=== PATIENT | female | born 1965 | race Caucasian/White ===

== ENCOUNTER → 2017-10-20 | Outpatient (CLI) | payer OTHER ==
[~2017-10-20] MED LIST: ABAT250V; ACID REDUCER20 MG PO; AIMOVIG AU70 MG/1 ML SC; ALMOTRIPTAN M12.5 MG PO; AMIT25 PO; ATOR20 PO; AXERT PO; BENTYL20 MG PO; BOTOX COSMETIC100 U; BUPR100; BUPR75 PO; Butalbital-Caf1 EACH PO; CHLORHEXIDINE FL1 ML MC; CLON.5; CODBUTACEC; CODBUTACEC PO; CYCL0.05OP; CYCL10 PO; CYMBALTA; DESO.05TL; DIAZ10 PO; DIAZ5 PO; DICY20 PO; DOCU100 PO; DOXY100 PO; DULO30; DULO60; EFFER K PO; ERGO50000; FLUO10 PO; FLUO20; FLUT44OIA; FROV2.5; Fludrocortison0.1 MG; Fludrocortison0.1 MG PO; HYDACE10B PO; HYDACE5 PO; HYDACE7.5; HYDHCL25 PO; HYDR1TAB94 PO; KETO10 PO; LIDOCAINE-PRILOCAINE; LORA.5; LORA.5 PO; LORA1 PO; MAGN84 PO; METO100ER; METO50ER; MINOCYCLINE; MIRALAX17 GM PO; MONT10T PO; MONT4 PO; MORP15ER; MORP30; MUPIROCIN1 GM TP; NAPR500; NORT10 PO; NUCENTA PO; NUVIGIL200 MG PO; Norflex100 MG PO; OLOP.1OPSO BOTHEYES; OMEP20ER PO; ONDA4ODT MM; ONDA8 PO; OXYACE5T; OXYACE5T PO; Omeprazole20 M1; PANT20 PO; PANT40 PO; POTCHL20ER PO; PRED20 PO; PROC10; PROM25 PO; PROM25S PR; Percocet 10-321 EACH PO; Percocet 5-3251 EACH PO; Promethegan12.5 MG; Pyridium100 MG; RANI150 PO; RXPROM25 PO; Sodium Chlorid250 M1 IV; Sudogest30 MG PO; TOPI100; TRAM50 PO; VANCO 1 GR1 GM/250 M IV; VENL25; VERA120ERB; VITAMIN D; Verotin-Gr Cap1 EACH; Verotin-Gr Cap1 EACH PO; XARELTO15 MG PO; XARELTO20 MG PO; ZOLP10 PO; Zantac150 MG PO; [UNRECOGNIZED DRUG - OTHER]; [UNRECOGNIZED DRUG - REMARK]
== END | disposition home or self-care (01) ==
LOC: LAB EV 18:19
DX: K94.23 Gastrostomy malfunction (principal)
CPT/HCPCS: 87070; 87075; 87076; 87106; 87185; 87205

== ENCOUNTER 2017-11-28 14:39 | Emergency (ER) | payer OTHER ==
[~2017-11-28] VITALS: Ht 157.5 cm; Wt 47.6 kg
[~2017-11-28 14:39] MED LIST changes: -ABAT250V; -ACID REDUCER20 MG PO; -AIMOVIG AU70 MG/1 ML SC; -ALMOTRIPTAN M12.5 MG PO; -Butalbital-Caf1 EACH PO; -CHLORHEXIDINE FL1 ML MC; -DESO.05TL; -DIAZ10 PO; -DOXY100 PO; -HYDR1TAB94 PO; -KETO10 PO; -LIDOCAINE-PRILOCAINE; -MAGN84 PO; -MIRALAX17 GM PO; -MONT4 PO; -MUPIROCIN1 GM TP; -OLOP.1OPSO BOTHEYES; -ONDA4ODT MM; -Omeprazole20 M1; -PANT20 PO; -POTCHL20ER PO; -Percocet 10-321 EACH PO; -Percocet 5-3251 EACH PO; -Promethegan12.5 MG; -Pyridium100 MG; -RANI150 PO; -Sodium Chlorid250 M1 IV; -Verotin-Gr Cap1 EACH; -Zantac150 MG PO
[2017-11-28] MEDS ORDERED: MIRALAX17 GM PO (15:25)
[2017-11-28] MEDS ORDERED: ACID REDUCER20 MG PO (15:26)
[2017-11-28] MEDS ORDERED: POTCHL20ER PO (15:27)
[2017-11-28] MEDS ORDERED: CYCL0.05OP (15:27)
[2017-11-28] MEDS ORDERED: Promethegan12.5 MG (15:27)
[2017-11-28] MEDS ORDERED: Verotin-Gr Cap1 EACH (15:27)
[2017-11-28] MEDS ORDERED: ABAT250V (15:28)
[2017-11-28] MEDS ORDERED: RANI150 PO (15:28)
[2017-11-28] MEDS ORDERED: Percocet 10-321 EACH PO (16:12)
[2018-02-14] MEDS ORDERED: NUVIGIL200 MG PO (21:19)
[2018-02-14] MEDS ORDERED: ALMOTRIPTAN M12.5 MG PO (21:19)
[2018-02-14] MEDS ORDERED: Butalbital-Caf1 EACH PO (21:20)
[2018-02-14] MEDS ORDERED: HYDR1TAB94 PO (21:20)
[2018-02-14] MEDS ORDERED: CHLORHEXIDINE FL1 ML MC (21:20)
[2018-02-14] MEDS ORDERED: DESO.05TL (21:20)
[2018-02-14] MEDS ORDERED: MIRALAX17 GM PO (21:21)
[2018-02-14] MEDS ORDERED: MONT4 PO (21:21)
[2018-02-14] MEDS ORDERED: LIDOCAINE-PRILOCAINE (21:21)
[2018-02-14] MEDS ORDERED: LORA1 PO (21:21)
[2018-02-14] MEDS ORDERED: KETO10 PO (21:21)
[2018-02-14] MEDS ORDERED: MUPIROCIN1 GM TP (21:22)
[2018-02-14] MEDS ORDERED: OLOP.1OPSO BOTHEYES (21:22)
[2018-02-14] MEDS ORDERED: Pyridium100 MG (21:22)
[2018-02-14] MEDS ORDERED: Omeprazole20 M1 (21:22)
[2018-02-14] MEDS ORDERED: ONDA4ODT MM (21:22)
[2018-04-09] MEDS ORDERED: DIAZ10 PO (10:36)
[2018-04-09] MEDS ORDERED: Percocet 5-3251 EACH PO (15:44)
[2018-04-16] MEDS ORDERED: PANT20 PO (09:59)
[2018-04-16] MEDS ORDERED: Fludrocortison0.1 MG PO (10:00)
[2018-07-10] MEDS ORDERED: Zantac150 MG PO (09:17)
[2018-08-03] MEDS ORDERED: DOXY100 PO (09:36)
== END 2017-11-28 16:25 | disposition home or self-care (01) ==
LOC: ER 14:39
DX: G89.18 Other acute postprocedural pain (principal); R10.9 Unspecified abdominal pain; Z98.84 Bariatric surgery status; Z88.5 Allergy status to narcotic agent; Z88.2 Allergy status to sulfonamides; Z88.1 Allergy status to other antibiotic agents; Z88.8 Allergy status to other drugs, medicaments and biological substances; Z79.899 Other long term (current) drug therapy; Z86.14 Personal history of Methicillin resistant Staphylococcus aureus infection
CPT/HCPCS: 74018; 99283; Q9963

== ENCOUNTER 2017-12-18 11:36 | Emergency (ER) | payer OTHER ==
[~2017-12-18] VITALS: Ht 157.5 cm; Wt 48.1 kg
[~2017-12-18 11:36] MED LIST changes: +ABAT250V; +ACID REDUCER20 MG PO; +MIRALAX17 GM PO; +POTCHL20ER PO; +Percocet 10-321 EACH PO; +Promethegan12.5 MG; +RANI150 PO; +Verotin-Gr Cap1 EACH
== END 2017-12-18 16:27 | disposition home or self-care (01) ==
LOC: ER 11:36
DX: T85.848A Pain due to other internal prosthetic devices, implants and grafts, initial encounter (principal); G43.909 Migraine, unspecified, not intractable, without status migrainosus; M79.7 Fibromyalgia; Z88.2 Allergy status to sulfonamides; Z88.1 Allergy status to other antibiotic agents; Z88.8 Allergy status to other drugs, medicaments and biological substances; Z88.6 Allergy status to analgesic agent; Z79.2 Long term (current) use of antibiotics; Z79.899 Other long term (current) drug therapy; Z90.710 Acquired absence of both cervix and uterus; Z98.890 Other specified postprocedural states
CPT/HCPCS: 74018; 99283; Q9963

== ENCOUNTER → 2018-02-25 | Outpatient (CLI) | payer OTHER ==
[~2018-02-25] MED LIST changes: +ALMOTRIPTAN M12.5 MG PO; +Butalbital-Caf1 EACH PO; +CHLORHEXIDINE FL1 ML MC; +DESO.05TL; +HYDR1TAB94 PO; +KETO10 PO; +LIDOCAINE-PRILOCAINE; +MONT4 PO; +MUPIROCIN1 GM TP; +OLOP.1OPSO BOTHEYES; +ONDA4ODT MM; +Omeprazole20 M1; +Pyridium100 MG
[2018-02-25 18:52] LABS: Appearance, Urine Clear (Clear); Blood, Urine 1+ (Neg); Color, Urine Yellow (P-Yellow); Glucose Qualitative, Urine Neg (Neg); Ketones, Urine 1+ (Neg); Leukocyte Esterase, Urine 2+ (Neg); Nitrite, Urine Neg (Neg); Protein, Urine 2+ (Neg); Urobilinogen, Urine NORM (Normal)
[2018-02-25 19:05] LABS: Bilirubin, Urine 1+ (Neg)
[2018-02-25 19:06] LABS: Calcium Oxalate Crystals Few /hpf
[2018-02-25 19:07] LABS: Bacteria Few /hpf; Squamous Epithelial Cells Few /hpf (Few)
== END ==
LOC: LAB SHORT 16:11 → LAB 16:11 → LAB EV 16:11
PROVIDERS: Physician Assistant
DX: R30.0 Dysuria (principal)
CPT/HCPCS: 81001; 87086

== ENCOUNTER → 2018-03-14 | Outpatient (CLI) | payer OTHER ==
[2018-03-14 11:02] LABS: BASOPHILS ABSOLUTE AUTO 0.02 K/mm3 (0.00-0.23); BASOPHILS PERCENT AUTO 1 % (0-2); EOSINOPHILS ABSOLUTE AUTO 0.28 K/mm3 (0.00-0.68); EOSINOPHILS PERCENT AUTO 7 % (0-6); Hematocrit 33.6 % (33.0-51.0); Hemoglobin 11.2 g/dL (11.5-16.0); IMMATURE GRAN PERCENT AUTO 0 % (0-1); LYMPHOCYTES ABSOLUTE AUTO 1.53 K/mm3 (0.84-5.20); LYMPHOCYTES PERCENT AUTO 38 % (21-46); MONOCYTES ABSOLUTE AUTO 0.31 K/mm3 (0.16-1.47); MONOCYTES PERCENT AUTO 8 % (4-13); Mean Corpuscular HGB 28.6 pg (26.0-34.0); Mean Corpuscular HGB Conc 33.3 g/dL (31.5-36.5); Mean Corpuscular Volume 86 fL (80-100); Mean Platelet Volume 11.6 fL (9.1-12.4); NEUTROPHILS ABSOLUTE AUTO 1.89 K/mm3 (1.96-9.15); NEUTROPHILS PERCENT AUTO 47 % (41-73); Platelet Count 167 K/mm3 (150-400); RDW Coefficient Variation 13.5 % (11.7-14.2); RDW Standard Deviation 42.4 fL (35.1-46.3); Red Blood Cell Count 3.92 M/mm3 (3.80-5.20); White Blood Cell Count 4.03 K/mm3 (4.00-11.30)
[2018-03-14 11:14] LABS: Albumin, Blood 4.1 g/dL (3.4-5.0); Albumin/Globulin Ratio 1.4 (0.8-1.8); Bilirubin, Total 0.4 mg/dL (0.1-1.0); Bun/Creatinine Ratio 11.9 (12.0-20.0); Calcium, Blood 8.7 mg/dL (8.5-10.1); Creatinine, Blood 1.01 mg/dL (0.40-1.00); Potassium, Blood 3.4 mmol/L (3.5-5.5); Total Protein, Blood 7.1 g/dL (6.4-8.2)
== END | disposition home or self-care (01) ==
LOC: LAB EV 10:59 → LAB SHORT 10:59
PROVIDERS: General Practice
DX: E86.0 Dehydration (principal)
CPT/HCPCS: 80053; 83690; 85025

== ENCOUNTER 2018-04-06 00:31 | Day surgery (SDC) | payer OTHER | END 2018-04-06 10:09 | disposition home or self-care (01) | LOC: ATC 00:31 | DX: E86.0 Dehydration (principal); R11.2 Nausea with vomiting, unspecified; Z98.84 Bariatric surgery status; K21.9 Gastro-esophageal reflux disease without esophagitis; M79.7 Fibromyalgia | CPT/HCPCS: 96360; J7030 ==

== ENCOUNTER 2018-04-14 00:39 | Day surgery (SDC) | payer OTHER ==
[~2018-04-14 00:39] MED LIST changes: +DIAZ10 PO; +Percocet 5-3251 EACH PO
[2018-04-16] MEDS ORDERED: PANT20 PO (09:59)
[2018-04-16] MEDS ORDERED: Fludrocortison0.1 MG PO (10:00)
== END 2018-04-14 11:30 | disposition home or self-care (01) ==
LOC: ATC 00:39
DX: E86.0 Dehydration (principal); Z98.84 Bariatric surgery status; R11.2 Nausea with vomiting, unspecified
CPT/HCPCS: 96361; 96374; C9113; J7030

== ENCOUNTER 2018-04-30 00:12 | Day surgery (SDC) | payer OTHER ==
[~2018-04-30 00:12] MED LIST changes: +PANT20 PO
== END 2018-04-30 11:39 | disposition home or self-care (01) ==
LOC: ATC 00:12
DX: E86.0 Dehydration (principal); Z98.84 Bariatric surgery status; R11.2 Nausea with vomiting, unspecified
CPT/HCPCS: 96360; J7030

== ENCOUNTER 2018-05-07 00:19 | Day surgery (SDC) | payer OTHER | END 2018-05-07 12:15 | disposition home or self-care (01) | LOC: ATC 00:19 | DX: E86.0 Dehydration (principal); Z98.84 Bariatric surgery status; R11.2 Nausea with vomiting, unspecified; R62.7 Adult failure to thrive | CPT/HCPCS: 96360; 96361; J7030 ==

== ENCOUNTER 2018-05-14 00:27 | Day surgery (SDC) | payer OTHER | END 2018-05-14 11:11 | disposition home or self-care (01) | LOC: ATC 00:27 | DX: E86.0 Dehydration (principal); Z98.84 Bariatric surgery status; R11.2 Nausea with vomiting, unspecified | CPT/HCPCS: 96360; J7030 ==

== ENCOUNTER 2018-05-19 07:20 | Day surgery (SDC) | payer OTHER | END 2018-05-19 11:05 | disposition home or self-care (01) | LOC: ATC 07:20 | DX: E86.0 Dehydration (principal); R11.2 Nausea with vomiting, unspecified; Z98.84 Bariatric surgery status | CPT/HCPCS: 96360; 96361; J7030 ==

== ENCOUNTER 2018-05-21 00:03 | Day surgery (SDC) | payer OTHER | END 2018-05-21 11:35 | disposition home or self-care (01) | LOC: ATC 00:03 | DX: E86.0 Dehydration (principal); K91.0 Vomiting following gastrointestinal surgery; Z98.84 Bariatric surgery status | CPT/HCPCS: 96360; 96361; J7030 ==

== ENCOUNTER 2018-06-02 00:03 | Day surgery (SDC) | payer OTHER | END 2018-06-02 11:15 | disposition home or self-care (01) | LOC: ATC 00:03 | DX: E86.0 Dehydration (principal); Z98.84 Bariatric surgery status; R11.2 Nausea with vomiting, unspecified | CPT/HCPCS: 96360; J7030 ==

== ENCOUNTER 2018-06-05 00:13 | Day surgery (SDC) | payer OTHER | END 2018-06-05 17:53 | disposition home or self-care (01) | LOC: ATC 00:13 | DX: E86.0 Dehydration (principal); Z98.84 Bariatric surgery status; R11.2 Nausea with vomiting, unspecified | CPT/HCPCS: 36569; 96360; 96361; C1751; J7030 ==

== ENCOUNTER 2018-06-08 00:13 | Day surgery (SDC) | payer OTHER | END 2018-06-08 11:45 | disposition home or self-care (01) | LOC: ATC 00:13 | DX: E86.0 Dehydration (principal); K91.0 Vomiting following gastrointestinal surgery; Z98.84 Bariatric surgery status | CPT/HCPCS: 96360; 96361; J7030 ==

== ENCOUNTER 2018-06-11 00:31 | Day surgery (SDC) | payer OTHER ==
[2018-06-11] MEDS ORDERED: Sodium Chlorid250 M1 IV (09:47)
== END 2018-06-11 11:55 | disposition home or self-care (01) ==
LOC: ATC 00:31
DX: E86.0 Dehydration (principal); K91.0 Vomiting following gastrointestinal surgery; Z98.84 Bariatric surgery status
CPT/HCPCS: 96360; 96361; J7030

== ENCOUNTER 2018-06-16 00:14 | Day surgery (SDC) | payer OTHER ==
[~2018-06-16 00:14] MED LIST changes: +Sodium Chlorid250 M1 IV
== END 2018-06-16 09:59 | disposition home or self-care (01) ==
LOC: ATC 00:14
DX: E86.0 Dehydration (principal); K91.0 Vomiting following gastrointestinal surgery; Z98.84 Bariatric surgery status
CPT/HCPCS: 96360; 96361; J7030

== ENCOUNTER 2018-06-18 00:16 | Day surgery (SDC) | payer OTHER | END 2018-06-18 12:12 | disposition home or self-care (01) | LOC: ATC 00:16 | DX: E86.0 Dehydration (principal); K91.0 Vomiting following gastrointestinal surgery; Z98.84 Bariatric surgery status | CPT/HCPCS: 96360; 96361; J7030 ==

== ENCOUNTER 2018-06-22 00:33 | Day surgery (SDC) | payer OTHER | END 2018-06-22 12:50 | disposition home or self-care (01) | LOC: ATC 00:33 | DX: E86.0 Dehydration (principal); R11.2 Nausea with vomiting, unspecified; Z98.84 Bariatric surgery status | CPT/HCPCS: 96360; 96361; J7030 ==

== ENCOUNTER 2018-06-26 00:22 | Day surgery (SDC) | payer OTHER ==
[2018-06-26] MEDS ORDERED: DOXY100 PO (10:48)
== END 2018-06-26 12:17 | disposition home or self-care (01) ==
LOC: ATC 00:22
DX: E86.0 Dehydration (principal); K91.0 Vomiting following gastrointestinal surgery; Z98.84 Bariatric surgery status
CPT/HCPCS: 96360; 96361; J7030

== ENCOUNTER 2018-07-20 08:03 | Day surgery (SDC) | payer OTHER ==
[~2018-07-20 08:03] MED LIST changes: +DOXY100 PO; +Zantac150 MG PO
== END 2018-07-20 12:03 | disposition home or self-care (01) ==
LOC: ATC 08:03
DX: D50.8 Other iron deficiency anemias (principal); E87.6 Hypokalemia
CPT/HCPCS: 96360; 96361; J7030

== ENCOUNTER 2018-07-24 01:13 | Day surgery (SDC) | payer OTHER ==
[2018-07-24] MEDS ORDERED: MAGN84 PO (09:52)
[2018-07-24] MEDS ORDERED: AIMOVIG AU70 MG/1 ML SC (09:52)
[2018-08-03] MEDS ORDERED: DOXY100 PO (09:36)
== END 2018-07-24 11:53 | disposition home or self-care (01) ==
LOC: ATC 01:13
DX: D50.8 Other iron deficiency anemias (principal); Z90.3 Acquired absence of stomach [part of]; E46 Unspecified protein-calorie malnutrition; E87.6 Hypokalemia
CPT/HCPCS: 96360; 96361; J7030

== ENCOUNTER 2018-07-26 12:20 | Emergency (ER) | payer OTHER ==
[~2018-07-26] VITALS: Ht 167.6 cm; Wt 59.0 kg
[~2018-07-26 12:20] MED LIST changes: +AIMOVIG AU70 MG/1 ML SC; +MAGN84 PO
[2018-07-26 13:07] LABS: Anion Gap 9 mmol/L (6-16); Blood Urea Nitrogen 10 mg/dL (8-24); Bun/Creatinine Ratio 11.8 (12.0-20.0); CO2, Blood 27 mmol/L (21-32); Calcium, Blood 8.1 mg/dL (8.5-10.1); Chloride, Blood 104 mmol/L (98-108); Creatinine, Blood 0.85 mg/dL (0.40-1.00); Glomerular Filtration Rate >60 (60-); Glucose, Blood 86 mg/dL (70-99); Magnesium, Blood 1.8 mg/dL (1.6-2.4); Potassium, Blood 3.5 mmol/L (3.5-5.5); Sodium, Blood 140 mmol/L (136-145)
== END 2018-07-26 15:00 | disposition home or self-care (01) ==
LOC: ER 12:20
PROVIDERS: Emergency Medicine
DX: R51 Headache (principal); Z88.5 Allergy status to narcotic agent; Z88.2 Allergy status to sulfonamides; Z91.048 Other nonmedicinal substance allergy status; Z88.1 Allergy status to other antibiotic agents; Z88.8 Allergy status to other drugs, medicaments and biological substances; Z79.899 Other long term (current) drug therapy
CPT/HCPCS: 80048; 83735; 96361; 96374; 96375; 99283-25; J0780; J1200; J1885; J7120

== ENCOUNTER 2018-09-06 10:43 | Day surgery (SDC) | payer OTHER | END 2018-09-06 22:44 | disposition home or self-care (01) | LOC: ATC 10:43 | DX: E86.0 Dehydration (principal); Z98.84 Bariatric surgery status; R11.2 Nausea with vomiting, unspecified | CPT/HCPCS: 96360; J7030 ==

== ENCOUNTER 2018-09-07 00:44 | Day surgery (SDC) | payer OTHER | END 2018-09-07 11:25 | disposition home or self-care (01) | LOC: ATC 00:44 | DX: E86.0 Dehydration (principal); Z98.84 Bariatric surgery status; R11.2 Nausea with vomiting, unspecified | CPT/HCPCS: 96360; 96361; J7030 ==

== ENCOUNTER 2018-09-11 00:05 | Day surgery (SDC) | payer OTHER | END 2018-09-11 22:50 | disposition home or self-care (01) | LOC: ATC 00:05 | DX: E86.0 Dehydration (principal); Z98.84 Bariatric surgery status; R11.2 Nausea with vomiting, unspecified | CPT/HCPCS: 96360; 96361; J7030 ==

== ENCOUNTER 2018-09-14 00:03 | Day surgery (SDC) | payer OTHER ==
[2018-09-14] MEDS ORDERED: DOXY100 PO ×2 (09:41→09:42)
== END 2018-09-14 11:45 | disposition home or self-care (01) ==
LOC: ATC 00:03
DX: E86.0 Dehydration (principal); R11.2 Nausea with vomiting, unspecified; Z98.84 Bariatric surgery status
CPT/HCPCS: 96360; 96361; J7030

== ENCOUNTER 2018-09-18 02:26 | Day surgery (SDC) | payer OTHER | END 2018-09-18 12:01 | disposition home or self-care (01) | LOC: ATC 02:26 | DX: E86.0 Dehydration (principal); Z98.84 Bariatric surgery status; R11.2 Nausea with vomiting, unspecified | CPT/HCPCS: 96360; 96361; J7030 ==

== ENCOUNTER 2018-09-21 00:08 | Day surgery (SDC) | payer OTHER | END 2018-09-21 11:48 | disposition home or self-care (01) | LOC: ATC 00:08 | DX: E86.0 Dehydration (principal); Z98.84 Bariatric surgery status; R11.2 Nausea with vomiting, unspecified | CPT/HCPCS: 96360; 96361; J7030 ==

== ENCOUNTER 2018-09-25 01:26 | Day surgery (SDC) | payer OTHER | END 2018-09-25 12:03 | disposition home or self-care (01) | LOC: ATC 01:26 | DX: E86.0 Dehydration (principal); Z98.84 Bariatric surgery status; R11.2 Nausea with vomiting, unspecified | CPT/HCPCS: 96360; 96361; J7030 ==

== ENCOUNTER 2018-09-27 10:00 | Day surgery (SDC) | payer OTHER | END 2018-09-27 16:44 | disposition home or self-care (01) | LOC: ATC 10:00 | DX: E86.0 Dehydration (principal); Z98.84 Bariatric surgery status; R11.2 Nausea with vomiting, unspecified | CPT/HCPCS: 96360; 96361; J7030 ==

== ENCOUNTER 2018-09-28 00:09 | Day surgery (SDC) | payer OTHER ==
--- NOTE | 2018-09-28 10:27 | NUR ---
PT DECLINED SECOND LITER OF IVF TODAY.
== END 2018-09-28 10:18 | disposition home or self-care (01) ==
LOC: ATC 00:09
DX: E86.0 Dehydration (principal); Z98.84 Bariatric surgery status; R11.2 Nausea with vomiting, unspecified
CPT/HCPCS: 96360; J7030

== ENCOUNTER 2018-10-02 00:18 | Day surgery (SDC) | payer OTHER ==
[2018-10-02] MEDS ORDERED: CLIN300 PO (09:29)
== END 2018-10-02 11:35 | disposition home or self-care (01) ==
LOC: ATC 00:18
DX: E86.0 Dehydration (principal); Z98.84 Bariatric surgery status; R11.2 Nausea with vomiting, unspecified
CPT/HCPCS: 96360; 96361; J7030

== ENCOUNTER 2018-10-05 00:07 | Day surgery (SDC) | payer OTHER ==
[~2018-10-05 00:07] MED LIST changes: +CLIN300 PO
== END 2018-10-05 23:23 | disposition home or self-care (01) ==
LOC: ATC 00:07
DX: E86.0 Dehydration (principal); Z98.84 Bariatric surgery status; R11.2 Nausea with vomiting, unspecified
CPT/HCPCS: 96360; 96361; J7030

== ENCOUNTER 2018-10-08 00:14 | Day surgery (SDC) | payer OTHER | END 2018-10-08 11:45 | disposition home or self-care (01) | LOC: ATC 00:14 | DX: E86.0 Dehydration (principal); Z98.84 Bariatric surgery status; R11.2 Nausea with vomiting, unspecified; R11.0 Nausea; E46 Unspecified protein-calorie malnutrition | CPT/HCPCS: 96360; 96361; J1642; J7030 ==

== ENCOUNTER 2018-10-12 00:09 | Day surgery (SDC) | payer OTHER ==
--- NOTE | 2018-10-12 09:47 | NUR ---
PT C/O RIGHT ELBOW DISCOMFORT THAT SHE NOTICED WHEN SHE WOKE UP THIS MORNING. NO REDNESS, HEAT OR SWELLING NOTED AT THE ELBOW. PT INSTRUCTED TO APPLY HEAT AND ELEVATED HER ARM. SHE REPORTS A HISTORY OF A BLOOD CLOT IN THE PAST. PT STATES SHE WILL CONTACT MD IF SHE STARTS TO HAVE REDNESS, SWELLING, CMS CHANGES TO HER RIGHT HAND.
== END 2018-10-12 11:44 | disposition home or self-care (01) ==
LOC: ATC 00:09
DX: E86.0 Dehydration (principal); Z98.84 Bariatric surgery status; R11.2 Nausea with vomiting, unspecified
CPT/HCPCS: 96360; 96361; J1642; J7030

== ENCOUNTER 2018-10-16 00:51 | Day surgery (SDC) | payer OTHER | END 2018-10-16 12:01 | disposition home or self-care (01) | LOC: ATC 00:51 | DX: E86.0 Dehydration (principal); Z98.84 Bariatric surgery status; R11.2 Nausea with vomiting, unspecified | CPT/HCPCS: 96360; 96361; J1642; J7030 ==

== ENCOUNTER 2018-10-19 07:38 | Day surgery (SDC) | payer OTHER | END 2018-10-19 11:40 | disposition home or self-care (01) | LOC: ATC 07:38 | DX: E86.0 Dehydration (principal); Z98.84 Bariatric surgery status; R11.0 Nausea; E46 Unspecified protein-calorie malnutrition; Z98.890 Other specified postprocedural states; Z87.19 Personal history of other diseases of the digestive system; Z90.3 Acquired absence of stomach [part of] | CPT/HCPCS: 96360; 96361; J1642; J7030 ==

== ENCOUNTER 2018-10-23 07:42 | Day surgery (SDC) | payer OTHER | END 2018-10-23 11:48 | disposition home or self-care (01) | LOC: ATC 07:42 | DX: E86.0 Dehydration (principal); Z98.84 Bariatric surgery status; R11.2 Nausea with vomiting, unspecified | CPT/HCPCS: 96360; 96361; J1642; J7030 ==

== ENCOUNTER 2018-10-26 08:19 | Day surgery (SDC) | payer OTHER | END 2018-10-26 13:00 | disposition home or self-care (01) | LOC: ATC 08:19 | DX: K90.9 Intestinal malabsorption, unspecified (principal); K21.9 Gastro-esophageal reflux disease without esophagitis; Z98.890 Other specified postprocedural states; Z45.2 Encounter for adjustment and management of vascular access device; Z87.19 Personal history of other diseases of the digestive system | CPT/HCPCS: 96360; 96361; J1642; J7030 ==

== ENCOUNTER 2018-10-30 00:19 | Day surgery (SDC) | payer OTHER | END 2018-10-30 11:36 | disposition home or self-care (01) | LOC: ATC 00:19 | DX: Z98.84 Bariatric surgery status (principal); K90.9 Intestinal malabsorption, unspecified; K21.9 Gastro-esophageal reflux disease without esophagitis; Z98.890 Other specified postprocedural states; Z87.19 Personal history of other diseases of the digestive system; Z90.3 Acquired absence of stomach [part of]; R11.0 Nausea | CPT/HCPCS: 96360; 96361; J1642; J7030 ==

== ENCOUNTER 2018-11-02 00:09 | Day surgery (SDC) | payer OTHER | END 2018-11-02 22:44 | disposition home or self-care (01) | LOC: ATC 00:09 | DX: Z98.84 Bariatric surgery status (principal); E46 Unspecified protein-calorie malnutrition; K90.9 Intestinal malabsorption, unspecified; K21.9 Gastro-esophageal reflux disease without esophagitis | CPT/HCPCS: 96360; 96361; J1642; J7030 ==

== ENCOUNTER 2018-11-03 12:27 | Day surgery (SDC) | payer OTHER ==
[~2018-11-03] VITALS: Ht 157.5 cm; Wt 44.2 kg
== END 2018-11-03 15:07 | disposition home or self-care (01) ==
LOC: ORSCSDS 12:27
DX: K21.9 Gastro-esophageal reflux disease without esophagitis (principal); R11.2 Nausea with vomiting, unspecified; Z98.84 Bariatric surgery status; F41.0 Panic disorder [episodic paroxysmal anxiety]; G47.33 Obstructive sleep apnea (adult) (pediatric); G25.81 Restless legs syndrome; M79.7 Fibromyalgia; Z79.899 Other long term (current) drug therapy
CPT/HCPCS: 88305; 88342; J0690; J2250; J7120

== ENCOUNTER 2018-11-06 00:24 | Day surgery (SDC) | payer OTHER ==
[2018-11-06] MEDS ORDERED: HEP LOCK F IV (10:28)
== END 2018-11-06 12:22 | disposition home or self-care (01) ==
LOC: ATC 00:24
DX: K90.9 Intestinal malabsorption, unspecified (principal); Z98.84 Bariatric surgery status; Z90.3 Acquired absence of stomach [part of]; K21.9 Gastro-esophageal reflux disease without esophagitis; Z98.890 Other specified postprocedural states; Z87.19 Personal history of other diseases of the digestive system; R11.0 Nausea
CPT/HCPCS: 96360; 96361; J1642; J7030

== ENCOUNTER 2018-11-09 00:24 | Day surgery (SDC) | payer OTHER ==
[~2018-11-09 00:24] MED LIST changes: +HEP LOCK F IV
== END 2018-11-09 12:10 | disposition home or self-care (01) ==
LOC: ATC 00:24
DX: K90.9 Intestinal malabsorption, unspecified (principal); K21.9 Gastro-esophageal reflux disease without esophagitis; Z98.84 Bariatric surgery status; Z98.890 Other specified postprocedural states
CPT/HCPCS: 96360; 96361; J1642; J7030

== ENCOUNTER 2018-11-13 00:47 | Day surgery (SDC) | payer OTHER ==
[2018-11-13] MEDS ORDERED: OCTREOTIDE SC (11:02)
== END 2018-11-13 12:03 | disposition home or self-care (01) ==
LOC: ATC 00:47
DX: K90.9 Intestinal malabsorption, unspecified (principal); E46 Unspecified protein-calorie malnutrition; K21.9 Gastro-esophageal reflux disease without esophagitis; Z98.84 Bariatric surgery status; Z98.890 Other specified postprocedural states; Z87.19 Personal history of other diseases of the digestive system; Z95.828 Presence of other vascular implants and grafts
CPT/HCPCS: J1642; J7030

== ENCOUNTER 2018-11-18 00:07 | Day surgery (SDC) | payer OTHER ==
[~2018-11-18 00:07] MED LIST changes: +OCTREOTIDE SC
--- NOTE | 2018-11-18 16:11 | NUR ---
PT RECEIVED 2 L NS. TOLERATED WELL
== END 2018-11-18 16:09 | disposition home or self-care (01) ==
LOC: ATC 00:07
DX: Z98.84 Bariatric surgery status (principal); K90.9 Intestinal malabsorption, unspecified; E86.0 Dehydration; D21.9 Benign neoplasm of connective and other soft tissue, unspecified; K21.9 Gastro-esophageal reflux disease without esophagitis; Z98.890 Other specified postprocedural states; Z87.19 Personal history of other diseases of the digestive system
CPT/HCPCS: 96360; J1642; J7030

== ENCOUNTER 2018-11-20 00:10 | Day surgery (SDC) | payer OTHER ==
[2018-11-20] MEDS ORDERED: Normal Saline Fl2 ML IV (10:20)
== END 2018-11-20 12:22 | disposition home or self-care (01) ==
LOC: ATC 00:10
DX: E86.0 Dehydration (principal); Z98.84 Bariatric surgery status; K90.9 Intestinal malabsorption, unspecified; K21.9 Gastro-esophageal reflux disease without esophagitis; Z98.890 Other specified postprocedural states; Z87.19 Personal history of other diseases of the digestive system
CPT/HCPCS: 96360; 96361; J1642; J7030

== ENCOUNTER 2018-11-23 00:35 | Day surgery (SDC) | payer OTHER ==
[~2018-11-23 00:35] MED LIST changes: +Normal Saline Fl2 ML IV
== END 2018-11-23 12:24 | disposition home or self-care (01) ==
LOC: ATC 00:35
DX: Z98.84 Bariatric surgery status (principal); E46 Unspecified protein-calorie malnutrition; R11.0 Nausea; K21.9 Gastro-esophageal reflux disease without esophagitis; Z98.890 Other specified postprocedural states; Z87.19 Personal history of other diseases of the digestive system; M79.7 Fibromyalgia
CPT/HCPCS: J1642; J7030

== ENCOUNTER 2018-11-27 00:46 | Day surgery (SDC) | payer OTHER | END 2018-11-27 11:15 | disposition home or self-care (01) | LOC: ATC 00:46 | DX: E86.0 Dehydration (principal); R11.2 Nausea with vomiting, unspecified; Z98.84 Bariatric surgery status; K90.9 Intestinal malabsorption, unspecified; K21.9 Gastro-esophageal reflux disease without esophagitis; Z98.890 Other specified postprocedural states; Z87.19 Personal history of other diseases of the digestive system | CPT/HCPCS: 96360; 96361; J1642; J7030 ==

== ENCOUNTER 2018-11-30 00:07 | Day surgery (SDC) | payer OTHER | END 2018-11-30 11:08 | disposition home or self-care (01) | LOC: ATC 00:07 | DX: E86.0 Dehydration (principal); R11.2 Nausea with vomiting, unspecified; Z98.84 Bariatric surgery status; K90.9 Intestinal malabsorption, unspecified; K21.9 Gastro-esophageal reflux disease without esophagitis; Z98.890 Other specified postprocedural states; Z87.19 Personal history of other diseases of the digestive system | CPT/HCPCS: 96360; 96361; J1642; J7030 ==

== ENCOUNTER 2018-12-04 00:26 | Day surgery (SDC) | payer OTHER | END 2018-12-04 12:00 | disposition home or self-care (01) | LOC: ATC 00:26 | DX: R11.0 Nausea (principal); K90.9 Intestinal malabsorption, unspecified; K21.0 Gastro-esophageal reflux disease with esophagitis; F32.9 Major depressive disorder, single episode, unspecified; G43.909 Migraine, unspecified, not intractable, without status migrainosus; F41.0 Panic disorder [episodic paroxysmal anxiety]; Z79.899 Other long term (current) drug therapy; Z98.84 Bariatric surgery status; Z98.890 Other specified postprocedural states | CPT/HCPCS: 96360; 96361; J1642; J7030 ==

== ENCOUNTER 2018-12-11 00:20 | Day surgery (SDC) | payer OTHER | END 2018-12-11 11:15 | disposition home or self-care (01) | LOC: ATC 00:20 | DX: K90.9 Intestinal malabsorption, unspecified (principal); K21.9 Gastro-esophageal reflux disease without esophagitis; Z98.84 Bariatric surgery status; Z87.19 Personal history of other diseases of the digestive system; Z98.890 Other specified postprocedural states | CPT/HCPCS: 96360; 96361; J1642; J7030 ==

== ENCOUNTER 2018-12-14 00:31 | Day surgery (SDC) | payer OTHER | END 2018-12-14 12:16 | disposition home or self-care (01) | LOC: ATC 00:31 | DX: R11.0 Nausea (principal); E46 Unspecified protein-calorie malnutrition; F32.9 Major depressive disorder, single episode, unspecified; K21.9 Gastro-esophageal reflux disease without esophagitis; F41.0 Panic disorder [episodic paroxysmal anxiety]; Z87.19 Personal history of other diseases of the digestive system; Z98.890 Other specified postprocedural states; Z90.3 Acquired absence of stomach [part of] | CPT/HCPCS: 96360; 96361; J1642; J7030 ==

== ENCOUNTER 2018-12-17 09:44 | Day surgery (SDC) | payer OTHER | END 2018-12-17 12:13 | disposition home or self-care (01) | LOC: ATC 09:44 | DX: R11.0 Nausea (principal); K90.9 Intestinal malabsorption, unspecified; K21.9 Gastro-esophageal reflux disease without esophagitis; F32.9 Major depressive disorder, single episode, unspecified; Z98.84 Bariatric surgery status; Z98.890 Other specified postprocedural states; Z87.19 Personal history of other diseases of the digestive system | CPT/HCPCS: 96360; 96361; J1642; J7030 ==

== ENCOUNTER 2018-12-20 09:49 | Day surgery (SDC) | payer OTHER | END 2018-12-20 12:19 | disposition home or self-care (01) | LOC: ATC 09:49 | DX: Z45.2 Encounter for adjustment and management of vascular access device (principal); E46 Unspecified protein-calorie malnutrition; K90.9 Intestinal malabsorption, unspecified; K21.9 Gastro-esophageal reflux disease without esophagitis; Z98.84 Bariatric surgery status | CPT/HCPCS: 96360; 96361; J1642; J7030 ==

== ENCOUNTER 2018-12-21 08:57 | Day surgery (SDC) | payer OTHER | END 2018-12-21 12:14 | disposition home or self-care (01) | LOC: ATC 08:57 | DX: R11.0 Nausea (principal); K90.9 Intestinal malabsorption, unspecified; F32.9 Major depressive disorder, single episode, unspecified; K21.9 Gastro-esophageal reflux disease without esophagitis; F41.0 Panic disorder [episodic paroxysmal anxiety]; Z98.84 Bariatric surgery status; Z87.19 Personal history of other diseases of the digestive system; Z98.890 Other specified postprocedural states; Z90.3 Acquired absence of stomach [part of] | CPT/HCPCS: J1642; J7030 ==

== ENCOUNTER 2018-12-25 00:39 | Day surgery (SDC) | payer OTHER | END 2018-12-25 12:19 | disposition home or self-care (01) | LOC: ATC 00:39 | DX: R11.0 Nausea (principal); K90.9 Intestinal malabsorption, unspecified; K21.9 Gastro-esophageal reflux disease without esophagitis; Z98.84 Bariatric surgery status; Z87.19 Personal history of other diseases of the digestive system; Z98.890 Other specified postprocedural states | CPT/HCPCS: 96360; 96361; J1642; J7030 ==

== ENCOUNTER 2018-12-28 00:11 | Day surgery (SDC) | payer OTHER | END 2018-12-28 12:03 | disposition home or self-care (01) | LOC: ATC 00:11 | DX: R11.0 Nausea (principal); E46 Unspecified protein-calorie malnutrition; Z90.3 Acquired absence of stomach [part of]; Z98.890 Other specified postprocedural states; Z87.19 Personal history of other diseases of the digestive system; Z79.899 Other long term (current) drug therapy | CPT/HCPCS: J1642; J7030 ==

== ENCOUNTER 2019-01-04 00:25 | Day surgery (SDC) | payer OTHER ==
[~2019-01-04 00:25] MED LIST changes: +IBUP400 PO
[2019-01-04 12:35] LABS: BASOPHILS ABSOLUTE AUTO 0.03 K/mm3 (0.00-0.23); BASOPHILS PERCENT AUTO 1 % (0-2); EOSINOPHILS ABSOLUTE AUTO 0.22 K/mm3 (0.00-0.68); EOSINOPHILS PERCENT AUTO 4 % (0-6); Hematocrit 38.2 % (33.0-51.0); Hemoglobin 11.3 g/dL (11.5-16.0); IMMATURE GRAN ABSOLUTE AUTO 0.01 K/mm3 (0.00-0.10); IMMATURE GRAN PERCENT AUTO 0 % (0-1); LYMPHOCYTES ABSOLUTE AUTO 2.24 K/mm3 (0.84-5.20); LYMPHOCYTES PERCENT AUTO 42 % (21-46); MONOCYTES ABSOLUTE AUTO 0.45 K/mm3 (0.16-1.47); MONOCYTES PERCENT AUTO 9 % (4-13); Mean Corpuscular HGB 29.6 pg (26.0-34.0); Mean Corpuscular HGB Conc 29.6 g/dL (31.5-36.5); Mean Corpuscular Volume 100 fL (80-100); NEUTROPHILS ABSOLUTE AUTO 2.35 K/mm3 (1.96-9.15); NEUTROPHILS PERCENT AUTO 44 % (41-73); Platelet Count 172 K/mm3 (150-400); RDW Coefficient Variation 13.9 % (11.7-14.2); RDW Standard Deviation 51.2 fL (35.1-46.3); Red Blood Cell Count 3.82 M/mm3 (3.80-5.20)
[2019-01-04 13:13] LABS: Alanine Aminotransfer (ALT/SGP 19 U/L (12-78); Albumin, Blood 3.5 g/dL (3.4-5.0); Albumin/Globulin Ratio 1.2 (0.8-1.8); Alk Phos 73 U/L (50-136); Anion Gap 6 mmol/L (6-16); Aspartate Aminotrans (AST/SGOT 15 U/L (12-37); Bilirubin, Total 0.3 mg/dL (0.1-1.0); Blood Urea Nitrogen 20 mg/dL (8-24); Bun/Creatinine Ratio 20.9 (12.0-20.0); CHOL/HDL RATIO 3.1; CO2, Blood 29 mmol/L (21-32); Calcium, Blood 8.5 mg/dL (8.5-10.1); Chloride, Blood 105 mmol/L (98-108); Cholesterol 278 mg/dL (50-200); Creatinine, Blood 0.96 mg/dL (0.40-1.00); Glomerular Filtration Rate >60 (60-); Glucose, Blood 92 mg/dL (70-99); HDL Cholesterol 89 mg/dL (>39); LDL/HDL RATIO 1.9; Low Density Lipoprotein Chol 168 mg/dL (0-110); Percent Saturation 24.8 % (15.0-50.0); Potassium, Blood 4.1 mmol/L (3.5-5.5); Sodium, Blood 140 mmol/L (136-145); Total Protein, Blood 6.5 g/dL (6.4-8.2); Triglycerides 106 mg/dL (30-160); Very Low Density Lipoprot Chol 21 mg/dL (6-32)
== END 2019-01-04 12:24 | disposition home or self-care (01) ==
LOC: ATC 00:25
PROVIDERS: Internal Medicine
DX: K91.2 Postsurgical malabsorption, not elsewhere classified (principal); K21.9 Gastro-esophageal reflux disease without esophagitis; E61.1 Iron deficiency; E53.8 Deficiency of other specified B group vitamins; E55.9 Vitamin D deficiency, unspecified; Z98.84 Bariatric surgery status; Z87.19 Personal history of other diseases of the digestive system; Z98.890 Other specified postprocedural states
CPT/HCPCS: 80053; 80061; 82306; 82607; 82728; 82746; 83540; 83550; 83970; 85025; J1642; J7030

== ENCOUNTER 2019-01-08 07:14 | Day surgery (SDC) | payer OTHER | END 2019-01-08 23:31 | disposition home or self-care (01) | LOC: ATC 07:14 | DX: K91.2 Postsurgical malabsorption, not elsewhere classified (principal); R11.0 Nausea; E55.9 Vitamin D deficiency, unspecified; E53.8 Deficiency of other specified B group vitamins; E61.1 Iron deficiency; F32.9 Major depressive disorder, single episode, unspecified; K21.9 Gastro-esophageal reflux disease without esophagitis; G43.909 Migraine, unspecified, not intractable, without status migrainosus; F41.0 Panic disorder [episodic paroxysmal anxiety]; Z98.84 Bariatric surgery status; Z98.890 Other specified postprocedural states; Z87.19 Personal history of other diseases of the digestive system; Z79.899 Other long term (current) drug therapy | CPT/HCPCS: 96360; 96361; J1642; J7030 ==

== ENCOUNTER 2019-01-15 00:08 | Day surgery (SDC) | payer OTHER | END 2019-01-15 11:00 | disposition home or self-care (01) | LOC: ATC 00:08 | DX: K91.2 Postsurgical malabsorption, not elsewhere classified (principal); E55.9 Vitamin D deficiency, unspecified; E53.8 Deficiency of other specified B group vitamins; E61.1 Iron deficiency; F32.9 Major depressive disorder, single episode, unspecified; K21.9 Gastro-esophageal reflux disease without esophagitis; G43.909 Migraine, unspecified, not intractable, without status migrainosus; F41.0 Panic disorder [episodic paroxysmal anxiety]; Z98.84 Bariatric surgery status | CPT/HCPCS: 96360; 96361; J1642; J7030 ==

== ENCOUNTER 2019-01-18 00:03 | Day surgery (SDC) | payer OTHER ==
[2019-01-18] MEDS ORDERED: DOXY100 PO (09:37)
== END 2019-01-18 11:41 | disposition home or self-care (01) ==
LOC: ATC 00:03
DX: K91.2 Postsurgical malabsorption, not elsewhere classified (principal); E55.9 Vitamin D deficiency, unspecified; E53.8 Deficiency of other specified B group vitamins; F32.9 Major depressive disorder, single episode, unspecified; E61.1 Iron deficiency; K21.9 Gastro-esophageal reflux disease without esophagitis; G43.909 Migraine, unspecified, not intractable, without status migrainosus; F41.0 Panic disorder [episodic paroxysmal anxiety]; Z79.899 Other long term (current) drug therapy; Z98.84 Bariatric surgery status; Z98.890 Other specified postprocedural states; Z87.19 Personal history of other diseases of the digestive system
CPT/HCPCS: 96360; 96361; J1642; J7030

== ENCOUNTER 2019-01-29 11:16 | Emergency (ER) | payer OTHER ==
[~2019-01-29] VITALS: Ht 160 cm; Wt 49.9 kg
[2019-01-29] MEDS ORDERED: BOTOX200 UNIT IJ (11:57)
[2019-01-29] MEDS ORDERED: MONT10T (11:57)
== END 2019-01-29 12:53 | disposition home or self-care (01) ==
LOC: ER 11:16
DX: R51 Headache (principal); I95.9 Hypotension, unspecified; M79.7 Fibromyalgia; Z88.1 Allergy status to other antibiotic agents; Z88.2 Allergy status to sulfonamides; Z88.8 Allergy status to other drugs, medicaments and biological substances; Z79.899 Other long term (current) drug therapy
CPT/HCPCS: 96372; 99283-25; J1642; J1885

== ENCOUNTER 2019-02-01 00:01 | Day surgery (SDC) | payer OTHER ==
[~2019-02-01 00:01] MED LIST changes: +BOTOX200 UNIT IJ; +MONT10T
== END 2019-02-01 23:02 | disposition home or self-care (01) ==
LOC: ATC 00:01
DX: K91.2 Postsurgical malabsorption, not elsewhere classified (principal); E55.9 Vitamin D deficiency, unspecified; E53.8 Deficiency of other specified B group vitamins; E61.1 Iron deficiency; K21.9 Gastro-esophageal reflux disease without esophagitis; Z98.84 Bariatric surgery status; Z98.890 Other specified postprocedural states; Z87.19 Personal history of other diseases of the digestive system; Z90.3 Acquired absence of stomach [part of]; Z79.899 Other long term (current) drug therapy
CPT/HCPCS: 96360; 96361; J1642; J7030

== ENCOUNTER 2019-02-12 00:16 | Day surgery (SDC) | payer OTHER | END 2019-02-12 10:59 | disposition home or self-care (01) | LOC: ATC 00:16 | DX: K91.2 Postsurgical malabsorption, not elsewhere classified (principal); E55.9 Vitamin D deficiency, unspecified; E53.8 Deficiency of other specified B group vitamins; E61.1 Iron deficiency; F32.9 Major depressive disorder, single episode, unspecified; K21.9 Gastro-esophageal reflux disease without esophagitis; G43.909 Migraine, unspecified, not intractable, without status migrainosus; F41.0 Panic disorder [episodic paroxysmal anxiety]; Z98.84 Bariatric surgery status; Z98.890 Other specified postprocedural states; Z87.19 Personal history of other diseases of the digestive system | CPT/HCPCS: 96360; 96361; J1642; J7030 ==

== ENCOUNTER 2019-02-19 00:05 | Day surgery (SDC) | payer OTHER | END 2019-02-19 10:43 | disposition home or self-care (01) | LOC: ATC 00:05 | DX: K91.2 Postsurgical malabsorption, not elsewhere classified (principal); E55.9 Vitamin D deficiency, unspecified; E53.8 Deficiency of other specified B group vitamins; E61.1 Iron deficiency; K21.9 Gastro-esophageal reflux disease without esophagitis; G43.909 Migraine, unspecified, not intractable, without status migrainosus; F32.9 Major depressive disorder, single episode, unspecified; F41.0 Panic disorder [episodic paroxysmal anxiety]; E46 Unspecified protein-calorie malnutrition; Z68.42 Body mass index [BMI] 45.0-49.9, adult; Z98.890 Other specified postprocedural states; Z87.19 Personal history of other diseases of the digestive system; Z90.3 Acquired absence of stomach [part of]; Z79.899 Other long term (current) drug therapy; Z98.84 Bariatric surgery status | CPT/HCPCS: 96360; 96361; J1642; J7030 ==

== ENCOUNTER 2019-02-28 11:20 | Emergency (ER) | payer OTHER ==
[~2019-02-28] VITALS: Ht 157.5 cm; Wt 52.2 kg
[2019-02-28 12:21] LABS: BASOPHILS ABSOLUTE AUTO 0.03 K/mm3 (0.00-0.23); BASOPHILS PERCENT AUTO 1 % (0-2); EOSINOPHILS ABSOLUTE AUTO 0.23 K/mm3 (0.00-0.68); EOSINOPHILS PERCENT AUTO 4 % (0-6); Hematocrit 32.5 % (33.0-51.0); Hemoglobin 10.3 g/dL (11.5-16.0); IMMATURE GRAN ABSOLUTE AUTO 0.02 K/mm3 (0.00-0.10); IMMATURE GRAN PERCENT AUTO 0 % (0-1); LYMPHOCYTES ABSOLUTE AUTO 1.16 K/mm3 (0.84-5.20); LYMPHOCYTES PERCENT AUTO 20 % (21-46); MONOCYTES ABSOLUTE AUTO 0.56 K/mm3 (0.16-1.47); MONOCYTES PERCENT AUTO 10 % (4-13); Mean Corpuscular HGB 28.5 pg (26.0-34.0); Mean Corpuscular HGB Conc 31.7 g/dL (31.5-36.5); Mean Corpuscular Volume 90 fL (80-100); Mean Platelet Volume 11.3 fL (9.1-12.4); NEUTROPHILS ABSOLUTE AUTO 3.77 K/mm3 (1.96-9.15); NEUTROPHILS PERCENT AUTO 65 % (41-73); Platelet Count 238 K/mm3 (150-400); RDW Coefficient Variation 13.5 % (11.7-14.2); RDW Standard Deviation 44.7 fL (35.1-46.3); Red Blood Cell Count 3.62 M/mm3 (3.80-5.20); White Blood Cell Count 5.77 K/mm3 (4.00-11.30)
[2019-02-28 12:44] LABS: Alanine Aminotransfer (ALT/SGP 22 U/L (12-78); Alk Phos 75 U/L (50-136); Anion Gap 5 mmol/L (6-16); Aspartate Aminotrans (AST/SGOT 18 U/L (12-37); Bilirubin, Total 0.2 mg/dL (0.1-1.0); Blood Urea Nitrogen 14 mg/dL (8-24); Bun/Creatinine Ratio 16.9 (12.0-20.0); CO2, Blood 26 mmol/L (21-32); Calcium, Blood 7.8 mg/dL (8.5-10.1); Chloride, Blood 111 mmol/L (98-108); Creatinine, Blood 0.83 mg/dL (0.40-1.00); Globulin, Blood 2.9 g/dL (2.2-4.0); Glomerular Filtration Rate >60 (60-); Glucose, Blood 93 mg/dL (70-99); Potassium, Blood 3.8 mmol/L (3.5-5.5); Sodium, Blood 142 mmol/L (136-145); Total Protein, Blood 5.9 g/dL (6.4-8.2)
== END 2019-02-28 15:09 | disposition home or self-care (01) ==
LOC: ER 11:20
PROVIDERS: Emergency Medicine
DX: E86.0 Dehydration (principal); Z88.5 Allergy status to narcotic agent; Z88.2 Allergy status to sulfonamides; Z91.048 Other nonmedicinal substance allergy status; Z88.1 Allergy status to other antibiotic agents; Z88.8 Allergy status to other drugs, medicaments and biological substances; Z79.899 Other long term (current) drug therapy; G43.909 Migraine, unspecified, not intractable, without status migrainosus
CPT/HCPCS: 80053; 83690; 85025; 96361; 96374; 99284-25; J1642; J1885; J7030

== ENCOUNTER 2019-03-01 00:11 | Day surgery (SDC) | payer OTHER | END 2019-03-01 10:53 | disposition home or self-care (01) | LOC: ATC 00:11 | DX: K91.2 Postsurgical malabsorption, not elsewhere classified (principal); E46 Unspecified protein-calorie malnutrition; E55.9 Vitamin D deficiency, unspecified; E53.8 Deficiency of other specified B group vitamins; E61.1 Iron deficiency; F32.9 Major depressive disorder, single episode, unspecified; K21.9 Gastro-esophageal reflux disease without esophagitis; Z98.84 Bariatric surgery status; Z79.899 Other long term (current) drug therapy; Z98.890 Other specified postprocedural states; Z87.19 Personal history of other diseases of the digestive system; Z90.3 Acquired absence of stomach [part of]; Z68.41 Body mass index [BMI] 40.0-44.9, adult | CPT/HCPCS: 96360; 96361; J1642; J7030 ==

== ENCOUNTER 2019-03-04 08:31 | Day surgery (SDC) | payer OTHER | END 2019-03-04 17:07 | disposition home or self-care (01) | LOC: ATC 08:31 | DX: K90.9 Intestinal malabsorption, unspecified (principal); Z98.890 Other specified postprocedural states; Z87.19 Personal history of other diseases of the digestive system; Z98.84 Bariatric surgery status | CPT/HCPCS: 96360; 96361; J1642; J7030 ==

== ENCOUNTER 2019-03-06 08:40 | Day surgery (SDC) | payer OTHER | END 2019-03-06 11:10 | disposition home or self-care (01) | LOC: ATC 08:40 | DX: K91.2 Postsurgical malabsorption, not elsewhere classified (principal); E46 Unspecified protein-calorie malnutrition; E55.9 Vitamin D deficiency, unspecified; E53.8 Deficiency of other specified B group vitamins; E61.1 Iron deficiency; F32.9 Major depressive disorder, single episode, unspecified; K21.9 Gastro-esophageal reflux disease without esophagitis; G43.909 Migraine, unspecified, not intractable, without status migrainosus; F41.0 Panic disorder [episodic paroxysmal anxiety]; Z98.890 Other specified postprocedural states; Z87.19 Personal history of other diseases of the digestive system; Z90.3 Acquired absence of stomach [part of]; Z79.899 Other long term (current) drug therapy; Z98.84 Bariatric surgery status | CPT/HCPCS: 96360; 96361; J1642; J7030 ==

== ENCOUNTER 2019-03-08 00:14 | Day surgery (SDC) | payer OTHER | END 2019-03-08 11:12 | disposition home or self-care (01) | LOC: ATC 00:14 | DX: K90.9 Intestinal malabsorption, unspecified (principal); Z98.84 Bariatric surgery status; Z98.890 Other specified postprocedural states; Z87.19 Personal history of other diseases of the digestive system | CPT/HCPCS: 96360; 96361; J1642; J7030 ==

== ENCOUNTER 2019-03-12 00:15 | Day surgery (SDC) | payer OTHER | END 2019-03-12 10:51 | disposition home or self-care (01) | LOC: ATC 00:15 | DX: Z48.815 Encounter for surgical aftercare following surgery on the digestive system (principal); E46 Unspecified protein-calorie malnutrition; F32.9 Major depressive disorder, single episode, unspecified; M79.7 Fibromyalgia; K21.9 Gastro-esophageal reflux disease without esophagitis; G43.909 Migraine, unspecified, not intractable, without status migrainosus; F41.0 Panic disorder [episodic paroxysmal anxiety]; K58.9 Irritable bowel syndrome, unspecified; Z98.890 Other specified postprocedural states; Z87.19 Personal history of other diseases of the digestive system; Z90.3 Acquired absence of stomach [part of]; Z79.899 Other long term (current) drug therapy; Z68.1 Body mass index [BMI] 19.9 or less, adult | CPT/HCPCS: 96360; 96361; J1642; J7030 ==

== ENCOUNTER 2019-03-15 00:05 | Day surgery (SDC) | payer OTHER | END 2019-03-15 11:00 | disposition home or self-care (01) | LOC: ATC 00:05 | DX: Z48.815 Encounter for surgical aftercare following surgery on the digestive system (principal); E46 Unspecified protein-calorie malnutrition; F32.9 Major depressive disorder, single episode, unspecified; K21.9 Gastro-esophageal reflux disease without esophagitis; F41.0 Panic disorder [episodic paroxysmal anxiety]; Z98.890 Other specified postprocedural states; Z87.19 Personal history of other diseases of the digestive system; Z90.3 Acquired absence of stomach [part of] | CPT/HCPCS: 96360; 96361; J1642; J7030 ==

== ENCOUNTER 2019-03-19 00:13 | Day surgery (SDC) | payer OTHER | END 2019-03-19 10:53 | disposition home or self-care (01) | LOC: ATC 00:13 | DX: K90.9 Intestinal malabsorption, unspecified (principal); Z98.84 Bariatric surgery status; Z98.890 Other specified postprocedural states; Z87.19 Personal history of other diseases of the digestive system | CPT/HCPCS: 96360; 96361; J1642; J7030 ==

== ENCOUNTER 2019-03-21 13:18 | Day surgery (SDC) | payer OTHER | END 2019-03-21 15:39 | disposition home or self-care (01) | LOC: ATC 13:18 | DX: K90.9 Intestinal malabsorption, unspecified (principal); F32.9 Major depressive disorder, single episode, unspecified; F41.0 Panic disorder [episodic paroxysmal anxiety]; K21.9 Gastro-esophageal reflux disease without esophagitis; G43.909 Migraine, unspecified, not intractable, without status migrainosus; Z98.890 Other specified postprocedural states; Z87.19 Personal history of other diseases of the digestive system; Z98.84 Bariatric surgery status | CPT/HCPCS: 96360; 96361; J1642; J7030 ==

== ENCOUNTER 2019-03-23 00:11 | Day surgery (SDC) | payer OTHER | END 2019-03-23 10:45 | disposition home or self-care (01) | LOC: ATC 00:11 | DX: K90.9 Intestinal malabsorption, unspecified (principal); F32.9 Major depressive disorder, single episode, unspecified; F41.0 Panic disorder [episodic paroxysmal anxiety]; K21.9 Gastro-esophageal reflux disease without esophagitis; G43.909 Migraine, unspecified, not intractable, without status migrainosus; M10.9 Gout, unspecified; Z98.890 Other specified postprocedural states; Z87.19 Personal history of other diseases of the digestive system; Z90.3 Acquired absence of stomach [part of]; Z98.84 Bariatric surgery status | CPT/HCPCS: 96360; 96361; J1642; J7030 ==

== ENCOUNTER 2019-03-27 08:37 | Day surgery (SDC) | payer OTHER | END 2019-03-27 11:32 | disposition home or self-care (01) | LOC: ATC 08:37 | DX: Z48.815 Encounter for surgical aftercare following surgery on the digestive system (principal); K90.9 Intestinal malabsorption, unspecified; F32.9 Major depressive disorder, single episode, unspecified; K21.9 Gastro-esophageal reflux disease without esophagitis; G43.909 Migraine, unspecified, not intractable, without status migrainosus; F41.0 Panic disorder [episodic paroxysmal anxiety]; Z98.890 Other specified postprocedural states; Z87.19 Personal history of other diseases of the digestive system; Z90.3 Acquired absence of stomach [part of] | CPT/HCPCS: 96360; 96361; J1642; J7030 ==

== ENCOUNTER 2019-03-30 00:25 | Day surgery (SDC) | payer OTHER | END 2019-03-30 16:00 | disposition home or self-care (01) | LOC: ATC 00:25 | DX: Z48.815 Encounter for surgical aftercare following surgery on the digestive system (principal); E46 Unspecified protein-calorie malnutrition; R11.0 Nausea; K21.9 Gastro-esophageal reflux disease without esophagitis; G43.909 Migraine, unspecified, not intractable, without status migrainosus; F41.0 Panic disorder [episodic paroxysmal anxiety]; F32.9 Major depressive disorder, single episode, unspecified; Z98.890 Other specified postprocedural states; Z87.19 Personal history of other diseases of the digestive system; Z90.3 Acquired absence of stomach [part of]; Z79.899 Other long term (current) drug therapy | CPT/HCPCS: 96360; 96361; J1642; J7030 ==

== ENCOUNTER 2019-04-02 00:47 | Day surgery (SDC) | payer OTHER ==
[2019-04-02] MEDS ORDERED: Esgic Tablet1 EACH PO (08:32)
== END 2019-04-02 10:38 | disposition home or self-care (01) ==
LOC: ATC 00:47
DX: E46 Unspecified protein-calorie malnutrition (principal); K90.9 Intestinal malabsorption, unspecified; R62.7 Adult failure to thrive; Z68.1 Body mass index [BMI] 19.9 or less, adult; M79.7 Fibromyalgia; K21.9 Gastro-esophageal reflux disease without esophagitis; K58.9 Irritable bowel syndrome, unspecified; F41.0 Panic disorder [episodic paroxysmal anxiety]; Z98.84 Bariatric surgery status; Z90.3 Acquired absence of stomach [part of]; Z87.19 Personal history of other diseases of the digestive system; Z79.899 Other long term (current) drug therapy; Z98.890 Other specified postprocedural states; Z88.2 Allergy status to sulfonamides; Z88.1 Allergy status to other antibiotic agents; Z88.5 Allergy status to narcotic agent; Z88.8 Allergy status to other drugs, medicaments and biological substances; Z91.048 Other nonmedicinal substance allergy status
CPT/HCPCS: 96360; 96361; J1642; J7030

== ENCOUNTER 2019-04-03 19:30 | Emergency (ER) | payer OTHER ==
[~2019-04-03] VITALS: Ht 157.5 cm; Wt 51.3 kg
[~2019-04-03 19:30] MED LIST changes: +Esgic Tablet1 EACH PO
[2019-04-03 20:39] LABS: BASOPHILS ABSOLUTE AUTO 0.04 K/mm3 (0.00-0.23); BASOPHILS PERCENT AUTO 1 % (0-2); EOSINOPHILS ABSOLUTE AUTO 0.41 K/mm3 (0.00-0.68); EOSINOPHILS PERCENT AUTO 5 % (0-6); Hematocrit 37.2 % (33.0-51.0); Hemoglobin 11.6 g/dL (11.5-16.0); IMMATURE GRAN ABSOLUTE AUTO 0.03 K/mm3 (0.00-0.10); IMMATURE GRAN PERCENT AUTO 0 % (0-1); LYMPHOCYTES ABSOLUTE AUTO 1.65 K/mm3 (0.84-5.20); LYMPHOCYTES PERCENT AUTO 21 % (21-46); MONOCYTES ABSOLUTE AUTO 0.55 K/mm3 (0.16-1.47); MONOCYTES PERCENT AUTO 7 % (4-13); Mean Corpuscular HGB 28.7 pg (26.0-34.0); Mean Corpuscular HGB Conc 31.2 g/dL (31.5-36.5); Mean Corpuscular Volume 92 fL (80-100); Mean Platelet Volume 11.2 fL (9.1-12.4); NEUTROPHILS ABSOLUTE AUTO 5.25 K/mm3 (1.96-9.15); NEUTROPHILS PERCENT AUTO 66 % (41-73); Platelet Count 261 K/mm3 (150-400); RDW Coefficient Variation 13.6 % (11.7-14.2); RDW Standard Deviation 46.7 fL (35.1-46.3); Red Blood Cell Count 4.04 M/mm3 (3.80-5.20); White Blood Cell Count 7.93 K/mm3 (4.00-11.30)
[2019-04-03 21:01] LABS: Alanine Aminotransfer (ALT/SGP 17 U/L (12-78); Albumin, Blood 3.8 g/dL (3.4-5.0); Albumin/Globulin Ratio 1.2 (0.8-1.8); Alk Phos 81 U/L (50-136); Anion Gap 5 mmol/L (6-16); Aspartate Aminotrans (AST/SGOT 17 U/L (12-37); Bilirubin, Total 0.1 mg/dL (0.1-1.0); Blood Urea Nitrogen 14 mg/dL (8-24); Bun/Creatinine Ratio 13.7 (12.0-20.0); CO2, Blood 29 mmol/L (21-32); Calcium, Blood 8.3 mg/dL (8.5-10.1); Chloride, Blood 109 mmol/L (98-108); Creatinine, Blood 1.02 mg/dL (0.40-1.00); Globulin, Blood 3.3 g/dL (2.2-4.0); Glomerular Filtration Rate 60 (60-); Glucose, Blood 81 mg/dL (70-99); Potassium, Blood 3.7 mmol/L (3.5-5.5); Sodium, Blood 143 mmol/L (136-145); Total Protein, Blood 7.1 g/dL (6.4-8.2); Troponin I <0.015 ng/mL (0.000-0.040)
[2019-04-03 22:55] LABS: Source, Urine Clean Catch
[2019-04-03 23:01] LABS: Bilirubin, Urine Neg (Neg); Blood, Urine 2+ (Neg); Glucose Qualitative, Urine Neg (Neg); Ketones, Urine 2+ (Neg); Leukocyte Esterase, Urine 3+ (Neg); Nitrite, Urine Neg (Neg); Protein, Urine 1+ (Neg); Urobilinogen, Urine 1+ (Normal)
[2019-04-03 23:08] LABS: Appearance, Urine Clear (Clear); Color, Urine Yellow (P-Yellow); Red Blood Cells, Urine 0-2 /hpf (0-2)
[2019-04-03 23:09] LABS: Bacteria Many /hpf; Mucus Light (0-Heavy); Squamous Epithelial Cells Few /hpf (Few)
== END 2019-04-03 23:42 | disposition home or self-care (01) ==
LOC: ER 19:30
PROVIDERS: Physician Assistant
DX: R10.9 Unspecified abdominal pain (principal); I95.9 Hypotension, unspecified; G43.909 Migraine, unspecified, not intractable, without status migrainosus; Z88.2 Allergy status to sulfonamides; Z88.1 Allergy status to other antibiotic agents; Z88.8 Allergy status to other drugs, medicaments and biological substances; Z91.048 Other nonmedicinal substance allergy status; Z79.899 Other long term (current) drug therapy
CPT/HCPCS: 36415; 80053; 81001; 83690; 84484; 85025; 87086; 93005; 93010; 99284-25

== ENCOUNTER 2019-04-05 00:38 | Day surgery (SDC) | payer OTHER | END 2019-04-05 11:02 | disposition home or self-care (01) | LOC: ATC 00:38 | DX: E46 Unspecified protein-calorie malnutrition (principal); K90.9 Intestinal malabsorption, unspecified; Z98.890 Other specified postprocedural states; Z87.19 Personal history of other diseases of the digestive system; Z98.84 Bariatric surgery status | CPT/HCPCS: 96360; 96361; J1642; J7030 ==

== ENCOUNTER 2019-04-09 00:53 | Day surgery (SDC) | payer OTHER | END 2019-04-09 23:49 | disposition home or self-care (01) | LOC: ATC 00:53 | DX: K90.9 Intestinal malabsorption, unspecified (principal); E46 Unspecified protein-calorie malnutrition; Z98.890 Other specified postprocedural states; Z87.19 Personal history of other diseases of the digestive system; Z98.84 Bariatric surgery status; Z88.2 Allergy status to sulfonamides; Z88.8 Allergy status to other drugs, medicaments and biological substances; Z88.1 Allergy status to other antibiotic agents; Z88.5 Allergy status to narcotic agent | CPT/HCPCS: 96360; 96361; J1642; J7030 ==

== ENCOUNTER 2019-04-12 00:09 | Day surgery (SDC) | payer OTHER | END 2019-04-12 11:15 | disposition home or self-care (01) | LOC: ATC 00:09 | DX: E46 Unspecified protein-calorie malnutrition (principal); K90.9 Intestinal malabsorption, unspecified; R55 Syncope and collapse; K58.9 Irritable bowel syndrome, unspecified; M79.7 Fibromyalgia; R62.7 Adult failure to thrive; K21.9 Gastro-esophageal reflux disease without esophagitis; F41.0 Panic disorder [episodic paroxysmal anxiety]; Z98.890 Other specified postprocedural states; Z87.19 Personal history of other diseases of the digestive system; Z98.84 Bariatric surgery status | CPT/HCPCS: 96360; 96361; J1642; J1885; J7030 ==

== ENCOUNTER 2019-04-16 02:23 | Day surgery (SDC) | payer OTHER | END 2019-04-16 10:50 | disposition home or self-care (01) | LOC: ATC 02:23 | DX: Z48.815 Encounter for surgical aftercare following surgery on the digestive system (principal); E46 Unspecified protein-calorie malnutrition; F32.9 Major depressive disorder, single episode, unspecified; K21.9 Gastro-esophageal reflux disease without esophagitis; F41.0 Panic disorder [episodic paroxysmal anxiety]; G43.909 Migraine, unspecified, not intractable, without status migrainosus; Z98.84 Bariatric surgery status; Z90.3 Acquired absence of stomach [part of]; Z98.890 Other specified postprocedural states; Z87.19 Personal history of other diseases of the digestive system; Z79.899 Other long term (current) drug therapy | CPT/HCPCS: 96360; 96361; J1642; J7030 ==

== ENCOUNTER 2019-04-19 00:02 | Day surgery (SDC) | payer OTHER | END 2019-04-19 10:50 | disposition home or self-care (01) | LOC: ATC 00:02 | DX: K90.9 Intestinal malabsorption, unspecified (principal); E46 Unspecified protein-calorie malnutrition; Z98.84 Bariatric surgery status; Z98.890 Other specified postprocedural states; Z87.19 Personal history of other diseases of the digestive system; Z79.899 Other long term (current) drug therapy | CPT/HCPCS: 96360; 96361; J1642; J7030 ==

== ENCOUNTER 2019-04-23 02:08 | Day surgery (SDC) | payer OTHER ==
[2019-04-23] MEDS ORDERED: ESOM20 PO (08:40)
== END 2019-04-23 11:02 | disposition home or self-care (01) ==
LOC: ATC 02:08
DX: R11.0 Nausea (principal); K31.9 Disease of stomach and duodenum, unspecified; K90.9 Intestinal malabsorption, unspecified; K21.9 Gastro-esophageal reflux disease without esophagitis; F32.9 Major depressive disorder, single episode, unspecified; F41.0 Panic disorder [episodic paroxysmal anxiety]; Z98.84 Bariatric surgery status; Z98.890 Other specified postprocedural states; Z87.19 Personal history of other diseases of the digestive system
CPT/HCPCS: 96360; 96361; J1642; J7030

== ENCOUNTER 2019-04-26 00:05 | Day surgery (SDC) | payer OTHER ==
[~2019-04-26 00:05] MED LIST changes: +ESOM20 PO
[2019-04-26] MEDS ORDERED: METPRE4DP PO (08:36)
== END 2019-04-26 10:36 | disposition home or self-care (01) ==
LOC: ATC 00:05
DX: Z48.815 Encounter for surgical aftercare following surgery on the digestive system (principal); F32.9 Major depressive disorder, single episode, unspecified; M79.7 Fibromyalgia; K21.9 Gastro-esophageal reflux disease without esophagitis; K58.9 Irritable bowel syndrome, unspecified; G43.909 Migraine, unspecified, not intractable, without status migrainosus; F41.0 Panic disorder [episodic paroxysmal anxiety]; E46 Unspecified protein-calorie malnutrition; R11.0 Nausea; R55 Syncope and collapse; Z87.19 Personal history of other diseases of the digestive system; Z98.890 Other specified postprocedural states; Z79.899 Other long term (current) drug therapy; Z68.1 Body mass index [BMI] 19.9 or less, adult
CPT/HCPCS: 96361; 96366; J1642; J7030

== ENCOUNTER 2019-04-30 00:20 | Day surgery (SDC) | payer OTHER ==
[~2019-04-30 00:20] MED LIST changes: +METPRE4DP PO
== END 2019-04-30 11:06 | disposition home or self-care (01) ==
LOC: ATC 00:20
DX: R11.0 Nausea (principal); K90.9 Intestinal malabsorption, unspecified; K31.9 Disease of stomach and duodenum, unspecified; Z98.84 Bariatric surgery status; Z98.890 Other specified postprocedural states; Z87.19 Personal history of other diseases of the digestive system; Z90.3 Acquired absence of stomach [part of]
CPT/HCPCS: 96360; 96361; J1642; J7030

== ENCOUNTER 2019-05-03 00:05 | Day surgery (SDC) | payer OTHER | END 2019-05-03 10:46 | disposition home or self-care (01) | LOC: ATC 00:05 | DX: R11.0 Nausea (principal); Z98.84 Bariatric surgery status; Z98.890 Other specified postprocedural states; Z87.19 Personal history of other diseases of the digestive system | CPT/HCPCS: 96360; 96361; J1642; J7030 ==

== ENCOUNTER 2019-05-07 08:35 | Day surgery (SDC) | payer OTHER | END 2019-05-07 11:05 | disposition home or self-care (01) | LOC: ATC 08:35 | DX: R11.0 Nausea (principal); K90.9 Intestinal malabsorption, unspecified; K31.9 Disease of stomach and duodenum, unspecified; F32.9 Major depressive disorder, single episode, unspecified; K21.9 Gastro-esophageal reflux disease without esophagitis; F41.0 Panic disorder [episodic paroxysmal anxiety]; Z98.890 Other specified postprocedural states; Z87.19 Personal history of other diseases of the digestive system; Z98.84 Bariatric surgery status; Z79.899 Other long term (current) drug therapy | CPT/HCPCS: 96360; J1642; J7030 ==

== ENCOUNTER 2019-05-10 00:08 | Day surgery (SDC) | payer OTHER | END 2019-05-10 10:33 | disposition home or self-care (01) | LOC: ATC 00:08 | DX: R11.0 Nausea (principal); K90.9 Intestinal malabsorption, unspecified; F32.9 Major depressive disorder, single episode, unspecified; K21.9 Gastro-esophageal reflux disease without esophagitis; F41.0 Panic disorder [episodic paroxysmal anxiety]; Z98.890 Other specified postprocedural states; Z87.19 Personal history of other diseases of the digestive system; Z90.3 Acquired absence of stomach [part of]; Z98.84 Bariatric surgery status | CPT/HCPCS: 96360; 96361; J1642; J7030 ==

== ENCOUNTER 2019-05-14 01:53 | Day surgery (SDC) | payer OTHER | END 2019-05-14 10:59 | disposition home or self-care (01) | LOC: ATC 01:53 | DX: R11.0 Nausea (principal); K90.9 Intestinal malabsorption, unspecified; Z87.19 Personal history of other diseases of the digestive system; Z98.84 Bariatric surgery status; Z98.890 Other specified postprocedural states | CPT/HCPCS: 96360; 96361; J1642; J7030 ==

== ENCOUNTER 2019-05-17 00:19 | Day surgery (SDC) | payer OTHER | END 2019-05-17 11:00 | disposition home or self-care (01) | LOC: ATC 00:19 | DX: R11.0 Nausea (principal); K90.9 Intestinal malabsorption, unspecified; Z98.84 Bariatric surgery status; Z98.890 Other specified postprocedural states; Z87.19 Personal history of other diseases of the digestive system | CPT/HCPCS: 96360; 96361; J1642; J7030 ==

== ENCOUNTER 2019-05-21 00:28 | Day surgery (SDC) | payer OTHER | END 2019-05-21 11:13 | disposition home or self-care (01) | LOC: ATC 00:28 | DX: R11.0 Nausea (principal); K90.9 Intestinal malabsorption, unspecified; K21.9 Gastro-esophageal reflux disease without esophagitis; F32.9 Major depressive disorder, single episode, unspecified; Z98.890 Other specified postprocedural states; Z87.19 Personal history of other diseases of the digestive system; Z98.84 Bariatric surgery status | CPT/HCPCS: 96360; 96361; J1642; J7030 ==

== ENCOUNTER 2019-05-24 17:14 | Emergency (ER) | payer OTHER ==
[~2019-05-24] VITALS: Ht 157.5 cm; Wt 52.2 kg
[2019-05-24 17:40] LABS: Calcium, Ionized (POC) 1.08 mmol/L (1.10-1.46); Chloride (POC) 105 mmol/L (98-108); Creatinine (POC) 0.9 mg/dL (0.6-1.0); Glucose (ISTAT POC) 72 mg/dL (70-99); Hemoglobin (POC) 11.9 g/dL (12.0-16.0); Potassium (POC) 3.6 mmol/L (3.5-5.5); Sodium (POC) 140 mmol/L (135-148); Total CO2 (POC) 26 mmol/L (21-32)
== END 2019-05-24 19:54 | disposition home or self-care (01) ==
LOC: ER 17:14
PROVIDERS: Emergency Medicine
DX: E86.0 Dehydration (principal); Z79.899 Other long term (current) drug therapy; Z88.5 Allergy status to narcotic agent; Z88.2 Allergy status to sulfonamides; Z91.048 Other nonmedicinal substance allergy status; Z88.1 Allergy status to other antibiotic agents; Z88.8 Allergy status to other drugs, medicaments and biological substances
CPT/HCPCS: 36415; 80047; 85014; 96361; 96374; 96375; 99284-25; J1885; J2405; J7030

== ENCOUNTER 2019-05-26 00:14 | Day surgery (SDC) | payer OTHER | END 2019-05-26 11:04 | disposition home or self-care (01) | LOC: ATC 00:14 | DX: R11.0 Nausea (principal); K90.9 Intestinal malabsorption, unspecified; Z98.84 Bariatric surgery status; Z98.890 Other specified postprocedural states; Z87.19 Personal history of other diseases of the digestive system | CPT/HCPCS: 96360; 96361; J1642; J7030 ==

== ENCOUNTER 2019-05-28 02:14 | Day surgery (SDC) | payer OTHER | END 2019-05-28 10:45 | disposition home or self-care (01) | LOC: ATC 02:14 | DX: R11.0 Nausea (principal); K90.9 Intestinal malabsorption, unspecified; F32.9 Major depressive disorder, single episode, unspecified; K21.9 Gastro-esophageal reflux disease without esophagitis; Z98.890 Other specified postprocedural states; Z87.19 Personal history of other diseases of the digestive system; Z98.84 Bariatric surgery status | CPT/HCPCS: 96360; 96361; J1642; J1885; J7030 ==

== ENCOUNTER 2019-05-31 00:10 | Day surgery (SDC) | payer OTHER | END 2019-05-31 10:30 | disposition home or self-care (01) | LOC: ATC 00:10 | DX: R11.0 Nausea (principal); K90.9 Intestinal malabsorption, unspecified; Z87.19 Personal history of other diseases of the digestive system; Z98.890 Other specified postprocedural states; Z98.84 Bariatric surgery status | CPT/HCPCS: 96360; 96361; J1642; J7030 ==

== ENCOUNTER 2019-06-04 00:42 | Day surgery (SDC) | payer OTHER | END 2019-06-04 10:38 | disposition home or self-care (01) | LOC: ATC 00:42 | DX: R11.0 Nausea (principal); K90.9 Intestinal malabsorption, unspecified; Z98.84 Bariatric surgery status; Z98.890 Other specified postprocedural states; Z87.19 Personal history of other diseases of the digestive system; Z88.0 Allergy status to penicillin; Z88.5 Allergy status to narcotic agent; Z88.8 Allergy status to other drugs, medicaments and biological substances | CPT/HCPCS: 96360; 96361; J1642; J7030 ==

== ENCOUNTER 2019-06-07 00:04 | Day surgery (SDC) | payer OTHER | END 2019-06-07 11:21 | disposition home or self-care (01) | LOC: ATC 00:04 | DX: R11.0 Nausea (principal); K90.9 Intestinal malabsorption, unspecified; K21.9 Gastro-esophageal reflux disease without esophagitis; F32.9 Major depressive disorder, single episode, unspecified; Z48.89 Encounter for other specified surgical aftercare; Z98.890 Other specified postprocedural states; Z87.19 Personal history of other diseases of the digestive system; Z90.3 Acquired absence of stomach [part of]; Z79.899 Other long term (current) drug therapy; Z88.1 Allergy status to other antibiotic agents; Z88.2 Allergy status to sulfonamides; Z88.8 Allergy status to other drugs, medicaments and biological substances | CPT/HCPCS: 96360; 96361; J1642; J1885; J7030 ==

== ENCOUNTER 2019-06-11 00:23 | Day surgery (SDC) | payer OTHER | END 2019-06-11 11:02 | disposition home or self-care (01) | LOC: ATC 00:23 | DX: R11.0 Nausea (principal); K90.9 Intestinal malabsorption, unspecified; Z98.84 Bariatric surgery status; Z98.890 Other specified postprocedural states; Z87.19 Personal history of other diseases of the digestive system; Z90.3 Acquired absence of stomach [part of] | CPT/HCPCS: 96360; 96361; J1642; J1885; J7030 ==

== ENCOUNTER 2019-06-13 14:33 | Day surgery (SDC) | payer OTHER | END 2019-06-13 16:53 | disposition home or self-care (01) | LOC: ATC 14:33 | DX: R11.2 Nausea with vomiting, unspecified (principal); R63.4 Abnormal weight loss; K90.9 Intestinal malabsorption, unspecified; F32.9 Major depressive disorder, single episode, unspecified; E78.2 Mixed hyperlipidemia; E21.5 Disorder of parathyroid gland, unspecified; K21.9 Gastro-esophageal reflux disease without esophagitis; G47.33 Obstructive sleep apnea (adult) (pediatric); Z99.89 Dependence on other enabling machines and devices; Z98.890 Other specified postprocedural states; Z88.0 Allergy status to penicillin; Z91.048 Other nonmedicinal substance allergy status; Z88.8 Allergy status to other drugs, medicaments and biological substances; Z88.2 Allergy status to sulfonamides; Z79.899 Other long term (current) drug therapy; Z79.82 Long term (current) use of aspirin; Z79.4 Long term (current) use of insulin; Z98.84 Bariatric surgery status; Z87.19 Personal history of other diseases of the digestive system | CPT/HCPCS: 96360; 96361; J1642; J7030 ==

== ENCOUNTER 2019-06-14 00:10 | Day surgery (SDC) | payer OTHER | END 2019-06-14 10:46 | disposition home or self-care (01) | LOC: ATC 00:10 | DX: R11.2 Nausea with vomiting, unspecified (principal); R63.4 Abnormal weight loss; K90.9 Intestinal malabsorption, unspecified; E21.5 Disorder of parathyroid gland, unspecified; F32.9 Major depressive disorder, single episode, unspecified; K21.9 Gastro-esophageal reflux disease without esophagitis; E78.2 Mixed hyperlipidemia; G47.33 Obstructive sleep apnea (adult) (pediatric); Z79.899 Other long term (current) drug therapy; Z98.890 Other specified postprocedural states; Z99.89 Dependence on other enabling machines and devices; Z88.0 Allergy status to penicillin; Z91.048 Other nonmedicinal substance allergy status; Z88.2 Allergy status to sulfonamides; Z88.8 Allergy status to other drugs, medicaments and biological substances; Z79.82 Long term (current) use of aspirin; Z79.4 Long term (current) use of insulin; Z98.84 Bariatric surgery status; Z87.19 Personal history of other diseases of the digestive system | CPT/HCPCS: 96360; 96361; J1642; J7030 ==

== ENCOUNTER 2019-06-18 01:06 | Day surgery (SDC) | payer OTHER | END 2019-06-18 11:15 | disposition home or self-care (01) | LOC: ATC 01:06 | DX: R11.2 Nausea with vomiting, unspecified (principal); R63.4 Abnormal weight loss; K90.9 Intestinal malabsorption, unspecified; E11.9 Type 2 diabetes mellitus without complications; K31.9 Disease of stomach and duodenum, unspecified; F32.9 Major depressive disorder, single episode, unspecified; Z98.84 Bariatric surgery status; Z98.890 Other specified postprocedural states; Z87.19 Personal history of other diseases of the digestive system | CPT/HCPCS: 96360; 96361; J1642; J7030 ==

== ENCOUNTER 2019-06-21 00:11 | Day surgery (SDC) | payer OTHER | END 2019-06-21 11:01 | disposition home or self-care (01) | LOC: ATC 00:11 | DX: R11.2 Nausea with vomiting, unspecified (principal); R63.4 Abnormal weight loss; K90.9 Intestinal malabsorption, unspecified; E11.9 Type 2 diabetes mellitus without complications; F32.9 Major depressive disorder, single episode, unspecified; Z98.84 Bariatric surgery status; Z98.890 Other specified postprocedural states; Z87.19 Personal history of other diseases of the digestive system | CPT/HCPCS: 96360; 96361; J1642; J7030 ==

== ENCOUNTER 2019-06-25 00:09 | Day surgery (SDC) | payer OTHER | END 2019-06-25 10:33 | disposition home or self-care (01) | LOC: ATC 00:09 | DX: R11.2 Nausea with vomiting, unspecified (principal); R63.4 Abnormal weight loss; K90.9 Intestinal malabsorption, unspecified; K58.9 Irritable bowel syndrome, unspecified; E21.5 Disorder of parathyroid gland, unspecified; K21.9 Gastro-esophageal reflux disease without esophagitis; G43.909 Migraine, unspecified, not intractable, without status migrainosus; F41.9 Anxiety disorder, unspecified; F32.9 Major depressive disorder, single episode, unspecified; E78.2 Mixed hyperlipidemia; G47.33 Obstructive sleep apnea (adult) (pediatric); Z99.89 Dependence on other enabling machines and devices; Z68.1 Body mass index [BMI] 19.9 or less, adult; Z91.048 Other nonmedicinal substance allergy status; Z88.0 Allergy status to penicillin; Z88.1 Allergy status to other antibiotic agents; Z88.8 Allergy status to other drugs, medicaments and biological substances; Z88.2 Allergy status to sulfonamides; Z79.899 Other long term (current) drug therapy; Z98.890 Other specified postprocedural states; Z87.19 Personal history of other diseases of the digestive system; Z98.84 Bariatric surgery status | CPT/HCPCS: 96360; 96361; J1642; J7030 ==

== ENCOUNTER 2019-06-28 00:41 | Day surgery (SDC) | payer OTHER | END 2019-06-28 10:44 | disposition home or self-care (01) | LOC: ATC 00:41 | DX: R11.2 Nausea with vomiting, unspecified (principal); K90.9 Intestinal malabsorption, unspecified; Z98.84 Bariatric surgery status; Z98.890 Other specified postprocedural states; Z87.19 Personal history of other diseases of the digestive system | CPT/HCPCS: 96360; 96361; 96372; J1642; J1885; J7030 ==

== ENCOUNTER 2019-07-02 00:28 | Day surgery (SDC) | payer OTHER ==
[2019-07-02] MEDS ORDERED: Sodium Chlorid250 M1 IV (09:10)
== END 2019-07-02 10:55 | disposition home or self-care (01) ==
LOC: ATC 00:28
DX: R11.2 Nausea with vomiting, unspecified (principal); K90.9 Intestinal malabsorption, unspecified; Z87.19 Personal history of other diseases of the digestive system; Z98.84 Bariatric surgery status; Z98.890 Other specified postprocedural states
CPT/HCPCS: 96360; 96361; J1642; J7030

== ENCOUNTER 2019-07-05 00:06 | Day surgery (SDC) | payer OTHER | END 2019-07-05 10:45 | disposition home or self-care (01) | LOC: ATC 00:06 | DX: R11.2 Nausea with vomiting, unspecified (principal); R10.84 Generalized abdominal pain; K21.9 Gastro-esophageal reflux disease without esophagitis; R63.4 Abnormal weight loss; F41.0 Panic disorder [episodic paroxysmal anxiety]; K90.9 Intestinal malabsorption, unspecified; Z98.84 Bariatric surgery status; Z68.21 Body mass index [BMI] 21.0-21.9, adult; Z98.890 Other specified postprocedural states; Z87.19 Personal history of other diseases of the digestive system; Z79.899 Other long term (current) drug therapy; Z88.0 Allergy status to penicillin; Z88.2 Allergy status to sulfonamides; Z88.8 Allergy status to other drugs, medicaments and biological substances; Z88.1 Allergy status to other antibiotic agents | CPT/HCPCS: 96360; 96361; J1642; J7030 ==

== ENCOUNTER 2019-07-09 01:07 | Day surgery (SDC) | payer OTHER | END 2019-07-09 10:39 | disposition home or self-care (01) | LOC: ATC 01:07 | DX: R11.2 Nausea with vomiting, unspecified (principal); E78.2 Mixed hyperlipidemia; G47.33 Obstructive sleep apnea (adult) (pediatric); K21.9 Gastro-esophageal reflux disease without esophagitis; E78.00 Pure hypercholesterolemia, unspecified; F32.9 Major depressive disorder, single episode, unspecified; K90.9 Intestinal malabsorption, unspecified; Z98.890 Other specified postprocedural states; Z87.19 Personal history of other diseases of the digestive system; Z99.89 Dependence on other enabling machines and devices; Z88.0 Allergy status to penicillin; Z88.2 Allergy status to sulfonamides; Z88.1 Allergy status to other antibiotic agents; Z88.8 Allergy status to other drugs, medicaments and biological substances; Z91.040 Latex allergy status; Z79.899 Other long term (current) drug therapy; Z88.5 Allergy status to narcotic agent | CPT/HCPCS: 96360; 96361; 96372; J1642; J1885; J7030 ==

== ENCOUNTER 2019-07-16 00:31 | Day surgery (SDC) | payer OTHER | END 2019-07-16 10:43 | disposition home or self-care (01) | LOC: ATC 00:31 | DX: R11.2 Nausea with vomiting, unspecified (principal); K90.9 Intestinal malabsorption, unspecified; Z98.84 Bariatric surgery status; Z98.890 Other specified postprocedural states; Z87.19 Personal history of other diseases of the digestive system; Z88.2 Allergy status to sulfonamides; Z88.0 Allergy status to penicillin; Z88.1 Allergy status to other antibiotic agents; Z88.8 Allergy status to other drugs, medicaments and biological substances | CPT/HCPCS: 96360; 96361; J1642; J7030 ==

== ENCOUNTER 2019-07-19 00:11 | Day surgery (SDC) | payer OTHER | END 2019-07-19 11:10 | disposition home or self-care (01) | LOC: ATC 00:11 | DX: R11.2 Nausea with vomiting, unspecified (principal); K90.9 Intestinal malabsorption, unspecified; K21.9 Gastro-esophageal reflux disease without esophagitis; M79.7 Fibromyalgia; G47.30 Sleep apnea, unspecified; Z79.899 Other long term (current) drug therapy; Z88.0 Allergy status to penicillin; Z88.2 Allergy status to sulfonamides; Z88.8 Allergy status to other drugs, medicaments and biological substances; Z88.1 Allergy status to other antibiotic agents; Z98.890 Other specified postprocedural states; Z87.19 Personal history of other diseases of the digestive system; Z98.84 Bariatric surgery status | CPT/HCPCS: 96360; 96361; J1642; J7030 ==

== ENCOUNTER 2019-07-23 00:19 | Day surgery (SDC) | payer OTHER ==
[2019-07-23] MEDS ORDERED: KETO60I IM (09:04)
--- NOTE | 2019-07-23 11:22 | NUR ---
TORADOL INJECTION GIVEN TO R HIP.
== END 2019-07-23 11:05 | disposition home or self-care (01) ==
LOC: ATC 00:19
DX: Z45.2 Encounter for adjustment and management of vascular access device (principal); K90.9 Intestinal malabsorption, unspecified; K21.9 Gastro-esophageal reflux disease without esophagitis; Z87.19 Personal history of other diseases of the digestive system; F41.0 Panic disorder [episodic paroxysmal anxiety]; Z88.0 Allergy status to penicillin; Z98.890 Other specified postprocedural states; Z98.84 Bariatric surgery status; Z79.899 Other long term (current) drug therapy; Z88.2 Allergy status to sulfonamides; Z88.1 Allergy status to other antibiotic agents; Z88.8 Allergy status to other drugs, medicaments and biological substances
CPT/HCPCS: J1642; J1885; J7030

== ENCOUNTER 2019-07-26 00:01 | Day surgery (SDC) | payer OTHER ==
[~2019-07-26 00:01] MED LIST changes: +KETO60I IM
== END 2019-07-26 11:06 | disposition home or self-care (01) ==
LOC: ATC 00:01
DX: K90.9 Intestinal malabsorption, unspecified (principal); K21.9 Gastro-esophageal reflux disease without esophagitis; G47.30 Sleep apnea, unspecified; G43.909 Migraine, unspecified, not intractable, without status migrainosus; G25.81 Restless legs syndrome; M79.7 Fibromyalgia; F41.0 Panic disorder [episodic paroxysmal anxiety]; Z79.899 Other long term (current) drug therapy; Z88.2 Allergy status to sulfonamides; Z88.1 Allergy status to other antibiotic agents; Z88.5 Allergy status to narcotic agent; Z88.8 Allergy status to other drugs, medicaments and biological substances; Z91.048 Other nonmedicinal substance allergy status; Z98.84 Bariatric surgery status
CPT/HCPCS: J1642; J7030

== ENCOUNTER 2019-07-30 00:57 | Day surgery (SDC) | payer OTHER | END 2019-07-30 11:10 | disposition home or self-care (01) | LOC: ATC 00:57 | DX: E86.0 Dehydration (principal); K22.4 Dyskinesia of esophagus; K21.9 Gastro-esophageal reflux disease without esophagitis; K58.9 Irritable bowel syndrome, unspecified; G47.30 Sleep apnea, unspecified; G25.81 Restless legs syndrome; M79.7 Fibromyalgia; G43.909 Migraine, unspecified, not intractable, without status migrainosus; F41.0 Panic disorder [episodic paroxysmal anxiety]; E46 Unspecified protein-calorie malnutrition; Z68.21 Body mass index [BMI] 21.0-21.9, adult; Z88.2 Allergy status to sulfonamides; Z88.1 Allergy status to other antibiotic agents; Z88.8 Allergy status to other drugs, medicaments and biological substances; Z98.84 Bariatric surgery status; Z79.899 Other long term (current) drug therapy; Z88.5 Allergy status to narcotic agent; Z91.048 Other nonmedicinal substance allergy status | CPT/HCPCS: 96360; 96361; J1642; J7030 ==

== ENCOUNTER 2019-08-02 00:03 | Day surgery (SDC) | payer OTHER | END 2019-08-02 10:49 | disposition home or self-care (01) | LOC: ATC 00:03 | DX: E86.0 Dehydration (principal); K22.4 Dyskinesia of esophagus; K21.9 Gastro-esophageal reflux disease without esophagitis; K58.9 Irritable bowel syndrome, unspecified; G47.30 Sleep apnea, unspecified; G43.909 Migraine, unspecified, not intractable, without status migrainosus; G25.81 Restless legs syndrome; F41.0 Panic disorder [episodic paroxysmal anxiety]; E46 Unspecified protein-calorie malnutrition; Z68.21 Body mass index [BMI] 21.0-21.9, adult; Z98.84 Bariatric surgery status; Z79.899 Other long term (current) drug therapy; Z88.2 Allergy status to sulfonamides; Z88.1 Allergy status to other antibiotic agents; Z88.8 Allergy status to other drugs, medicaments and biological substances; Z91.048 Other nonmedicinal substance allergy status; Z88.5 Allergy status to narcotic agent | CPT/HCPCS: 96360; 96361; J1642; J7030 ==

== ENCOUNTER 2019-08-06 00:31 | Day surgery (SDC) | payer OTHER | END 2019-08-06 11:26 | disposition home or self-care (01) | LOC: ATC 00:31 | DX: E86.0 Dehydration (principal); K90.9 Intestinal malabsorption, unspecified; K21.9 Gastro-esophageal reflux disease without esophagitis; R11.0 Nausea; R63.4 Abnormal weight loss; R63.8 Other symptoms and signs concerning food and fluid intake; Z98.84 Bariatric surgery status; E78.00 Pure hypercholesterolemia, unspecified; E78.2 Mixed hyperlipidemia; Z88.0 Allergy status to penicillin; Z88.1 Allergy status to other antibiotic agents; Z88.2 Allergy status to sulfonamides; Z88.8 Allergy status to other drugs, medicaments and biological substances | CPT/HCPCS: 96360; 96361; J1642; J7030 ==

== ENCOUNTER 2019-08-09 00:03 | Day surgery (SDC) | payer OTHER | END 2019-08-09 10:49 | disposition home or self-care (01) | LOC: ATC 00:03 | DX: E86.0 Dehydration (principal); K58.9 Irritable bowel syndrome, unspecified; K21.9 Gastro-esophageal reflux disease without esophagitis; G47.30 Sleep apnea, unspecified; G25.81 Restless legs syndrome; M79.7 Fibromyalgia; G89.4 Chronic pain syndrome; F41.0 Panic disorder [episodic paroxysmal anxiety]; F32.9 Major depressive disorder, single episode, unspecified; G47.00 Insomnia, unspecified; G43.109 Migraine with aura, not intractable, without status migrainosus; E46 Unspecified protein-calorie malnutrition; Z68.1 Body mass index [BMI] 19.9 or less, adult; Z79.899 Other long term (current) drug therapy; Z90.49 Acquired absence of other specified parts of digestive tract; Z88.1 Allergy status to other antibiotic agents; Z88.2 Allergy status to sulfonamides; Z88.5 Allergy status to narcotic agent; Z88.8 Allergy status to other drugs, medicaments and biological substances; Z91.048 Other nonmedicinal substance allergy status; Z79.82 Long term (current) use of aspirin; Z98.84 Bariatric surgery status | CPT/HCPCS: 96360; 96361; J1642; J7030 ==

== ENCOUNTER 2019-08-13 00:22 | Day surgery (SDC) | payer OTHER | END 2019-08-13 11:30 | disposition home or self-care (01) | LOC: ATC 00:22 | DX: E86.0 Dehydration (principal); K21.9 Gastro-esophageal reflux disease without esophagitis; G25.81 Restless legs syndrome; G89.4 Chronic pain syndrome; F41.0 Panic disorder [episodic paroxysmal anxiety]; G47.00 Insomnia, unspecified; G43.109 Migraine with aura, not intractable, without status migrainosus; M79.7 Fibromyalgia; F32.9 Major depressive disorder, single episode, unspecified; G47.30 Sleep apnea, unspecified; E46 Unspecified protein-calorie malnutrition; Z68.1 Body mass index [BMI] 19.9 or less, adult; Z88.1 Allergy status to other antibiotic agents; Z88.2 Allergy status to sulfonamides; Z88.8 Allergy status to other drugs, medicaments and biological substances; Z88.5 Allergy status to narcotic agent; Z91.048 Other nonmedicinal substance allergy status; Z79.899 Other long term (current) drug therapy; Z98.84 Bariatric surgery status | CPT/HCPCS: 96360; 96361; 96372; J1642; J1885; J7030 ==

== ENCOUNTER 2019-08-16 00:26 | Day surgery (SDC) | payer OTHER | END 2019-08-16 10:41 | disposition home or self-care (01) | LOC: ATC 00:26 | DX: E86.0 Dehydration (principal); F41.0 Panic disorder [episodic paroxysmal anxiety]; R10.84 Generalized abdominal pain; K21.9 Gastro-esophageal reflux disease without esophagitis; K90.9 Intestinal malabsorption, unspecified; Z98.84 Bariatric surgery status | CPT/HCPCS: 96360; 96361; J1642; J7030 ==

== ENCOUNTER 2019-08-23 07:04 | Day surgery (SDC) | payer OTHER | END 2019-08-23 10:45 | disposition home or self-care (01) | LOC: ATC 07:04 | DX: E86.0 Dehydration (principal); L58.9 Radiodermatitis, unspecified; K21.9 Gastro-esophageal reflux disease without esophagitis; D64.9 Anemia, unspecified; F41.0 Panic disorder [episodic paroxysmal anxiety]; F32.9 Major depressive disorder, single episode, unspecified; G25.81 Restless legs syndrome; G47.00 Insomnia, unspecified; R63.4 Abnormal weight loss; G89.4 Chronic pain syndrome; E46 Unspecified protein-calorie malnutrition; Z68.1 Body mass index [BMI] 19.9 or less, adult; Z79.82 Long term (current) use of aspirin; Z79.51 Long term (current) use of inhaled steroids; Z79.899 Other long term (current) drug therapy; Z88.1 Allergy status to other antibiotic agents; Z88.2 Allergy status to sulfonamides; Z88.5 Allergy status to narcotic agent; Z88.8 Allergy status to other drugs, medicaments and biological substances; Z98.84 Bariatric surgery status | CPT/HCPCS: 96360; 96361; J1642; J7030 ==

== ENCOUNTER 2019-08-27 01:19 | Day surgery (SDC) | payer OTHER | END 2019-08-27 10:50 | disposition home or self-care (01) | LOC: ATC 01:19 | DX: E86.0 Dehydration (principal); K21.9 Gastro-esophageal reflux disease without esophagitis; G25.81 Restless legs syndrome; D64.9 Anemia, unspecified; F41.0 Panic disorder [episodic paroxysmal anxiety]; F32.9 Major depressive disorder, single episode, unspecified; G47.00 Insomnia, unspecified; G43.109 Migraine with aura, not intractable, without status migrainosus; E46 Unspecified protein-calorie malnutrition; Z68.1 Body mass index [BMI] 19.9 or less, adult; Z79.51 Long term (current) use of inhaled steroids; Z79.899 Other long term (current) drug therapy; Z88.1 Allergy status to other antibiotic agents; Z88.2 Allergy status to sulfonamides; Z88.5 Allergy status to narcotic agent; Z88.8 Allergy status to other drugs, medicaments and biological substances; Z98.84 Bariatric surgery status | CPT/HCPCS: 96360; 96361; J1642; J1885; J7030 ==

== ENCOUNTER 2019-08-30 07:07 | Day surgery (SDC) | payer OTHER | END 2019-08-30 10:36 | disposition home or self-care (01) | LOC: ATC 07:07 | DX: E86.0 Dehydration (principal); K21.9 Gastro-esophageal reflux disease without esophagitis; K90.9 Intestinal malabsorption, unspecified; R11.0 Nausea; R63.4 Abnormal weight loss; Z98.84 Bariatric surgery status; Z79.899 Other long term (current) drug therapy; Z88.0 Allergy status to penicillin; Z88.2 Allergy status to sulfonamides; Z88.5 Allergy status to narcotic agent; Z88.8 Allergy status to other drugs, medicaments and biological substances; Z88.1 Allergy status to other antibiotic agents | CPT/HCPCS: 96360; 96361; J1642; J7030 ==

== ENCOUNTER 2019-09-03 00:29 | Day surgery (SDC) | payer OTHER ==
--- NOTE | 2019-09-03 10:50 | NUR ---
THIS RN SCANNED HEPARIN AND HOOKED SYRINGE TO END CAP. PT SAID "OUCH" AND NOTED HORVATH NEEDLE WAS DANGLING FROM DRESSING. UPON FURTHER NOTE, PT REPORTS R CUP OF HER BRA WET. PT HAD 2 LITERS OF NS, AND HAS BEEN UP AND DOWN TO BATHROOM. SHE REPORTS "MAYBE IT CAME OUT THE LAST TIME I GOT UP". PT REACCESSED TO FLUSH PORT WITH HEPARIN. SEE RECORD.
== END 2019-09-03 10:44 | disposition home or self-care (01) ==
LOC: ATC 00:29
DX: E86.0 Dehydration (principal); K21.9 Gastro-esophageal reflux disease without esophagitis; K58.9 Irritable bowel syndrome, unspecified; D64.9 Anemia, unspecified; F41.0 Panic disorder [episodic paroxysmal anxiety]; F32.9 Major depressive disorder, single episode, unspecified; G62.9 Polyneuropathy, unspecified; G25.81 Restless legs syndrome; G47.00 Insomnia, unspecified; G43.109 Migraine with aura, not intractable, without status migrainosus; M79.7 Fibromyalgia; G89.4 Chronic pain syndrome; R63.4 Abnormal weight loss; E46 Unspecified protein-calorie malnutrition; Z68.1 Body mass index [BMI] 19.9 or less, adult; Z79.82 Long term (current) use of aspirin; Z79.899 Other long term (current) drug therapy; Z88.1 Allergy status to other antibiotic agents; Z88.2 Allergy status to sulfonamides; Z88.5 Allergy status to narcotic agent; Z88.8 Allergy status to other drugs, medicaments and biological substances; Z91.048 Other nonmedicinal substance allergy status; Z98.84 Bariatric surgery status
CPT/HCPCS: 96360; 96361; 96372; J1642; J1885; J7030

== ENCOUNTER 2019-09-06 00:20 | Day surgery (SDC) | payer OTHER ==
--- NOTE | 2019-09-06 10:13 | NUR ---
PT C/O SLIGHT PAIN UNDER MEDIPORT. LOOKED AT SKIN AND SKIN WAS PINK AND DRY WITH NO SWELLING. ENCOURAGED PT TO TELL RN IF PAIN GETS WORSE.
== END 2019-09-06 11:11 | disposition home or self-care (01) ==
LOC: ATC 00:20
DX: E86.0 Dehydration (principal); K21.9 Gastro-esophageal reflux disease without esophagitis; K58.9 Irritable bowel syndrome, unspecified; D64.9 Anemia, unspecified; F41.0 Panic disorder [episodic paroxysmal anxiety]; F32.9 Major depressive disorder, single episode, unspecified; G25.81 Restless legs syndrome; G89.4 Chronic pain syndrome; G43.109 Migraine with aura, not intractable, without status migrainosus; L30.9 Dermatitis, unspecified; M79.7 Fibromyalgia; G47.30 Sleep apnea, unspecified; E46 Unspecified protein-calorie malnutrition; Z68.1 Body mass index [BMI] 19.9 or less, adult; Z79.82 Long term (current) use of aspirin; Z79.899 Other long term (current) drug therapy; Z98.84 Bariatric surgery status; Z88.1 Allergy status to other antibiotic agents; Z88.2 Allergy status to sulfonamides; Z88.5 Allergy status to narcotic agent; Z88.8 Allergy status to other drugs, medicaments and biological substances; Z91.040 Latex allergy status
CPT/HCPCS: 96360; 96361; J1642; J7030

== ENCOUNTER 2019-09-09 00:13 | Day surgery (SDC) | payer OTHER | END 2019-09-09 11:18 | disposition home or self-care (01) | LOC: ATC 00:13 | DX: E86.0 Dehydration (principal); K21.9 Gastro-esophageal reflux disease without esophagitis; K58.9 Irritable bowel syndrome, unspecified; G25.81 Restless legs syndrome; F41.0 Panic disorder [episodic paroxysmal anxiety]; F32.9 Major depressive disorder, single episode, unspecified; D64.9 Anemia, unspecified; G47.00 Insomnia, unspecified; G43.909 Migraine, unspecified, not intractable, without status migrainosus; G47.30 Sleep apnea, unspecified; G89.4 Chronic pain syndrome; E46 Unspecified protein-calorie malnutrition; Z68.1 Body mass index [BMI] 19.9 or less, adult; Z98.84 Bariatric surgery status; Z79.899 Other long term (current) drug therapy; Z79.82 Long term (current) use of aspirin; Z88.1 Allergy status to other antibiotic agents; Z88.2 Allergy status to sulfonamides; Z88.5 Allergy status to narcotic agent; Z88.8 Allergy status to other drugs, medicaments and biological substances; Z91.048 Other nonmedicinal substance allergy status | CPT/HCPCS: 96360; 96361; J1642; J1885; J7030 ==

== ENCOUNTER 2019-09-13 00:05 | Day surgery (SDC) | payer OTHER | END 2019-09-13 11:03 | disposition home or self-care (01) | LOC: ATC 00:05 | DX: E86.0 Dehydration (principal); K21.9 Gastro-esophageal reflux disease without esophagitis; K58.9 Irritable bowel syndrome, unspecified; G25.81 Restless legs syndrome; F32.9 Major depressive disorder, single episode, unspecified; D64.9 Anemia, unspecified; G47.00 Insomnia, unspecified; G89.4 Chronic pain syndrome; G47.30 Sleep apnea, unspecified; G43.109 Migraine with aura, not intractable, without status migrainosus; E46 Unspecified protein-calorie malnutrition; Z68.1 Body mass index [BMI] 19.9 or less, adult; Z79.82 Long term (current) use of aspirin; Z79.899 Other long term (current) drug therapy; Z98.84 Bariatric surgery status; Z88.2 Allergy status to sulfonamides; Z88.1 Allergy status to other antibiotic agents; Z88.8 Allergy status to other drugs, medicaments and biological substances; Z91.048 Other nonmedicinal substance allergy status | CPT/HCPCS: 96360; 96361; J1642; J7030 ==

== ENCOUNTER → 2019-09-14 | Outpatient (CLI) | payer OTHER ==
[~2019-09-14] MED LIST changes: +ERGO50000 PO; +NORT25 PO
[2019-09-14 15:22] LABS: Bilirubin, Urine Neg (Neg); Blood, Urine 3+ (Neg); Glucose Qualitative, Urine Neg (Neg); Ketones, Urine Neg (Neg); Leukocyte Esterase, Urine Neg (Neg); Nitrite, Urine Neg (Neg); Protein, Urine Neg (Neg); Urobilinogen, Urine NORM (Normal)
[2019-09-14 15:31] LABS: Appearance, Urine Clear (Clear); Color, Urine Yellow (P-Yellow)
[2019-09-14 15:34] LABS: Bacteria Rare /hpf; Red Blood Cells, Urine 0-2 /hpf (0-2); Squamous Epithelial Cells Rare /hpf (Few); White Blood Cells, Urine 0-2 /hpf (0-5)
== END | disposition home or self-care (01) ==
LOC: OLS 11:22 → LAB SHORT 11:22
PROVIDERS: Internal Medicine
DX: R31.9 Hematuria, unspecified (principal)
CPT/HCPCS: 81001

== ENCOUNTER 2019-09-17 02:12 | Day surgery (SDC) | payer OTHER ==
[~2019-09-17 02:12] MED LIST changes: -ERGO50000 PO; -NORT25 PO
== END 2019-09-17 11:06 | disposition home or self-care (01) ==
LOC: ATC 02:12
DX: E86.0 Dehydration (principal); K21.9 Gastro-esophageal reflux disease without esophagitis; K58.9 Irritable bowel syndrome, unspecified; G25.81 Restless legs syndrome; F41.0 Panic disorder [episodic paroxysmal anxiety]; F32.9 Major depressive disorder, single episode, unspecified; D64.9 Anemia, unspecified; G43.109 Migraine with aura, not intractable, without status migrainosus; G89.4 Chronic pain syndrome; G47.30 Sleep apnea, unspecified; E46 Unspecified protein-calorie malnutrition; Z68.1 Body mass index [BMI] 19.9 or less, adult; Z98.84 Bariatric surgery status; Z90.710 Acquired absence of both cervix and uterus; Z79.1 Long term (current) use of non-steroidal anti-inflammatories (NSAID); Z79.82 Long term (current) use of aspirin; Z79.899 Other long term (current) drug therapy; Z88.1 Allergy status to other antibiotic agents; Z88.2 Allergy status to sulfonamides; Z88.8 Allergy status to other drugs, medicaments and biological substances; Z91.048 Other nonmedicinal substance allergy status
CPT/HCPCS: 96360; 96361; J1642; J7030

== ENCOUNTER 2019-09-20 00:03 | Day surgery (SDC) | payer OTHER | END 2019-09-20 10:45 | disposition home or self-care (01) | LOC: ATC 00:03 | DX: E86.0 Dehydration (principal); K21.9 Gastro-esophageal reflux disease without esophagitis; K58.9 Irritable bowel syndrome, unspecified; G25.81 Restless legs syndrome; F41.0 Panic disorder [episodic paroxysmal anxiety]; G62.9 Polyneuropathy, unspecified; F32.9 Major depressive disorder, single episode, unspecified; D64.9 Anemia, unspecified; M79.7 Fibromyalgia; G47.00 Insomnia, unspecified; G89.4 Chronic pain syndrome; E46 Unspecified protein-calorie malnutrition; Z68.1 Body mass index [BMI] 19.9 or less, adult; Z79.899 Other long term (current) drug therapy; Z98.84 Bariatric surgery status; Z79.82 Long term (current) use of aspirin; Z88.1 Allergy status to other antibiotic agents; Z88.5 Allergy status to narcotic agent; Z88.2 Allergy status to sulfonamides; Z88.8 Allergy status to other drugs, medicaments and biological substances; Z91.048 Other nonmedicinal substance allergy status | CPT/HCPCS: 96360; 96361; 96372; J1642; J1885; J7030 ==

== ENCOUNTER 2019-09-24 00:42 | Day surgery (SDC) | payer OTHER | END 2019-09-24 10:51 | disposition home or self-care (01) | LOC: ATC 00:42 | DX: E86.0 Dehydration (principal); E46 Unspecified protein-calorie malnutrition; K21.9 Gastro-esophageal reflux disease without esophagitis; K58.9 Irritable bowel syndrome, unspecified; F41.0 Panic disorder [episodic paroxysmal anxiety]; F32.9 Major depressive disorder, single episode, unspecified; G25.81 Restless legs syndrome; G47.00 Insomnia, unspecified; G89.4 Chronic pain syndrome; G43.109 Migraine with aura, not intractable, without status migrainosus; M79.7 Fibromyalgia; Z68.1 Body mass index [BMI] 19.9 or less, adult; G47.30 Sleep apnea, unspecified; Z88.1 Allergy status to other antibiotic agents; Z88.2 Allergy status to sulfonamides; Z88.5 Allergy status to narcotic agent; Z88.8 Allergy status to other drugs, medicaments and biological substances; Z91.048 Other nonmedicinal substance allergy status; Z98.84 Bariatric surgery status; Z79.82 Long term (current) use of aspirin; Z79.899 Other long term (current) drug therapy | CPT/HCPCS: 96360; 96361; J1642; J1885; J7030 ==

== ENCOUNTER 2019-09-27 00:05 | Day surgery (SDC) | payer OTHER ==
[2019-09-27] MEDS ORDERED: ERGO50000 PO (08:31)
== END 2019-09-27 10:34 | disposition home or self-care (01) ==
LOC: ATC 00:05
DX: E86.0 Dehydration (principal); K21.9 Gastro-esophageal reflux disease without esophagitis; D64.9 Anemia, unspecified; K58.9 Irritable bowel syndrome, unspecified; F41.0 Panic disorder [episodic paroxysmal anxiety]; G62.9 Polyneuropathy, unspecified; F32.9 Major depressive disorder, single episode, unspecified; G25.81 Restless legs syndrome; G47.00 Insomnia, unspecified; G43.109 Migraine with aura, not intractable, without status migrainosus; G89.4 Chronic pain syndrome; M79.7 Fibromyalgia; G47.30 Sleep apnea, unspecified; E46 Unspecified protein-calorie malnutrition; Z68.1 Body mass index [BMI] 19.9 or less, adult; Z98.84 Bariatric surgery status; Z79.82 Long term (current) use of aspirin; Z79.899 Other long term (current) drug therapy; Z88.1 Allergy status to other antibiotic agents; Z88.2 Allergy status to sulfonamides; Z88.5 Allergy status to narcotic agent; Z88.8 Allergy status to other drugs, medicaments and biological substances; Z91.048 Other nonmedicinal substance allergy status
CPT/HCPCS: 96360; 96361; J1642; J7030

== ENCOUNTER 2019-09-30 00:28 | Day surgery (SDC) | payer OTHER ==
[~2019-09-30 00:28] MED LIST changes: +ERGO50000 PO
[2019-09-30] MEDS ORDERED: NORT25 PO (09:06)
== END 2019-09-30 23:16 | disposition home or self-care (01) ==
LOC: ATC 00:28
DX: E46 Unspecified protein-calorie malnutrition (principal); E86.0 Dehydration; K58.9 Irritable bowel syndrome, unspecified; D64.9 Anemia, unspecified; F41.0 Panic disorder [episodic paroxysmal anxiety]; G62.9 Polyneuropathy, unspecified; G25.81 Restless legs syndrome; K21.9 Gastro-esophageal reflux disease without esophagitis; G47.00 Insomnia, unspecified; G47.30 Sleep apnea, unspecified; G43.109 Migraine with aura, not intractable, without status migrainosus; G89.4 Chronic pain syndrome; Z68.1 Body mass index [BMI] 19.9 or less, adult; Z79.82 Long term (current) use of aspirin; Z79.899 Other long term (current) drug therapy; Z88.1 Allergy status to other antibiotic agents; Z88.2 Allergy status to sulfonamides; Z88.5 Allergy status to narcotic agent; Z88.8 Allergy status to other drugs, medicaments and biological substances; Z91.048 Other nonmedicinal substance allergy status; Z98.84 Bariatric surgery status
CPT/HCPCS: 96360; 96361; J1642; J7030

== ENCOUNTER 2019-10-04 00:08 | Day surgery (SDC) | payer OTHER ==
[~2019-10-04 00:08] MED LIST changes: +NORT25 PO
== END 2019-10-04 10:53 | disposition home or self-care (01) ==
LOC: ATC 00:08
DX: E46 Unspecified protein-calorie malnutrition (principal); E86.0 Dehydration; K21.9 Gastro-esophageal reflux disease without esophagitis; K58.9 Irritable bowel syndrome, unspecified; D64.9 Anemia, unspecified; F41.0 Panic disorder [episodic paroxysmal anxiety]; G62.9 Polyneuropathy, unspecified; F32.9 Major depressive disorder, single episode, unspecified; G25.81 Restless legs syndrome; G47.00 Insomnia, unspecified; G43.109 Migraine with aura, not intractable, without status migrainosus; G89.4 Chronic pain syndrome; M79.7 Fibromyalgia; G47.30 Sleep apnea, unspecified; Z68.1 Body mass index [BMI] 19.9 or less, adult; Z98.84 Bariatric surgery status; Z79.82 Long term (current) use of aspirin; Z79.899 Other long term (current) drug therapy; Z88.1 Allergy status to other antibiotic agents; Z88.2 Allergy status to sulfonamides; Z88.5 Allergy status to narcotic agent; Z88.8 Allergy status to other drugs, medicaments and biological substances; Z91.048 Other nonmedicinal substance allergy status
CPT/HCPCS: 96360; 96361; J1642; J7030

== ENCOUNTER 2019-10-08 01:58 | Day surgery (SDC) | payer OTHER ==
--- NOTE | 2019-10-08 13:27 | NUR ---
AT END OF 2ND LITER OF NS, PT C/O FEELING SHAKY. SHAKINESS STARTED AT AT 1045 PER PT AND SHE HAD A CARLITO SUN AT 1055 AND APPLESAUCE AT 1100. SHE MENTIONED NOT FEELING WELL AND SHAKY TO THIS CONSTRUCTION STONEMASON AT 1107. VS @ 1107 = BP 168/93, HR 84. APPLE JUICE GIVEN. 1115: PT REPORTS FEELING A LITTLE BETTER. BP 152/91, HR 80. PT AMB TO BR, STEADY GAIT. RESTED IN ROOM WITHOUT COMPLAINT UNTIL 1150. SHE STATED SHE WAS FEELING BETTER AT THAT TIME. 1150 VS = BP 153/83, HR 84. MEDIPORT FLUSHED AND DEACCESSED. PT INSTRUCTED TO GO TO ER IF SHE CONTINUES TO FEEL ILL. PT ENCOURAGED TO EAT SOME PROTEIN. CHEESE AND CRACKERS GIVEN.
== END 2019-10-08 11:51 | disposition home or self-care (01) ==
LOC: ATC 01:58
DX: E86.0 Dehydration (principal); K58.9 Irritable bowel syndrome, unspecified; E46 Unspecified protein-calorie malnutrition; K21.9 Gastro-esophageal reflux disease without esophagitis; F41.0 Panic disorder [episodic paroxysmal anxiety]; G56.20 Lesion of ulnar nerve, unspecified upper limb; G25.81 Restless legs syndrome; F32.9 Major depressive disorder, single episode, unspecified; G47.00 Insomnia, unspecified; G43.109 Migraine with aura, not intractable, without status migrainosus; G89.4 Chronic pain syndrome; M79.7 Fibromyalgia; E04.2 Nontoxic multinodular goiter; G47.30 Sleep apnea, unspecified; Z68.1 Body mass index [BMI] 19.9 or less, adult; Z79.82 Long term (current) use of aspirin; Z79.899 Other long term (current) drug therapy; Z88.1 Allergy status to other antibiotic agents; Z88.2 Allergy status to sulfonamides; Z88.5 Allergy status to narcotic agent; Z88.8 Allergy status to other drugs, medicaments and biological substances; Z98.84 Bariatric surgery status; Z91.048 Other nonmedicinal substance allergy status
CPT/HCPCS: 96360; 96361; J1642; J7030

== ENCOUNTER 2019-10-11 00:08 | Day surgery (SDC) | payer OTHER | END 2019-10-11 10:39 | disposition home or self-care (01) | LOC: ATC 00:08 | DX: E86.0 Dehydration (principal); K58.9 Irritable bowel syndrome, unspecified; E46 Unspecified protein-calorie malnutrition; K21.9 Gastro-esophageal reflux disease without esophagitis; F41.0 Panic disorder [episodic paroxysmal anxiety]; G56.20 Lesion of ulnar nerve, unspecified upper limb; D64.9 Anemia, unspecified; G25.81 Restless legs syndrome; G47.00 Insomnia, unspecified; G89.4 Chronic pain syndrome; G43.109 Migraine with aura, not intractable, without status migrainosus; Z68.1 Body mass index [BMI] 19.9 or less, adult; Z79.52 Long term (current) use of systemic steroids; Z79.899 Other long term (current) drug therapy; Z88.1 Allergy status to other antibiotic agents; Z88.2 Allergy status to sulfonamides; Z88.5 Allergy status to narcotic agent; Z88.8 Allergy status to other drugs, medicaments and biological substances; Z98.84 Bariatric surgery status; Z91.048 Other nonmedicinal substance allergy status | CPT/HCPCS: 96360; 96361; J1642; J7030 ==

== ENCOUNTER 2019-10-12 15:51 | Emergency (ER) | payer OTHER ==
[~2019-10-12] VITALS: Ht 157.5 cm; Wt 49.0 kg
== END 2019-10-12 20:40 | disposition home or self-care (01) ==
LOC: ER 15:51
DX: E86.0 Dehydration (principal); R51 Headache; M79.7 Fibromyalgia; K21.9 Gastro-esophageal reflux disease without esophagitis; D64.9 Anemia, unspecified; G47.30 Sleep apnea, unspecified; Z88.2 Allergy status to sulfonamides; Z88.1 Allergy status to other antibiotic agents; Z88.8 Allergy status to other drugs, medicaments and biological substances
CPT/HCPCS: 96361; 96374; 96375; 99283-25; J1885; J2405; J7030

== ENCOUNTER 2019-10-17 09:29 | Emergency (ER) | payer OTHER ==
[~2019-10-17] VITALS: Ht 157.5 cm; Wt 48.5 kg
== END 2019-10-17 12:25 | disposition home or self-care (01) ==
LOC: ER 09:29
DX: E86.0 Dehydration (principal); Z88.5 Allergy status to narcotic agent; Z88.2 Allergy status to sulfonamides; Z91.048 Other nonmedicinal substance allergy status; Z88.0 Allergy status to penicillin; Z88.8 Allergy status to other drugs, medicaments and biological substances; Z79.899 Other long term (current) drug therapy
CPT/HCPCS: 36415; 96361; 96374; 96375; 99284-25; J1885; J2405; J7030; J7120

== ENCOUNTER 2019-10-18 00:05 | Day surgery (SDC) | payer OTHER ==
--- NOTE | 2019-10-18 09:27 | NUR ---
PT GAVE CONSENT TO PATIENT CARE AND CHART ACCESS.
== END 2019-10-18 10:23 | disposition home or self-care (01) ==
LOC: ATC 00:05
DX: E86.0 Dehydration (principal); K90.9 Intestinal malabsorption, unspecified; K21.9 Gastro-esophageal reflux disease without esophagitis; Z98.84 Bariatric surgery status; Z79.899 Other long term (current) drug therapy; Z79.82 Long term (current) use of aspirin; Z88.0 Allergy status to penicillin; Z88.8 Allergy status to other drugs, medicaments and biological substances; Z88.5 Allergy status to narcotic agent; Z88.1 Allergy status to other antibiotic agents; Z88.2 Allergy status to sulfonamides
CPT/HCPCS: 96360; 96361; J1642; J7030

== ENCOUNTER 2019-10-22 00:39 | Day surgery (SDC) | payer OTHER | END 2019-10-22 10:44 | disposition home or self-care (01) | LOC: ATC 00:39 | DX: E86.0 Dehydration (principal); K90.9 Intestinal malabsorption, unspecified; K21.9 Gastro-esophageal reflux disease without esophagitis; F32.9 Major depressive disorder, single episode, unspecified; Z98.84 Bariatric surgery status; Z79.899 Other long term (current) drug therapy | CPT/HCPCS: 96360; 96361; J1642; J7030 ==

== ENCOUNTER 2019-10-29 02:13 | Day surgery (SDC) | payer OTHER | END 2019-10-29 11:26 | disposition home or self-care (01) | LOC: ATC 02:13 | DX: E86.0 Dehydration (principal); E46 Unspecified protein-calorie malnutrition; K21.9 Gastro-esophageal reflux disease without esophagitis; G89.4 Chronic pain syndrome; Z98.84 Bariatric surgery status; Z79.899 Other long term (current) drug therapy; Z88.0 Allergy status to penicillin; Z88.5 Allergy status to narcotic agent; Z88.2 Allergy status to sulfonamides; Z88.1 Allergy status to other antibiotic agents; Z88.8 Allergy status to other drugs, medicaments and biological substances | CPT/HCPCS: 80400; 82533; J0834; J1642; J7030 ==

== ENCOUNTER 2019-11-05 02:01 | Day surgery (SDC) | payer OTHER | END 2019-11-05 10:57 | disposition home or self-care (01) | LOC: ATC 02:01 | DX: E27.40 Unspecified adrenocortical insufficiency (principal); K21.9 Gastro-esophageal reflux disease without esophagitis; Z88.0 Allergy status to penicillin; Z88.5 Allergy status to narcotic agent; Z88.2 Allergy status to sulfonamides; Z88.1 Allergy status to other antibiotic agents; Z88.8 Allergy status to other drugs, medicaments and biological substances; Z79.899 Other long term (current) drug therapy | CPT/HCPCS: 96360; 96361; J1642; J7030 ==

== ENCOUNTER 2019-11-08 00:03 | Day surgery (SDC) | payer OTHER | END 2019-11-08 10:47 | disposition home or self-care (01) | LOC: ATC 00:03 | DX: E27.40 Unspecified adrenocortical insufficiency (principal); Z88.0 Allergy status to penicillin; Z88.5 Allergy status to narcotic agent; Z88.2 Allergy status to sulfonamides; Z88.1 Allergy status to other antibiotic agents; Z88.8 Allergy status to other drugs, medicaments and biological substances | CPT/HCPCS: 96360; 96361; J1642; J7030 ==

== ENCOUNTER 2019-11-12 00:21 | Day surgery (SDC) | payer OTHER | END 2019-11-12 11:03 | disposition home or self-care (01) | LOC: ATC 00:21 | DX: E27.40 Unspecified adrenocortical insufficiency (principal); K21.9 Gastro-esophageal reflux disease without esophagitis; Z79.899 Other long term (current) drug therapy; Z88.0 Allergy status to penicillin; Z88.5 Allergy status to narcotic agent; Z88.2 Allergy status to sulfonamides; Z88.8 Allergy status to other drugs, medicaments and biological substances; Z88.1 Allergy status to other antibiotic agents | CPT/HCPCS: J1642; J1885; J7030 ==

== ENCOUNTER 2019-11-15 00:17 | Day surgery (SDC) | payer OTHER | END 2019-11-15 10:37 | disposition home or self-care (01) | LOC: ATC 00:17 | DX: E27.40 Unspecified adrenocortical insufficiency (principal); K21.9 Gastro-esophageal reflux disease without esophagitis; G47.30 Sleep apnea, unspecified; G43.909 Migraine, unspecified, not intractable, without status migrainosus; Z88.0 Allergy status to penicillin; Z88.2 Allergy status to sulfonamides; Z88.5 Allergy status to narcotic agent; Z88.3 Allergy status to other anti-infective agents; Z88.8 Allergy status to other drugs, medicaments and biological substances; Z79.899 Other long term (current) drug therapy | CPT/HCPCS: 96360; 96361; J1642; J7030 ==

== ENCOUNTER 2019-11-17 11:42 | Day surgery (SDC) | payer OTHER | END 2019-11-17 16:25 | disposition home or self-care (01) | LOC: ATC 11:42 | DX: E27.40 Unspecified adrenocortical insufficiency (principal); K31.9 Disease of stomach and duodenum, unspecified; K90.9 Intestinal malabsorption, unspecified; K21.9 Gastro-esophageal reflux disease without esophagitis; Z98.84 Bariatric surgery status | CPT/HCPCS: 96360; 96361; J1642; J7030 ==

== ENCOUNTER 2019-11-19 01:01 | Day surgery (SDC) | payer OTHER | END 2019-11-19 10:55 | disposition home or self-care (01) | LOC: ATC 01:01 | DX: E27.40 Unspecified adrenocortical insufficiency (principal); K21.9 Gastro-esophageal reflux disease without esophagitis; K90.9 Intestinal malabsorption, unspecified; Z98.84 Bariatric surgery status | CPT/HCPCS: 96360; 96361; J1642; J1885; J7030 ==

== ENCOUNTER 2019-11-22 00:13 | Day surgery (SDC) | payer OTHER | END 2019-11-22 10:27 | disposition home or self-care (01) | LOC: ATC 00:13 | DX: E27.40 Unspecified adrenocortical insufficiency (principal); K21.9 Gastro-esophageal reflux disease without esophagitis; K90.9 Intestinal malabsorption, unspecified; E86.0 Dehydration; Z98.84 Bariatric surgery status; Z79.899 Other long term (current) drug therapy | CPT/HCPCS: J1642; J1885; J7030 ==

== ENCOUNTER 2019-11-26 01:21 | Day surgery (SDC) | payer OTHER | END 2019-11-26 10:44 | disposition home or self-care (01) | LOC: ATC 01:21 | DX: K31.9 Disease of stomach and duodenum, unspecified (principal); E27.40 Unspecified adrenocortical insufficiency; K21.9 Gastro-esophageal reflux disease without esophagitis; K90.9 Intestinal malabsorption, unspecified; Z98.84 Bariatric surgery status; E86.0 Dehydration | CPT/HCPCS: 96360; 96361; J1642; J7030 ==

== ENCOUNTER 2019-11-29 00:03 | Day surgery (SDC) | payer OTHER | END 2019-11-29 11:19 | disposition home or self-care (01) | LOC: ATC 00:03 | DX: K31.9 Disease of stomach and duodenum, unspecified (principal); E27.40 Unspecified adrenocortical insufficiency; K90.9 Intestinal malabsorption, unspecified; K21.9 Gastro-esophageal reflux disease without esophagitis; E86.0 Dehydration; F32.9 Major depressive disorder, single episode, unspecified; Z79.899 Other long term (current) drug therapy; Z98.84 Bariatric surgery status | CPT/HCPCS: J1642; J7030 ==

== ENCOUNTER 2019-12-03 02:37 | Day surgery (SDC) | payer OTHER | END 2019-12-03 10:56 | disposition home or self-care (01) | LOC: ATC 02:37 | DX: E86.0 Dehydration (principal); E27.40 Unspecified adrenocortical insufficiency; K31.9 Disease of stomach and duodenum, unspecified; K90.9 Intestinal malabsorption, unspecified; K21.9 Gastro-esophageal reflux disease without esophagitis; Z98.84 Bariatric surgery status; Z88.1 Allergy status to other antibiotic agents; Z88.2 Allergy status to sulfonamides; Z88.8 Allergy status to other drugs, medicaments and biological substances | CPT/HCPCS: 96360; 96361; J1642; J7030 ==

== ENCOUNTER 2019-12-10 00:35 | Day surgery (SDC) | payer OTHER ==
[2019-12-10 11:48] LABS: C-REACTIVE PROTEIN, EXT RANGE <0.290 mg/dL (0.000-0.300)
[2019-12-10 11:58] LABS: Thyroid Stimulating Hormone 0.408 uIU/mL (0.360-4.800)
[2019-12-11 06:08] LABS: COMPLEMENT C3, SERUM 87 mg/dL (82-167); COMPLEMENT C4, SERUM 20 mg/dL (14-44)
[2019-12-11 20:08] LABS: ANTI-DSDNA ANTIBODIES <1 IU/mL (0-9); RNP ANTIBODIES <0.2 AI (0.0-0.9); SJOGREN'S ANTI-SS-A <0.2 AI (0.0-0.9); SJOGREN'S ANTI-SS-B <0.2 AI (0.0-0.9); SMITH ANTIBODIES <0.2 AI (0.0-0.9)
== END 2019-12-10 11:20 | disposition home or self-care (01) ==
LOC: ATC 00:35
PROVIDERS: Internal Medicine
DX: E86.0 Dehydration (principal); R11.0 Nausea; K21.9 Gastro-esophageal reflux disease without esophagitis; K31.9 Disease of stomach and duodenum, unspecified; K90.9 Intestinal malabsorption, unspecified; R63.4 Abnormal weight loss; R63.8 Other symptoms and signs concerning food and fluid intake; E27.40 Unspecified adrenocortical insufficiency; M25.60 Stiffness of unspecified joint, not elsewhere classified; R53.82 Chronic fatigue, unspecified; G43.909 Migraine, unspecified, not intractable, without status migrainosus; G89.4 Chronic pain syndrome; Z98.84 Bariatric surgery status
CPT/HCPCS: 84443; 85651; 86140; 86160; 86225; 86235; 86430; 96360; 96361; J1642; J7030

== ENCOUNTER 2019-12-20 00:30 | Day surgery (SDC) | payer OTHER | END 2019-12-20 10:48 | disposition home or self-care (01) | LOC: ATC 00:30 | DX: M25.60 Stiffness of unspecified joint, not elsewhere classified (principal); K21.9 Gastro-esophageal reflux disease without esophagitis; Z88.0 Allergy status to penicillin; Z88.5 Allergy status to narcotic agent; Z88.1 Allergy status to other antibiotic agents; Z88.2 Allergy status to sulfonamides; Z79.899 Other long term (current) drug therapy | CPT/HCPCS: J1642; J7030 ==

== ENCOUNTER 2019-12-24 01:19 | Day surgery (SDC) | payer OTHER | END 2019-12-24 10:47 | disposition home or self-care (01) | LOC: ATC 01:19 | DX: K31.9 Disease of stomach and duodenum, unspecified (principal); M25.60 Stiffness of unspecified joint, not elsewhere classified; K90.9 Intestinal malabsorption, unspecified; K21.9 Gastro-esophageal reflux disease without esophagitis; Z88.0 Allergy status to penicillin; Z98.84 Bariatric surgery status; Z88.2 Allergy status to sulfonamides; Z88.1 Allergy status to other antibiotic agents; Z88.5 Allergy status to narcotic agent; Z88.8 Allergy status to other drugs, medicaments and biological substances; Z79.899 Other long term (current) drug therapy | CPT/HCPCS: 96360; 96361; 96372; J1642; J1885; J7030 ==

== ENCOUNTER 2019-12-27 00:03 | Day surgery (SDC) | payer OTHER | END 2019-12-27 11:05 | disposition home or self-care (01) | LOC: ATC 00:03 | DX: M25.60 Stiffness of unspecified joint, not elsewhere classified (principal); Z88.2 Allergy status to sulfonamides; Z88.5 Allergy status to narcotic agent; Z88.1 Allergy status to other antibiotic agents; Z88.0 Allergy status to penicillin; Z88.8 Allergy status to other drugs, medicaments and biological substances | CPT/HCPCS: J1642; J7030 ==

== ENCOUNTER 2019-12-31 00:01 | Day surgery (SDC) | payer OTHER | END 2019-12-31 10:47 | disposition home or self-care (01) | LOC: ATC 00:01 | DX: E86.0 Dehydration (principal); K90.9 Intestinal malabsorption, unspecified; E46 Unspecified protein-calorie malnutrition; K21.9 Gastro-esophageal reflux disease without esophagitis; Z79.52 Long term (current) use of systemic steroids; Z79.899 Other long term (current) drug therapy; Z98.84 Bariatric surgery status | CPT/HCPCS: 96360; 96361; J1642; J7030 ==

== ENCOUNTER 2020-01-03 01:11 | Day surgery (SDC) | payer OTHER | END 2020-01-03 10:46 | disposition home or self-care (01) | LOC: ATC 01:11 | DX: K31.9 Disease of stomach and duodenum, unspecified (principal); M25.60 Stiffness of unspecified joint, not elsewhere classified; K90.9 Intestinal malabsorption, unspecified; K21.9 Gastro-esophageal reflux disease without esophagitis; Z98.84 Bariatric surgery status; E86.0 Dehydration; Z88.0 Allergy status to penicillin; Z88.1 Allergy status to other antibiotic agents; Z88.2 Allergy status to sulfonamides; Z88.8 Allergy status to other drugs, medicaments and biological substances | CPT/HCPCS: J1642; J7030 ==

== ENCOUNTER 2020-01-10 00:02 | Day surgery (SDC) | payer OTHER | END 2020-01-10 10:45 | disposition home or self-care (01) | LOC: ATC 00:02 | DX: K31.9 Disease of stomach and duodenum, unspecified (principal); M25.60 Stiffness of unspecified joint, not elsewhere classified; K90.9 Intestinal malabsorption, unspecified; K21.9 Gastro-esophageal reflux disease without esophagitis; Z98.84 Bariatric surgery status; Z79.899 Other long term (current) drug therapy | CPT/HCPCS: J1642; J1885; J7030 ==

== ENCOUNTER 2020-01-13 07:27 | Day surgery (SDC) | payer OTHER | END 2020-01-13 16:20 | disposition home or self-care (01) | LOC: ATC 07:27 | DX: K31.9 Disease of stomach and duodenum, unspecified (principal); M25.60 Stiffness of unspecified joint, not elsewhere classified; K21.9 Gastro-esophageal reflux disease without esophagitis; K90.9 Intestinal malabsorption, unspecified; E86.0 Dehydration; Z98.84 Bariatric surgery status; Z79.899 Other long term (current) drug therapy; Z79.82 Long term (current) use of aspirin; Z88.1 Allergy status to other antibiotic agents; Z88.5 Allergy status to narcotic agent; Z88.0 Allergy status to penicillin; Z88.2 Allergy status to sulfonamides; Z88.8 Allergy status to other drugs, medicaments and biological substances | CPT/HCPCS: 96360; 96361; J1642; J7030 ==

== ENCOUNTER 2020-01-15 00:08 | Day surgery (SDC) | payer OTHER | END 2020-01-15 10:12 | disposition home or self-care (01) | LOC: ATC 00:08 | DX: E86.0 Dehydration (principal); K21.9 Gastro-esophageal reflux disease without esophagitis; K90.9 Intestinal malabsorption, unspecified; Z98.84 Bariatric surgery status; Z79.899 Other long term (current) drug therapy | CPT/HCPCS: 96360; 96361; J1642; J7030 ==

== ENCOUNTER 2020-01-17 00:02 | Day surgery (SDC) | payer OTHER | END 2020-01-17 11:00 | disposition home or self-care (01) | LOC: ATC 00:02 | DX: E86.0 Dehydration (principal); K21.9 Gastro-esophageal reflux disease without esophagitis; K90.9 Intestinal malabsorption, unspecified; Z98.84 Bariatric surgery status; Z79.899 Other long term (current) drug therapy | CPT/HCPCS: 96360; 96361; J1642; J7030 ==

== ENCOUNTER 2020-01-28 00:09 | Day surgery (SDC) | payer OTHER | END 2020-01-28 11:00 | disposition home or self-care (01) | LOC: ATC 00:09 | DX: G43.109 Migraine with aura, not intractable, without status migrainosus (principal); K21.9 Gastro-esophageal reflux disease without esophagitis; M51.36 Other intervertebral disc degeneration, lumbar region; Z88.2 Allergy status to sulfonamides; Z88.5 Allergy status to narcotic agent; Z88.0 Allergy status to penicillin; Z88.1 Allergy status to other antibiotic agents; Z79.899 Other long term (current) drug therapy | CPT/HCPCS: J1642; J1885; J7030 ==

== ENCOUNTER 2020-01-31 00:15 | Day surgery (SDC) | payer OTHER | END 2020-01-31 10:22 | disposition home or self-care (01) | LOC: ATC 00:15 | DX: G43.109 Migraine with aura, not intractable, without status migrainosus (principal); M51.36 Other intervertebral disc degeneration, lumbar region; Z88.1 Allergy status to other antibiotic agents; Z88.5 Allergy status to narcotic agent; Z88.0 Allergy status to penicillin; Z88.2 Allergy status to sulfonamides; Z88.8 Allergy status to other drugs, medicaments and biological substances; K21.9 Gastro-esophageal reflux disease without esophagitis | CPT/HCPCS: J1642; J7030 ==

== ENCOUNTER 2020-02-04 00:08 | Day surgery (SDC) | payer OTHER | END 2020-02-04 11:05 | disposition home or self-care (01) | LOC: ATC 00:08 | DX: G43.109 Migraine with aura, not intractable, without status migrainosus (principal); M51.36 Other intervertebral disc degeneration, lumbar region; K21.9 Gastro-esophageal reflux disease without esophagitis; Z79.899 Other long term (current) drug therapy; Z88.5 Allergy status to narcotic agent; Z88.1 Allergy status to other antibiotic agents; Z88.2 Allergy status to sulfonamides; Z88.0 Allergy status to penicillin; Z88.8 Allergy status to other drugs, medicaments and biological substances | CPT/HCPCS: 96360; 96361; 96372; J1642; J1885; J7030 ==

== ENCOUNTER 2020-02-11 00:36 | Day surgery (SDC) | payer OTHER | END 2020-02-11 11:04 | disposition home or self-care (01) | LOC: ATC 00:36 | DX: E86.0 Dehydration (principal); K21.9 Gastro-esophageal reflux disease without esophagitis; Z79.82 Long term (current) use of aspirin; Z98.84 Bariatric surgery status; Z79.899 Other long term (current) drug therapy | CPT/HCPCS: 96360; 96361; 96372; J1642; J1885; J7030 ==

== ENCOUNTER → 2020-02-13 | Outpatient (CLI) | payer OTHER | LOC: LAB EV 11:57 → LAB SHORT 11:57 | DX: N35.92 Unspecified urethral stricture, female (principal); R30.9 Painful micturition, unspecified | CPT/HCPCS: 87086 ==

== ENCOUNTER 2020-02-18 00:46 | Day surgery (SDC) | payer OTHER | END 2020-02-18 11:21 | disposition home or self-care (01) | LOC: ATC 00:46 | DX: E86.0 Dehydration (principal); K21.9 Gastro-esophageal reflux disease without esophagitis; K90.9 Intestinal malabsorption, unspecified; Z98.84 Bariatric surgery status; Z79.899 Other long term (current) drug therapy | CPT/HCPCS: 96360; 96361; J1642; J7030 ==

== ENCOUNTER 2020-02-25 00:19 | Day surgery (SDC) | payer OTHER | END 2020-02-25 11:18 | disposition home or self-care (01) | LOC: ATC 00:19 | DX: E86.0 Dehydration (principal); K90.9 Intestinal malabsorption, unspecified; K21.9 Gastro-esophageal reflux disease without esophagitis; Z98.84 Bariatric surgery status; G43.909 Migraine, unspecified, not intractable, without status migrainosus; Z79.899 Other long term (current) drug therapy | CPT/HCPCS: 96360; 96361; 96372; J1642; J1885; J7030 ==

== ENCOUNTER 2020-02-27 13:31 | Day surgery (SDC) | payer OTHER | END 2020-02-27 15:51 | disposition home or self-care (01) | LOC: ATC 13:31 | DX: E86.0 Dehydration (principal); Z98.84 Bariatric surgery status; E46 Unspecified protein-calorie malnutrition; K21.9 Gastro-esophageal reflux disease without esophagitis; Z79.899 Other long term (current) drug therapy; Z79.82 Long term (current) use of aspirin; Z88.1 Allergy status to other antibiotic agents; Z88.2 Allergy status to sulfonamides; Z88.8 Allergy status to other drugs, medicaments and biological substances | CPT/HCPCS: 96360; 96361; J1642; J7030 ==

== ENCOUNTER 2020-02-28 00:20 | Day surgery (SDC) | payer OTHER | END 2020-02-28 11:30 | disposition home or self-care (01) | LOC: ATC 00:20 | DX: E86.0 Dehydration (principal); Z98.84 Bariatric surgery status; E46 Unspecified protein-calorie malnutrition; K21.9 Gastro-esophageal reflux disease without esophagitis; Z88.1 Allergy status to other antibiotic agents; Z88.2 Allergy status to sulfonamides; Z79.899 Other long term (current) drug therapy | CPT/HCPCS: 96360; 96361; J1642; J7030 ==

== ENCOUNTER 2020-03-03 00:22 | Day surgery (SDC) | payer OTHER | END 2020-03-03 11:30 | disposition home or self-care (01) | LOC: ATC 00:22 | DX: E86.0 Dehydration (principal); K90.9 Intestinal malabsorption, unspecified; K21.9 Gastro-esophageal reflux disease without esophagitis; Z98.84 Bariatric surgery status; Z79.899 Other long term (current) drug therapy; G43.909 Migraine, unspecified, not intractable, without status migrainosus | CPT/HCPCS: 96360; J1642; J7030 ==

== ENCOUNTER 2020-03-10 01:19 | Day surgery (SDC) | payer OTHER ==
[2020-03-10] MEDS ORDERED: AMIT10 PO (08:57)
== END 2020-03-10 11:00 | disposition home or self-care (01) ==
LOC: ATC 01:19
DX: E86.0 Dehydration (principal); K90.9 Intestinal malabsorption, unspecified; K21.9 Gastro-esophageal reflux disease without esophagitis; G43.909 Migraine, unspecified, not intractable, without status migrainosus; G89.4 Chronic pain syndrome; Z79.899 Other long term (current) drug therapy; Z98.84 Bariatric surgery status; Z88.0 Allergy status to penicillin; Z88.2 Allergy status to sulfonamides; Z88.5 Allergy status to narcotic agent; Z88.8 Allergy status to other drugs, medicaments and biological substances; Z88.1 Allergy status to other antibiotic agents
CPT/HCPCS: 96360; 96361; J1642; J1885; J7030

== ENCOUNTER 2020-03-13 00:03 | Day surgery (SDC) | payer OTHER ==
[~2020-03-13 00:03] MED LIST changes: +AMIT10 PO
== END 2020-03-13 10:47 | disposition home or self-care (01) ==
LOC: ATC 00:03
DX: E86.0 Dehydration (principal); K90.9 Intestinal malabsorption, unspecified; K21.9 Gastro-esophageal reflux disease without esophagitis; Z98.84 Bariatric surgery status; G43.909 Migraine, unspecified, not intractable, without status migrainosus; Z79.899 Other long term (current) drug therapy; Z88.0 Allergy status to penicillin; Z88.5 Allergy status to narcotic agent; Z88.1 Allergy status to other antibiotic agents; Z88.8 Allergy status to other drugs, medicaments and biological substances; Z88.2 Allergy status to sulfonamides
CPT/HCPCS: 96360; 96361; J1642; J7030

== ENCOUNTER 2020-03-20 00:02 | Day surgery (SDC) | payer OTHER ==
[~2020-03-20 00:02] MED LIST changes: -BOTOX200 UNIT IJ; +BUTALB-ACETAMI1 EAC7 PO; -Esgic Tablet1 EACH PO; -HEP LOCK F IV; +HEP-LOCK F100 UNIT/1 IV; +ONABOTULINUMTOXINA INJ
[2020-04-14] MEDS ORDERED: DOXE10 PO (08:44)
[2020-04-14] MEDS ORDERED: HEPARIN IV100 UNIT/1 IV (08:45)
== END 2020-03-20 10:32 | disposition home or self-care (01) ==
LOC: ATC 00:02
DX: E86.0 Dehydration (principal); K90.9 Intestinal malabsorption, unspecified; K21.9 Gastro-esophageal reflux disease without esophagitis; Z98.84 Bariatric surgery status; Z79.899 Other long term (current) drug therapy; Z79.82 Long term (current) use of aspirin; Z88.0 Allergy status to penicillin; Z88.2 Allergy status to sulfonamides; Z88.1 Allergy status to other antibiotic agents
CPT/HCPCS: 96360; 96361; J1642; J7030

== ENCOUNTER 2020-03-24 01:48 | Day surgery (SDC) | payer OTHER ==
[2020-04-14] MEDS ORDERED: DOXE10 PO (08:44)
[2020-04-14] MEDS ORDERED: HEPARIN IV100 UNIT/1 IV (08:45)
== END 2020-03-24 11:32 | disposition home or self-care (01) ==
LOC: ATC 01:48
DX: E86.0 Dehydration (principal); K90.9 Intestinal malabsorption, unspecified; K21.9 Gastro-esophageal reflux disease without esophagitis; Z98.84 Bariatric surgery status; G43.909 Migraine, unspecified, not intractable, without status migrainosus; Z79.899 Other long term (current) drug therapy; Z88.0 Allergy status to penicillin; Z88.5 Allergy status to narcotic agent; Z88.2 Allergy status to sulfonamides; Z88.8 Allergy status to other drugs, medicaments and biological substances
CPT/HCPCS: 96360; 96361; 96372; J1642; J1885; J7030

== ENCOUNTER 2020-03-31 00:08 | Day surgery (SDC) | payer OTHER ==
[2020-04-14] MEDS ORDERED: DOXE10 PO (08:44)
[2020-04-14] MEDS ORDERED: HEPARIN IV100 UNIT/1 IV (08:45)
== END 2020-03-31 10:45 | disposition home or self-care (01) ==
LOC: ATC 00:08
DX: E86.0 Dehydration (principal); K90.9 Intestinal malabsorption, unspecified; K21.9 Gastro-esophageal reflux disease without esophagitis; Z98.84 Bariatric surgery status
CPT/HCPCS: 96360; 96361; 96372; J1642; J1885; J7030

== ENCOUNTER 2020-04-03 00:05 | Day surgery (SDC) | payer OTHER ==
[2020-04-14] MEDS ORDERED: DOXE10 PO (08:44)
[2020-04-14] MEDS ORDERED: HEPARIN IV100 UNIT/1 IV (08:45)
== END 2020-04-03 10:51 | disposition home or self-care (01) ==
LOC: ATC 00:05
DX: E86.0 Dehydration (principal); K21.9 Gastro-esophageal reflux disease without esophagitis; K90.9 Intestinal malabsorption, unspecified; G43.909 Migraine, unspecified, not intractable, without status migrainosus; Z98.84 Bariatric surgery status; Z79.899 Other long term (current) drug therapy
CPT/HCPCS: 96360; 96361; J1642; J7030

== ENCOUNTER 2020-04-17 00:21 | Day surgery (SDC) | payer OTHER ==
[~2020-04-17 00:21] MED LIST changes: +DOXE10 PO; +HEPARIN IV100 UNIT/1 IV
== END 2020-04-17 10:52 | disposition home or self-care (01) ==
LOC: ATC 00:21
DX: E86.0 Dehydration (principal); Z98.84 Bariatric surgery status; E46 Unspecified protein-calorie malnutrition; F32.9 Major depressive disorder, single episode, unspecified; G25.81 Restless legs syndrome; K21.9 Gastro-esophageal reflux disease without esophagitis; Z79.899 Other long term (current) drug therapy; Z88.1 Allergy status to other antibiotic agents; Z88.8 Allergy status to other drugs, medicaments and biological substances
CPT/HCPCS: 96360; 96361; 96372; J1642; J1885; J7030

== ENCOUNTER 2020-05-05 00:14 | Day surgery (SDC) | payer OTHER | END 2020-05-05 11:08 | disposition home or self-care (01) | LOC: ATC 00:14 | DX: E86.0 Dehydration (principal); K90.9 Intestinal malabsorption, unspecified; K21.9 Gastro-esophageal reflux disease without esophagitis; G43.909 Migraine, unspecified, not intractable, without status migrainosus; Z79.899 Other long term (current) drug therapy; Z98.84 Bariatric surgery status; Z88.0 Allergy status to penicillin; Z88.5 Allergy status to narcotic agent; Z88.1 Allergy status to other antibiotic agents; Z88.8 Allergy status to other drugs, medicaments and biological substances; Z88.2 Allergy status to sulfonamides | CPT/HCPCS: 96360; 96361; 96372; J1642; J1885; J7030 ==

== ENCOUNTER 2020-05-08 00:12 | Day surgery (SDC) | payer OTHER | END 2020-05-08 11:24 | disposition home or self-care (01) | LOC: ATC 00:12 | DX: K90.9 Intestinal malabsorption, unspecified (principal); Z98.84 Bariatric surgery status; K21.0 Gastro-esophageal reflux disease with esophagitis; Z88.1 Allergy status to other antibiotic agents; Z88.2 Allergy status to sulfonamides; Z88.8 Allergy status to other drugs, medicaments and biological substances; Z79.899 Other long term (current) drug therapy | CPT/HCPCS: 96360; 96361; J1642; J1885; J7030 ==

== ENCOUNTER 2020-05-15 00:04 | Day surgery (SDC) | payer OTHER ==
[2020-05-15] MEDS ORDERED: OXYCODONE-ACET1 EAC2 PO (08:47)
== END 2020-05-15 10:41 | disposition home or self-care (01) ==
LOC: ATC 00:04
DX: K90.9 Intestinal malabsorption, unspecified (principal); Z98.84 Bariatric surgery status; K21.9 Gastro-esophageal reflux disease without esophagitis; E86.0 Dehydration; G25.81 Restless legs syndrome; F32.9 Major depressive disorder, single episode, unspecified; G89.4 Chronic pain syndrome; Z79.899 Other long term (current) drug therapy; Z88.8 Allergy status to other drugs, medicaments and biological substances; Z88.2 Allergy status to sulfonamides; Z88.1 Allergy status to other antibiotic agents
CPT/HCPCS: 96360; 96361; J1642; J1885; J7030

== ENCOUNTER 2020-05-22 00:12 | Day surgery (SDC) | payer OTHER ==
[~2020-05-22 00:12] MED LIST changes: +OXYCODONE-ACET1 EAC2 PO
== END 2020-05-22 11:00 | disposition home or self-care (01) ==
LOC: ATC 00:12
DX: E86.0 Dehydration (principal); K90.9 Intestinal malabsorption, unspecified; K21.9 Gastro-esophageal reflux disease without esophagitis; F32.9 Major depressive disorder, single episode, unspecified; Z98.84 Bariatric surgery status; Z79.899 Other long term (current) drug therapy; G43.909 Migraine, unspecified, not intractable, without status migrainosus; Z88.0 Allergy status to penicillin; Z88.5 Allergy status to narcotic agent; Z88.2 Allergy status to sulfonamides; Z88.1 Allergy status to other antibiotic agents; Z88.8 Allergy status to other drugs, medicaments and biological substances
CPT/HCPCS: J1642; J7030

== ENCOUNTER 2020-05-26 00:01 | Day surgery (SDC) | payer OTHER | END 2020-05-26 10:32 | disposition home or self-care (01) | LOC: ATC 00:01 | DX: E86.0 Dehydration (principal); K90.9 Intestinal malabsorption, unspecified; K21.9 Gastro-esophageal reflux disease without esophagitis; G43.909 Migraine, unspecified, not intractable, without status migrainosus; Z98.84 Bariatric surgery status; Z79.899 Other long term (current) drug therapy; Z88.0 Allergy status to penicillin; Z88.1 Allergy status to other antibiotic agents; Z88.2 Allergy status to sulfonamides; Z88.8 Allergy status to other drugs, medicaments and biological substances; Z88.5 Allergy status to narcotic agent | CPT/HCPCS: 96360; 96361; 96372; J1642; J1885; J7030 ==

== ENCOUNTER 2020-05-30 00:24 | Day surgery (SDC) | payer OTHER | END 2020-05-30 16:17 | disposition home or self-care (01) | LOC: ATC 00:24 | DX: E86.0 Dehydration (principal); K90.9 Intestinal malabsorption, unspecified; K21.9 Gastro-esophageal reflux disease without esophagitis; G43.909 Migraine, unspecified, not intractable, without status migrainosus; Z98.84 Bariatric surgery status; Z79.899 Other long term (current) drug therapy; Z88.0 Allergy status to penicillin; Z88.5 Allergy status to narcotic agent; Z88.1 Allergy status to other antibiotic agents; Z88.8 Allergy status to other drugs, medicaments and biological substances; Z88.2 Allergy status to sulfonamides | CPT/HCPCS: 96360; J1642; J7030 ==

== ENCOUNTER 2020-06-02 00:44 | Day surgery (SDC) | payer OTHER | END 2020-06-02 10:50 | disposition home or self-care (01) | LOC: ATC 00:44 | DX: K90.9 Intestinal malabsorption, unspecified (principal); K21.9 Gastro-esophageal reflux disease without esophagitis; E86.0 Dehydration; Z98.84 Bariatric surgery status; Z79.899 Other long term (current) drug therapy | CPT/HCPCS: 96360; 96361; J1642; J7030 ==

== ENCOUNTER 2020-06-12 00:37 | Day surgery (SDC) | payer OTHER ==
[~2020-06-12 00:37] MED LIST changes: +NORMAL SALINE IV
== END 2020-06-12 10:31 | disposition home or self-care (01) ==
LOC: ATC 00:37
DX: E86.0 Dehydration (principal); Z98.84 Bariatric surgery status; K90.9 Intestinal malabsorption, unspecified; K21.9 Gastro-esophageal reflux disease without esophagitis; Z88.0 Allergy status to penicillin; Z88.2 Allergy status to sulfonamides; Z88.8 Allergy status to other drugs, medicaments and biological substances
CPT/HCPCS: 96360; 96361; J1642; J7030

== ENCOUNTER 2020-06-16 00:13 | Day surgery (SDC) | payer OTHER | END 2020-06-16 10:59 | disposition home or self-care (01) | LOC: ATC 00:13 | DX: E86.0 Dehydration (principal); Z98.84 Bariatric surgery status; K90.9 Intestinal malabsorption, unspecified; K21.9 Gastro-esophageal reflux disease without esophagitis; G43.909 Migraine, unspecified, not intractable, without status migrainosus; Z79.899 Other long term (current) drug therapy; Z88.0 Allergy status to penicillin; Z88.5 Allergy status to narcotic agent; Z88.1 Allergy status to other antibiotic agents; Z88.8 Allergy status to other drugs, medicaments and biological substances; Z88.2 Allergy status to sulfonamides | CPT/HCPCS: J1642; J7030 ==

== ENCOUNTER 2020-06-19 00:09 | Day surgery (SDC) | payer OTHER | END 2020-06-19 11:03 | disposition home or self-care (01) | LOC: ATC 00:09 | DX: E86.0 Dehydration (principal); K90.9 Intestinal malabsorption, unspecified; K21.9 Gastro-esophageal reflux disease without esophagitis; Z98.84 Bariatric surgery status; G43.909 Migraine, unspecified, not intractable, without status migrainosus; Z88.0 Allergy status to penicillin; Z88.2 Allergy status to sulfonamides; Z88.1 Allergy status to other antibiotic agents; Z88.5 Allergy status to narcotic agent; Z88.8 Allergy status to other drugs, medicaments and biological substances | CPT/HCPCS: J1642; J7030 ==

== ENCOUNTER 2020-06-23 00:11 | Day surgery (SDC) | payer OTHER | END 2020-06-23 11:06 | disposition home or self-care (01) | LOC: ATC 00:11 | DX: E86.0 Dehydration (principal); G43.909 Migraine, unspecified, not intractable, without status migrainosus; K90.9 Intestinal malabsorption, unspecified; K21.9 Gastro-esophageal reflux disease without esophagitis; Z98.84 Bariatric surgery status; Z79.899 Other long term (current) drug therapy; Z88.0 Allergy status to penicillin; Z88.5 Allergy status to narcotic agent; Z88.2 Allergy status to sulfonamides; Z88.8 Allergy status to other drugs, medicaments and biological substances; Z88.1 Allergy status to other antibiotic agents ==

== ENCOUNTER 2020-06-26 00:11 | Day surgery (SDC) | payer OTHER ==
[~2020-06-26 00:11] MED LIST changes: +Voltaren100 GM TOP
== END 2020-06-26 10:31 | disposition home or self-care (01) ==
LOC: ATC 00:11
DX: E86.0 Dehydration (principal); K90.9 Intestinal malabsorption, unspecified; K21.9 Gastro-esophageal reflux disease without esophagitis; G43.909 Migraine, unspecified, not intractable, without status migrainosus; Z98.84 Bariatric surgery status; Z79.899 Other long term (current) drug therapy; Z88.0 Allergy status to penicillin; Z88.5 Allergy status to narcotic agent; Z88.2 Allergy status to sulfonamides; Z88.8 Allergy status to other drugs, medicaments and biological substances; Z88.1 Allergy status to other antibiotic agents
CPT/HCPCS: 96360; 96361; J1642; J1885; J7030

== ENCOUNTER 2020-06-30 01:40 | Day surgery (SDC) | payer OTHER | END 2020-06-30 10:45 | disposition home or self-care (01) | LOC: ATC 01:40 | DX: E86.0 Dehydration (principal); K21.9 Gastro-esophageal reflux disease without esophagitis; K90.9 Intestinal malabsorption, unspecified; G43.909 Migraine, unspecified, not intractable, without status migrainosus; Z98.84 Bariatric surgery status; Z79.899 Other long term (current) drug therapy; Z88.0 Allergy status to penicillin; Z88.5 Allergy status to narcotic agent; Z88.2 Allergy status to sulfonamides; Z88.1 Allergy status to other antibiotic agents; Z88.8 Allergy status to other drugs, medicaments and biological substances | CPT/HCPCS: 96360; 96361; J1642; J1885; J7030 ==

== ENCOUNTER 2020-07-03 00:11 | Day surgery (SDC) | payer OTHER | END 2020-07-03 10:54 | disposition home or self-care (01) | LOC: ATC 00:11 | DX: E86.0 Dehydration (principal); K90.9 Intestinal malabsorption, unspecified; K21.9 Gastro-esophageal reflux disease without esophagitis; Z98.84 Bariatric surgery status; G43.909 Migraine, unspecified, not intractable, without status migrainosus; Z79.899 Other long term (current) drug therapy; Z88.0 Allergy status to penicillin; Z88.5 Allergy status to narcotic agent; Z88.2 Allergy status to sulfonamides; Z88.8 Allergy status to other drugs, medicaments and biological substances | CPT/HCPCS: 96360; 96361; J1642; J7030 ==

== ENCOUNTER 2020-08-08 00:02 | Day surgery (SDC) | payer OTHER | END 2020-08-08 10:55 | disposition home or self-care (01) | LOC: ATC 00:02 | DX: E86.0 Dehydration (principal); K90.9 Intestinal malabsorption, unspecified; K21.9 Gastro-esophageal reflux disease without esophagitis; Z98.84 Bariatric surgery status; Z79.899 Other long term (current) drug therapy; Z88.0 Allergy status to penicillin; Z88.5 Allergy status to narcotic agent; Z88.1 Allergy status to other antibiotic agents; Z88.8 Allergy status to other drugs, medicaments and biological substances; Z88.2 Allergy status to sulfonamides | CPT/HCPCS: 96360; 96361; J1642; J7030 ==

== ENCOUNTER 2020-08-30 00:08 | Day surgery (SDC) | payer OTHER ==
[2020-08-30 09:36] LABS: BASOPHILS ABSOLUTE AUTO 0.02 K/mm3 (0.00-0.23); BASOPHILS PERCENT AUTO 1 % (0-2); EOSINOPHILS ABSOLUTE AUTO 0.18 K/mm3 (0.00-0.68); EOSINOPHILS PERCENT AUTO 5 % (0-6); Hematocrit 31.5 % (33.0-51.0); Hemoglobin 9.7 g/dL (11.5-16.0); IMMATURE GRAN ABSOLUTE AUTO 0.01 K/mm3 (0.00-0.10); IMMATURE GRAN PERCENT AUTO 0 % (0-1); LYMPHOCYTES ABSOLUTE AUTO 1.24 K/mm3 (0.84-5.20); LYMPHOCYTES PERCENT AUTO 35 % (21-46); MONOCYTES ABSOLUTE AUTO 0.35 K/mm3 (0.16-1.47); MONOCYTES PERCENT AUTO 10 % (4-13); Mean Corpuscular HGB Conc 30.8 g/dL (31.5-36.5); Mean Corpuscular Volume 91 fL (80-100); Mean Platelet Volume 11.5 fL (9.1-12.4); NEUTROPHILS ABSOLUTE AUTO 1.76 K/mm3 (1.96-9.15); NEUTROPHILS PERCENT AUTO 49 % (41-73); Platelet Count 170 K/mm3 (150-400); RDW Coefficient Variation 13.5 % (11.7-14.2); RDW Standard Deviation 45.5 fL (35.1-46.3); Red Blood Cell Count 3.46 M/mm3 (3.80-5.20); White Blood Cell Count 3.56 K/mm3 (4.00-11.30)
[2020-08-30 09:51] LABS: Percent Saturation 36.1 % (15.0-50.0)
[2020-08-30 10:01] LABS: Alanine Aminotransfer (ALT/SGP 14 U/L (12-78); Albumin, Blood 3.2 g/dL (3.4-5.0); Albumin/Globulin Ratio 1.4 (0.8-1.8); Alk Phos 58 U/L (50-136); Anion Gap 6 mmol/L (6-16); Aspartate Aminotrans (AST/SGOT 14 U/L (12-37); Bilirubin, Total 0.3 mg/dL (0.1-1.0); Blood Urea Nitrogen 12 mg/dL (8-24); Bun/Creatinine Ratio 18.7 (12.0-20.0); CHOL/HDL RATIO 3.2; CO2, Blood 23 mmol/L (21-32); Calcium, Blood 7.4 mg/dL (8.5-10.1); Chloride, Blood 111 mmol/L (98-108); Cholesterol 237 mg/dL (50-200); Creatinine, Blood 0.64 mg/dL (0.40-1.00); Globulin, Blood 2.3 g/dL (2.2-4.0); Glomerular Filtration Rate >60 (60-); Glucose, Blood 76 mg/dL (70-99); HDL Cholesterol 74 mg/dL (>39); Low Density Lipoprotein Chol 146 mg/dL (0-110); Potassium, Blood 3.6 mmol/L (3.5-5.5); Sodium, Blood 140 mmol/L (136-145); Total Protein, Blood 5.5 g/dL (6.4-8.2); Triglycerides 85 mg/dL (30-160); Very Low Density Lipoprot Chol 17 mg/dL (6-32)
--- NOTE | 2020-08-30 14:29 | NUR ---
LAB RESULTS FROM TODAY FAXED TO DR. ZOHAIB WORLEY, DR. ELIU LARA, AND DR. CADE IN ADDITION TO BEING SENT TO DR. MCKEON PER ORDERS.
== END 2020-08-30 11:32 | disposition home or self-care (01) ==
LOC: ATC 00:08
PROVIDERS: Internal Medicine
DX: K91.2 Postsurgical malabsorption, not elsewhere classified (principal); E61.1 Iron deficiency; E86.0 Dehydration; Z98.84 Bariatric surgery status
CPT/HCPCS: 80053; 80061; 82306; 82607; 82746; 83540; 83550; 85025; 96360; 96361; J1642; J1885; J7030

== ENCOUNTER 2020-09-21 11:39 | Day surgery (SDC) | payer OTHER | END 2020-09-21 15:51 | disposition home or self-care (01) | LOC: ATC 11:39 | DX: E86.0 Dehydration (principal); Z98.84 Bariatric surgery status | CPT/HCPCS: 96360; 96361; J1642; J7030 ==

== ENCOUNTER 2020-10-13 00:19 | Day surgery (SDC) | payer OTHER ==
[~2020-10-13 00:19] MED LIST changes: -ESOM20 PO; -MONT10T; +Nexium40 MG PO; -OXYCODONE-ACET1 EAC2 PO
[2020-12-30] MEDS ORDERED: OXYCODONE-ACET1 EAC2 PO (08:47)
[2021-01-03] MEDS ORDERED: AIMOVIG AU140 MG/1 M SC (16:41)
[2021-01-03] MEDS ORDERED: Ativan1 MG PO (16:43)
[2021-01-03] MEDS ORDERED: Micro-K8 MEQ PO (16:43)
[2021-01-03] MEDS ORDERED: Aspirin EC81 MG PO (16:44)
[2021-01-03] MEDS ORDERED: BACL10 PO (16:44)
[2021-01-03] MEDS ORDERED: Flonase 0.05% N16 GM (16:46)
[2021-01-03] MEDS ORDERED: [UNRECOGNIZED DRUG - OTHER] BOTHEYES (16:47)
[2021-01-03] MEDS ORDERED: MULVITA PO (16:47)
[2021-01-03] MEDS ORDERED: CYCL0.05OP BOTHEYES (16:48)
[2021-01-03] MEDS ORDERED: RIZATRIPTAN10 MG SL (16:48)
[2021-01-03] MEDS ORDERED: PSEUDOEPHEDRINE30 M1 PO (16:49)
[2021-01-03] MEDS ORDERED: UBRELVY100 MG PO (16:50)
[2021-01-03] MEDS ORDERED: THERA-D2000 UNIT PO (16:50)
[2021-01-19] MEDS ORDERED: METPRE4DP PO (08:54)
== END 2020-10-13 11:07 | disposition home or self-care (01) ==
LOC: ATC 00:19
DX: E86.0 Dehydration (principal); Z88.2 Allergy status to sulfonamides; Z88.1 Allergy status to other antibiotic agents; Z88.0 Allergy status to penicillin; Z88.8 Allergy status to other drugs, medicaments and biological substances; Z91.048 Other nonmedicinal substance allergy status
CPT/HCPCS: 96360; 96361; 96372; J1642; J1885; J7030

== ENCOUNTER 2020-10-31 00:29 | Day surgery (SDC) | payer OTHER ==
[2020-12-30] MEDS ORDERED: OXYCODONE-ACET1 EAC2 PO (08:47)
[2021-01-03] MEDS ORDERED: AIMOVIG AU140 MG/1 M SC (16:41)
[2021-01-03] MEDS ORDERED: Ativan1 MG PO (16:43)
[2021-01-03] MEDS ORDERED: Micro-K8 MEQ PO (16:43)
[2021-01-03] MEDS ORDERED: Aspirin EC81 MG PO (16:44)
[2021-01-03] MEDS ORDERED: BACL10 PO (16:44)
[2021-01-03] MEDS ORDERED: Flonase 0.05% N16 GM (16:46)
[2021-01-03] MEDS ORDERED: MULVITA PO (16:47)
[2021-01-03] MEDS ORDERED: [UNRECOGNIZED DRUG - OTHER] BOTHEYES (16:47)
[2021-01-03] MEDS ORDERED: CYCL0.05OP BOTHEYES (16:48)
[2021-01-03] MEDS ORDERED: RIZATRIPTAN10 MG SL (16:48)
[2021-01-03] MEDS ORDERED: PSEUDOEPHEDRINE30 M1 PO (16:49)
[2021-01-03] MEDS ORDERED: UBRELVY100 MG PO (16:50)
[2021-01-03] MEDS ORDERED: THERA-D2000 UNIT PO (16:50)
[2021-01-19] MEDS ORDERED: METPRE4DP PO (08:54)
== END 2020-10-31 11:40 | disposition home or self-care (01) ==
LOC: ATC 00:29
DX: E86.0 Dehydration (principal); E61.1 Iron deficiency; K91.2 Postsurgical malabsorption, not elsewhere classified; Z98.84 Bariatric surgery status; Z79.01 Long term (current) use of anticoagulants
CPT/HCPCS: 96360; 96361; J1642; J7030

== ENCOUNTER 2020-11-20 00:17 | Day surgery (SDC) | payer OTHER ==
[2020-12-30] MEDS ORDERED: OXYCODONE-ACET1 EAC2 PO (08:47)
[2021-01-03] MEDS ORDERED: AIMOVIG AU140 MG/1 M SC (16:41)
[2021-01-03] MEDS ORDERED: Ativan1 MG PO (16:43)
[2021-01-03] MEDS ORDERED: Micro-K8 MEQ PO (16:43)
[2021-01-03] MEDS ORDERED: Aspirin EC81 MG PO (16:44)
[2021-01-03] MEDS ORDERED: BACL10 PO (16:44)
[2021-01-03] MEDS ORDERED: Flonase 0.05% N16 GM (16:46)
[2021-01-03] MEDS ORDERED: [UNRECOGNIZED DRUG - OTHER] BOTHEYES (16:47)
[2021-01-03] MEDS ORDERED: MULVITA PO (16:47)
[2021-01-03] MEDS ORDERED: RIZATRIPTAN10 MG SL (16:48)
[2021-01-03] MEDS ORDERED: CYCL0.05OP BOTHEYES (16:48)
[2021-01-03] MEDS ORDERED: PSEUDOEPHEDRINE30 M1 PO (16:49)
[2021-01-03] MEDS ORDERED: THERA-D2000 UNIT PO (16:50)
[2021-01-03] MEDS ORDERED: UBRELVY100 MG PO (16:50)
[2021-01-19] MEDS ORDERED: METPRE4DP PO (08:54)
== END 2020-11-20 11:17 | disposition home or self-care (01) ==
LOC: ATC 00:17
DX: E86.0 Dehydration (principal); E55.9 Vitamin D deficiency, unspecified; E53.8 Deficiency of other specified B group vitamins; E66.1 Drug-induced obesity; K91.2 Postsurgical malabsorption, not elsewhere classified; Z98.84 Bariatric surgery status
CPT/HCPCS: 96360; 96361; 96372; J1642; J1885; J7030

== ENCOUNTER 2020-12-22 08:30 | Day surgery (SDC) | payer OTHER ==
--- NOTE | 2020-12-22 09:32 | NUR ---
PT REQUESTING INFORMATION ABOUT ADVANCED DIRECTIVES. OBTAINED AN [place] [facility] BOOKLET FROM [facility] AND PROVIDED PT WITH THE BOOKLET. ANSWERED PT'S QUETIONS RE: BOOKLET. PT PLANS TO FILL OUT AD AND TAKE COPIES TO HER PCP AND HOSPITAL.
[2020-12-30] MEDS ORDERED: OXYCODONE-ACET1 EAC2 PO (08:47)
[2021-01-03] MEDS ORDERED: AIMOVIG AU140 MG/1 M SC (16:41)
[2021-01-03] MEDS ORDERED: Micro-K8 MEQ PO (16:43)
[2021-01-03] MEDS ORDERED: Ativan1 MG PO (16:43)
[2021-01-03] MEDS ORDERED: Aspirin EC81 MG PO (16:44)
[2021-01-03] MEDS ORDERED: BACL10 PO (16:44)
[2021-01-03] MEDS ORDERED: Flonase 0.05% N16 GM (16:46)
[2021-01-03] MEDS ORDERED: MULVITA PO (16:47)
[2021-01-03] MEDS ORDERED: [UNRECOGNIZED DRUG - OTHER] BOTHEYES (16:47)
[2021-01-03] MEDS ORDERED: RIZATRIPTAN10 MG SL (16:48)
[2021-01-03] MEDS ORDERED: CYCL0.05OP BOTHEYES (16:48)
[2021-01-03] MEDS ORDERED: PSEUDOEPHEDRINE30 M1 PO (16:49)
[2021-01-03] MEDS ORDERED: UBRELVY100 MG PO (16:50)
[2021-01-03] MEDS ORDERED: THERA-D2000 UNIT PO (16:50)
[2021-01-19] MEDS ORDERED: METPRE4DP PO (08:54)
== END 2020-12-22 09:08 | disposition home or self-care (01) ==
LOC: ATC 08:30
DX: R63.4 Abnormal weight loss (principal); R63.8 Other symptoms and signs concerning food and fluid intake; K21.9 Gastro-esophageal reflux disease without esophagitis; E55.9 Vitamin D deficiency, unspecified; E53.8 Deficiency of other specified B group vitamins; E61.1 Iron deficiency; K91.2 Postsurgical malabsorption, not elsewhere classified; Z88.1 Allergy status to other antibiotic agents; Z88.2 Allergy status to sulfonamides; Z88.8 Allergy status to other drugs, medicaments and biological substances; Z98.84 Bariatric surgery status
CPT/HCPCS: 96523; J1642; J1885

== ENCOUNTER 2021-01-03 15:17 | Emergency (ER) | payer OTHER ==
[~2021-01-03] VITALS: Ht 162.6 cm; Wt 45.4 kg
== END 2021-01-03 19:20 | disposition home or self-care (01) ==
LOC: ER 15:17
DX: E86.0 Dehydration (principal); R11.2 Nausea with vomiting, unspecified; Z79.899 Other long term (current) drug therapy; Z79.82 Long term (current) use of aspirin
CPT/HCPCS: 36415; 80053; 85025; 93005; 93010; 99284-25; J7030; J7120

== ENCOUNTER 2021-01-07 00:08 | Day surgery (SDC) | payer OTHER ==
[~2021-01-07 00:08] MED LIST changes: +AIMOVIG AU140 MG/1 M SC; +Aspirin EC81 MG PO; +Ativan1 MG PO; +BACL10 PO; +CYCL0.05OP BOTHEYES; +Flonase 0.05% N16 GM; +MULVITA PO; +Micro-K8 MEQ PO; +OXYCODONE-ACET1 EAC2 PO; +PSEUDOEPHEDRINE30 M1 PO; +RIZATRIPTAN10 MG SL; +THERA-D2000 UNIT PO; +UBRELVY100 MG PO; +[UNRECOGNIZED DRUG - OTHER] BOTHEYES
== END 2021-01-07 11:23 | disposition home or self-care (01) ==
LOC: ATC 00:08
DX: R63.4 Abnormal weight loss (principal); R63.8 Other symptoms and signs concerning food and fluid intake; K21.9 Gastro-esophageal reflux disease without esophagitis; E46 Unspecified protein-calorie malnutrition; E86.0 Dehydration; R11.0 Nausea; E61.1 Iron deficiency; K91.2 Postsurgical malabsorption, not elsewhere classified; E55.9 Vitamin D deficiency, unspecified; E53.8 Deficiency of other specified B group vitamins; Z98.890 Other specified postprocedural states; Z87.19 Personal history of other diseases of the digestive system; Z88.1 Allergy status to other antibiotic agents; Z88.2 Allergy status to sulfonamides; Z88.8 Allergy status to other drugs, medicaments and biological substances; Z98.84 Bariatric surgery status
CPT/HCPCS: J1642; J7030

== ENCOUNTER 2021-01-11 00:41 | Day surgery (SDC) | payer OTHER | END 2021-01-11 11:40 | disposition home or self-care (01) | LOC: ATC 00:41 | DX: E46 Unspecified protein-calorie malnutrition (principal); K90.9 Intestinal malabsorption, unspecified; E86.0 Dehydration; K21.9 Gastro-esophageal reflux disease without esophagitis; R63.8 Other symptoms and signs concerning food and fluid intake; Z98.84 Bariatric surgery status; Z98.890 Other specified postprocedural states; Z87.19 Personal history of other diseases of the digestive system; Z93.4 Other artificial openings of gastrointestinal tract status; Z86.14 Personal history of Methicillin resistant Staphylococcus aureus infection; Z88.1 Allergy status to other antibiotic agents; Z88.2 Allergy status to sulfonamides; Z88.8 Allergy status to other drugs, medicaments and biological substances; Z91.048 Other nonmedicinal substance allergy status | CPT/HCPCS: 96360; 96361; J1642; J1885; J2250; J2405; J2704; J3010; J7030 ==

== ENCOUNTER 2021-01-15 00:04 | Day surgery (SDC) | payer OTHER ==
[2021-01-15 10:59] LABS: RETIC HGB EQUIVALENT 32.8 pg (28.20-36.60); RETICULOCYTE COUNT PERCENT 0.71 % (0.50-2.50)
== END 2021-01-15 10:45 | disposition home or self-care (01) ==
LOC: ATC 00:04
PROVIDERS: Internal Medicine
DX: K90.9 Intestinal malabsorption, unspecified (principal); E86.0 Dehydration; R11.0 Nausea; R63.4 Abnormal weight loss; R63.8 Other symptoms and signs concerning food and fluid intake; K21.9 Gastro-esophageal reflux disease without esophagitis; G43.909 Migraine, unspecified, not intractable, without status migrainosus; Z98.84 Bariatric surgery status; Z98.890 Other specified postprocedural states; Z87.19 Personal history of other diseases of the digestive system; Z88.0 Allergy status to penicillin; Z91.048 Other nonmedicinal substance allergy status; Z88.8 Allergy status to other drugs, medicaments and biological substances; Z88.1 Allergy status to other antibiotic agents; Z88.2 Allergy status to sulfonamides; Z79.82 Long term (current) use of aspirin
CPT/HCPCS: 82728; 85045; J1642; J7030

== ENCOUNTER 2021-01-26 01:57 | Day surgery (SDC) | payer OTHER | END 2021-01-26 11:26 | disposition home or self-care (01) | LOC: ATC 01:57 | DX: E46 Unspecified protein-calorie malnutrition (principal); K21.9 Gastro-esophageal reflux disease without esophagitis; E86.0 Dehydration; Z90.3 Acquired absence of stomach [part of]; Z88.3 Allergy status to other anti-infective agents; Z88.0 Allergy status to penicillin; Z88.2 Allergy status to sulfonamides; Z88.8 Allergy status to other drugs, medicaments and biological substances | CPT/HCPCS: 96360; 96361; J1642; J7120 ==

== ENCOUNTER 2021-02-02 00:03 | Day surgery (SDC) | payer OTHER | END 2021-02-02 11:17 | disposition home or self-care (01) | LOC: ATC 00:03 | DX: E86.0 Dehydration (principal); K90.9 Intestinal malabsorption, unspecified; E46 Unspecified protein-calorie malnutrition; K21.9 Gastro-esophageal reflux disease without esophagitis; R11.0 Nausea; R63.4 Abnormal weight loss; R63.8 Other symptoms and signs concerning food and fluid intake; Z88.8 Allergy status to other drugs, medicaments and biological substances; Z88.1 Allergy status to other antibiotic agents; Z88.2 Allergy status to sulfonamides; Z88.9 Allergy status to unspecified drugs, medicaments and biological substances; Z90.3 Acquired absence of stomach [part of] | CPT/HCPCS: 96361; 96365; 96366; J1642; J3411; J3475; J7030; J7040; J7120 ==

== ENCOUNTER 2021-02-05 00:22 | Day surgery (SDC) | payer OTHER | END 2021-02-05 09:11 | disposition home or self-care (01) | LOC: ATC 00:22 | DX: K90.9 Intestinal malabsorption, unspecified (principal); K21.9 Gastro-esophageal reflux disease without esophagitis; R11.0 Nausea; R63.4 Abnormal weight loss; R63.8 Other symptoms and signs concerning food and fluid intake; E86.0 Dehydration; G43.909 Migraine, unspecified, not intractable, without status migrainosus; M79.7 Fibromyalgia; Z90.3 Acquired absence of stomach [part of]; Z88.1 Allergy status to other antibiotic agents; Z88.0 Allergy status to penicillin; Z88.2 Allergy status to sulfonamides; Z88.8 Allergy status to other drugs, medicaments and biological substances; Z91.048 Other nonmedicinal substance allergy status | CPT/HCPCS: 96360; J1642; J7120 ==

== ENCOUNTER 2021-02-09 00:14 | Day surgery (SDC) | payer OTHER | END 2021-02-09 10:57 | disposition home or self-care (01) | LOC: ATC 00:14 | DX: E46 Unspecified protein-calorie malnutrition (principal); K90.9 Intestinal malabsorption, unspecified; K21.9 Gastro-esophageal reflux disease without esophagitis; G47.33 Obstructive sleep apnea (adult) (pediatric); E78.2 Mixed hyperlipidemia; F32.9 Major depressive disorder, single episode, unspecified; Z79.82 Long term (current) use of aspirin; Z79.4 Long term (current) use of insulin; Z90.3 Acquired absence of stomach [part of] | CPT/HCPCS: 96361; 96365; 96366; J1642; J3411; J3475; J7040; J7120 ==

== ENCOUNTER 2021-02-12 00:04 | Day surgery (SDC) | payer OTHER | END 2021-02-12 09:04 | disposition home or self-care (01) | LOC: ATC 00:04 | DX: E46 Unspecified protein-calorie malnutrition (principal); K90.9 Intestinal malabsorption, unspecified; K21.9 Gastro-esophageal reflux disease without esophagitis; R63.8 Other symptoms and signs concerning food and fluid intake; E86.0 Dehydration; R63.4 Abnormal weight loss; R11.0 Nausea; Z90.3 Acquired absence of stomach [part of]; Z79.82 Long term (current) use of aspirin | CPT/HCPCS: 96360; 96365; J1642; J7120 ==

== ENCOUNTER 2021-02-16 00:42 | Day surgery (SDC) | payer OTHER | END 2021-02-16 09:00 | disposition home or self-care (01) | LOC: ATC 00:42 | DX: E86.0 Dehydration (principal); K90.9 Intestinal malabsorption, unspecified; E46 Unspecified protein-calorie malnutrition; K21.9 Gastro-esophageal reflux disease without esophagitis; R11.0 Nausea; R63.4 Abnormal weight loss; R63.8 Other symptoms and signs concerning food and fluid intake; Z90.3 Acquired absence of stomach [part of]; Z88.1 Allergy status to other antibiotic agents; Z88.2 Allergy status to sulfonamides; Z88.8 Allergy status to other drugs, medicaments and biological substances | CPT/HCPCS: 96360; J1642; J3411; J3475; J7042; J7120 ==

== ENCOUNTER → 2021-02-18 | Outpatient (CLI) | payer OTHER ==
[2021-02-18 12:44] LABS: Anion Gap 7 mmol/L (6-16); Blood Urea Nitrogen 13 mg/dL (8-24); Bun/Creatinine Ratio 16.3 (12.0-20.0); CO2, Blood 30 mmol/L (21-32); Calcium, Blood 8.1 mg/dL (8.5-10.1); Chloride, Blood 104 mmol/L (98-108); Glomerular Filtration Rate >60 (60-); Glucose, Blood 92 mg/dL (70-99); Potassium, Blood 3.8 mmol/L (3.5-5.5); Sodium, Blood 141 mmol/L (136-145)
== END | disposition home or self-care (01) ==
LOC: LAB 12:35 → LAB SHORT 12:35
PROVIDERS: Physician Assistant
DX: M79.10 Myalgia, unspecified site (principal); R31.9 Hematuria, unspecified
CPT/HCPCS: 80048; 87086

== ENCOUNTER 2021-02-19 09:05 | Day surgery (SDC) | payer OTHER ==
--- NOTE | 2021-02-19 09:22 | NUR ---
PT WENT TO URGENT CARE YESTERDAY. SHE WAS VERY NAUSEATED AND HAD A FEVER. SHE ALSO HAD A HEADACH THAT DID NOT RESOLVE WITH TORADOL.
== END 2021-02-19 10:22 | disposition home or self-care (01) ==
LOC: ATC 09:05
DX: K90.9 Intestinal malabsorption, unspecified (principal); K21.9 Gastro-esophageal reflux disease without esophagitis; R11.0 Nausea; R63.4 Abnormal weight loss; R63.8 Other symptoms and signs concerning food and fluid intake; E86.0 Dehydration; Z90.3 Acquired absence of stomach [part of]; Z88.1 Allergy status to other antibiotic agents; Z88.0 Allergy status to penicillin; Z88.2 Allergy status to sulfonamides; Z88.8 Allergy status to other drugs, medicaments and biological substances; Z91.048 Other nonmedicinal substance allergy status
CPT/HCPCS: 96360; J1642; J7120

== ENCOUNTER 2021-02-22 05:37 | Day surgery (SDC) | payer OTHER ==
--- NOTE | 2021-02-22 10:33 | NUR ---
PT FEELING NAUSEATED AND HAVING DIARHEA AFTER EATING SOME BREAKFAST. PT STATES THAT THIS IS COMMON FOR HER. REQUESTED TO STOP BANANA BAG EARLY SO SHOULD COULD GO HOME AND LAY DOWN. RECIEVED 675ML OF BANANA BAG.
== END 2021-02-22 10:48 | disposition home or self-care (01) ==
LOC: ATC 05:37
DX: E86.0 Dehydration (principal); Z90.3 Acquired absence of stomach [part of]; E46 Unspecified protein-calorie malnutrition; K21.9 Gastro-esophageal reflux disease without esophagitis; K90.9 Intestinal malabsorption, unspecified
CPT/HCPCS: 96360; 96361; J1642; J3411; J3475; J7042; J7120

== ENCOUNTER → 2021-02-27 | Outpatient (CLI) | payer OTHER ==
[2021-02-27 19:07] LABS: BASOPHILS ABSOLUTE AUTO 0.02 K/mm3 (0.00-0.23); BASOPHILS PERCENT AUTO 1 % (0-2); EOSINOPHILS PERCENT AUTO 2 % (0-6); Hematocrit 32.6 % (33.0-51.0); Hemoglobin 10.4 g/dL (11.5-16.0); IMMATURE GRAN ABSOLUTE AUTO 0.01 K/mm3 (0.00-0.10); IMMATURE GRAN PERCENT AUTO 0 % (0-1); LYMPHOCYTES ABSOLUTE AUTO 1.71 K/mm3 (0.84-5.20); LYMPHOCYTES PERCENT AUTO 41 % (21-46); MONOCYTES ABSOLUTE AUTO 0.38 K/mm3 (0.16-1.47); MONOCYTES PERCENT AUTO 9 % (4-13); Mean Corpuscular HGB 29.3 pg (26.0-34.0); Mean Corpuscular HGB Conc 31.9 g/dL (31.5-36.5); Mean Corpuscular Volume 92 fL (80-100); Mean Platelet Volume 12.5 fL (9.1-12.4); NEUTROPHILS ABSOLUTE AUTO 1.91 K/mm3 (1.96-9.15); NEUTROPHILS PERCENT AUTO 46 % (41-73); Platelet Count 200 K/mm3 (150-400); RDW Coefficient Variation 13.9 % (11.7-14.2); RDW Standard Deviation 47.5 fL (35.1-46.3); Red Blood Cell Count 3.55 M/mm3 (3.80-5.20); White Blood Cell Count 4.13 K/mm3 (4.00-11.30)
[2021-02-27 19:34] LABS: C-REACTIVE PROTEIN, EXT RANGE <0.290 mg/dL (0.000-0.300)
[2021-02-27 19:43] LABS: Alanine Aminotransfer (ALT/SGP 28 U/L (12-78); Albumin, Blood 3.1 g/dL (3.4-5.0); Albumin/Globulin Ratio 1.1 (0.8-1.8); Alk Phos 53 U/L (50-136); Anion Gap 4 mmol/L (6-16); Aspartate Aminotrans (AST/SGOT 17 U/L (12-37); Bilirubin, Total 0.2 mg/dL (0.1-1.0); Blood Urea Nitrogen 12 mg/dL (8-24); Bun/Creatinine Ratio 15.1 (12.0-20.0); CO2, Blood 29 mmol/L (21-32); Chloride, Blood 109 mmol/L (98-108); Creatinine, Blood 0.79 mg/dL (0.40-1.00); Globulin, Blood 2.7 g/dL (2.2-4.0); Glomerular Filtration Rate >60 (60-); Glucose, Blood 84 mg/dL (70-99); Potassium, Blood 3.5 mmol/L (3.5-5.5); Sodium, Blood 142 mmol/L (136-145); Total Protein, Blood 5.8 g/dL (6.4-8.2)
== END | disposition home or self-care (01) ==
LOC: LAB SHORT 15:30 → PLD 15:30
PROVIDERS: Internal Medicine
DX: R59.0 Localized enlarged lymph nodes (principal)
CPT/HCPCS: 80053; 85025; 85651; 86140

== ENCOUNTER 2021-03-05 00:03 | Day surgery (SDC) | payer OTHER | END 2021-03-05 23:19 | disposition home or self-care (01) | LOC: ATC 00:03 | DX: R63.8 Other symptoms and signs concerning food and fluid intake (principal); R63.4 Abnormal weight loss; K21.9 Gastro-esophageal reflux disease without esophagitis; E46 Unspecified protein-calorie malnutrition; G43.909 Migraine, unspecified, not intractable, without status migrainosus; E78.2 Mixed hyperlipidemia; M79.7 Fibromyalgia; G47.33 Obstructive sleep apnea (adult) (pediatric); Z88.1 Allergy status to other antibiotic agents; Z88.0 Allergy status to penicillin; Z88.2 Allergy status to sulfonamides; Z88.8 Allergy status to other drugs, medicaments and biological substances; Z91.09 Other allergy status, other than to drugs and biological substances; Z79.82 Long term (current) use of aspirin; Z98.84 Bariatric surgery status; Z99.89 Dependence on other enabling machines and devices | CPT/HCPCS: J3411; J3475; J7042 ==

== ENCOUNTER 2021-03-08 04:14 | Day surgery (SDC) | payer OTHER | END 2021-03-08 23:21 | disposition home or self-care (01) | LOC: ATC 04:14 | DX: K90.9 Intestinal malabsorption, unspecified (principal); E86.0 Dehydration; K21.9 Gastro-esophageal reflux disease without esophagitis; R11.0 Nausea; R63.4 Abnormal weight loss; R63.8 Other symptoms and signs concerning food and fluid intake; Z88.1 Allergy status to other antibiotic agents; Z88.0 Allergy status to penicillin; Z88.2 Allergy status to sulfonamides; Z88.8 Allergy status to other drugs, medicaments and biological substances; Z91.048 Other nonmedicinal substance allergy status; Z79.82 Long term (current) use of aspirin; Z95.828 Presence of other vascular implants and grafts; Z90.3 Acquired absence of stomach [part of] | CPT/HCPCS: J1642; J3411; J3475; J7040; J7120 ==

== ENCOUNTER 2021-03-12 01:08 | Day surgery (SDC) | payer OTHER | END 2021-03-12 08:59 | disposition home or self-care (01) | LOC: ATC 01:08 | DX: E46 Unspecified protein-calorie malnutrition (principal); E86.0 Dehydration; R11.0 Nausea; R63.8 Other symptoms and signs concerning food and fluid intake; K21.9 Gastro-esophageal reflux disease without esophagitis; Z90.3 Acquired absence of stomach [part of]; Z88.1 Allergy status to other antibiotic agents; Z88.2 Allergy status to sulfonamides; Z88.8 Allergy status to other drugs, medicaments and biological substances | CPT/HCPCS: 96365; J1642; J3411; J3475; J7042; J7120 ==

== ENCOUNTER 2021-03-23 04:31 | Day surgery (SDC) | payer OTHER | END 2021-03-23 10:14 | disposition home or self-care (01) | LOC: ATC 04:31 | DX: K21.9 Gastro-esophageal reflux disease without esophagitis (principal); R11.2 Nausea with vomiting, unspecified; K90.9 Intestinal malabsorption, unspecified; R63.4 Abnormal weight loss; R63.8 Other symptoms and signs concerning food and fluid intake; E86.0 Dehydration; M79.7 Fibromyalgia; G43.909 Migraine, unspecified, not intractable, without status migrainosus; Z90.3 Acquired absence of stomach [part of] | CPT/HCPCS: 96361; 96365; J1642; J3411; J3475; J7042; J7120 ==

== ENCOUNTER 2021-03-26 02:29 | Day surgery (SDC) | payer OTHER | END 2021-03-26 09:12 | disposition home or self-care (01) | LOC: ATC 02:29 | DX: E86.0 Dehydration (principal); K21.9 Gastro-esophageal reflux disease without esophagitis; K90.9 Intestinal malabsorption, unspecified; R63.4 Abnormal weight loss; R63.8 Other symptoms and signs concerning food and fluid intake; M79.7 Fibromyalgia; G43.909 Migraine, unspecified, not intractable, without status migrainosus; Z90.3 Acquired absence of stomach [part of]; Z88.1 Allergy status to other antibiotic agents; Z88.0 Allergy status to penicillin; Z88.2 Allergy status to sulfonamides; Z88.8 Allergy status to other drugs, medicaments and biological substances; Z91.048 Other nonmedicinal substance allergy status | CPT/HCPCS: 96360; J1642; J3411; J3475; J7042; J7120 ==

== ENCOUNTER 2021-03-30 00:21 | Day surgery (SDC) | payer OTHER | END 2021-03-30 09:58 | disposition home or self-care (01) | LOC: ATC 00:21 | DX: G43.109 Migraine with aura, not intractable, without status migrainosus (principal); M51.36 Other intervertebral disc degeneration, lumbar region; K21.9 Gastro-esophageal reflux disease without esophagitis; Z88.2 Allergy status to sulfonamides; Z88.1 Allergy status to other antibiotic agents; Z88.8 Allergy status to other drugs, medicaments and biological substances; Z88.0 Allergy status to penicillin; Z79.899 Other long term (current) drug therapy | CPT/HCPCS: 96361; 96365; 96372; J1642; J1885; J3411; J3475; J7040; J7120 ==

== ENCOUNTER 2021-04-02 00:05 | Day surgery (SDC) | payer OTHER | END 2021-04-02 23:00 | disposition home or self-care (01) | LOC: ATC 00:05 | DX: G43.109 Migraine with aura, not intractable, without status migrainosus (principal); M51.36 Other intervertebral disc degeneration, lumbar region; Z88.1 Allergy status to other antibiotic agents; Z88.2 Allergy status to sulfonamides; Z88.8 Allergy status to other drugs, medicaments and biological substances | CPT/HCPCS: J1642; J7120 ==

== ENCOUNTER 2021-04-06 01:11 | Day surgery (SDC) | payer OTHER | END 2021-04-06 10:09 | disposition home or self-care (01) | LOC: ATC 01:11 | DX: G43.109 Migraine with aura, not intractable, without status migrainosus (principal); M51.36 Other intervertebral disc degeneration, lumbar region; K21.9 Gastro-esophageal reflux disease without esophagitis; Z88.1 Allergy status to other antibiotic agents; Z88.0 Allergy status to penicillin; Z88.2 Allergy status to sulfonamides; Z88.8 Allergy status to other drugs, medicaments and biological substances; Z91.048 Other nonmedicinal substance allergy status; Z98.84 Bariatric surgery status | CPT/HCPCS: J1642; J3411; J3475; J7040; J7120 ==

== ENCOUNTER 2021-04-09 07:45 | Day surgery (SDC) | payer OTHER ==
--- NOTE | 2021-04-09 08:19 | NUR ---
0800- pt a/o x 4, escorted to treatment room, mediport access using sterile technique wnl, pt pleasant/cooperative. medication infusion via port, pt in chair with two warmed blankets, call light within reach, chair in locked position.
== END 2021-04-09 09:23 | disposition home or self-care (01) ==
LOC: ATC 07:45
DX: G43.109 Migraine with aura, not intractable, without status migrainosus (principal); M51.36 Other intervertebral disc degeneration, lumbar region; Z88.2 Allergy status to sulfonamides; Z88.8 Allergy status to other drugs, medicaments and biological substances; Z90.3 Acquired absence of stomach [part of]
CPT/HCPCS: J1642; J7120

== ENCOUNTER 2021-04-26 01:40 | Day surgery (SDC) | payer OTHER | END 2021-04-26 15:53 | disposition home or self-care (01) | LOC: ATC 01:40 | DX: R63.4 Abnormal weight loss (principal); R11.0 Nausea; R63.8 Other symptoms and signs concerning food and fluid intake; E46 Unspecified protein-calorie malnutrition; E86.0 Dehydration; K21.9 Gastro-esophageal reflux disease without esophagitis; G43.909 Migraine, unspecified, not intractable, without status migrainosus; M79.7 Fibromyalgia; Z88.1 Allergy status to other antibiotic agents; Z98.84 Bariatric surgery status; Z88.0 Allergy status to penicillin; Z88.2 Allergy status to sulfonamides; Z88.8 Allergy status to other drugs, medicaments and biological substances; Z91.09 Other allergy status, other than to drugs and biological substances; Z79.82 Long term (current) use of aspirin | CPT/HCPCS: 96361; 96365; J1642; J1885; J3411; J3475; J7042; J7120 ==

== ENCOUNTER 2021-05-09 02:16 | Day surgery (SDC) | payer OTHER | END 2021-05-09 10:07 | disposition home or self-care (01) | LOC: ATC 02:16 | DX: R11.2 Nausea with vomiting, unspecified (principal); K21.9 Gastro-esophageal reflux disease without esophagitis; K90.9 Intestinal malabsorption, unspecified; R63.4 Abnormal weight loss; R63.8 Other symptoms and signs concerning food and fluid intake; E86.0 Dehydration; Z90.3 Acquired absence of stomach [part of] | CPT/HCPCS: 96361; 96365; 96372; J1642; J1885; J3411; J3475; J7040; J7120 ==

== ENCOUNTER 2021-05-19 09:58 | Day surgery (SDC) | payer OTHER | END 2021-05-19 12:45 | disposition home or self-care (01) | LOC: ATC 09:58 | DX: R11.2 Nausea with vomiting, unspecified (principal); E46 Unspecified protein-calorie malnutrition; K21.9 Gastro-esophageal reflux disease without esophagitis; K90.9 Intestinal malabsorption, unspecified; R63.4 Abnormal weight loss; R63.8 Other symptoms and signs concerning food and fluid intake; E86.0 Dehydration; Z90.3 Acquired absence of stomach [part of] | CPT/HCPCS: 96361; 96365; J1642; J3411; J3475; J7042; J7120 ==

== ENCOUNTER 2021-05-25 00:22 | Day surgery (SDC) | payer OTHER | END 2021-05-25 10:23 | disposition home or self-care (01) | LOC: ATC 00:22 | DX: R11.2 Nausea with vomiting, unspecified (principal); Z90.3 Acquired absence of stomach [part of]; K21.9 Gastro-esophageal reflux disease without esophagitis; K90.9 Intestinal malabsorption, unspecified | CPT/HCPCS: 96361; 96365; J1642; J1885; J3411; J3475; J7040; J7120 ==

== ENCOUNTER 2021-05-27 10:09 | Day surgery (SDC) | payer OTHER | END 2021-05-27 11:59 | disposition home or self-care (01) | LOC: ATC 10:09 | DX: R11.2 Nausea with vomiting, unspecified (principal); E46 Unspecified protein-calorie malnutrition; K21.9 Gastro-esophageal reflux disease without esophagitis; R63.4 Abnormal weight loss; R63.8 Other symptoms and signs concerning food and fluid intake; E86.0 Dehydration; Z90.3 Acquired absence of stomach [part of]; Z88.1 Allergy status to other antibiotic agents; Z88.0 Allergy status to penicillin; Z88.2 Allergy status to sulfonamides; Z91.048 Other nonmedicinal substance allergy status | CPT/HCPCS: 96360; J1642; J7120 ==

== ENCOUNTER 2021-06-01 01:05 | Day surgery (SDC) | payer OTHER | END 2021-06-01 10:24 | disposition home or self-care (01) | LOC: ATC 01:05 | DX: R11.2 Nausea with vomiting, unspecified (principal); E86.0 Dehydration; K21.9 Gastro-esophageal reflux disease without esophagitis; K90.9 Intestinal malabsorption, unspecified; R63.8 Other symptoms and signs concerning food and fluid intake; R63.4 Abnormal weight loss; Z90.3 Acquired absence of stomach [part of] | CPT/HCPCS: J1642; J1885; J3411; J3475; J7040; J7120 ==

== ENCOUNTER 2021-06-04 01:38 | Day surgery (SDC) | payer OTHER | END 2021-06-04 09:18 | disposition home or self-care (01) | LOC: ATC 01:38 | DX: R11.2 Nausea with vomiting, unspecified (principal); E46 Unspecified protein-calorie malnutrition; R63.4 Abnormal weight loss; K21.9 Gastro-esophageal reflux disease without esophagitis; Z90.3 Acquired absence of stomach [part of] | CPT/HCPCS: 96360; J1642; J7120 ==

== ENCOUNTER 2021-06-06 00:37 | Day surgery (SDC) | payer OTHER | END 2021-06-06 23:55 | disposition home or self-care (01) | LOC: ATC 00:37 | DX: E86.0 Dehydration (principal); E46 Unspecified protein-calorie malnutrition; K21.9 Gastro-esophageal reflux disease without esophagitis; R63.4 Abnormal weight loss; R63.8 Other symptoms and signs concerning food and fluid intake; R11.2 Nausea with vomiting, unspecified; Z90.3 Acquired absence of stomach [part of] | CPT/HCPCS: 96360; J1642; J7120 ==

== ENCOUNTER 2021-06-11 02:27 | Day surgery (SDC) | payer OTHER | END 2021-06-11 09:05 | disposition home or self-care (01) | LOC: ATC 02:27 | DX: R11.2 Nausea with vomiting, unspecified (principal); K21.9 Gastro-esophageal reflux disease without esophagitis; K90.9 Intestinal malabsorption, unspecified; Z90.3 Acquired absence of stomach [part of]; Z88.0 Allergy status to penicillin; Z88.1 Allergy status to other antibiotic agents; Z88.2 Allergy status to sulfonamides; Z88.8 Allergy status to other drugs, medicaments and biological substances; Z79.899 Other long term (current) drug therapy | CPT/HCPCS: 96360; J1642; J7120 ==

== ENCOUNTER 2021-06-13 00:51 | Day surgery (SDC) | payer OTHER | END 2021-06-13 09:22 | disposition home or self-care (01) | LOC: ATC 00:51 | DX: E86.0 Dehydration (principal); R11.0 Nausea; R63.4 Abnormal weight loss; R63.8 Other symptoms and signs concerning food and fluid intake; E46 Unspecified protein-calorie malnutrition | CPT/HCPCS: 96360; J1642; J7120 ==

== ENCOUNTER 2021-06-15 04:15 | Day surgery (SDC) | payer OTHER | END 2021-06-15 10:59 | disposition home or self-care (01) | LOC: ATC 04:15 | DX: R11.2 Nausea with vomiting, unspecified (principal); K21.9 Gastro-esophageal reflux disease without esophagitis; K90.9 Intestinal malabsorption, unspecified; Z90.3 Acquired absence of stomach [part of]; Z88.0 Allergy status to penicillin; Z88.1 Allergy status to other antibiotic agents; Z88.2 Allergy status to sulfonamides; Z88.8 Allergy status to other drugs, medicaments and biological substances | CPT/HCPCS: 96361; 96365; J1642; J3411; J3475; J7042; J7120 ==

== ENCOUNTER 2021-06-22 00:23 | Day surgery (SDC) | payer OTHER | END 2021-06-22 10:28 | disposition home or self-care (01) | LOC: ATC 00:23 | DX: R11.2 Nausea with vomiting, unspecified (principal); K21.9 Gastro-esophageal reflux disease without esophagitis; K90.9 Intestinal malabsorption, unspecified; R63.4 Abnormal weight loss; R63.8 Other symptoms and signs concerning food and fluid intake; E86.0 Dehydration; Z90.3 Acquired absence of stomach [part of] | CPT/HCPCS: 96361; 96365; J1642; J3411; J3475; J7040; J7042; J7120 ==

== ENCOUNTER 2021-06-25 04:45 | Day surgery (SDC) | payer OTHER | END 2021-06-25 09:20 | disposition home or self-care (01) | LOC: ATC 04:45 | DX: E86.0 Dehydration (principal); R11.2 Nausea with vomiting, unspecified; Z90.3 Acquired absence of stomach [part of]; K21.9 Gastro-esophageal reflux disease without esophagitis; K90.9 Intestinal malabsorption, unspecified; K86.0 Alcohol-induced chronic pancreatitis | CPT/HCPCS: 96360; J1642; J1885; J7120 ==

== ENCOUNTER 2021-06-27 02:19 | Day surgery (SDC) | payer OTHER | END 2021-06-27 09:15 | disposition home or self-care (01) | LOC: ATC 02:19 | DX: R11.2 Nausea with vomiting, unspecified (principal); Z90.3 Acquired absence of stomach [part of]; E46 Unspecified protein-calorie malnutrition; K21.9 Gastro-esophageal reflux disease without esophagitis; R63.8 Other symptoms and signs concerning food and fluid intake; E86.0 Dehydration; Z88.1 Allergy status to other antibiotic agents; Z88.0 Allergy status to penicillin; Z88.2 Allergy status to sulfonamides; Z88.8 Allergy status to other drugs, medicaments and biological substances; Z91.048 Other nonmedicinal substance allergy status | CPT/HCPCS: 96360; J1642; J7120 ==

== ENCOUNTER 2021-06-29 01:33 | Day surgery (SDC) | payer OTHER | END 2021-06-29 10:23 | disposition home or self-care (01) | LOC: ATC 01:33 | DX: E86.0 Dehydration (principal); R11.2 Nausea with vomiting, unspecified; K21.9 Gastro-esophageal reflux disease without esophagitis; R63.4 Abnormal weight loss; R63.8 Other symptoms and signs concerning food and fluid intake; K90.9 Intestinal malabsorption, unspecified; Z90.3 Acquired absence of stomach [part of] | CPT/HCPCS: 96361; 96365; J1642; J3411; J3475; J7042; J7120 ==

== ENCOUNTER 2021-07-02 02:39 | Day surgery (SDC) | payer OTHER | END 2021-07-02 09:14 | disposition home or self-care (01) | LOC: ATC 02:39 | DX: E86.0 Dehydration (principal); R11.2 Nausea with vomiting, unspecified; K21.9 Gastro-esophageal reflux disease without esophagitis; R63.8 Other symptoms and signs concerning food and fluid intake; K90.9 Intestinal malabsorption, unspecified | CPT/HCPCS: 96360; J1642; J7120 ==

== ENCOUNTER 2021-07-06 04:11 | Day surgery (SDC) | payer OTHER | END 2021-07-06 10:21 | disposition home or self-care (01) | LOC: ATC 04:11 | DX: E86.0 Dehydration (principal); R11.2 Nausea with vomiting, unspecified; Z90.3 Acquired absence of stomach [part of]; K21.9 Gastro-esophageal reflux disease without esophagitis; K90.9 Intestinal malabsorption, unspecified; R63.4 Abnormal weight loss; R63.8 Other symptoms and signs concerning food and fluid intake | CPT/HCPCS: 96361; 96365; J1642; J3411; J3475; J7042; J7120 ==

== ENCOUNTER 2021-07-09 04:11 | Day surgery (SDC) | payer OTHER | END 2021-07-09 09:15 | disposition home or self-care (01) | LOC: ATC 04:11 | DX: E86.0 Dehydration (principal); R11.2 Nausea with vomiting, unspecified; Z90.3 Acquired absence of stomach [part of]; K21.9 Gastro-esophageal reflux disease without esophagitis; K90.9 Intestinal malabsorption, unspecified; R63.4 Abnormal weight loss; R63.8 Other symptoms and signs concerning food and fluid intake | CPT/HCPCS: 96360; J1642; J7120 ==

== ENCOUNTER 2021-07-11 04:30 | Day surgery (SDC) | payer OTHER | END 2021-07-11 08:58 | disposition home or self-care (01) | LOC: ATC 04:30 | DX: R11.2 Nausea with vomiting, unspecified (principal); K90.9 Intestinal malabsorption, unspecified; K21.9 Gastro-esophageal reflux disease without esophagitis; R63.4 Abnormal weight loss; R63.8 Other symptoms and signs concerning food and fluid intake; E86.0 Dehydration; Z90.3 Acquired absence of stomach [part of]; Z88.0 Allergy status to penicillin; Z88.8 Allergy status to other drugs, medicaments and biological substances; Z91.048 Other nonmedicinal substance allergy status; Z88.1 Allergy status to other antibiotic agents; Z88.2 Allergy status to sulfonamides | CPT/HCPCS: 96360; J1642; J7120 ==

== ENCOUNTER 2021-07-13 03:00 | Day surgery (SDC) | payer OTHER | END 2021-07-13 10:21 | disposition home or self-care (01) | LOC: ATC 03:00 | DX: R11.2 Nausea with vomiting, unspecified (principal); K21.9 Gastro-esophageal reflux disease without esophagitis; K90.9 Intestinal malabsorption, unspecified; R63.4 Abnormal weight loss; R63.8 Other symptoms and signs concerning food and fluid intake; E86.0 Dehydration; Z90.3 Acquired absence of stomach [part of]; Z88.0 Allergy status to penicillin; Z88.8 Allergy status to other drugs, medicaments and biological substances; Z91.048 Other nonmedicinal substance allergy status; Z88.1 Allergy status to other antibiotic agents; Z88.2 Allergy status to sulfonamides | CPT/HCPCS: J1642; J3411; J3475; J7040; J7120 ==

== ENCOUNTER 2021-07-16 05:22 | Day surgery (SDC) | payer OTHER | END 2021-07-16 09:16 | disposition home or self-care (01) | LOC: ATC 05:22 | DX: E86.0 Dehydration (principal); R11.2 Nausea with vomiting, unspecified; Z90.3 Acquired absence of stomach [part of]; K21.9 Gastro-esophageal reflux disease without esophagitis; K90.9 Intestinal malabsorption, unspecified; R63.4 Abnormal weight loss; R63.8 Other symptoms and signs concerning food and fluid intake | CPT/HCPCS: 96360; J1642; J7120 ==

== ENCOUNTER 2021-07-20 05:16 | Day surgery (SDC) | payer OTHER | END 2021-07-20 10:24 | disposition home or self-care (01) | LOC: ATC 05:16 | DX: E86.0 Dehydration (principal); R11.2 Nausea with vomiting, unspecified; Z90.3 Acquired absence of stomach [part of]; K21.9 Gastro-esophageal reflux disease without esophagitis; K90.9 Intestinal malabsorption, unspecified; R63.4 Abnormal weight loss; R63.8 Other symptoms and signs concerning food and fluid intake | CPT/HCPCS: 96361; 96365; J1642; J3411; J3475; J7040; J7120 ==

== ENCOUNTER 2021-07-23 05:44 | Day surgery (SDC) | payer OTHER | END 2021-07-23 09:40 | disposition home or self-care (01) | LOC: ATC 05:44 | DX: E86.0 Dehydration (principal); R11.2 Nausea with vomiting, unspecified; Z90.3 Acquired absence of stomach [part of]; K21.9 Gastro-esophageal reflux disease without esophagitis; K90.9 Intestinal malabsorption, unspecified; K86.0 Alcohol-induced chronic pancreatitis | CPT/HCPCS: 96360; J1642; J7120 ==

== ENCOUNTER 2021-07-25 02:17 | Day surgery (SDC) | payer OTHER | END 2021-07-25 09:17 | disposition home or self-care (01) | LOC: ATC 02:17 | DX: E86.0 Dehydration (principal); R11.2 Nausea with vomiting, unspecified; K21.9 Gastro-esophageal reflux disease without esophagitis; K90.9 Intestinal malabsorption, unspecified; R63.8 Other symptoms and signs concerning food and fluid intake; Z90.3 Acquired absence of stomach [part of] | CPT/HCPCS: 96361; 96374; J1642; J1885; J3411; J3475; J7040; J7120 ==

== ENCOUNTER 2021-07-27 05:52 | Day surgery (SDC) | payer OTHER | END 2021-07-27 09:53 | disposition home or self-care (01) | LOC: ATC 05:52 | DX: E86.0 Dehydration (principal); R11.2 Nausea with vomiting, unspecified; Z90.3 Acquired absence of stomach [part of]; K21.9 Gastro-esophageal reflux disease without esophagitis; K90.9 Intestinal malabsorption, unspecified; R63.4 Abnormal weight loss; R63.8 Other symptoms and signs concerning food and fluid intake | CPT/HCPCS: 96361; 96365; J1642; J3411; J3475; J7040; J7120 ==

== ENCOUNTER 2021-07-29 07:25 | Day surgery (SDC) | payer OTHER | END 2021-07-29 08:44 | disposition home or self-care (01) | LOC: ATC 07:25 | DX: E86.0 Dehydration (principal); R11.2 Nausea with vomiting, unspecified; K90.9 Intestinal malabsorption, unspecified; K21.9 Gastro-esophageal reflux disease without esophagitis; R63.8 Other symptoms and signs concerning food and fluid intake; Z90.3 Acquired absence of stomach [part of] | CPT/HCPCS: 96360; J1642; J7120 ==

== ENCOUNTER 2021-07-31 01:10 | Day surgery (SDC) | payer OTHER | END 2021-07-31 09:13 | disposition home or self-care (01) | LOC: ATC 01:10 | DX: E46 Unspecified protein-calorie malnutrition (principal); R11.2 Nausea with vomiting, unspecified; G43.909 Migraine, unspecified, not intractable, without status migrainosus; E78.2 Mixed hyperlipidemia; Z98.84 Bariatric surgery status; Z88.8 Allergy status to other drugs, medicaments and biological substances; Z88.0 Allergy status to penicillin; Z88.1 Allergy status to other antibiotic agents; Z88.2 Allergy status to sulfonamides; Z91.048 Other nonmedicinal substance allergy status; Z79.899 Other long term (current) drug therapy; Z79.82 Long term (current) use of aspirin | CPT/HCPCS: 96360; J1642; J7120 ==

== ENCOUNTER 2021-08-08 02:45 | Day surgery (SDC) | payer OTHER | END 2021-08-08 09:46 | disposition home or self-care (01) | LOC: ATC 02:45 | DX: R11.2 Nausea with vomiting, unspecified (principal); E86.0 Dehydration; K21.9 Gastro-esophageal reflux disease without esophagitis; K90.9 Intestinal malabsorption, unspecified; R63.8 Other symptoms and signs concerning food and fluid intake; Z90.3 Acquired absence of stomach [part of]; Z88.1 Allergy status to other antibiotic agents; Z88.0 Allergy status to penicillin; Z88.2 Allergy status to sulfonamides; Z88.8 Allergy status to other drugs, medicaments and biological substances; Z91.048 Other nonmedicinal substance allergy status | CPT/HCPCS: 96360; J1642; J7120 ==

== ENCOUNTER 2021-08-10 03:06 | Day surgery (SDC) | payer OTHER | END 2021-08-10 10:22 | disposition home or self-care (01) | LOC: ATC 03:06 | DX: R11.2 Nausea with vomiting, unspecified (principal); E46 Unspecified protein-calorie malnutrition; K21.9 Gastro-esophageal reflux disease without esophagitis; Z90.3 Acquired absence of stomach [part of]; R63.4 Abnormal weight loss; R63.8 Other symptoms and signs concerning food and fluid intake | CPT/HCPCS: J1642; J1885; J3411; J3475; J7040; J7120 ==

== ENCOUNTER 2021-08-13 03:31 | Day surgery (SDC) | payer OTHER | END 2021-08-13 09:30 | disposition home or self-care (01) | LOC: ATC 03:31 | DX: R11.2 Nausea with vomiting, unspecified (principal); E46 Unspecified protein-calorie malnutrition; K21.9 Gastro-esophageal reflux disease without esophagitis; E86.0 Dehydration; Z90.3 Acquired absence of stomach [part of] | CPT/HCPCS: J1642; J7120 ==

== ENCOUNTER 2021-08-15 05:40 | Day surgery (SDC) | payer OTHER | END 2021-08-15 09:21 | disposition home or self-care (01) | LOC: ATC 05:40 | DX: K21.9 Gastro-esophageal reflux disease without esophagitis (principal); Z90.3 Acquired absence of stomach [part of]; R63.4 Abnormal weight loss | CPT/HCPCS: 96360; J1642; J7120 ==

== ENCOUNTER 2021-08-17 01:49 | Day surgery (SDC) | payer OTHER | END 2021-08-17 10:24 | disposition home or self-care (01) | LOC: ATC 01:49 | DX: R11.2 Nausea with vomiting, unspecified (principal); K21.9 Gastro-esophageal reflux disease without esophagitis; K90.9 Intestinal malabsorption, unspecified; R63.8 Other symptoms and signs concerning food and fluid intake; E86.0 Dehydration; M79.7 Fibromyalgia; G43.909 Migraine, unspecified, not intractable, without status migrainosus; Z90.3 Acquired absence of stomach [part of] | CPT/HCPCS: J1642; J1885; J3411; J3475; J7040; J7120 ==

== ENCOUNTER 2021-08-20 02:57 | Day surgery (SDC) | payer OTHER | END 2021-08-20 09:25 | disposition home or self-care (01) | LOC: ATC 02:57 | DX: R11.2 Nausea with vomiting, unspecified (principal); K21.9 Gastro-esophageal reflux disease without esophagitis; K90.9 Intestinal malabsorption, unspecified; R63.8 Other symptoms and signs concerning food and fluid intake; E86.0 Dehydration; M79.7 Fibromyalgia; G43.909 Migraine, unspecified, not intractable, without status migrainosus; Z90.3 Acquired absence of stomach [part of] | CPT/HCPCS: 96360; J1642; J7120 ==

== ENCOUNTER 2021-08-22 02:28 | Day surgery (SDC) | payer OTHER | END 2021-08-22 09:09 | disposition home or self-care (01) | LOC: ATC 02:28 | DX: K21.9 Gastro-esophageal reflux disease without esophagitis (principal); R63.8 Other symptoms and signs concerning food and fluid intake; R63.4 Abnormal weight loss; M79.7 Fibromyalgia; Z90.3 Acquired absence of stomach [part of] | CPT/HCPCS: 96360; J1642; J7120 ==

== ENCOUNTER 2021-08-24 01:30 | Day surgery (SDC) | payer OTHER ==
[2021-08-24 08:48] LABS: BASOPHILS ABSOLUTE AUTO 0.03 K/mm3 (0.00-0.23); BASOPHILS PERCENT AUTO 1 % (0-2); EOSINOPHILS ABSOLUTE AUTO 0.15 K/mm3 (0.00-0.68); EOSINOPHILS PERCENT AUTO 3 % (0-6); Hematocrit 33.2 % (33.0-51.0); Hemoglobin 10.5 g/dL (11.5-16.0); IMMATURE GRAN ABSOLUTE AUTO 0.01 K/mm3 (0.00-0.10); IMMATURE GRAN PERCENT AUTO 0 % (0-1); LYMPHOCYTES ABSOLUTE AUTO 1.46 K/mm3 (0.84-5.20); LYMPHOCYTES PERCENT AUTO 32 % (21-46); MONOCYTES ABSOLUTE AUTO 0.42 K/mm3 (0.16-1.47); MONOCYTES PERCENT AUTO 9 % (4-13); Mean Corpuscular HGB 29.2 pg (26.0-34.0); Mean Corpuscular HGB Conc 31.6 g/dL (31.5-36.5); Mean Corpuscular Volume 93 fL (80-100); Mean Platelet Volume 11.4 fL (9.1-12.4); NEUTROPHILS ABSOLUTE AUTO 2.46 K/mm3 (1.96-9.15); NEUTROPHILS PERCENT AUTO 54 % (41-73); Platelet Count 233 K/mm3 (150-400); RDW Standard Deviation 47.5 fL (35.1-46.3); RETICULOCYTE ABSOLUTE 0.0248 M/mm3 (0.0200-0.1100); RETICULOCYTE COUNT PERCENT 0.69 % (0.50-2.50); Red Blood Cell Count 3.59 M/mm3 (3.80-5.20); White Blood Cell Count 4.53 K/mm3 (4.00-11.30)
== END 2021-08-24 10:44 | disposition home or self-care (01) ==
LOC: ATC 01:30
PROVIDERS: Internal Medicine
DX: R11.2 Nausea with vomiting, unspecified (principal); E86.0 Dehydration; E46 Unspecified protein-calorie malnutrition; K21.00 Gastro-esophageal reflux disease with esophagitis, without bleeding; R63.8 Other symptoms and signs concerning food and fluid intake; Z90.3 Acquired absence of stomach [part of]; Z88.1 Allergy status to other antibiotic agents; Z88.0 Allergy status to penicillin; Z88.2 Allergy status to sulfonamides; Z88.8 Allergy status to other drugs, medicaments and biological substances; Z91.048 Other nonmedicinal substance allergy status
CPT/HCPCS: 82728; 85025; 85045; J1642; J3411; J3475; J7040; J7120

== ENCOUNTER 2021-08-27 04:06 | Day surgery (SDC) | payer OTHER | END 2021-08-27 09:30 | disposition home or self-care (01) | LOC: ATC 04:06 | DX: K21.9 Gastro-esophageal reflux disease without esophagitis (principal); E46 Unspecified protein-calorie malnutrition; E86.0 Dehydration; R63.8 Other symptoms and signs concerning food and fluid intake; Z90.3 Acquired absence of stomach [part of]; Z88.1 Allergy status to other antibiotic agents; Z88.0 Allergy status to penicillin; Z88.2 Allergy status to sulfonamides; Z88.8 Allergy status to other drugs, medicaments and biological substances; Z91.048 Other nonmedicinal substance allergy status | CPT/HCPCS: J1642; J1885; J7120 ==

== ENCOUNTER 2021-09-03 02:28 | Day surgery (SDC) | payer OTHER | END 2021-09-03 09:25 | disposition home or self-care (01) | LOC: ATC 02:28 | DX: E86.0 Dehydration (principal); Z90.3 Acquired absence of stomach [part of]; R11.2 Nausea with vomiting, unspecified; K21.9 Gastro-esophageal reflux disease without esophagitis; K90.9 Intestinal malabsorption, unspecified; R63.8 Other symptoms and signs concerning food and fluid intake | CPT/HCPCS: 96360; J1642; J7120 ==

== ENCOUNTER 2021-09-07 05:32 | Day surgery (SDC) | payer OTHER ==
[2021-09-07] MEDS ORDERED: PANT40 PO (08:38)
[2021-09-07 11:42] LABS: Thyroxine (T4) 8.8 ug/dL (4.8-13.9); Triiodothyronine, Free 2.63 pg/mL (2.18-3.98)
[2021-09-07 12:05] LABS: Alanine Aminotransfer (ALT/SGP 43 U/L (12-78); Albumin/Globulin Ratio 1.1 (0.8-1.8); Alk Phos 81 U/L (50-136); Anion Gap 9 mmol/L (6-16); Aspartate Aminotrans (AST/SGOT 24 U/L (12-37); Bilirubin, Total 0.2 mg/dL (0.1-1.0); Blood Urea Nitrogen 16 mg/dL (8-24); Bun/Creatinine Ratio 21.6 (12.0-20.0); CO2, Blood 27 mmol/L (21-32); Calcium, Blood 8.4 mg/dL (8.5-10.1); Chloride, Blood 106 mmol/L (98-108); Cholesterol 292 mg/dL (50-200); Creatinine, Blood 0.74 mg/dL (0.40-1.00); Globulin, Blood 2.7 g/dL (2.2-4.0); Glomerular Filtration Rate >60 (60-); Glucose, Blood 79 mg/dL (70-99); HDL Cholesterol 97 mg/dL (>39); Iron Serum 48 ug/dL (50-170); LDL/HDL RATIO 1.9; Low Density Lipoprotein Chol 181 mg/dL (0-110); Percent Saturation 13.7 % (15.0-50.0); Potassium, Blood 4.1 mmol/L (3.5-5.5); Sodium, Blood 142 mmol/L (136-145); Thyroid Stimulating Hormone 0.493 uIU/mL (0.360-4.800); Total Iron Binding Capacity 350 ug/dL (250-450); Total Protein, Blood 5.7 g/dL (6.4-8.2); Triglycerides 68 mg/dL (30-160); Very Low Density Lipoprot Chol 13 mg/dL (6-32)
== END 2021-09-07 10:26 | disposition home or self-care (01) ==
LOC: ATC 05:32
PROVIDERS: Internal Medicine
DX: R11.2 Nausea with vomiting, unspecified (principal); E46 Unspecified protein-calorie malnutrition; K21.9 Gastro-esophageal reflux disease without esophagitis; K90.9 Intestinal malabsorption, unspecified; R63.8 Other symptoms and signs concerning food and fluid intake; E86.0 Dehydration; Z90.3 Acquired absence of stomach [part of]; Z88.1 Allergy status to other antibiotic agents; Z88.2 Allergy status to sulfonamides; Z88.8 Allergy status to other drugs, medicaments and biological substances; Z91.048 Other nonmedicinal substance allergy status
CPT/HCPCS: 80053; 80061; 82306; 82607; 83540; 83550; 84436; 84443; 84481; J1642; J3411; J3475; J7040; J7120

== ENCOUNTER 2021-09-09 07:22 | Day surgery (SDC) | payer OTHER | END 2021-09-09 08:40 | disposition home or self-care (01) | LOC: ATC 07:22 | DX: R11.2 Nausea with vomiting, unspecified (principal); K21.9 Gastro-esophageal reflux disease without esophagitis; E46 Unspecified protein-calorie malnutrition; Z90.3 Acquired absence of stomach [part of]; R63.8 Other symptoms and signs concerning food and fluid intake; E86.0 Dehydration | CPT/HCPCS: J1642; J1885; J7120 ==

== ENCOUNTER 2021-09-21 05:39 | Day surgery (SDC) | payer OTHER ==
[2022-05-21] MEDS ORDERED: CLOBETASOL EMOL15 G1 (11:09)
[2022-05-21] MEDS ORDERED: CLIN1TS (11:09)
[2022-05-21] MEDS ORDERED: Desowen60 GM (11:09)
[2022-05-21] MEDS ORDERED: REMERON15 M1 PO (11:15)
[2022-05-21] MEDS ORDERED: METPRE4 (11:15)
[2022-05-21] MEDS ORDERED: IBUP400 PO (11:15)
[2022-05-24] MEDS ORDERED: KETOROLAC30 MG/1 ML IM (08:42)
== END 2021-09-21 10:29 | disposition home or self-care (01) ==
LOC: ATC 05:39
DX: R11.2 Nausea with vomiting, unspecified (principal); E46 Unspecified protein-calorie malnutrition; K21.9 Gastro-esophageal reflux disease without esophagitis; R63.8 Other symptoms and signs concerning food and fluid intake; E86.0 Dehydration; Z90.3 Acquired absence of stomach [part of]
CPT/HCPCS: 96360; 96372; J1642; J1885; J3411; J3475; J7040; J7120

== ENCOUNTER 2021-09-23 08:28 | Day surgery (SDC) | payer OTHER | END 2021-09-23 09:54 | disposition home or self-care (01) | LOC: ATC 08:28 | DX: K21.9 Gastro-esophageal reflux disease without esophagitis (principal); E46 Unspecified protein-calorie malnutrition; R63.8 Other symptoms and signs concerning food and fluid intake; E86.0 Dehydration; G47.33 Obstructive sleep apnea (adult) (pediatric); Z90.3 Acquired absence of stomach [part of]; Z88.1 Allergy status to other antibiotic agents; Z88.0 Allergy status to penicillin; Z88.2 Allergy status to sulfonamides; Z88.8 Allergy status to other drugs, medicaments and biological substances; Z91.048 Other nonmedicinal substance allergy status | CPT/HCPCS: J1642; J7120 ==

== ENCOUNTER 2021-09-28 07:59 | Day surgery (SDC) | payer OTHER ==
--- NOTE | 2021-09-26 07:36 | NUR ---
PT CALLED TO CANCEL HER APPOINTMENT TODAY DUE TO ILLNESS.
== END 2021-09-28 10:22 | disposition home or self-care (01) ==
LOC: ATC 07:59
DX: R11.2 Nausea with vomiting, unspecified (principal); E46 Unspecified protein-calorie malnutrition; K21.9 Gastro-esophageal reflux disease without esophagitis; R63.8 Other symptoms and signs concerning food and fluid intake; E86.0 Dehydration; Z90.3 Acquired absence of stomach [part of]; Z88.1 Allergy status to other antibiotic agents; Z88.0 Allergy status to penicillin; Z88.2 Allergy status to sulfonamides; Z88.8 Allergy status to other drugs, medicaments and biological substances; Z91.048 Other nonmedicinal substance allergy status
CPT/HCPCS: J1642; J1885; J3411; J3475; J7040; J7120

== ENCOUNTER 2021-10-06 08:00 | Day surgery (SDC) | payer OTHER | END 2021-10-06 23:59 | disposition home or self-care (01) | LOC: ATC 08:00 | DX: R11.2 Nausea with vomiting, unspecified (principal); E46 Unspecified protein-calorie malnutrition; K21.9 Gastro-esophageal reflux disease without esophagitis; K90.9 Intestinal malabsorption, unspecified; R63.8 Other symptoms and signs concerning food and fluid intake; E86.0 Dehydration; Z90.3 Acquired absence of stomach [part of]; E78.00 Pure hypercholesterolemia, unspecified; Z88.1 Allergy status to other antibiotic agents; Z88.0 Allergy status to penicillin; Z88.2 Allergy status to sulfonamides; Z88.8 Allergy status to other drugs, medicaments and biological substances; Z91.048 Other nonmedicinal substance allergy status | CPT/HCPCS: 96361; 96365; J1642; J3411; J3475; J7040; J7042; J7120 ==

== ENCOUNTER 2021-10-08 02:50 | Day surgery (SDC) | payer OTHER | END 2021-10-08 09:18 | disposition home or self-care (01) | LOC: ATC 02:50 | DX: R11.2 Nausea with vomiting, unspecified (principal); K21.9 Gastro-esophageal reflux disease without esophagitis; K90.9 Intestinal malabsorption, unspecified; R63.8 Other symptoms and signs concerning food and fluid intake; E86.0 Dehydration; Z90.3 Acquired absence of stomach [part of] | CPT/HCPCS: J1642; J7120 ==

== ENCOUNTER 2021-10-15 03:33 | Day surgery (SDC) | payer OTHER | END 2021-10-15 09:32 | disposition home or self-care (01) | LOC: ATC 03:33 | DX: R11.2 Nausea with vomiting, unspecified (principal); E46 Unspecified protein-calorie malnutrition; K21.9 Gastro-esophageal reflux disease without esophagitis; R63.8 Other symptoms and signs concerning food and fluid intake; E86.0 Dehydration; G43.909 Migraine, unspecified, not intractable, without status migrainosus; E78.00 Pure hypercholesterolemia, unspecified; Z90.3 Acquired absence of stomach [part of] | CPT/HCPCS: J1642; J7120 ==

== ENCOUNTER 2021-10-17 01:15 | Day surgery (SDC) | payer OTHER ==
[2021-10-17] MEDS ORDERED: PRED FORTE5 M1 BOTHEYES (08:42)
--- NOTE | 2021-10-17 09:35 | NUR ---
CALL TO DR Shyann MCKEON'S OFFICE FOR NEW ORDER FOR TORADOL IM. PT STATES SHE IS HAVING PAIN IN EYES.
== END 2021-10-17 09:26 | disposition home or self-care (01) ==
LOC: ATC 01:15
DX: E46 Unspecified protein-calorie malnutrition (principal); K21.9 Gastro-esophageal reflux disease without esophagitis; R63.8 Other symptoms and signs concerning food and fluid intake; E86.0 Dehydration; Z90.3 Acquired absence of stomach [part of]; Z88.1 Allergy status to other antibiotic agents; Z88.0 Allergy status to penicillin; Z88.2 Allergy status to sulfonamides; Z88.8 Allergy status to other drugs, medicaments and biological substances; Z91.048 Other nonmedicinal substance allergy status
CPT/HCPCS: J1642; J7120

== ENCOUNTER 2021-10-19 00:27 | Day surgery (SDC) | payer OTHER ==
[~2021-10-19 00:27] MED LIST changes: +PRED FORTE5 M1 BOTHEYES
== END 2021-10-19 10:34 | disposition home or self-care (01) ==
LOC: ATC 00:27
DX: R11.2 Nausea with vomiting, unspecified (principal); K21.9 Gastro-esophageal reflux disease without esophagitis; K90.9 Intestinal malabsorption, unspecified; R63.8 Other symptoms and signs concerning food and fluid intake; E86.0 Dehydration; M79.7 Fibromyalgia; G43.909 Migraine, unspecified, not intractable, without status migrainosus; Z90.3 Acquired absence of stomach [part of]
CPT/HCPCS: J1642; J1885; J3411; J3475; J7040; J7120

== ENCOUNTER 2021-10-22 02:38 | Day surgery (SDC) | payer OTHER | END 2021-10-22 09:25 | disposition home or self-care (01) | LOC: ATC 02:38 | DX: R11.2 Nausea with vomiting, unspecified (principal); E46 Unspecified protein-calorie malnutrition; K21.9 Gastro-esophageal reflux disease without esophagitis; R63.8 Other symptoms and signs concerning food and fluid intake; E86.0 Dehydration; Z90.3 Acquired absence of stomach [part of] | CPT/HCPCS: J1642; J7120 ==

== ENCOUNTER 2021-10-24 02:46 | Day surgery (SDC) | payer OTHER | END 2021-10-24 09:25 | disposition home or self-care (01) | LOC: ATC 02:46 | DX: R11.2 Nausea with vomiting, unspecified (principal); E46 Unspecified protein-calorie malnutrition; K21.9 Gastro-esophageal reflux disease without esophagitis; R63.8 Other symptoms and signs concerning food and fluid intake; E86.0 Dehydration; Z90.3 Acquired absence of stomach [part of] | CPT/HCPCS: J1642; J7120 ==

== ENCOUNTER 2021-10-27 07:54 | Day surgery (SDC) | payer OTHER | END 2021-10-27 10:19 | disposition home or self-care (01) | LOC: ATC 07:54 | DX: R11.2 Nausea with vomiting, unspecified (principal); E46 Unspecified protein-calorie malnutrition; K21.9 Gastro-esophageal reflux disease without esophagitis; E86.0 Dehydration; Z90.3 Acquired absence of stomach [part of] | CPT/HCPCS: J1642; J1885; J3411; J3475; J7040; J7120 ==

== ENCOUNTER 2021-11-02 02:26 | Day surgery (SDC) | payer OTHER | END 2021-11-02 10:42 | disposition home or self-care (01) | LOC: ATC 02:26 | DX: K21.9 Gastro-esophageal reflux disease without esophagitis (principal); E46 Unspecified protein-calorie malnutrition; R63.8 Other symptoms and signs concerning food and fluid intake; E86.0 Dehydration; Z90.3 Acquired absence of stomach [part of] | CPT/HCPCS: J1642; J3411; J3475; J7040; J7120 ==

== ENCOUNTER 2021-11-04 03:31 | Day surgery (SDC) | payer OTHER | END 2021-11-04 09:11 | disposition home or self-care (01) | LOC: ATC 03:31 | DX: R11.2 Nausea with vomiting, unspecified (principal); K21.9 Gastro-esophageal reflux disease without esophagitis; K90.9 Intestinal malabsorption, unspecified; R63.8 Other symptoms and signs concerning food and fluid intake; E86.0 Dehydration; Z90.3 Acquired absence of stomach [part of]; Z88.1 Allergy status to other antibiotic agents; Z88.0 Allergy status to penicillin; Z88.2 Allergy status to sulfonamides; Z88.8 Allergy status to other drugs, medicaments and biological substances; Z91.048 Other nonmedicinal substance allergy status | CPT/HCPCS: J1642; J7120 ==

== ENCOUNTER 2021-11-07 00:18 | Day surgery (SDC) | payer OTHER | END 2021-11-07 09:09 | disposition home or self-care (01) | LOC: ATC 00:18 | DX: K21.9 Gastro-esophageal reflux disease without esophagitis (principal); E46 Unspecified protein-calorie malnutrition; E63.8 Other specified nutritional deficiencies; E86.0 Dehydration; Z90.3 Acquired absence of stomach [part of] | CPT/HCPCS: J1642; J1885; J7120 ==

== ENCOUNTER 2021-11-09 03:12 | Day surgery (SDC) | payer OTHER | END 2021-11-09 10:59 | disposition home or self-care (01) | LOC: ATC 03:12 | DX: K21.9 Gastro-esophageal reflux disease without esophagitis (principal); E46 Unspecified protein-calorie malnutrition; R63.8 Other symptoms and signs concerning food and fluid intake; E86.0 Dehydration; G47.33 Obstructive sleep apnea (adult) (pediatric); Z90.3 Acquired absence of stomach [part of]; Z88.1 Allergy status to other antibiotic agents; Z88.0 Allergy status to penicillin; Z88.2 Allergy status to sulfonamides; Z88.8 Allergy status to other drugs, medicaments and biological substances; Z91.048 Other nonmedicinal substance allergy status | CPT/HCPCS: J1642; J3411; J3475; J7040; J7042; J7120 ==

== ENCOUNTER 2021-11-12 01:53 | Day surgery (SDC) | payer OTHER | END 2021-11-12 09:11 | disposition home or self-care (01) | LOC: ATC 01:53 | DX: R11.2 Nausea with vomiting, unspecified (principal); K21.9 Gastro-esophageal reflux disease without esophagitis; K90.9 Intestinal malabsorption, unspecified; R63.8 Other symptoms and signs concerning food and fluid intake; E86.0 Dehydration; G43.909 Migraine, unspecified, not intractable, without status migrainosus; Z90.3 Acquired absence of stomach [part of]; Z88.0 Allergy status to penicillin; Z91.048 Other nonmedicinal substance allergy status; Z88.8 Allergy status to other drugs, medicaments and biological substances; Z88.1 Allergy status to other antibiotic agents; Z88.2 Allergy status to sulfonamides | CPT/HCPCS: J1642; J7120 ==

== ENCOUNTER 2021-11-14 00:27 | Day surgery (SDC) | payer OTHER | END 2021-11-14 09:21 | disposition home or self-care (01) | LOC: ATC 00:27 | DX: K90.9 Intestinal malabsorption, unspecified (principal); E86.0 Dehydration; R11.2 Nausea with vomiting, unspecified; K21.9 Gastro-esophageal reflux disease without esophagitis; R63.8 Other symptoms and signs concerning food and fluid intake; Z90.3 Acquired absence of stomach [part of] | CPT/HCPCS: 96360; 96372; J1642; J1885; J7120 ==

== ENCOUNTER 2021-11-16 02:39 | Day surgery (SDC) | payer OTHER | END 2021-11-16 10:16 | disposition home or self-care (01) | LOC: ATC 02:39 | DX: R11.2 Nausea with vomiting, unspecified (principal); E46 Unspecified protein-calorie malnutrition; R63.8 Other symptoms and signs concerning food and fluid intake; E86.0 Dehydration; K21.9 Gastro-esophageal reflux disease without esophagitis; Z90.3 Acquired absence of stomach [part of] | CPT/HCPCS: J1642; J3411; J3475; J7040; J7120 ==

== ENCOUNTER 2021-11-19 03:24 | Day surgery (SDC) | payer OTHER | END 2021-11-19 09:28 | disposition home or self-care (01) | LOC: ATC 03:24 | DX: R11.2 Nausea with vomiting, unspecified (principal); K21.9 Gastro-esophageal reflux disease without esophagitis; K90.9 Intestinal malabsorption, unspecified; R63.8 Other symptoms and signs concerning food and fluid intake; E86.0 Dehydration; M79.7 Fibromyalgia; G43.909 Migraine, unspecified, not intractable, without status migrainosus; Z90.3 Acquired absence of stomach [part of] | CPT/HCPCS: J1642; J7120 ==

== ENCOUNTER 2021-11-21 01:42 | Day surgery (SDC) | payer OTHER | END 2021-11-21 09:24 | disposition home or self-care (01) | LOC: ATC 01:42 | DX: R11.2 Nausea with vomiting, unspecified (principal); E46 Unspecified protein-calorie malnutrition; K21.9 Gastro-esophageal reflux disease without esophagitis; E86.0 Dehydration; R63.8 Other symptoms and signs concerning food and fluid intake; Z90.3 Acquired absence of stomach [part of] | CPT/HCPCS: J1642; J1885; J7120 ==

== ENCOUNTER 2021-11-23 01:26 | Day surgery (SDC) | payer OTHER | END 2021-11-23 10:33 | disposition home or self-care (01) | LOC: ATC 01:26 | DX: R11.2 Nausea with vomiting, unspecified (principal); K21.9 Gastro-esophageal reflux disease without esophagitis; E46 Unspecified protein-calorie malnutrition; E86.0 Dehydration; Z90.3 Acquired absence of stomach [part of] | CPT/HCPCS: J1642; J3411; J3475; J7040; J7120 ==

== ENCOUNTER 2021-11-25 08:51 | Day surgery (SDC) | payer OTHER ==
--- NOTE | 2021-11-25 09:50 | NUR ---
PT CALLED [facility] THIS MORNING REQUESTING TO BE SEEN FOR IV FLUIDS TODAY INSTEAD OF TOMORROW. PT REPORTS FEELING DEHYDRATED, WEAK AND RAPID PULSE WITH LOW URINE OUTPUT. PT ARRIVED TO [facility] WITH VS WNL. NO VISIBLE DISTRESS NOTED. INFUSING IV FLUIDS NOW. APPT CANCELLED FOR TOMORROW. PT AWARE IF SYMPTOMS PERSIST SHE NEEDS TO BE SEEN IN ER. PT VERBALIZED UNDERSTANDING. PT ALSO FOLLOWING UP WITH PCP TO SEE IF SHE NEEDS TO INCREASE HER WEEKLY IV FLUIDS AND TO ASK FURTHER QUESTIONS REGARDING HER SYMPTOMS.
== END 2021-11-25 10:25 | disposition home or self-care (01) ==
LOC: ATC 08:51
DX: R11.2 Nausea with vomiting, unspecified (principal); E46 Unspecified protein-calorie malnutrition; K21.9 Gastro-esophageal reflux disease without esophagitis; Z90.3 Acquired absence of stomach [part of]; R63.8 Other symptoms and signs concerning food and fluid intake; E86.0 Dehydration
CPT/HCPCS: J1642; J7120

== ENCOUNTER 2021-11-30 00:52 | Day surgery (SDC) | payer OTHER | END 2021-11-30 10:26 | disposition home or self-care (01) | LOC: ATC 00:52 | DX: E46 Unspecified protein-calorie malnutrition (principal); R11.2 Nausea with vomiting, unspecified; K21.9 Gastro-esophageal reflux disease without esophagitis; R63.8 Other symptoms and signs concerning food and fluid intake; E86.0 Dehydration; Z90.3 Acquired absence of stomach [part of] | CPT/HCPCS: J1642; J3411; J3475; J7040; J7120 ==

== ENCOUNTER 2021-12-02 13:34 | Day surgery (SDC) | payer OTHER | END 2021-12-02 15:30 | disposition home or self-care (01) | LOC: ATC 13:34 | DX: R11.2 Nausea with vomiting, unspecified (principal); E46 Unspecified protein-calorie malnutrition; K21.9 Gastro-esophageal reflux disease without esophagitis; E86.0 Dehydration; R63.8 Other symptoms and signs concerning food and fluid intake | CPT/HCPCS: J1642; J7120 ==

== ENCOUNTER 2021-12-05 01:23 | Day surgery (SDC) | payer OTHER ==
[2022-05-21] MEDS ORDERED: CLOBETASOL EMOL15 G1 (11:09)
[2022-05-21] MEDS ORDERED: CLIN1TS (11:09)
[2022-05-21] MEDS ORDERED: Desowen60 GM (11:09)
[2022-05-21] MEDS ORDERED: IBUP400 PO (11:15)
[2022-05-21] MEDS ORDERED: METPRE4 (11:15)
[2022-05-21] MEDS ORDERED: REMERON15 M1 PO (11:15)
[2022-05-24] MEDS ORDERED: KETOROLAC30 MG/1 ML IM (08:42)
== END 2021-12-05 09:30 | disposition home or self-care (01) ==
LOC: ATC 01:23
DX: R11.2 Nausea with vomiting, unspecified (principal); K90.9 Intestinal malabsorption, unspecified; K21.9 Gastro-esophageal reflux disease without esophagitis; R63.8 Other symptoms and signs concerning food and fluid intake; E86.0 Dehydration; M79.7 Fibromyalgia; G43.909 Migraine, unspecified, not intractable, without status migrainosus; Z90.3 Acquired absence of stomach [part of]
CPT/HCPCS: 96360; 96372; J1642; J1885; J7120

== ENCOUNTER 2021-12-07 02:53 | Day surgery (SDC) | payer OTHER ==
[2022-05-21] MEDS ORDERED: CLOBETASOL EMOL15 G1 (11:09)
[2022-05-21] MEDS ORDERED: CLIN1TS (11:09)
[2022-05-21] MEDS ORDERED: Desowen60 GM (11:09)
[2022-05-21] MEDS ORDERED: REMERON15 M1 PO (11:15)
[2022-05-21] MEDS ORDERED: IBUP400 PO (11:15)
[2022-05-21] MEDS ORDERED: METPRE4 (11:15)
[2022-05-24] MEDS ORDERED: KETOROLAC30 MG/1 ML IM (08:42)
== END 2021-12-07 10:24 | disposition home or self-care (01) ==
LOC: ATC 02:53
DX: K21.9 Gastro-esophageal reflux disease without esophagitis (principal); R11.2 Nausea with vomiting, unspecified; Z90.3 Acquired absence of stomach [part of]; E46 Unspecified protein-calorie malnutrition; R63.8 Other symptoms and signs concerning food and fluid intake; E86.0 Dehydration; Z88.1 Allergy status to other antibiotic agents; Z88.0 Allergy status to penicillin; Z88.2 Allergy status to sulfonamides; Z88.8 Allergy status to other drugs, medicaments and biological substances; Z91.048 Other nonmedicinal substance allergy status
CPT/HCPCS: 96361; 96365; J1642; J3411; J3475; J7040; J7120

== ENCOUNTER → 2021-12-08 | Outpatient (CLI) | payer OTHER | LOC: LAB SHORT 10:37 → LAB EV 10:37 | DX: M79.662 Pain in left lower leg (principal) | CPT/HCPCS: 85379 ==

== ENCOUNTER 2021-12-10 01:57 | Day surgery (SDC) | payer OTHER | END 2021-12-10 09:13 | disposition home or self-care (01) | LOC: ATC 01:57 | DX: R11.2 Nausea with vomiting, unspecified (principal); K21.9 Gastro-esophageal reflux disease without esophagitis; K90.9 Intestinal malabsorption, unspecified; R63.8 Other symptoms and signs concerning food and fluid intake; E86.0 Dehydration; Z90.3 Acquired absence of stomach [part of] | CPT/HCPCS: J1642; J7120 ==

== ENCOUNTER 2021-12-12 00:55 | Day surgery (SDC) | payer OTHER | END 2021-12-12 09:21 | disposition home or self-care (01) | LOC: ATC 00:55 | DX: R11.2 Nausea with vomiting, unspecified (principal); K21.9 Gastro-esophageal reflux disease without esophagitis; K90.9 Intestinal malabsorption, unspecified; E86.0 Dehydration; Z90.3 Acquired absence of stomach [part of]; E78.00 Pure hypercholesterolemia, unspecified; Z88.1 Allergy status to other antibiotic agents; Z88.0 Allergy status to penicillin; Z88.8 Allergy status to other drugs, medicaments and biological substances; Z91.048 Other nonmedicinal substance allergy status | CPT/HCPCS: J1642; J1885; J7120 ==

== ENCOUNTER 2021-12-17 07:55 | Day surgery (SDC) | payer OTHER ==
--- NOTE | 2021-12-17 10:48 | NUR ---
[employer] MACHINE DISPENSED INCORRECT AMMOUNT OF KETORLAC. ADDITIONAL DOSE INPUT TO OBTAIN CORRECT AMMOUNT ORDERED
== END 2021-12-17 09:37 | disposition home or self-care (01) ==
LOC: ATC 07:55
DX: R11.2 Nausea with vomiting, unspecified (principal); E86.0 Dehydration; K21.9 Gastro-esophageal reflux disease without esophagitis; K90.9 Intestinal malabsorption, unspecified; R63.8 Other symptoms and signs concerning food and fluid intake; Z90.3 Acquired absence of stomach [part of]; Z88.1 Allergy status to other antibiotic agents; Z88.0 Allergy status to penicillin; Z88.2 Allergy status to sulfonamides; Z88.8 Allergy status to other drugs, medicaments and biological substances; Z91.048 Other nonmedicinal substance allergy status
CPT/HCPCS: J1642; J1885; J7120

== ENCOUNTER 2021-12-19 00:42 | Day surgery (SDC) | payer OTHER | END 2021-12-19 09:03 | disposition home or self-care (01) | LOC: ATC 00:42 | DX: R11.2 Nausea with vomiting, unspecified (principal); K21.9 Gastro-esophageal reflux disease without esophagitis; K90.9 Intestinal malabsorption, unspecified; R63.8 Other symptoms and signs concerning food and fluid intake; E86.0 Dehydration; M79.7 Fibromyalgia; G43.909 Migraine, unspecified, not intractable, without status migrainosus; Z90.3 Acquired absence of stomach [part of] | CPT/HCPCS: J1642; J7120 ==

== ENCOUNTER 2021-12-21 00:57 | Day surgery (SDC) | payer OTHER | END 2021-12-21 10:33 | disposition home or self-care (01) | LOC: ATC 00:57 | DX: R11.2 Nausea with vomiting, unspecified (principal); K21.9 Gastro-esophageal reflux disease without esophagitis; K90.9 Intestinal malabsorption, unspecified; R63.8 Other symptoms and signs concerning food and fluid intake; E86.0 Dehydration; Z90.3 Acquired absence of stomach [part of] | CPT/HCPCS: J1642; J3411; J3475; J7040; J7120 ==

== ENCOUNTER 2021-12-24 01:52 | Day surgery (SDC) | payer OTHER | END 2021-12-24 09:02 | disposition home or self-care (01) | LOC: ATC 01:52 | DX: R11.2 Nausea with vomiting, unspecified (principal); K21.9 Gastro-esophageal reflux disease without esophagitis; K90.9 Intestinal malabsorption, unspecified; R63.8 Other symptoms and signs concerning food and fluid intake; E86.0 Dehydration; M79.7 Fibromyalgia; G43.909 Migraine, unspecified, not intractable, without status migrainosus; Z90.3 Acquired absence of stomach [part of] | CPT/HCPCS: J1642; J1885; J7120 ==

== ENCOUNTER 2021-12-28 00:17 | Day surgery (SDC) | payer OTHER | END 2021-12-28 09:56 | disposition home or self-care (01) | LOC: ATC 00:17 | DX: R11.2 Nausea with vomiting, unspecified (principal); E46 Unspecified protein-calorie malnutrition; K21.9 Gastro-esophageal reflux disease without esophagitis; R63.8 Other symptoms and signs concerning food and fluid intake; E86.0 Dehydration; Z90.3 Acquired absence of stomach [part of] | CPT/HCPCS: J1642; J3411; J3475; J7040; J7120 ==

== ENCOUNTER 2021-12-30 07:50 | Day surgery (SDC) | payer OTHER ==
[2022-05-21] MEDS ORDERED: CLOBETASOL EMOL15 G1 (11:09)
[2022-05-21] MEDS ORDERED: Desowen60 GM (11:09)
[2022-05-21] MEDS ORDERED: CLIN1TS (11:09)
[2022-05-21] MEDS ORDERED: IBUP400 PO (11:15)
[2022-05-21] MEDS ORDERED: REMERON15 M1 PO (11:15)
[2022-05-21] MEDS ORDERED: METPRE4 (11:15)
[2022-05-24] MEDS ORDERED: KETOROLAC30 MG/1 ML IM (08:42)
== END 2021-12-30 09:48 | disposition home or self-care (01) ==
LOC: ATC 07:50
DX: R11.2 Nausea with vomiting, unspecified (principal); K21.9 Gastro-esophageal reflux disease without esophagitis; K90.9 Intestinal malabsorption, unspecified; R63.8 Other symptoms and signs concerning food and fluid intake; E86.0 Dehydration; E78.00 Pure hypercholesterolemia, unspecified; Z90.3 Acquired absence of stomach [part of]; Z88.0 Allergy status to penicillin; Z88.8 Allergy status to other drugs, medicaments and biological substances; Z91.048 Other nonmedicinal substance allergy status
CPT/HCPCS: 96360; J1642; J7120

== ENCOUNTER 2022-01-02 11:36 | Day surgery (SDC) | payer OTHER | END 2022-01-02 12:32 | disposition home or self-care (01) | LOC: ATC 11:36 | DX: G43.109 Migraine with aura, not intractable, without status migrainosus (principal); M51.36 Other intervertebral disc degeneration, lumbar region; R11.2 Nausea with vomiting, unspecified; E46 Unspecified protein-calorie malnutrition; K21.9 Gastro-esophageal reflux disease without esophagitis; R63.8 Other symptoms and signs concerning food and fluid intake; E86.0 Dehydration; Z90.3 Acquired absence of stomach [part of] | CPT/HCPCS: J1885 ==

== ENCOUNTER 2022-01-04 01:33 | Day surgery (SDC) | payer OTHER | END 2022-01-04 10:39 | disposition home or self-care (01) | LOC: ATC 01:33 | DX: K21.9 Gastro-esophageal reflux disease without esophagitis (principal); R11.2 Nausea with vomiting, unspecified; E46 Unspecified protein-calorie malnutrition; R63.8 Other symptoms and signs concerning food and fluid intake; E86.0 Dehydration; Z90.3 Acquired absence of stomach [part of]; Z88.1 Allergy status to other antibiotic agents; Z88.0 Allergy status to penicillin; Z88.2 Allergy status to sulfonamides; Z88.8 Allergy status to other drugs, medicaments and biological substances; Z91.048 Other nonmedicinal substance allergy status | CPT/HCPCS: J1642; J3411; J3475; J7040; J7120 ==

== ENCOUNTER 2022-01-06 08:56 | Day surgery (SDC) | payer OTHER | END 2022-01-06 10:20 | disposition home or self-care (01) | LOC: ATC 08:56 | DX: R11.2 Nausea with vomiting, unspecified (principal); E46 Unspecified protein-calorie malnutrition; K21.9 Gastro-esophageal reflux disease without esophagitis; R63.8 Other symptoms and signs concerning food and fluid intake; E86.0 Dehydration; Z90.3 Acquired absence of stomach [part of] | CPT/HCPCS: J1642; J7120 ==

== ENCOUNTER 2022-01-11 00:53 | Day surgery (SDC) | payer OTHER | END 2022-01-11 10:41 | disposition home or self-care (01) | LOC: ATC 00:53 | DX: R11.2 Nausea with vomiting, unspecified (principal); Z90.3 Acquired absence of stomach [part of]; E46 Unspecified protein-calorie malnutrition; K21.9 Gastro-esophageal reflux disease without esophagitis; R63.8 Other symptoms and signs concerning food and fluid intake; E86.0 Dehydration | CPT/HCPCS: J1642; J3411; J3475; J7040; J7042; J7120 ==

== ENCOUNTER 2022-01-16 01:01 | Day surgery (SDC) | payer OTHER | END 2022-01-16 09:23 | disposition home or self-care (01) | LOC: ATC 01:01 | DX: R11.2 Nausea with vomiting, unspecified (principal); E46 Unspecified protein-calorie malnutrition; K21.9 Gastro-esophageal reflux disease without esophagitis; R63.8 Other symptoms and signs concerning food and fluid intake; E86.0 Dehydration; Z90.3 Acquired absence of stomach [part of]; Z88.1 Allergy status to other antibiotic agents; Z88.0 Allergy status to penicillin; Z88.2 Allergy status to sulfonamides; Z88.8 Allergy status to other drugs, medicaments and biological substances; Z91.048 Other nonmedicinal substance allergy status | CPT/HCPCS: J1642; J1885; J7120 ==

== ENCOUNTER 2022-01-18 01:07 | Day surgery (SDC) | payer OTHER ==
[~2022-01-18 01:07] MED LIST changes: -CEFD300 PO
== END 2022-01-18 10:28 | disposition home or self-care (01) ==
LOC: ATC 01:07
DX: R11.2 Nausea with vomiting, unspecified (principal); E46 Unspecified protein-calorie malnutrition; K21.9 Gastro-esophageal reflux disease without esophagitis; K90.9 Intestinal malabsorption, unspecified; R63.8 Other symptoms and signs concerning food and fluid intake; E86.0 Dehydration; G47.33 Obstructive sleep apnea (adult) (pediatric); E78.2 Mixed hyperlipidemia; Z90.3 Acquired absence of stomach [part of]; Z88.1 Allergy status to other antibiotic agents; Z88.0 Allergy status to penicillin; Z88.2 Allergy status to sulfonamides; Z88.8 Allergy status to other drugs, medicaments and biological substances; Z91.048 Other nonmedicinal substance allergy status
CPT/HCPCS: J1642; J3411; J3475; J7040; J7120

== ENCOUNTER → 2022-01-18 | Outpatient (CLI) | payer OTHER ==
[~2022-01-18] MED LIST changes: +CEFD300 PO
== END | disposition home or self-care (01) ==
LOC: LAB 12:35 → LAB SHORT 12:35
DX: N39.0 Urinary tract infection, site not specified (principal)
CPT/HCPCS: 87086

== ENCOUNTER 2022-01-21 01:16 | Day surgery (SDC) | payer OTHER ==
[2022-01-21] MEDS ORDERED: CEFD300 PO (11:29)
== END 2022-01-21 09:31 | disposition home or self-care (01) ==
LOC: ATC 01:16
DX: R11.2 Nausea with vomiting, unspecified (principal); K90.9 Intestinal malabsorption, unspecified; E86.0 Dehydration; Z90.3 Acquired absence of stomach [part of]; K21.9 Gastro-esophageal reflux disease without esophagitis; G43.909 Migraine, unspecified, not intractable, without status migrainosus; G47.33 Obstructive sleep apnea (adult) (pediatric); E78.2 Mixed hyperlipidemia
CPT/HCPCS: J1642; J7120

== ENCOUNTER 2022-01-23 00:28 | Day surgery (SDC) | payer OTHER ==
[~2022-01-23 00:28] MED LIST changes: +CEFD300 PO
== END 2022-01-23 09:23 | disposition home or self-care (01) ==
LOC: ATC 00:28
DX: E46 Unspecified protein-calorie malnutrition (principal); K21.9 Gastro-esophageal reflux disease without esophagitis; R63.8 Other symptoms and signs concerning food and fluid intake; R63.4 Abnormal weight loss; R11.0 Nausea; E86.0 Dehydration; Z90.3 Acquired absence of stomach [part of]; Z88.1 Allergy status to other antibiotic agents; Z88.0 Allergy status to penicillin; Z88.2 Allergy status to sulfonamides; Z88.8 Allergy status to other drugs, medicaments and biological substances; Z91.048 Other nonmedicinal substance allergy status
CPT/HCPCS: J1642; J1885; J7120

== ENCOUNTER 2022-01-28 01:48 | Day surgery (SDC) | payer OTHER | END 2022-01-28 09:16 | disposition home or self-care (01) | LOC: ATC 01:48 | DX: E86.0 Dehydration (principal); E46 Unspecified protein-calorie malnutrition; Z90.3 Acquired absence of stomach [part of]; K21.9 Gastro-esophageal reflux disease without esophagitis; R63.4 Abnormal weight loss; Z88.1 Allergy status to other antibiotic agents; Z88.2 Allergy status to sulfonamides | CPT/HCPCS: J1642; J7120 ==

== ENCOUNTER 2022-02-04 01:06 | Day surgery (SDC) | payer OTHER | END 2022-02-04 09:27 | disposition home or self-care (01) | LOC: ATC 01:06 | DX: K90.9 Intestinal malabsorption, unspecified (principal); K21.9 Gastro-esophageal reflux disease without esophagitis; R63.8 Other symptoms and signs concerning food and fluid intake; R11.0 Nausea; E86.0 Dehydration; Z88.1 Allergy status to other antibiotic agents; Z88.8 Allergy status to other drugs, medicaments and biological substances; Z88.2 Allergy status to sulfonamides | CPT/HCPCS: J1642; J7120 ==

== ENCOUNTER 2022-02-08 01:01 | Day surgery (SDC) | payer OTHER | END 2022-02-08 10:20 | disposition home or self-care (01) | LOC: ATC 01:01 | DX: E46 Unspecified protein-calorie malnutrition (principal); E86.0 Dehydration; R11.0 Nausea; K21.9 Gastro-esophageal reflux disease without esophagitis; R63.8 Other symptoms and signs concerning food and fluid intake; R63.4 Abnormal weight loss; Z90.3 Acquired absence of stomach [part of] | CPT/HCPCS: J1642; J3411; J3475; J7040; J7120 ==

== ENCOUNTER 2022-02-19 04:36 | Day surgery (SDC) | payer OTHER | END 2022-02-19 09:25 | disposition home or self-care (01) | LOC: ATC 04:36 | DX: K90.9 Intestinal malabsorption, unspecified (principal); K21.9 Gastro-esophageal reflux disease without esophagitis; R63.8 Other symptoms and signs concerning food and fluid intake; R63.4 Abnormal weight loss; R11.0 Nausea; E86.0 Dehydration | CPT/HCPCS: 96360; J1642; J7120 ==

== ENCOUNTER 2022-02-23 07:52 | Day surgery (SDC) | payer OTHER | END 2022-02-23 10:25 | disposition home or self-care (01) | LOC: ATC 07:52 | DX: E86.0 Dehydration (principal); R11.0 Nausea; K90.9 Intestinal malabsorption, unspecified; K21.9 Gastro-esophageal reflux disease without esophagitis; R63.4 Abnormal weight loss; R63.8 Other symptoms and signs concerning food and fluid intake; Z90.3 Acquired absence of stomach [part of] | CPT/HCPCS: J1642; J1885; J3411; J3475; J7040; J7120 ==

== ENCOUNTER 2022-03-02 13:23 | Day surgery (SDC) | payer OTHER | END 2022-03-02 15:36 | disposition home or self-care (01) | LOC: ATC 13:23 | DX: E86.0 Dehydration (principal); E46 Unspecified protein-calorie malnutrition; K21.9 Gastro-esophageal reflux disease without esophagitis; R63.4 Abnormal weight loss; G43.909 Migraine, unspecified, not intractable, without status migrainosus; G47.33 Obstructive sleep apnea (adult) (pediatric); E78.2 Mixed hyperlipidemia; E78.00 Pure hypercholesterolemia, unspecified | CPT/HCPCS: 96361; 96365; 96372; J1642; J1885; J3411; J3475; J7040; J7120 ==

== ENCOUNTER 2022-03-04 00:57 | Day surgery (SDC) | payer OTHER | END 2022-03-04 09:13 | disposition home or self-care (01) | LOC: ATC 00:57 | DX: E86.0 Dehydration (principal); E46 Unspecified protein-calorie malnutrition; K21.9 Gastro-esophageal reflux disease without esophagitis; R63.8 Other symptoms and signs concerning food and fluid intake; R63.4 Abnormal weight loss; R11.0 Nausea; Z90.3 Acquired absence of stomach [part of] | CPT/HCPCS: 96360; J1642; J7120 ==

== ENCOUNTER 2022-03-06 03:37 | Day surgery (SDC) | payer OTHER | END 2022-03-06 09:21 | disposition home or self-care (01) | LOC: ATC 03:37 | DX: K90.9 Intestinal malabsorption, unspecified (principal); Z90.3 Acquired absence of stomach [part of]; K21.9 Gastro-esophageal reflux disease without esophagitis; R63.8 Other symptoms and signs concerning food and fluid intake; R63.4 Abnormal weight loss; R11.0 Nausea; E86.0 Dehydration; Z79.82 Long term (current) use of aspirin; Z79.899 Other long term (current) drug therapy | CPT/HCPCS: 96360; J1642; J7120 ==

== ENCOUNTER 2022-03-08 00:51 | Day surgery (SDC) | payer OTHER | END 2022-03-08 09:42 | disposition home or self-care (01) | LOC: ATC 00:51 | DX: K90.9 Intestinal malabsorption, unspecified (principal); R63.8 Other symptoms and signs concerning food and fluid intake; R63.4 Abnormal weight loss; R11.0 Nausea; E86.0 Dehydration; K21.9 Gastro-esophageal reflux disease without esophagitis; G47.33 Obstructive sleep apnea (adult) (pediatric); E78.2 Mixed hyperlipidemia; Z90.3 Acquired absence of stomach [part of]; Z88.2 Allergy status to sulfonamides; Z88.1 Allergy status to other antibiotic agents; Z88.8 Allergy status to other drugs, medicaments and biological substances; Z79.82 Long term (current) use of aspirin; Z79.899 Other long term (current) drug therapy | CPT/HCPCS: 96361; 96365; J1642; J3411; J3475; J7040; J7120 ==

== ENCOUNTER 2022-03-11 00:57 | Day surgery (SDC) | payer OTHER | END 2022-03-11 09:20 | disposition home or self-care (01) | LOC: ATC 00:57 | DX: E86.0 Dehydration (principal); E46 Unspecified protein-calorie malnutrition; K21.9 Gastro-esophageal reflux disease without esophagitis; Z90.3 Acquired absence of stomach [part of]; G47.33 Obstructive sleep apnea (adult) (pediatric); G43.909 Migraine, unspecified, not intractable, without status migrainosus; E78.2 Mixed hyperlipidemia | CPT/HCPCS: 96360; 96372; J1642; J1885; J3411; J3475; J7040; J7120 ==

== ENCOUNTER 2022-03-18 02:18 | Day surgery (SDC) | payer OTHER | END 2022-03-18 09:12 | disposition home or self-care (01) | LOC: ATC 02:18 | DX: E46 Unspecified protein-calorie malnutrition (principal); K21.9 Gastro-esophageal reflux disease without esophagitis; R63.8 Other symptoms and signs concerning food and fluid intake; R63.4 Abnormal weight loss; R11.0 Nausea; E86.0 Dehydration | CPT/HCPCS: J1642; J1885; J7120 ==

== ENCOUNTER 2022-03-20 01:28 | Day surgery (SDC) | payer OTHER | END 2022-03-20 09:16 | disposition home or self-care (01) | LOC: ATC 01:28 | DX: E86.0 Dehydration (principal); E46 Unspecified protein-calorie malnutrition; K21.9 Gastro-esophageal reflux disease without esophagitis; R63.8 Other symptoms and signs concerning food and fluid intake; G43.909 Migraine, unspecified, not intractable, without status migrainosus; G47.33 Obstructive sleep apnea (adult) (pediatric); E78.2 Mixed hyperlipidemia; Z98.84 Bariatric surgery status | CPT/HCPCS: 96360; J1642; J7120 ==

== ENCOUNTER 2022-03-24 07:48 | Day surgery (SDC) | payer OTHER | END 2022-03-24 09:08 | disposition home or self-care (01) | LOC: ATC 07:48 | DX: E86.0 Dehydration (principal); E46 Unspecified protein-calorie malnutrition; Z90.3 Acquired absence of stomach [part of]; K21.9 Gastro-esophageal reflux disease without esophagitis; R63.8 Other symptoms and signs concerning food and fluid intake; G43.909 Migraine, unspecified, not intractable, without status migrainosus; G47.33 Obstructive sleep apnea (adult) (pediatric); E78.2 Mixed hyperlipidemia; Z98.84 Bariatric surgery status | CPT/HCPCS: 96360; J1642; J7120 ==

== ENCOUNTER 2022-03-29 00:59 | Day surgery (SDC) | payer OTHER ==
[2022-05-21] MEDS ORDERED: Desowen60 GM (11:09)
[2022-05-21] MEDS ORDERED: CLIN1TS (11:09)
[2022-05-21] MEDS ORDERED: CLOBETASOL EMOL15 G1 (11:09)
[2022-05-21] MEDS ORDERED: IBUP400 PO (11:15)
[2022-05-21] MEDS ORDERED: REMERON15 M1 PO (11:15)
[2022-05-21] MEDS ORDERED: METPRE4 (11:15)
[2022-05-24] MEDS ORDERED: KETOROLAC30 MG/1 ML IM (08:42)
== END 2022-03-29 09:11 | disposition home or self-care (01) ==
LOC: ATC 00:59
DX: E86.0 Dehydration (principal); E46 Unspecified protein-calorie malnutrition; K21.9 Gastro-esophageal reflux disease without esophagitis; R63.8 Other symptoms and signs concerning food and fluid intake; R63.4 Abnormal weight loss; R11.0 Nausea; Z90.3 Acquired absence of stomach [part of]
CPT/HCPCS: 96360; J1642; J7120

== ENCOUNTER 2022-04-01 00:23 | Day surgery (SDC) | payer OTHER ==
[2022-05-21] MEDS ORDERED: CLOBETASOL EMOL15 G1 (11:09)
[2022-05-21] MEDS ORDERED: Desowen60 GM (11:09)
[2022-05-21] MEDS ORDERED: CLIN1TS (11:09)
[2022-05-21] MEDS ORDERED: METPRE4 (11:15)
[2022-05-21] MEDS ORDERED: IBUP400 PO (11:15)
[2022-05-21] MEDS ORDERED: REMERON15 M1 PO (11:15)
[2022-05-24] MEDS ORDERED: KETOROLAC30 MG/1 ML IM (08:42)
== END 2022-04-01 09:18 | disposition home or self-care (01) ==
LOC: ATC 00:23
DX: E86.0 Dehydration (principal); E46 Unspecified protein-calorie malnutrition; K21.9 Gastro-esophageal reflux disease without esophagitis; K90.9 Intestinal malabsorption, unspecified; G43.109 Migraine with aura, not intractable, without status migrainosus; M51.36 Other intervertebral disc degeneration, lumbar region
CPT/HCPCS: 96360; 96372; J1642; J1885; J7120

== ENCOUNTER 2022-04-03 03:37 | Day surgery (SDC) | payer OTHER ==
[2022-05-21] MEDS ORDERED: CLIN1TS (11:09)
[2022-05-21] MEDS ORDERED: Desowen60 GM (11:09)
[2022-05-21] MEDS ORDERED: CLOBETASOL EMOL15 G1 (11:09)
[2022-05-21] MEDS ORDERED: REMERON15 M1 PO (11:15)
[2022-05-21] MEDS ORDERED: IBUP400 PO (11:15)
[2022-05-21] MEDS ORDERED: METPRE4 (11:15)
[2022-05-24] MEDS ORDERED: KETOROLAC30 MG/1 ML IM (08:42)
== END 2022-04-03 09:23 | disposition home or self-care (01) ==
LOC: ATC 03:37
DX: E86.0 Dehydration (principal); G43.109 Migraine with aura, not intractable, without status migrainosus; M51.36 Other intervertebral disc degeneration, lumbar region; R11.0 Nausea; K21.9 Gastro-esophageal reflux disease without esophagitis; K90.9 Intestinal malabsorption, unspecified; R63.8 Other symptoms and signs concerning food and fluid intake; Z90.3 Acquired absence of stomach [part of]; Z88.1 Allergy status to other antibiotic agents; Z88.0 Allergy status to penicillin; Z88.2 Allergy status to sulfonamides; Z88.8 Allergy status to other drugs, medicaments and biological substances; Z91.048 Other nonmedicinal substance allergy status
CPT/HCPCS: 96360; J1642; J7120

== ENCOUNTER 2022-04-05 02:51 | Day surgery (SDC) | payer OTHER | END 2022-04-05 09:22 | disposition home or self-care (01) | LOC: ATC 02:51 | DX: E86.0 Dehydration (principal); Z90.3 Acquired absence of stomach [part of]; E46 Unspecified protein-calorie malnutrition; K21.9 Gastro-esophageal reflux disease without esophagitis; M51.36 Other intervertebral disc degeneration, lumbar region; E78.00 Pure hypercholesterolemia, unspecified; G43.909 Migraine, unspecified, not intractable, without status migrainosus | CPT/HCPCS: 96360; J1642; J7120 ==

== ENCOUNTER 2022-04-08 07:22 | Day surgery (SDC) | payer OTHER ==
--- NOTE | 2022-04-08 08:44 | NUR ---
ABLE TO ACCESS PT'S MEDIPORT TODAY. FLUSHES WITH GREAT RESISTANCE, NOT SWELLING TODAY AROUND SITE. ABLE TO DRAW BACK A SMALL AMOUNT OF BLOOD. IV PUMP ALARMS DISTAL OCCLUSION WHEN IVF ATTEMPTS TO RUN. PT DECLINES PIV START TODAY. PT WILL CONTACT MD OFFICE TO GET A REFERRAL TO DR. HERNANDEZ TO HAVE HER MEDIPORT CHECKED. CONTACTED DR. MCKEON'S TO UPDATE THEM ON PT'S MEDIPORT ISSUE. LM WITH THE CALL CENTER TO SEND BACK TO DR. CALLAHAN'S MA.
== END 2022-04-08 08:25 | disposition home or self-care (01) ==
LOC: ATC 07:22
DX: G43.909 Migraine, unspecified, not intractable, without status migrainosus (principal); M51.36 Other intervertebral disc degeneration, lumbar region; E86.0 Dehydration; K21.9 Gastro-esophageal reflux disease without esophagitis; E46 Unspecified protein-calorie malnutrition; E78.2 Mixed hyperlipidemia; G47.33 Obstructive sleep apnea (adult) (pediatric); E78.00 Pure hypercholesterolemia, unspecified
CPT/HCPCS: 96372; 96523; J1642; J1885; J7120

== ENCOUNTER 2022-04-17 01:33 | Day surgery (SDC) | payer OTHER | END 2022-04-17 09:35 | disposition home or self-care (01) | LOC: ATC 01:33 | DX: E46 Unspecified protein-calorie malnutrition (principal); K21.9 Gastro-esophageal reflux disease without esophagitis; R63.8 Other symptoms and signs concerning food and fluid intake; R63.4 Abnormal weight loss; R11.0 Nausea; E86.0 Dehydration; G43.109 Migraine with aura, not intractable, without status migrainosus; M51.36 Other intervertebral disc degeneration, lumbar region; Z90.3 Acquired absence of stomach [part of]; Z88.1 Allergy status to other antibiotic agents; Z88.0 Allergy status to penicillin; Z88.2 Allergy status to sulfonamides; Z88.8 Allergy status to other drugs, medicaments and biological substances; Z91.048 Other nonmedicinal substance allergy status | CPT/HCPCS: 96360; 96372; J1885; J7030; J7120 ==

== ENCOUNTER 2022-04-24 07:47 | Day surgery (SDC) | payer OTHER ==
--- NOTE | 2022-04-24 10:16 | NUR ---
PT CAME IN SAYING SHE DOES NOT FEEL WELL BUT HAS NO FEVER OR COUGH, WHEN RN TOOK VITAL PT HAD 100.8 FEVER, PT HAS 2 MEMBERS IN HOUSE HOLD THAT ARE COVID POSITIVE BUT PT TEST YESTERDAY WAS NEGATIVE. RN ISOLATED PT AND USED PROCAUTIONS. RN LEFT IV IN PLACE BECAUSE PT WAS GOING OVER TO [facility] TO RECIEVE TREATMENT FOR WORSINGING COVID SYMPTOMS AND RECIEVE ANOTHER TEST. PT REQESTED THIS DUE TO HER BEING A HARD STICK
== END 2022-04-24 09:48 | disposition home or self-care (01) ==
LOC: ATC 07:47
DX: E86.0 Dehydration (principal); K21.9 Gastro-esophageal reflux disease without esophagitis; E46 Unspecified protein-calorie malnutrition; R63.8 Other symptoms and signs concerning food and fluid intake; R63.4 Abnormal weight loss; R11.0 Nausea; Z90.3 Acquired absence of stomach [part of]; E78.2 Mixed hyperlipidemia; G47.33 Obstructive sleep apnea (adult) (pediatric); Z86.14 Personal history of Methicillin resistant Staphylococcus aureus infection; Z88.1 Allergy status to other antibiotic agents; Z88.0 Allergy status to penicillin; Z88.2 Allergy status to sulfonamides; Z88.8 Allergy status to other drugs, medicaments and biological substances; Z91.048 Other nonmedicinal substance allergy status
CPT/HCPCS: 96360; 96372; J1885; J7120

== ENCOUNTER 2022-04-30 11:44 | Emergency (ER) | payer OTHER ==
[~2022-04-30] VITALS: Ht 157.5 cm; Wt 37.2 kg
[2022-04-30 14:20] LABS: Calcium, Ionized (POC) 1.11 mmol/L (1.10-1.46); Chloride (POC) 100 mmol/L (98-108); Creatinine (POC) 0.5 mg/dL (0.6-1.0); Glucose (ISTAT POC) 64 mg/dL (70-99); Hemoglobin (POC) 11.2 g/dL (12.0-16.0); Potassium (POC) 3.9 mmol/L (3.5-5.5); Sodium (POC) 134 mmol/L (135-148); Total CO2 (POC) 19 mmol/L (21-32)
== END 2022-04-30 15:07 | disposition home or self-care (01) ==
LOC: ER 11:44
PROVIDERS: Student in an Organized Health Care Education/Training Program
DX: E86.0 Dehydration (principal); Z79.899 Other long term (current) drug therapy; Z79.82 Long term (current) use of aspirin; Z88.1 Allergy status to other antibiotic agents; Z88.0 Allergy status to penicillin; Z88.2 Allergy status to sulfonamides; Z88.8 Allergy status to other drugs, medicaments and biological substances; Z91.09 Other allergy status, other than to drugs and biological substances; Z86.16 Personal history of COVID-19
CPT/HCPCS: 80047; 85014; J7120

== ENCOUNTER 2022-05-01 01:56 | Day surgery (SDC) | payer OTHER | END 2022-05-01 09:30 | disposition home or self-care (01) | LOC: ATC 01:56 | DX: E46 Unspecified protein-calorie malnutrition (principal); K21.9 Gastro-esophageal reflux disease without esophagitis; R63.8 Other symptoms and signs concerning food and fluid intake; R63.4 Abnormal weight loss; R11.0 Nausea; E86.0 Dehydration; Z90.3 Acquired absence of stomach [part of] | CPT/HCPCS: 96360; 96372; J1885; J7120 ==

== ENCOUNTER 2022-05-03 01:42 | Day surgery (SDC) | payer OTHER | END 2022-05-03 08:55 | disposition home or self-care (01) | LOC: ATC 01:42 | DX: K90.9 Intestinal malabsorption, unspecified (principal); K21.9 Gastro-esophageal reflux disease without esophagitis; R63.8 Other symptoms and signs concerning food and fluid intake; R63.4 Abnormal weight loss; R11.0 Nausea; E86.0 Dehydration; Z88.1 Allergy status to other antibiotic agents; Z88.2 Allergy status to sulfonamides; Z88.8 Allergy status to other drugs, medicaments and biological substances | CPT/HCPCS: 96360; J7120 ==

== ENCOUNTER 2022-05-06 04:00 | Day surgery (SDC) | payer OTHER | END 2022-05-06 09:29 | disposition home or self-care (01) | LOC: ATC 04:00 | DX: K90.9 Intestinal malabsorption, unspecified (principal); R63.8 Other symptoms and signs concerning food and fluid intake; R63.4 Abnormal weight loss; R11.0 Nausea; E86.0 Dehydration; G43.109 Migraine with aura, not intractable, without status migrainosus; M51.36 Other intervertebral disc degeneration, lumbar region; G47.33 Obstructive sleep apnea (adult) (pediatric); E78.2 Mixed hyperlipidemia; K21.9 Gastro-esophageal reflux disease without esophagitis; Z79.82 Long term (current) use of aspirin; Z79.899 Other long term (current) drug therapy | CPT/HCPCS: 96360; J7120 ==

== ENCOUNTER 2022-05-08 01:38 | Day surgery (SDC) | payer OTHER ==
[2022-05-08 08:27] LABS: BASOPHILS ABSOLUTE AUTO 0.02 K/mm3 (0.00-0.23); BASOPHILS PERCENT AUTO 0 % (0-2); EOSINOPHILS PERCENT AUTO 2 % (0-6); Hematocrit 35.2 % (33.0-51.0); Hemoglobin 11.2 g/dL (11.5-16.0); IMMATURE GRAN ABSOLUTE AUTO 0.01 K/mm3 (0.00-0.10); IMMATURE GRAN PERCENT AUTO 0 % (0-1); LYMPHOCYTES ABSOLUTE AUTO 1.56 K/mm3 (0.84-5.20); LYMPHOCYTES PERCENT AUTO 31 % (21-46); MONOCYTES ABSOLUTE AUTO 0.58 K/mm3 (0.16-1.47); MONOCYTES PERCENT AUTO 12 % (4-13); Mean Corpuscular HGB 28.3 pg (26.0-34.0); Mean Corpuscular HGB Conc 31.8 g/dL (31.5-36.5); Mean Corpuscular Volume 89 fL (80-100); Mean Platelet Volume 12.2 fL (9.1-12.4); NEUTROPHILS ABSOLUTE AUTO 2.73 K/mm3 (1.96-9.15); NEUTROPHILS PERCENT AUTO 55 % (41-73); Platelet Count 324 K/mm3 (150-400); RDW Coefficient Variation 14.2 % (11.7-14.2); RDW Standard Deviation 45.5 fL (35.1-46.3); Red Blood Cell Count 3.96 M/mm3 (3.80-5.20)
[2022-05-08 08:53] LABS: Alanine Aminotransfer (ALT/SGP 12 U/L (12-78); Albumin, Blood 3.2 g/dL (3.4-5.0); Albumin/Globulin Ratio 1.2 (0.8-1.8); Alk Phos 67 U/L (50-136); Anion Gap 5 mmol/L (6-16); Aspartate Aminotrans (AST/SGOT 12 U/L (12-37); Bilirubin, Direct <0.1 mg/dL (0.0-0.3); Bilirubin, Indirect Unable to Calculate mg/dL (0.1-0.7); Bilirubin, Total 0.3 mg/dL (0.1-1.0); Blood Urea Nitrogen 12 mg/dL (8-24); Bun/Creatinine Ratio 30.9 (12.0-20.0); CO2, Blood 31 mmol/L (21-32); Calcium, Blood 7.9 mg/dL (8.5-10.1); Chloride, Blood 106 mmol/L (98-108); Creatinine, Blood 0.39 mg/dL (0.40-1.00); Globulin, Blood 2.7 g/dL (2.2-4.0); Glomerular Filtration Rate 115 (60-); Glucose, Blood 89 mg/dL (70-99); Potassium, Blood 3.3 mmol/L (3.5-5.5); Sodium, Blood 142 mmol/L (136-145); Total Protein, Blood 5.9 g/dL (6.4-8.2)
--- NOTE | 2022-05-08 13:56 | NUR ---
LABS WERE DRAWN THIS MORNING PER HOSPITAL PROTOCOL FROM IV START.
== END 2022-05-08 09:16 | disposition home or self-care (01) ==
LOC: ATC 01:38
PROVIDERS: Surgery
DX: E86.0 Dehydration (principal); G43.909 Migraine, unspecified, not intractable, without status migrainosus; E46 Unspecified protein-calorie malnutrition; K21.9 Gastro-esophageal reflux disease without esophagitis; Z90.3 Acquired absence of stomach [part of]
CPT/HCPCS: 36415; 80048; 80076; 85025; 96360; 96372; J1885; J7120

== ENCOUNTER 2022-05-10 00:43 | Day surgery (SDC) | payer OTHER | END 2022-05-10 09:10 | disposition home or self-care (01) | LOC: ATC 00:43 | DX: E86.0 Dehydration (principal); E46 Unspecified protein-calorie malnutrition; K21.9 Gastro-esophageal reflux disease without esophagitis; R63.4 Abnormal weight loss; R11.0 Nausea; Z90.3 Acquired absence of stomach [part of] | CPT/HCPCS: J1885; J7120 ==

== ENCOUNTER 2022-05-13 01:19 | Day surgery (SDC) | payer OTHER | END 2022-05-13 09:20 | disposition home or self-care (01) | LOC: ATC 01:19 | DX: E86.0 Dehydration (principal); E46 Unspecified protein-calorie malnutrition; K21.9 Gastro-esophageal reflux disease without esophagitis; Z90.3 Acquired absence of stomach [part of] | CPT/HCPCS: 96360; J7120 ==

== ENCOUNTER 2022-05-15 01:44 | Day surgery (SDC) | payer OTHER | END 2022-05-15 09:20 | disposition home or self-care (01) | LOC: ATC 01:44 | DX: G43.109 Migraine with aura, not intractable, without status migrainosus (principal); M51.36 Other intervertebral disc degeneration, lumbar region; E46 Unspecified protein-calorie malnutrition; K21.9 Gastro-esophageal reflux disease without esophagitis; R63.8 Other symptoms and signs concerning food and fluid intake; R63.4 Abnormal weight loss; R11.0 Nausea; E86.0 Dehydration; Z90.3 Acquired absence of stomach [part of] | CPT/HCPCS: J1885; J7120 ==

== ENCOUNTER 2022-05-17 02:06 | Day surgery (SDC) | payer OTHER ==
[2022-05-21] MEDS ORDERED: CLIN1TS (11:09)
[2022-05-21] MEDS ORDERED: CLOBETASOL EMOL15 G1 (11:09)
[2022-05-21] MEDS ORDERED: Desowen60 GM (11:09)
[2022-05-21] MEDS ORDERED: METPRE4 (11:15)
[2022-05-21] MEDS ORDERED: REMERON15 M1 PO (11:15)
[2022-05-21] MEDS ORDERED: IBUP400 PO (11:15)
== END 2022-05-17 09:16 | disposition home or self-care (01) ==
LOC: ATC 02:06
DX: E86.0 Dehydration (principal); E46 Unspecified protein-calorie malnutrition; K21.9 Gastro-esophageal reflux disease without esophagitis; R11.0 Nausea; R63.8 Other symptoms and signs concerning food and fluid intake; G47.33 Obstructive sleep apnea (adult) (pediatric); G43.909 Migraine, unspecified, not intractable, without status migrainosus; E78.2 Mixed hyperlipidemia
CPT/HCPCS: 96360; J7120

== ENCOUNTER 2022-05-26 00:34 | Day surgery (SDC) | payer OTHER ==
[~2022-05-26 00:34] MED LIST changes: +CLIN1TS; +CLOBETASOL EMOL15 G1; +Desowen60 GM; +KETOROLAC30 MG/1 ML IM; +METPRE4; +REMERON15 M1 PO
== END 2022-05-26 09:11 | disposition home or self-care (01) ==
LOC: ATC 00:34
DX: E46 Unspecified protein-calorie malnutrition (principal); K21.9 Gastro-esophageal reflux disease without esophagitis; M51.36 Other intervertebral disc degeneration, lumbar region; F41.9 Anxiety disorder, unspecified; F32.A Depression, unspecified; E78.2 Mixed hyperlipidemia; Z90.710 Acquired absence of both cervix and uterus; R11.0 Nausea; Z88.2 Allergy status to sulfonamides; Z88.1 Allergy status to other antibiotic agents; Z90.3 Acquired absence of stomach [part of]
CPT/HCPCS: 96360; J1642; J7120

== ENCOUNTER 2022-05-28 08:17 | Day surgery (SDC) | payer OTHER ==
[~2022-05-28] VITALS: Ht 157.5 cm; Wt 39.6 kg
--- NOTE | 2022-05-28 13:04 | NUR ---
Dressing to procedure site clean, dry, intact with no visible drainage, swelling, erythema or bruising noted.
--- NOTE | 2022-05-28 13:16 | NUR ---
PT WENT TO XRAY AND HAS RETURNED. GEE WELL. DRINKING APPLE JUICE.
--- NOTE | 2022-05-28 14:16 | NUR ---
Patient up to Ambulate independently. Gait steady. Discharge instructions reviewed with patient. Patient verbalizes understanding. Copy given to patient to take home. Patient States Post-Procedure ride home has been arranged. Dressing to procedure site clean, dry, intact with no visible drainage, swelling, erythema or bruising noted. Discharged via wheelchair to private car for ride home. ALL BELONINGS RETURNED TO PATIENT. DENIES NAUSEA, DIZZINESS OR PAIN AT THIS TIME
== END 2022-05-28 23:57 | disposition home or self-care (01) ==
LOC: ORSCMMR 08:17 → ORD 09:45 → ORSCMMR 23:57
PROVIDERS: Surgery
PROC: 05HM33Z Insertion of Infusion Device into Right Internal Jugular Vein, Percutaneous Approach (ICD-10-PCS; principal; 2022-05-28 09:45)
PROC: B5131ZA Fluoroscopy of Right Jugular Veins using Low Osmolar Contrast, Guidance (ICD-10-PCS; principal; 2022-05-28 09:45)
DX: T82.518A Breakdown (mechanical) of other cardiac and vascular devices and implants, initial encounter (principal); J45.909 Unspecified asthma, uncomplicated; K21.9 Gastro-esophageal reflux disease without esophagitis; M79.7 Fibromyalgia; F41.8 Other specified anxiety disorders; Z79.899 Other long term (current) drug therapy; Z79.82 Long term (current) use of aspirin
CPT/HCPCS: 77001; C1788; J0690; J1100; J1642; J1885; J2250; J2405; J2704; J2795; J3010; J7120

== ENCOUNTER 2022-05-31 01:54 | Day surgery (SDC) | payer OTHER ==
[2022-07-03] MEDS ORDERED: OMEP20ER PO (08:21)
== END 2022-05-31 09:19 | disposition home or self-care (01) ==
LOC: ATC 01:54
DX: E46 Unspecified protein-calorie malnutrition (principal); E86.0 Dehydration; Z90.3 Acquired absence of stomach [part of]; K21.9 Gastro-esophageal reflux disease without esophagitis; K90.9 Intestinal malabsorption, unspecified; R63.8 Other symptoms and signs concerning food and fluid intake; E78.00 Pure hypercholesterolemia, unspecified; Z68.1 Body mass index [BMI] 19.9 or less, adult
CPT/HCPCS: 96360; 96372; J1642; J1885; J7120

== ENCOUNTER 2022-06-03 00:35 | Day surgery (SDC) | payer OTHER | END 2022-06-03 09:16 | disposition home or self-care (01) | LOC: ATC 00:35 | DX: E86.0 Dehydration (principal); E46 Unspecified protein-calorie malnutrition; R63.8 Other symptoms and signs concerning food and fluid intake; K21.9 Gastro-esophageal reflux disease without esophagitis; G43.909 Migraine, unspecified, not intractable, without status migrainosus | CPT/HCPCS: 96360; J1642; J7120 ==

== ENCOUNTER → 2022-06-03 | Outpatient (CLI) | payer OTHER | END | disposition home or self-care (01) | LOC: LAB 09:13 → LAB SHORT 09:13 | DX: H04.123 Dry eye syndrome of bilateral lacrimal glands (principal) | CPT/HCPCS: 83520 ==

== ENCOUNTER 2022-06-10 02:00 | Day surgery (SDC) | payer OTHER | END 2022-06-10 09:20 | disposition home or self-care (01) | LOC: ATC 02:00 | DX: E86.0 Dehydration (principal); K21.9 Gastro-esophageal reflux disease without esophagitis; Z90.3 Acquired absence of stomach [part of]; E46 Unspecified protein-calorie malnutrition; R63.4 Abnormal weight loss | CPT/HCPCS: J1642; J7120 ==

== ENCOUNTER 2022-06-14 01:09 | Day surgery (SDC) | payer OTHER ==
--- NOTE | 2022-06-12 07:54 | NUR ---
PT CALLED AN CANCELLED HER APPOINTMENT FOR TODAY.
== END 2022-06-14 09:11 | disposition home or self-care (01) ==
LOC: ATC 01:09
DX: E46 Unspecified protein-calorie malnutrition (principal); K21.9 Gastro-esophageal reflux disease without esophagitis; K90.9 Intestinal malabsorption, unspecified; E86.0 Dehydration; Z90.3 Acquired absence of stomach [part of]; E78.2 Mixed hyperlipidemia
CPT/HCPCS: 96360; J1642; J1885; J7120

== ENCOUNTER 2022-06-21 02:16 | Day surgery (SDC) | payer OTHER ==
[2022-07-03] MEDS ORDERED: OMEP20ER PO (08:21)
== END 2022-06-21 09:16 | disposition home or self-care (01) ==
LOC: ATC 02:16
DX: K21.9 Gastro-esophageal reflux disease without esophagitis (principal); K90.9 Intestinal malabsorption, unspecified; R63.8 Other symptoms and signs concerning food and fluid intake; R63.4 Abnormal weight loss; R11.0 Nausea; E86.0 Dehydration; M51.36 Other intervertebral disc degeneration, lumbar region; G89.29 Other chronic pain; M62.838 Other muscle spasm; M79.7 Fibromyalgia; G43.909 Migraine, unspecified, not intractable, without status migrainosus; Z90.3 Acquired absence of stomach [part of]; Z88.0 Allergy status to penicillin; Z88.8 Allergy status to other drugs, medicaments and biological substances; Z88.1 Allergy status to other antibiotic agents; Z91.048 Other nonmedicinal substance allergy status; Z88.2 Allergy status to sulfonamides
CPT/HCPCS: 96360; J1642; J7120

== ENCOUNTER 2022-06-26 02:20 | Day surgery (SDC) | payer OTHER ==
[2022-07-03] MEDS ORDERED: OMEP20ER PO (08:21)
== END 2022-06-26 09:16 | disposition home or self-care (01) ==
LOC: ATC 02:20
DX: E46 Unspecified protein-calorie malnutrition (principal); K21.9 Gastro-esophageal reflux disease without esophagitis; E86.0 Dehydration; Z88.0 Allergy status to penicillin; Z88.2 Allergy status to sulfonamides; Z88.8 Allergy status to other drugs, medicaments and biological substances
CPT/HCPCS: J1642; J7120

== ENCOUNTER 2022-06-28 03:00 | Day surgery (SDC) | payer OTHER ==
[2022-07-03] MEDS ORDERED: OMEP20ER PO (08:21)
== END 2022-06-28 09:10 | disposition home or self-care (01) ==
LOC: ATC 03:00
DX: E46 Unspecified protein-calorie malnutrition (principal); K21.9 Gastro-esophageal reflux disease without esophagitis; E86.0 Dehydration; F32.A Depression, unspecified; E78.2 Mixed hyperlipidemia
CPT/HCPCS: J1642; J7120

== ENCOUNTER 2022-07-01 01:23 | Day surgery (SDC) | payer OTHER ==
[2022-07-03] MEDS ORDERED: OMEP20ER PO (08:21)
== END 2022-07-01 09:14 | disposition home or self-care (01) ==
LOC: ATC 01:23
DX: K21.9 Gastro-esophageal reflux disease without esophagitis (principal); K90.9 Intestinal malabsorption, unspecified; R63.8 Other symptoms and signs concerning food and fluid intake; R63.4 Abnormal weight loss; R11.0 Nausea; E86.0 Dehydration; M51.36 Other intervertebral disc degeneration, lumbar region; G89.29 Other chronic pain; M62.838 Other muscle spasm; M79.7 Fibromyalgia; G43.909 Migraine, unspecified, not intractable, without status migrainosus; Z90.3 Acquired absence of stomach [part of]; Z88.0 Allergy status to penicillin; Z88.8 Allergy status to other drugs, medicaments and biological substances; Z88.1 Allergy status to other antibiotic agents; Z91.048 Other nonmedicinal substance allergy status; Z88.2 Allergy status to sulfonamides
CPT/HCPCS: J1642; J1885; J7120

== ENCOUNTER 2022-07-05 03:31 | Day surgery (SDC) | payer OTHER | END 2022-07-05 09:11 | disposition home or self-care (01) | LOC: ATC 03:31 | DX: K21.9 Gastro-esophageal reflux disease without esophagitis (principal); K90.9 Intestinal malabsorption, unspecified; R63.8 Other symptoms and signs concerning food and fluid intake; R63.4 Abnormal weight loss; R11.0 Nausea; E86.0 Dehydration; M51.36 Other intervertebral disc degeneration, lumbar region; G89.29 Other chronic pain; M62.838 Other muscle spasm; M79.7 Fibromyalgia; G43.909 Migraine, unspecified, not intractable, without status migrainosus; Z90.3 Acquired absence of stomach [part of]; Z91.048 Other nonmedicinal substance allergy status; Z88.0 Allergy status to penicillin; Z88.8 Allergy status to other drugs, medicaments and biological substances; Z88.1 Allergy status to other antibiotic agents; Z88.2 Allergy status to sulfonamides | CPT/HCPCS: J1642; J7120 ==

== ENCOUNTER 2022-07-08 02:50 | Day surgery (SDC) | payer OTHER | END 2022-07-08 09:31 | disposition home or self-care (01) | LOC: ATC 02:50 | DX: E46 Unspecified protein-calorie malnutrition (principal); K21.9 Gastro-esophageal reflux disease without esophagitis; E86.0 Dehydration; F41.9 Anxiety disorder, unspecified; F41.1 Generalized anxiety disorder; E78.2 Mixed hyperlipidemia | CPT/HCPCS: J1642; J1885; J7120 ==

== ENCOUNTER 2022-07-10 02:20 | Day surgery (SDC) | payer OTHER | END 2022-07-10 09:12 | disposition home or self-care (01) | LOC: ATC 02:20 | DX: K21.9 Gastro-esophageal reflux disease without esophagitis (principal); K90.9 Intestinal malabsorption, unspecified; R63.8 Other symptoms and signs concerning food and fluid intake; R63.4 Abnormal weight loss; R11.0 Nausea; E86.0 Dehydration; M51.36 Other intervertebral disc degeneration, lumbar region; G89.29 Other chronic pain; M62.838 Other muscle spasm; M79.7 Fibromyalgia; G43.909 Migraine, unspecified, not intractable, without status migrainosus; Z90.3 Acquired absence of stomach [part of]; Z88.0 Allergy status to penicillin; Z88.8 Allergy status to other drugs, medicaments and biological substances; Z88.1 Allergy status to other antibiotic agents; Z91.048 Other nonmedicinal substance allergy status; Z88.2 Allergy status to sulfonamides | CPT/HCPCS: J1642; J7120 ==

== ENCOUNTER 2022-07-12 00:31 | Day surgery (SDC) | payer OTHER | END 2022-07-12 09:13 | disposition home or self-care (01) | LOC: ATC 00:31 | DX: E86.0 Dehydration (principal); K21.9 Gastro-esophageal reflux disease without esophagitis; K90.9 Intestinal malabsorption, unspecified | CPT/HCPCS: J1642; J7120 ==

== ENCOUNTER 2022-07-15 02:50 | Day surgery (SDC) | payer OTHER | END 2022-07-15 09:20 | disposition home or self-care (01) | LOC: ATC 02:50 | DX: E86.0 Dehydration (principal); E46 Unspecified protein-calorie malnutrition; K21.9 Gastro-esophageal reflux disease without esophagitis; R63.8 Other symptoms and signs concerning food and fluid intake; K91.2 Postsurgical malabsorption, not elsewhere classified; R63.4 Abnormal weight loss; R11.0 Nausea; M51.36 Other intervertebral disc degeneration, lumbar region; G89.29 Other chronic pain; M62.838 Other muscle spasm; G47.33 Obstructive sleep apnea (adult) (pediatric); Z90.3 Acquired absence of stomach [part of] | CPT/HCPCS: 96360; 96372; J1642; J1885; J7120 ==

== ENCOUNTER 2022-07-17 02:29 | Day surgery (SDC) | payer OTHER | END 2022-07-17 09:21 | disposition home or self-care (01) | LOC: ATC 02:29 | DX: E46 Unspecified protein-calorie malnutrition (principal); Z90.3 Acquired absence of stomach [part of]; K21.9 Gastro-esophageal reflux disease without esophagitis; E86.0 Dehydration | CPT/HCPCS: 96360; J1642; J7120 ==

== ENCOUNTER 2022-07-19 02:10 | Day surgery (SDC) | payer OTHER | END 2022-07-19 09:11 | disposition home or self-care (01) | LOC: ATC 02:10 | DX: K21.9 Gastro-esophageal reflux disease without esophagitis (principal); K90.9 Intestinal malabsorption, unspecified; R63.8 Other symptoms and signs concerning food and fluid intake; R63.4 Abnormal weight loss; R11.0 Nausea; E86.0 Dehydration; M79.7 Fibromyalgia; G43.909 Migraine, unspecified, not intractable, without status migrainosus; Z90.3 Acquired absence of stomach [part of]; Z88.0 Allergy status to penicillin; Z88.8 Allergy status to other drugs, medicaments and biological substances; Z88.1 Allergy status to other antibiotic agents; Z91.048 Other nonmedicinal substance allergy status; Z88.2 Allergy status to sulfonamides | CPT/HCPCS: J1642; J7120 ==

== ENCOUNTER 2022-07-22 00:44 | Day surgery (SDC) | payer OTHER ==
--- NOTE | 2022-07-22 07:51 | NUR ---
PT CANCELLED HER APPOINTMENT FOR TODAY.
== END 2022-07-22 22:52 | disposition home or self-care (01) ==
LOC: ATC 00:44
DX: K90.9 Intestinal malabsorption, unspecified (principal); R63.8 Other symptoms and signs concerning food and fluid intake; E86.0 Dehydration; R11.2 Nausea with vomiting, unspecified; R63.4 Abnormal weight loss; K21.9 Gastro-esophageal reflux disease without esophagitis; Z88.8 Allergy status to other drugs, medicaments and biological substances; Z88.2 Allergy status to sulfonamides; Z88.1 Allergy status to other antibiotic agents
CPT/HCPCS: J1642; J1885; J7120

== ENCOUNTER 2022-07-24 02:31 | Day surgery (SDC) | payer OTHER | END 2022-07-24 09:20 | disposition home or self-care (01) | LOC: ATC 02:31 | DX: E86.0 Dehydration (principal); E46 Unspecified protein-calorie malnutrition; R63.8 Other symptoms and signs concerning food and fluid intake; R11.2 Nausea with vomiting, unspecified; K21.9 Gastro-esophageal reflux disease without esophagitis; Z88.8 Allergy status to other drugs, medicaments and biological substances; Z88.2 Allergy status to sulfonamides; Z88.1 Allergy status to other antibiotic agents | CPT/HCPCS: J1642; J1885; J7120 ==

== ENCOUNTER 2022-07-26 02:21 | Day surgery (SDC) | payer OTHER | END 2022-07-26 09:15 | disposition home or self-care (01) | LOC: ATC 02:21 | DX: K90.9 Intestinal malabsorption, unspecified (principal); R63.8 Other symptoms and signs concerning food and fluid intake; R11.2 Nausea with vomiting, unspecified; E86.0 Dehydration; R63.4 Abnormal weight loss; K21.9 Gastro-esophageal reflux disease without esophagitis; M79.7 Fibromyalgia; G43.909 Migraine, unspecified, not intractable, without status migrainosus; Z98.84 Bariatric surgery status; Z88.8 Allergy status to other drugs, medicaments and biological substances; Z88.0 Allergy status to penicillin; Z88.1 Allergy status to other antibiotic agents; Z88.2 Allergy status to sulfonamides; Z91.048 Other nonmedicinal substance allergy status | CPT/HCPCS: 96360; J1642; J7120 ==

== ENCOUNTER 2022-07-31 02:39 | Day surgery (SDC) | payer OTHER ==
[2022-07-31] MEDS ORDERED: OCTREOTIDE50 MCG/10 SC (08:20)
== END 2022-07-31 09:17 | disposition home or self-care (01) ==
LOC: ATC 02:39
DX: K90.9 Intestinal malabsorption, unspecified (principal); R63.8 Other symptoms and signs concerning food and fluid intake; E86.0 Dehydration; R11.2 Nausea with vomiting, unspecified; R63.4 Abnormal weight loss; K21.9 Gastro-esophageal reflux disease without esophagitis; M79.7 Fibromyalgia; G43.909 Migraine, unspecified, not intractable, without status migrainosus; Z98.84 Bariatric surgery status; Z88.8 Allergy status to other drugs, medicaments and biological substances; Z88.0 Allergy status to penicillin; Z88.1 Allergy status to other antibiotic agents; Z88.2 Allergy status to sulfonamides; Z91.048 Other nonmedicinal substance allergy status
CPT/HCPCS: 96360; 96372; J1642; J1885; J7120

== ENCOUNTER 2022-08-02 00:53 | Day surgery (SDC) | payer OTHER ==
[~2022-08-02 00:53] MED LIST changes: +OCTREOTIDE50 MCG/10 SC
== END 2022-08-02 09:00 | disposition home or self-care (01) ==
LOC: ATC 00:53
DX: K90.9 Intestinal malabsorption, unspecified (principal); R63.8 Other symptoms and signs concerning food and fluid intake; E86.0 Dehydration; R11.2 Nausea with vomiting, unspecified; R63.4 Abnormal weight loss; Z98.84 Bariatric surgery status
CPT/HCPCS: 96360; J1642; J7120

== ENCOUNTER 2022-08-04 02:13 | Day surgery (SDC) | payer OTHER | END 2022-08-04 09:18 | disposition home or self-care (01) | LOC: ATC 02:13 | DX: K90.9 Intestinal malabsorption, unspecified (principal); R63.8 Other symptoms and signs concerning food and fluid intake; E86.0 Dehydration; R11.2 Nausea with vomiting, unspecified; R63.4 Abnormal weight loss; Z98.84 Bariatric surgery status | CPT/HCPCS: 96360; J1642; J1885; J7120 ==

== ENCOUNTER 2022-08-07 00:33 | Day surgery (SDC) | payer OTHER | END 2022-08-07 09:21 | disposition home or self-care (01) | LOC: ATC 00:33 | DX: K90.9 Intestinal malabsorption, unspecified (principal); R63.8 Other symptoms and signs concerning food and fluid intake; E86.0 Dehydration; R11.2 Nausea with vomiting, unspecified; Z98.84 Bariatric surgery status | CPT/HCPCS: 84445; 96360; 96372; J1642; J1885; J7120 ==

== ENCOUNTER 2022-08-09 00:21 | Day surgery (SDC) | payer OTHER | END 2022-08-09 09:15 | disposition home or self-care (01) | LOC: ATC 00:21 | DX: K90.9 Intestinal malabsorption, unspecified (principal); R63.8 Other symptoms and signs concerning food and fluid intake; E86.0 Dehydration; Z98.84 Bariatric surgery status; Z88.2 Allergy status to sulfonamides; Z88.0 Allergy status to penicillin; Z88.8 Allergy status to other drugs, medicaments and biological substances; Z88.1 Allergy status to other antibiotic agents; K21.9 Gastro-esophageal reflux disease without esophagitis | CPT/HCPCS: 96360; J1642; J7120 ==

== ENCOUNTER 2022-08-11 01:21 | Day surgery (SDC) | payer OTHER | END 2022-08-11 09:12 | disposition home or self-care (01) | LOC: ATC 01:21 | DX: K90.9 Intestinal malabsorption, unspecified (principal); R63.8 Other symptoms and signs concerning food and fluid intake; E86.0 Dehydration; Z88.0 Allergy status to penicillin; Z88.8 Allergy status to other drugs, medicaments and biological substances; Z88.2 Allergy status to sulfonamides | CPT/HCPCS: 96360; J1642; J7120 ==

== ENCOUNTER 2022-08-14 00:52 | Day surgery (SDC) | payer OTHER | END 2022-08-14 09:22 | disposition home or self-care (01) | LOC: ATC 00:52 | DX: K90.9 Intestinal malabsorption, unspecified (principal); R63.8 Other symptoms and signs concerning food and fluid intake; E86.0 Dehydration; Z88.8 Allergy status to other drugs, medicaments and biological substances; Z88.2 Allergy status to sulfonamides; Z88.1 Allergy status to other antibiotic agents; K21.9 Gastro-esophageal reflux disease without esophagitis | CPT/HCPCS: J1642; J1885; J7120 ==

== ENCOUNTER 2022-08-16 00:20 | Day surgery (SDC) | payer OTHER | END 2022-08-16 09:10 | disposition home or self-care (01) | LOC: ATC 00:20 | DX: K90.9 Intestinal malabsorption, unspecified (principal); R63.8 Other symptoms and signs concerning food and fluid intake; E86.0 Dehydration; R11.2 Nausea with vomiting, unspecified; R63.4 Abnormal weight loss; K21.9 Gastro-esophageal reflux disease without esophagitis; M79.7 Fibromyalgia; G43.909 Migraine, unspecified, not intractable, without status migrainosus; Z98.84 Bariatric surgery status; Z88.8 Allergy status to other drugs, medicaments and biological substances; Z88.0 Allergy status to penicillin; Z88.1 Allergy status to other antibiotic agents; Z88.2 Allergy status to sulfonamides; Z91.048 Other nonmedicinal substance allergy status | CPT/HCPCS: J1642; J7120 ==

== ENCOUNTER 2022-08-19 01:10 | Day surgery (SDC) | payer OTHER | END 2022-08-19 09:40 | disposition home or self-care (01) | DX: K90.9 Intestinal malabsorption, unspecified (principal); R63.8 Other symptoms and signs concerning food and fluid intake; E86.0 Dehydration; R63.4 Abnormal weight loss; Z88.2 Allergy status to sulfonamides; Z88.8 Allergy status to other drugs, medicaments and biological substances; Z88.1 Allergy status to other antibiotic agents ==

== ENCOUNTER 2022-08-21 02:11 | Day surgery (SDC) | payer OTHER | END 2022-08-21 09:25 | disposition home or self-care (01) | LOC: ATC 02:11 | DX: K90.9 Intestinal malabsorption, unspecified (principal); R63.8 Other symptoms and signs concerning food and fluid intake; E86.0 Dehydration; R11.2 Nausea with vomiting, unspecified | CPT/HCPCS: 96360; 96372; J1642; J1885; J7120 ==

== ENCOUNTER 2022-08-23 01:57 | Day surgery (SDC) | payer OTHER | END 2022-08-23 09:12 | disposition home or self-care (01) | LOC: ATC 01:57 | DX: K90.9 Intestinal malabsorption, unspecified (principal); R63.8 Other symptoms and signs concerning food and fluid intake; E86.0 Dehydration; R11.2 Nausea with vomiting, unspecified; R63.4 Abnormal weight loss | CPT/HCPCS: 96360; J1642; J7120 ==

== ENCOUNTER 2022-08-28 06:09 | Day surgery (SDC) | payer OTHER | END 2022-08-28 09:07 | disposition home or self-care (01) | LOC: ATC 06:09 | DX: K90.9 Intestinal malabsorption, unspecified (principal); Z98.84 Bariatric surgery status; E86.0 Dehydration; R11.2 Nausea with vomiting, unspecified; Z90.711 Acquired absence of uterus with remaining cervical stump; F32.A Depression, unspecified; Z88.0 Allergy status to penicillin; Z88.2 Allergy status to sulfonamides; Z88.8 Allergy status to other drugs, medicaments and biological substances; Z88.1 Allergy status to other antibiotic agents | CPT/HCPCS: 96360; 96372; J1642; J1885; J7120 ==

== ENCOUNTER 2022-09-02 00:28 | Day surgery (SDC) | payer OTHER ==
[2022-09-02 09:44] LABS: BASOPHILS ABSOLUTE AUTO 0.01 K/mm3 (0.00-0.23); BASOPHILS PERCENT AUTO 0 % (0-2); EOSINOPHILS PERCENT AUTO 5 % (0-6); Hematocrit 33.4 % (33.0-51.0); Hemoglobin 10.9 g/dL (11.5-16.0); IMMATURE GRAN ABSOLUTE AUTO 0.01 K/mm3 (0.00-0.10); IMMATURE GRAN PERCENT AUTO 0 % (0-1); LYMPHOCYTES ABSOLUTE AUTO 1.38 K/mm3 (0.84-5.20); LYMPHOCYTES PERCENT AUTO 32 % (21-46); MONOCYTES ABSOLUTE AUTO 0.35 K/mm3 (0.16-1.47); MONOCYTES PERCENT AUTO 8 % (4-13); Mean Corpuscular HGB 29.7 pg (26.0-34.0); Mean Corpuscular HGB Conc 32.6 g/dL (31.5-36.5); Mean Corpuscular Volume 91 fL (80-100); Mean Platelet Volume 10.4 fL (9.1-12.4); NEUTROPHILS ABSOLUTE AUTO 2.42 K/mm3 (1.96-9.15); NEUTROPHILS PERCENT AUTO 55 % (41-73); Platelet Count 203 K/mm3 (150-400); RDW Coefficient Variation 14.2 % (11.7-14.2); RDW Standard Deviation 47.9 fL (35.1-46.3); Red Blood Cell Count 3.67 M/mm3 (3.80-5.20); White Blood Cell Count 4.37 K/mm3 (4.00-11.30)
[2022-09-02 10:06] LABS: Alanine Aminotransfer (ALT/SGP 65 U/L (12-78); Albumin, Blood 2.6 g/dL (3.4-5.0); Albumin/Globulin Ratio 1.1 (0.8-1.8); Alk Phos 71 U/L (50-136); Anion Gap 3 mmol/L (6-16); Aspartate Aminotrans (AST/SGOT 24 U/L (12-37); Bilirubin, Total 0.2 mg/dL (0.1-1.0); Blood Urea Nitrogen 13 mg/dL (8-24); Bun/Creatinine Ratio 20.7 (12.0-20.0); CHOL/HDL RATIO 2.6; CO2, Blood 27 mmol/L (21-32); Calcium, Blood 7.8 mg/dL (8.5-10.1); Chloride, Blood 108 mmol/L (98-108); Cholesterol 247 mg/dL (50-200); Creatinine, Blood 0.63 mg/dL (0.40-1.00); Globulin, Blood 2.4 g/dL (2.2-4.0); Glomerular Filtration Rate 102 (60-); Glucose, Blood 103 mg/dL (70-99); HDL Cholesterol 94 mg/dL (>39); Iron Serum 47 ug/dL (50-170); LDL/HDL RATIO 1.5; Low Density Lipoprotein Chol 140 mg/dL (0-110); Percent Saturation 18.2 % (15.0-50.0); Sodium, Blood 138 mmol/L (136-145); Total Iron Binding Capacity 258 ug/dL (250-450); Triglycerides 65 mg/dL (30-160); Very Low Density Lipoprot Chol 13 mg/dL (6-32)
== END 2022-09-02 09:29 | disposition home or self-care (01) ==
LOC: ATC 00:28
PROVIDERS: Internal Medicine
DX: K90.9 Intestinal malabsorption, unspecified (principal); E86.0 Dehydration; R11.2 Nausea with vomiting, unspecified; R63.4 Abnormal weight loss
CPT/HCPCS: 80053; 80061; 82607; 82652; 83540; 83550; 85025; 96360; J1642; J7120

== ENCOUNTER 2022-09-11 00:47 | Day surgery (SDC) | payer OTHER ==
[2022-09-17] MEDS ORDERED: ONDA4 IV (10:47)
[2022-09-17] MEDS ORDERED: B-12 COMPL1000 MCG/2 IM (10:47)
== END 2022-09-11 09:30 | disposition home or self-care (01) ==
LOC: ATC 00:47
DX: K90.9 Intestinal malabsorption, unspecified (principal); R63.8 Other symptoms and signs concerning food and fluid intake; E86.0 Dehydration; R11.2 Nausea with vomiting, unspecified; R63.4 Abnormal weight loss
CPT/HCPCS: 96360; 96372; J1642; J1885; J7120

== ENCOUNTER 2022-09-13 01:18 | Day surgery (SDC) | payer OTHER ==
[2022-09-17] MEDS ORDERED: B-12 COMPL1000 MCG/2 IM (10:47)
[2022-09-17] MEDS ORDERED: ONDA4 IV (10:47)
== END 2022-09-13 09:14 | disposition home or self-care (01) ==
LOC: ATC 01:18
DX: K90.9 Intestinal malabsorption, unspecified (principal); Z98.84 Bariatric surgery status; E86.0 Dehydration; R11.2 Nausea with vomiting, unspecified; R63.4 Abnormal weight loss
CPT/HCPCS: 96361; 96374; J1642; J2405; J7120

== ENCOUNTER 2022-09-18 00:58 | Day surgery (SDC) | payer OTHER ==
[~2022-09-18 00:58] MED LIST changes: +B-12 COMPL1000 MCG/2 IM; +ONDA4 IV
== END 2022-09-18 09:20 | disposition home or self-care (01) ==
LOC: ATC 00:58
DX: K90.9 Intestinal malabsorption, unspecified (principal); R63.6 Underweight; E86.0 Dehydration; R11.2 Nausea with vomiting, unspecified; R63.4 Abnormal weight loss
CPT/HCPCS: 96360; 96372; J1642; J1885; J3420; J7120

== ENCOUNTER 2022-09-20 00:15 | Day surgery (SDC) | payer OTHER | END 2022-09-20 09:24 | disposition home or self-care (01) | LOC: ATC 00:15 | DX: E53.9 Vitamin B deficiency, unspecified (principal) | CPT/HCPCS: J1642; J2405; J3420; J7120 ==

== ENCOUNTER 2022-09-23 07:13 | Day surgery (SDC) | payer OTHER | END 2022-09-23 09:22 | disposition home or self-care (01) | LOC: ATC 07:13 | DX: E53.9 Vitamin B deficiency, unspecified (principal); Z88.1 Allergy status to other antibiotic agents; Z88.2 Allergy status to sulfonamides; Z88.8 Allergy status to other drugs, medicaments and biological substances; Z91.048 Other nonmedicinal substance allergy status | CPT/HCPCS: 96360; 96372; J1642; J3420; J7120 ==

== ENCOUNTER 2022-09-25 01:23 | Day surgery (SDC) | payer OTHER | END 2022-09-25 09:14 | disposition home or self-care (01) | LOC: ATC 01:23 | DX: K90.9 Intestinal malabsorption, unspecified (principal); R63.8 Other symptoms and signs concerning food and fluid intake; E86.0 Dehydration; R11.2 Nausea with vomiting, unspecified; R63.4 Abnormal weight loss | CPT/HCPCS: 82728; 96360; 96372; J1642; J1885; J2405; J3420; J7120 ==

== ENCOUNTER 2022-10-02 03:30 | Day surgery (SDC) | payer OTHER | END 2022-10-02 09:13 | disposition home or self-care (01) | LOC: ATC 03:30 | DX: R62.7 Adult failure to thrive (principal); R11.0 Nausea; R13.10 Dysphagia, unspecified; E53.8 Deficiency of other specified B group vitamins; K90.89 Other intestinal malabsorption; K90.49 Malabsorption due to intolerance, not elsewhere classified; E55.9 Vitamin D deficiency, unspecified; E61.1 Iron deficiency; K21.9 Gastro-esophageal reflux disease without esophagitis; Z90.3 Acquired absence of stomach [part of]; Z86.16 Personal history of COVID-19; Z88.1 Allergy status to other antibiotic agents; Z88.2 Allergy status to sulfonamides; Z88.8 Allergy status to other drugs, medicaments and biological substances; Z68.1 Body mass index [BMI] 19.9 or less, adult | CPT/HCPCS: 96361; 96372; 96374; J1642; J1885; J2405; J3420; J7120 ==

== ENCOUNTER 2022-10-04 02:35 | Day surgery (SDC) | payer OTHER | END 2022-10-04 09:12 | disposition home or self-care (01) | LOC: ATC 02:35 | DX: E53.9 Vitamin B deficiency, unspecified (principal); R11.0 Nausea; M51.36 Other intervertebral disc degeneration, lumbar region; G89.29 Other chronic pain; R10.11 Right upper quadrant pain | CPT/HCPCS: J1642; J2405; J7120 ==

== ENCOUNTER 2022-10-07 02:11 | Day surgery (SDC) | payer OTHER | END 2022-10-07 09:23 | disposition home or self-care (01) | LOC: ATC 02:11 | DX: R11.2 Nausea with vomiting, unspecified (principal); E86.0 Dehydration; R63.8 Other symptoms and signs concerning food and fluid intake; E46 Unspecified protein-calorie malnutrition; R63.4 Abnormal weight loss; K21.9 Gastro-esophageal reflux disease without esophagitis; E53.9 Vitamin B deficiency, unspecified; Z98.84 Bariatric surgery status | CPT/HCPCS: J1642; J2405; J7120 ==

== ENCOUNTER 2022-10-09 04:42 | Day surgery (SDC) | payer OTHER | END 2022-10-09 09:17 | disposition home or self-care (01) | LOC: ATC 04:42 | DX: E53.9 Vitamin B deficiency, unspecified (principal); K90.9 Intestinal malabsorption, unspecified; R63.8 Other symptoms and signs concerning food and fluid intake; E86.0 Dehydration; R11.2 Nausea with vomiting, unspecified; Z88.2 Allergy status to sulfonamides; Z88.1 Allergy status to other antibiotic agents | CPT/HCPCS: 96361; 96372; 96374; J1642; J1885; J2405; J3420; J7120 ==

== ENCOUNTER 2022-10-11 02:26 | Day surgery (SDC) | payer OTHER | END 2022-10-11 09:10 | disposition home or self-care (01) | LOC: ATC 02:26 | DX: R62.7 Adult failure to thrive (principal); R11.0 Nausea; R13.10 Dysphagia, unspecified; K21.9 Gastro-esophageal reflux disease without esophagitis; Z90.3 Acquired absence of stomach [part of]; Z88.1 Allergy status to other antibiotic agents; Z88.2 Allergy status to sulfonamides; Z88.8 Allergy status to other drugs, medicaments and biological substances; Z91.048 Other nonmedicinal substance allergy status | CPT/HCPCS: 96361; 96374; J1642; J2405; J7120 ==

== ENCOUNTER 2022-10-16 01:27 | Day surgery (SDC) | payer OTHER | END 2022-10-16 09:12 | disposition home or self-care (01) | LOC: ATC 01:27 | DX: M51.36 Other intervertebral disc degeneration, lumbar region (principal); M62.838 Other muscle spasm; K21.9 Gastro-esophageal reflux disease without esophagitis; F32.9 Major depressive disorder, single episode, unspecified; G43.909 Migraine, unspecified, not intractable, without status migrainosus; R62.7 Adult failure to thrive; Z90.3 Acquired absence of stomach [part of] | CPT/HCPCS: J1642; J1885; J2405; J3420; J7120 ==

== ENCOUNTER 2022-10-21 00:24 | Day surgery (SDC) | payer OTHER | END 2022-10-21 09:25 | disposition home or self-care (01) | LOC: ATC 00:24 | DX: K90.9 Intestinal malabsorption, unspecified (principal); E86.0 Dehydration; Z98.84 Bariatric surgery status; R11.2 Nausea with vomiting, unspecified | CPT/HCPCS: 96361; 96374; J1642; J2405; J7120 ==

== ENCOUNTER 2022-10-30 00:27 | Day surgery (SDC) | payer OTHER ==
[~2022-10-30 00:27] MED LIST changes: +CEPH500 PO
== END 2022-10-30 09:23 | disposition home or self-care (01) ==
LOC: ATC 00:27
DX: E53.9 Vitamin B deficiency, unspecified (principal); E86.0 Dehydration; K90.9 Intestinal malabsorption, unspecified; R63.8 Other symptoms and signs concerning food and fluid intake; R11.2 Nausea with vomiting, unspecified; R63.4 Abnormal weight loss; Z98.84 Bariatric surgery status; M51.36 Other intervertebral disc degeneration, lumbar region; G89.29 Other chronic pain; M62.838 Other muscle spasm; K21.9 Gastro-esophageal reflux disease without esophagitis; Z88.2 Allergy status to sulfonamides; Z88.1 Allergy status to other antibiotic agents; Z88.8 Allergy status to other drugs, medicaments and biological substances; Z79.899 Other long term (current) drug therapy
CPT/HCPCS: J1642; J1885; J2405; J3420; J7120

== ENCOUNTER 2022-11-13 00:44 | Day surgery (SDC) | payer OTHER | END 2022-11-13 15:44 | disposition home or self-care (01) | LOC: ATC 00:44 | DX: E46 Unspecified protein-calorie malnutrition (principal); E86.0 Dehydration; M51.36 Other intervertebral disc degeneration, lumbar region; E53.9 Vitamin B deficiency, unspecified; R63.8 Other symptoms and signs concerning food and fluid intake; R11.2 Nausea with vomiting, unspecified; R63.4 Abnormal weight loss; Z98.84 Bariatric surgery status; Z88.1 Allergy status to other antibiotic agents; Z88.0 Allergy status to penicillin; Z88.2 Allergy status to sulfonamides; Z88.8 Allergy status to other drugs, medicaments and biological substances; Z91.048 Other nonmedicinal substance allergy status; Z79.899 Other long term (current) drug therapy | CPT/HCPCS: J1642; J1885; J2405; J3420; J7120 ==

== ENCOUNTER 2022-11-18 01:13 | Day surgery (SDC) | payer OTHER ==
[2022-11-18] MEDS ORDERED: FLUO.1OPSU BOTHEYES (08:20)
== END 2022-11-18 09:15 | disposition home or self-care (01) ==
LOC: ATC 01:13
DX: E46 Unspecified protein-calorie malnutrition (principal); E86.0 Dehydration; R63.8 Other symptoms and signs concerning food and fluid intake; R11.2 Nausea with vomiting, unspecified; R63.4 Abnormal weight loss; M51.36 Other intervertebral disc degeneration, lumbar region; G89.29 Other chronic pain; M62.838 Other muscle spasm; E53.9 Vitamin B deficiency, unspecified; Z98.84 Bariatric surgery status; Z88.1 Allergy status to other antibiotic agents; Z88.0 Allergy status to penicillin; Z88.2 Allergy status to sulfonamides; Z88.8 Allergy status to other drugs, medicaments and biological substances; Z91.048 Other nonmedicinal substance allergy status; Z79.899 Other long term (current) drug therapy
CPT/HCPCS: 96361; 96374; J1642; J2405; J7120

== ENCOUNTER 2022-11-20 00:38 | Day surgery (SDC) | payer OTHER ==
[~2022-11-20 00:38] MED LIST changes: +FLUO.1OPSU BOTHEYES
== END 2022-11-20 09:11 | disposition home or self-care (01) ==
LOC: ATC 00:38
DX: E53.9 Vitamin B deficiency, unspecified (principal); K90.9 Intestinal malabsorption, unspecified; E86.0 Dehydration; Z98.84 Bariatric surgery status; G43.109 Migraine with aura, not intractable, without status migrainosus; M51.36 Other intervertebral disc degeneration, lumbar region; Z88.8 Allergy status to other drugs, medicaments and biological substances
CPT/HCPCS: 96360; 96372; J1642; J1885; J2405; J3420; J7120

== ENCOUNTER 2022-11-22 00:15 | Day surgery (SDC) | payer OTHER | END 2022-11-22 09:25 | disposition home or self-care (01) | LOC: ATC 00:15 | DX: E86.0 Dehydration (principal); E46 Unspecified protein-calorie malnutrition; M51.36 Other intervertebral disc degeneration, lumbar region; E53.9 Vitamin B deficiency, unspecified; R63.8 Other symptoms and signs concerning food and fluid intake; R11.2 Nausea with vomiting, unspecified; R63.4 Abnormal weight loss; Z98.84 Bariatric surgery status; Z88.1 Allergy status to other antibiotic agents; Z88.0 Allergy status to penicillin; Z88.2 Allergy status to sulfonamides; Z88.8 Allergy status to other drugs, medicaments and biological substances; Z91.048 Other nonmedicinal substance allergy status; Z79.899 Other long term (current) drug therapy | CPT/HCPCS: 96361; 96374; J1642; J2405; J7120 ==

== ENCOUNTER 2022-11-25 01:08 | Day surgery (SDC) | payer OTHER | END 2022-11-25 09:16 | disposition home or self-care (01) | LOC: ATC 01:08 | DX: E53.9 Vitamin B deficiency, unspecified (principal); Z98.84 Bariatric surgery status; R63.8 Other symptoms and signs concerning food and fluid intake; E86.0 Dehydration; R11.2 Nausea with vomiting, unspecified; E46 Unspecified protein-calorie malnutrition | CPT/HCPCS: 96360; J1642; J1885; J2405; J7120 ==

== ENCOUNTER 2022-11-27 02:32 | Day surgery (SDC) | payer OTHER ==
[2022-11-29] MEDS ORDERED: DOXY100 PO (08:26)
== END 2022-11-27 09:10 | disposition home or self-care (01) ==
LOC: ATC 02:32
DX: E53.9 Vitamin B deficiency, unspecified (principal); Z98.84 Bariatric surgery status; R63.8 Other symptoms and signs concerning food and fluid intake; E86.0 Dehydration; R11.2 Nausea with vomiting, unspecified
CPT/HCPCS: 96361; 96374; 96375; J1642; J1885; J2405; J7120

== ENCOUNTER 2022-12-06 01:56 | Day surgery (SDC) | payer OTHER ==
[2022-12-06] MEDS ORDERED: CEFP200 PO (08:09)
== END 2022-12-06 09:20 | disposition home or self-care (01) ==
LOC: ATC 01:56
DX: G43.109 Migraine with aura, not intractable, without status migrainosus (principal); M51.36 Other intervertebral disc degeneration, lumbar region; K21.9 Gastro-esophageal reflux disease without esophagitis; Z88.2 Allergy status to sulfonamides; Z88.1 Allergy status to other antibiotic agents; Z88.8 Allergy status to other drugs, medicaments and biological substances
CPT/HCPCS: 96361; 96372; 96374; J1642; J1885; J2405; J7120

== ENCOUNTER 2022-12-09 00:38 | Day surgery (SDC) | payer OTHER ==
[~2022-12-09 00:38] MED LIST changes: +CEFP200 PO
== END 2022-12-09 09:17 | disposition home or self-care (01) ==
LOC: ATC 00:38
DX: G43.109 Migraine with aura, not intractable, without status migrainosus (principal); M51.36 Other intervertebral disc degeneration, lumbar region; Z88.1 Allergy status to other antibiotic agents; Z88.2 Allergy status to sulfonamides; Z88.8 Allergy status to other drugs, medicaments and biological substances; Z91.048 Other nonmedicinal substance allergy status; Z79.899 Other long term (current) drug therapy
CPT/HCPCS: 96361; 96374; J1642; J2405; J7120

== ENCOUNTER 2022-12-13 02:30 | Day surgery (SDC) | payer OTHER | END 2022-12-13 09:27 | disposition home or self-care (01) | LOC: ATC 02:30 | DX: E86.0 Dehydration (principal); Z98.84 Bariatric surgery status; E46 Unspecified protein-calorie malnutrition | CPT/HCPCS: 96361; 96372; 96374; J1642; J1885; J2405; J7120 ==

== ENCOUNTER 2022-12-15 00:22 | Day surgery (SDC) | payer OTHER | END 2022-12-15 09:58 | disposition home or self-care (01) | LOC: ATC 00:22 | DX: G43.109 Migraine with aura, not intractable, without status migrainosus (principal); M51.36 Other intervertebral disc degeneration, lumbar region; K21.9 Gastro-esophageal reflux disease without esophagitis; F32.9 Major depressive disorder, single episode, unspecified; Z88.8 Allergy status to other drugs, medicaments and biological substances; Z88.2 Allergy status to sulfonamides; Z88.1 Allergy status to other antibiotic agents | CPT/HCPCS: 96360; J1642; J1885; J2405; J7120 ==

== ENCOUNTER 2022-12-19 09:48 | Day surgery (SDC) | payer OTHER | END 2022-12-19 14:42 | disposition home or self-care (01) | LOC: ATC 09:48 | DX: E86.0 Dehydration (principal); Z98.84 Bariatric surgery status; R63.8 Other symptoms and signs concerning food and fluid intake; E46 Unspecified protein-calorie malnutrition; R11.2 Nausea with vomiting, unspecified; R63.4 Abnormal weight loss | CPT/HCPCS: 96360; J1642; J7120 ==

== ENCOUNTER 2022-12-20 01:40 | Day surgery (SDC) | payer OTHER | END 2022-12-20 09:06 | disposition home or self-care (01) | LOC: ATC 01:40 | DX: E86.0 Dehydration (principal); Z98.84 Bariatric surgery status; E46 Unspecified protein-calorie malnutrition; Z90.710 Acquired absence of both cervix and uterus; K21.9 Gastro-esophageal reflux disease without esophagitis | CPT/HCPCS: 96361; 96372; 96374; J1642; J1885; J2405; J7120 ==

== ENCOUNTER 2022-12-23 00:53 | Day surgery (SDC) | payer OTHER | END 2022-12-23 09:27 | disposition home or self-care (01) | LOC: ATC 00:53 | DX: E86.0 Dehydration (principal); Z98.84 Bariatric surgery status; R63.8 Other symptoms and signs concerning food and fluid intake; R11.2 Nausea with vomiting, unspecified | CPT/HCPCS: 96361; 96372; 96374; J1642; J2405; J3420; J7120 ==

== ENCOUNTER 2022-12-25 02:29 | Day surgery (SDC) | payer OTHER ==
[2022-12-25] MEDS ORDERED: CEFP200 PO (08:22)
== END 2022-12-25 09:13 | disposition home or self-care (01) ==
LOC: ATC 02:29
DX: E86.0 Dehydration (principal); E46 Unspecified protein-calorie malnutrition; R63.8 Other symptoms and signs concerning food and fluid intake; R11.2 Nausea with vomiting, unspecified; R63.4 Abnormal weight loss; Z98.84 Bariatric surgery status; Z88.1 Allergy status to other antibiotic agents; Z88.0 Allergy status to penicillin; Z88.8 Allergy status to other drugs, medicaments and biological substances; Z91.048 Other nonmedicinal substance allergy status
CPT/HCPCS: 96360; J1642; J7120

== ENCOUNTER 2022-12-30 01:08 | Day surgery (SDC) | payer OTHER ==
[2022-12-30 09:20] LABS: Bun/Creatinine Ratio 19.5 (12.0-20.0); Calcium, Blood 8.3 mg/dL (8.5-10.1); Creatinine, Blood 0.77 mg/dL (0.40-1.00)
== END 2022-12-30 09:18 | disposition home or self-care (01) ==
LOC: ATC 01:08
PROVIDERS: Urology
DX: E86.0 Dehydration (principal); Z98.84 Bariatric surgery status; R11.2 Nausea with vomiting, unspecified; E46 Unspecified protein-calorie malnutrition
CPT/HCPCS: 80048; J1642; J2405; J7120

== ENCOUNTER 2023-01-01 02:47 | Day surgery (SDC) | payer OTHER ==
[2023-01-01 08:49] VITALS: BP 135/101
== END 2023-01-01 09:44 | disposition home or self-care (01) ==
LOC: ATC 02:47
DX: E86.0 Dehydration (principal); Z98.84 Bariatric surgery status; K90.9 Intestinal malabsorption, unspecified; R63.8 Other symptoms and signs concerning food and fluid intake
CPT/HCPCS: 96361; 96374; J1642; J2405; J7120

== ENCOUNTER 2023-01-03 01:05 | Day surgery (SDC) | payer OTHER ==
[2023-01-03 08:28] VITALS: BP 127/86
== END 2023-01-03 09:20 | disposition home or self-care (01) ==
LOC: ATC 01:05
DX: E86.0 Dehydration (principal); Z98.84 Bariatric surgery status; R63.8 Other symptoms and signs concerning food and fluid intake; R11.2 Nausea with vomiting, unspecified
CPT/HCPCS: 96361; 96372; 96374; J1642; J1885; J2405; J7120

== ENCOUNTER 2023-01-03 15:06 | Emergency (ER) | payer OTHER ==
[~2023-01-03] VITALS: Ht 157.5 cm; Wt 43.5 kg
[2023-01-03 16:52] VITALS: BP 135/72
== END 2023-01-03 16:52 | disposition home or self-care (01) ==
LOC: ER 15:06
DX: L50.0 Allergic urticaria (principal); Z88.1 Allergy status to other antibiotic agents; Z88.0 Allergy status to penicillin; Z88.2 Allergy status to sulfonamides; Z88.8 Allergy status to other drugs, medicaments and biological substances; Z91.048 Other nonmedicinal substance allergy status; Z79.899 Other long term (current) drug therapy; Z79.82 Long term (current) use of aspirin
CPT/HCPCS: 36415; 96374; 99284-25; A9270; J2930

== ENCOUNTER 2023-01-06 00:37 | Day surgery (SDC) | payer OTHER ==
[2023-01-06 08:15] VITALS: BP 118/93
== END 2023-01-06 09:20 | disposition home or self-care (01) ==
LOC: ATC 00:37
DX: K90.9 Intestinal malabsorption, unspecified (principal); R63.8 Other symptoms and signs concerning food and fluid intake; E86.0 Dehydration; R11.2 Nausea with vomiting, unspecified; R63.4 Abnormal weight loss; Z98.84 Bariatric surgery status; Z88.1 Allergy status to other antibiotic agents; Z88.0 Allergy status to penicillin; Z88.2 Allergy status to sulfonamides; Z88.8 Allergy status to other drugs, medicaments and biological substances; Z91.048 Other nonmedicinal substance allergy status
CPT/HCPCS: 96361; 96374; J1642; J2405; J7120

== ENCOUNTER 2023-01-08 01:22 | Day surgery (SDC) | payer OTHER ==
[2023-01-08 08:15] VITALS: BP 120/78
== END 2023-01-08 09:15 | disposition home or self-care (01) ==
LOC: ATC 01:22
DX: K90.9 Intestinal malabsorption, unspecified (principal); R63.8 Other symptoms and signs concerning food and fluid intake; E86.0 Dehydration; R11.2 Nausea with vomiting, unspecified; R63.4 Abnormal weight loss; Z98.84 Bariatric surgery status; Z88.1 Allergy status to other antibiotic agents; Z88.0 Allergy status to penicillin; Z88.2 Allergy status to sulfonamides; Z88.8 Allergy status to other drugs, medicaments and biological substances
CPT/HCPCS: 96360; J1642; J7120

== ENCOUNTER 2023-01-10 00:31 | Day surgery (SDC) | payer OTHER ==
[2023-01-10 07:50] VITALS: BP 129/82
== END 2023-01-10 09:01 | disposition home or self-care (01) ==
LOC: ATC 00:31
DX: K90.9 Intestinal malabsorption, unspecified (principal); R63.8 Other symptoms and signs concerning food and fluid intake; E86.0 Dehydration; R11.2 Nausea with vomiting, unspecified; R63.4 Abnormal weight loss; Z98.84 Bariatric surgery status; K21.9 Gastro-esophageal reflux disease without esophagitis; Z88.2 Allergy status to sulfonamides; Z88.1 Allergy status to other antibiotic agents; Z79.899 Other long term (current) drug therapy
CPT/HCPCS: 96361; 96372; 96374; J1642; J1885; J2405; J7120

== ENCOUNTER 2023-01-13 00:29 | Day surgery (SDC) | payer OTHER ==
[2023-01-13 08:00] VITALS: BP 133/89
== END 2023-01-13 09:11 | disposition home or self-care (01) ==
LOC: ATC 00:29
DX: K90.9 Intestinal malabsorption, unspecified (principal); R63.8 Other symptoms and signs concerning food and fluid intake; E86.0 Dehydration; R11.2 Nausea with vomiting, unspecified; R63.4 Abnormal weight loss; Z98.84 Bariatric surgery status; K21.9 Gastro-esophageal reflux disease without esophagitis; Z88.1 Allergy status to other antibiotic agents; Z88.2 Allergy status to sulfonamides; Z88.8 Allergy status to other drugs, medicaments and biological substances; Z79.899 Other long term (current) drug therapy
CPT/HCPCS: 96361; 96374; J1642; J2405; J7120

== ENCOUNTER 2023-01-23 09:56 | Day surgery (SDC) | payer OTHER ==
[2023-01-23 10:32] VITALS: BP 119/86
== END 2023-01-23 11:46 | disposition home or self-care (01) ==
LOC: ATC 09:56
DX: K90.9 Intestinal malabsorption, unspecified (principal); R63.8 Other symptoms and signs concerning food and fluid intake; E86.0 Dehydration; R11.2 Nausea with vomiting, unspecified; R63.4 Abnormal weight loss; Z98.84 Bariatric surgery status; K21.9 Gastro-esophageal reflux disease without esophagitis; Z88.0 Allergy status to penicillin; Z88.2 Allergy status to sulfonamides; Z88.8 Allergy status to other drugs, medicaments and biological substances; Z79.899 Other long term (current) drug therapy
CPT/HCPCS: 96361; 96372; 96374; J1642; J1885; J2405; J3420; J7120

== ENCOUNTER 2023-01-24 01:37 | Day surgery (SDC) | payer OTHER ==
[2023-01-24 08:20] VITALS: BP 108/83
== END 2023-01-24 09:26 | disposition home or self-care (01) ==
LOC: ATC 01:37
DX: K90.9 Intestinal malabsorption, unspecified (principal); R63.8 Other symptoms and signs concerning food and fluid intake; K21.9 Gastro-esophageal reflux disease without esophagitis; E56.9 Vitamin deficiency, unspecified; R53.83 Other fatigue; R11.0 Nausea; Z98.84 Bariatric surgery status; Z88.8 Allergy status to other drugs, medicaments and biological substances; Z88.2 Allergy status to sulfonamides
CPT/HCPCS: 96360; J1642; J7120

== ENCOUNTER 2023-01-26 01:08 | Emergency (ER) | payer OTHER ==
[~2023-01-26] VITALS: Ht 157.5 cm; Wt 43.6 kg
[2023-01-26 02:28] LABS: BASOPHILS ABSOLUTE AUTO 0.02 K/mm3 (0.00-0.23); BASOPHILS PERCENT AUTO 0 % (0-2); EOSINOPHILS ABSOLUTE AUTO 0.04 K/mm3 (0.00-0.68); EOSINOPHILS PERCENT AUTO 0 % (0-6); Hemoglobin 12.2 g/dL (11.5-16.0); IMMATURE GRAN ABSOLUTE AUTO 0.03 K/mm3 (0.00-0.10); IMMATURE GRAN PERCENT AUTO 0 % (0-1); LYMPHOCYTES ABSOLUTE AUTO 0.49 K/mm3 (0.84-5.20); LYMPHOCYTES PERCENT AUTO 4 % (21-46); MONOCYTES ABSOLUTE AUTO 0.73 K/mm3 (0.16-1.47); MONOCYTES PERCENT AUTO 6 % (4-13); Mean Corpuscular HGB Conc 32.1 g/dL (31.5-36.5); Mean Corpuscular Volume 90 fL (80-100); Mean Platelet Volume 11.6 fL (9.1-12.4); NEUTROPHILS ABSOLUTE AUTO 10.67 K/mm3 (1.96-9.15); NEUTROPHILS PERCENT AUTO 89 % (41-73); Platelet Count 187 K/mm3 (150-400); RDW Coefficient Variation 13.7 % (11.7-14.2); RDW Standard Deviation 45.9 fL (35.1-46.3); Red Blood Cell Count 4.21 M/mm3 (3.80-5.20); White Blood Cell Count 11.98 K/mm3 (4.00-11.30)
[2023-01-26 02:47] LABS: Albumin, Blood 3.1 g/dL (3.4-5.0); Albumin/Globulin Ratio 1.1 (0.8-1.8); Bilirubin, Total 0.2 mg/dL (0.1-1.0); Bun/Creatinine Ratio 17.6 (12.0-20.0); C-REACTIVE PROTEIN, EXT RANGE 1.71 mg/dL (0.000-0.300); Calcium, Blood 8.1 mg/dL (8.5-10.1); Creatinine, Blood 0.85 mg/dL (0.40-1.00); Globulin, Blood 2.9 g/dL (2.2-4.0); Potassium, Blood 4.5 mmol/L (3.5-5.5)
[2023-01-26 05:50] VITALS: BP 136/78
== END 2023-01-26 06:06 | disposition home or self-care (01) ==
LOC: ER 01:08
PROVIDERS: Student in an Organized Health Care Education/Training Program
DX: M54.50 Low back pain, unspecified (principal); G43.909 Migraine, unspecified, not intractable, without status migrainosus; Z91.048 Other nonmedicinal substance allergy status; Z88.8 Allergy status to other drugs, medicaments and biological substances; Z88.5 Allergy status to narcotic agent; Z88.0 Allergy status to penicillin; Z88.2 Allergy status to sulfonamides; Z88.1 Allergy status to other antibiotic agents; Z79.82 Long term (current) use of aspirin
CPT/HCPCS: 72132; 80053; 85025; 85651; 86140; A9270; J1885; J7030; Q9967

== ENCOUNTER 2023-01-28 16:56 | Emergency (ER) | payer OTHER ==
[~2023-01-28] VITALS: Ht 157.5 cm; Wt 43.5 kg
[2023-01-28 17:34] LABS: BASOPHILS ABSOLUTE AUTO 0.03 K/mm3 (0.00-0.23); BASOPHILS PERCENT AUTO 0 % (0-2); EOSINOPHILS ABSOLUTE AUTO 0.17 K/mm3 (0.00-0.68); EOSINOPHILS PERCENT AUTO 2 % (0-6); Hematocrit 35.7 % (33.0-51.0); Hemoglobin 11.4 g/dL (11.5-16.0); IMMATURE GRAN ABSOLUTE AUTO 0.05 K/mm3 (0.00-0.10); IMMATURE GRAN PERCENT AUTO 1 % (0-1); LYMPHOCYTES ABSOLUTE AUTO 1.21 K/mm3 (0.84-5.20); LYMPHOCYTES PERCENT AUTO 12 % (21-46); MONOCYTES ABSOLUTE AUTO 0.83 K/mm3 (0.16-1.47); MONOCYTES PERCENT AUTO 8 % (4-13); Mean Corpuscular HGB Conc 31.9 g/dL (31.5-36.5); Mean Corpuscular Volume 91 fL (80-100); NEUTROPHILS ABSOLUTE AUTO 7.61 K/mm3 (1.96-9.15); NEUTROPHILS PERCENT AUTO 77 % (41-73); Platelet Count 204 K/mm3 (150-400); RDW Coefficient Variation 13.6 % (11.7-14.2); RDW Standard Deviation 45.6 fL (35.1-46.3); Red Blood Cell Count 3.93 M/mm3 (3.80-5.20)
[2023-01-28 17:58] LABS: Alanine Aminotransfer (ALT/SGP 34 U/L (12-78); Albumin, Blood 2.7 g/dL (3.4-5.0); Albumin/Globulin Ratio 0.7 (0.8-1.8); Alk Phos 96 U/L (50-136); Anion Gap 3 mmol/L (6-16); Aspartate Aminotrans (AST/SGOT 34 U/L (12-37); Bilirubin, Total 0.3 mg/dL (0.1-1.0); Blood Urea Nitrogen 14 mg/dL (8-24); Bun/Creatinine Ratio 18.3 (12.0-20.0); C-REACTIVE PROTEIN, EXT RANGE >19.000 mg/dL (0.000-0.300); CO2, Blood 25 mmol/L (21-32); Calcium, Blood 8.1 mg/dL (8.5-10.1); Chloride, Blood 106 mmol/L (98-108); Creatinine, Blood 0.77 mg/dL (0.40-1.00); Globulin, Blood 3.9 g/dL (2.2-4.0); Glomerular Filtration Rate 89 (60-); Glucose, Blood 102 mg/dL (70-99); Potassium, Blood 3.6 mmol/L (3.5-5.5); Sodium, Blood 134 mmol/L (136-145); Total Protein, Blood 6.6 g/dL (6.4-8.2)
[2023-01-28] MEDS ORDERED: Doxycycline Mon50 MG PO (19:37)
[2023-01-28 22:00] VITALS: BP 138/84
== END 2023-01-28 22:16 | disposition home or self-care (01) ==
LOC: ER 16:56
PROVIDERS: Physician Assistant
DX: M54.50 Low back pain, unspecified (principal); G89.29 Other chronic pain; T81.41XA Infection following a procedure, superficial incisional surgical site, initial encounter; Z88.1 Allergy status to other antibiotic agents; Z88.0 Allergy status to penicillin; Z88.2 Allergy status to sulfonamides; Z88.8 Allergy status to other drugs, medicaments and biological substances; Z91.048 Other nonmedicinal substance allergy status; Z79.899 Other long term (current) drug therapy; Z79.82 Long term (current) use of aspirin
CPT/HCPCS: 72132; 80053; 85025; 86140; 96374-59; 99284-25; J1170; Q9967

== ENCOUNTER 2023-01-29 07:57 | Day surgery (SDC) | payer OTHER ==
[~2023-01-29 07:57] MED LIST changes: +Doxycycline Mon50 MG PO
== END 2023-01-29 09:21 | disposition home or self-care (01) ==
LOC: ATC 07:57
DX: E86.0 Dehydration (principal); Z98.84 Bariatric surgery status; R63.8 Other symptoms and signs concerning food and fluid intake; K21.9 Gastro-esophageal reflux disease without esophagitis; E46 Unspecified protein-calorie malnutrition
CPT/HCPCS: 96361; 96374; J1642; J2405; J7120

== ENCOUNTER 2023-01-31 00:36 | Day surgery (SDC) | payer OTHER ==
[2023-01-31 08:03] VITALS: BP 130/97
== END 2023-01-31 09:13 | disposition home or self-care (01) ==
LOC: ATC 00:36
DX: K90.9 Intestinal malabsorption, unspecified (principal); R63.8 Other symptoms and signs concerning food and fluid intake; E86.0 Dehydration; K21.9 Gastro-esophageal reflux disease without esophagitis; E56.9 Vitamin deficiency, unspecified; R53.83 Other fatigue; R11.0 Nausea; Z98.84 Bariatric surgery status; Z88.1 Allergy status to other antibiotic agents; Z88.0 Allergy status to penicillin; Z88.2 Allergy status to sulfonamides; Z88.8 Allergy status to other drugs, medicaments and biological substances
CPT/HCPCS: 96361; 96374; J1642; J2405; J7120

== ENCOUNTER 2023-02-05 00:17 | Day surgery (SDC) | payer OTHER ==
[2023-02-05 08:23] VITALS: BP 122/72
[2023-03-05] MEDS ORDERED: CLIN150 PO (08:40)
== END 2023-02-05 09:18 | disposition home or self-care (01) ==
LOC: ATC 00:17
DX: K90.9 Intestinal malabsorption, unspecified (principal); R63.8 Other symptoms and signs concerning food and fluid intake; E86.0 Dehydration; K21.9 Gastro-esophageal reflux disease without esophagitis; E56.9 Vitamin deficiency, unspecified; R53.83 Other fatigue; R11.0 Nausea; Z98.84 Bariatric surgery status; Z88.1 Allergy status to other antibiotic agents; Z88.2 Allergy status to sulfonamides; Z88.8 Allergy status to other drugs, medicaments and biological substances; Z88.0 Allergy status to penicillin; Z79.899 Other long term (current) drug therapy
CPT/HCPCS: 96360; 96372; J1642; J1885; J7120

== ENCOUNTER 2023-02-10 01:01 | Day surgery (SDC) | payer OTHER ==
--- NOTE | 2023-02-07 11:07 | NUR ---
PATIENT CALLED AND CANCELLED TODAY AND TOMORROWS APPOINTMENTS
== END 2023-02-10 22:58 | disposition home or self-care (01) ==
LOC: ATC 01:01
DX: K90.9 Intestinal malabsorption, unspecified (principal); R63.8 Other symptoms and signs concerning food and fluid intake; E86.0 Dehydration; K21.9 Gastro-esophageal reflux disease without esophagitis; E56.9 Vitamin deficiency, unspecified; R53.83 Other fatigue; R11.0 Nausea; Z98.84 Bariatric surgery status; Z88.1 Allergy status to other antibiotic agents; Z88.2 Allergy status to sulfonamides; Z88.8 Allergy status to other drugs, medicaments and biological substances; Z79.899 Other long term (current) drug therapy
CPT/HCPCS: J1642; J2405; J7120

== ENCOUNTER 2023-02-12 00:22 | Day surgery (SDC) | payer OTHER ==
[2023-02-12 08:52] VITALS: BP 120/78
== END 2023-02-12 09:37 | disposition home or self-care (01) ==
LOC: ATC 00:22
DX: K90.9 Intestinal malabsorption, unspecified (principal); R63.8 Other symptoms and signs concerning food and fluid intake; E86.0 Dehydration; K21.9 Gastro-esophageal reflux disease without esophagitis; E56.9 Vitamin deficiency, unspecified; R53.83 Other fatigue; R11.0 Nausea; Z98.84 Bariatric surgery status; Z88.1 Allergy status to other antibiotic agents; Z88.0 Allergy status to penicillin; Z88.2 Allergy status to sulfonamides; Z88.8 Allergy status to other drugs, medicaments and biological substances
CPT/HCPCS: J1642; J1885; J7120

== ENCOUNTER 2023-02-14 02:30 | Day surgery (SDC) | payer OTHER ==
[2023-02-14 07:54] VITALS: BP 120/83
== END 2023-02-14 09:08 | disposition home or self-care (01) ==
LOC: ATC 02:30
DX: E86.0 Dehydration (principal); E46 Unspecified protein-calorie malnutrition; R63.8 Other symptoms and signs concerning food and fluid intake; K21.9 Gastro-esophageal reflux disease without esophagitis; E56.9 Vitamin deficiency, unspecified; R53.83 Other fatigue; R11.0 Nausea; Z98.84 Bariatric surgery status
CPT/HCPCS: 96361; 96374; J1642; J2405; J7120

== ENCOUNTER 2023-02-17 00:06 | Day surgery (SDC) | payer OTHER ==
[2023-02-17 08:00] VITALS: BP 115/87
== END 2023-02-17 09:12 | disposition home or self-care (01) ==
LOC: ATC 00:06
DX: K90.9 Intestinal malabsorption, unspecified (principal); R63.8 Other symptoms and signs concerning food and fluid intake; E86.0 Dehydration; K21.9 Gastro-esophageal reflux disease without esophagitis; E56.9 Vitamin deficiency, unspecified; R53.83 Other fatigue; R11.0 Nausea; Z98.84 Bariatric surgery status
CPT/HCPCS: J1642; J2405; J7120

== ENCOUNTER 2023-02-19 03:28 | Day surgery (SDC) | payer OTHER ==
[2023-02-19 08:04] VITALS: BP 143/89
== END 2023-02-19 09:21 | disposition home or self-care (01) ==
LOC: ATC 03:28
DX: K90.9 Intestinal malabsorption, unspecified (principal); R63.8 Other symptoms and signs concerning food and fluid intake; E86.0 Dehydration; K21.9 Gastro-esophageal reflux disease without esophagitis; E56.9 Vitamin deficiency, unspecified; R53.83 Other fatigue; R11.0 Nausea; Z98.84 Bariatric surgery status; Z88.8 Allergy status to other drugs, medicaments and biological substances; Z88.1 Allergy status to other antibiotic agents; Z88.2 Allergy status to sulfonamides; Z79.899 Other long term (current) drug therapy
CPT/HCPCS: 96361; 96374; 96375; J1642; J1885; J2405; J7120

== ENCOUNTER 2023-02-23 01:25 | Day surgery (SDC) | payer OTHER | END 2023-02-24 23:17 | disposition home or self-care (01) | LOC: ATC 01:25 | DX: K90.9 Intestinal malabsorption, unspecified (principal); R63.8 Other symptoms and signs concerning food and fluid intake; E86.0 Dehydration; K21.9 Gastro-esophageal reflux disease without esophagitis; E56.9 Vitamin deficiency, unspecified; R53.83 Other fatigue; R11.0 Nausea; Z98.84 Bariatric surgery status | CPT/HCPCS: J1642; J2405; J7120 ==

== ENCOUNTER 2023-02-24 08:06 | Day surgery (SDC) | payer OTHER ==
[2023-02-24 08:28] VITALS: BP 119/92
== END 2023-02-24 09:30 | disposition home or self-care (01) ==
LOC: ATC 08:06
DX: K90.9 Intestinal malabsorption, unspecified (principal); R63.8 Other symptoms and signs concerning food and fluid intake; E86.0 Dehydration; K21.9 Gastro-esophageal reflux disease without esophagitis; E56.9 Vitamin deficiency, unspecified; R53.83 Other fatigue; R11.0 Nausea; Z98.84 Bariatric surgery status; Z88.1 Allergy status to other antibiotic agents; Z88.0 Allergy status to penicillin; Z88.2 Allergy status to sulfonamides; Z88.8 Allergy status to other drugs, medicaments and biological substances
CPT/HCPCS: 96360; J1642; J7120

== ENCOUNTER 2023-02-26 04:05 | Day surgery (SDC) | payer OTHER ==
[2023-02-26 08:11] VITALS: BP 115/78
[2023-03-05] MEDS ORDERED: CLIN150 PO (08:40)
== END 2023-02-26 09:15 | disposition home or self-care (01) ==
LOC: ATC 04:05
DX: K90.9 Intestinal malabsorption, unspecified (principal); R63.8 Other symptoms and signs concerning food and fluid intake; E86.0 Dehydration; K21.9 Gastro-esophageal reflux disease without esophagitis; E56.9 Vitamin deficiency, unspecified; R53.83 Other fatigue; R11.0 Nausea; Z98.84 Bariatric surgery status; Z68.1 Body mass index [BMI] 19.9 or less, adult; Z88.1 Allergy status to other antibiotic agents; Z88.2 Allergy status to sulfonamides; Z88.0 Allergy status to penicillin; Z88.8 Allergy status to other drugs, medicaments and biological substances; Z79.899 Other long term (current) drug therapy
CPT/HCPCS: 96361; 96372; 96374; J1642; J1885; J2405; J7120

== ENCOUNTER 2023-02-28 03:07 | Day surgery (SDC) | payer OTHER ==
[2023-02-28 08:03] VITALS: BP 135/84
[2023-02-28] MEDS ORDERED: CEFP200 PO (08:06)
[2023-02-28] MEDS ORDERED: CLIN150 PO (10:24)
== END 2023-02-28 09:08 | disposition home or self-care (01) ==
LOC: ATC 03:07
DX: K90.9 Intestinal malabsorption, unspecified (principal); R63.8 Other symptoms and signs concerning food and fluid intake; E86.0 Dehydration; K21.9 Gastro-esophageal reflux disease without esophagitis; E56.9 Vitamin deficiency, unspecified; R53.83 Other fatigue; R11.0 Nausea; Z98.84 Bariatric surgery status; Z88.1 Allergy status to other antibiotic agents; Z88.0 Allergy status to penicillin; Z88.2 Allergy status to sulfonamides; Z88.8 Allergy status to other drugs, medicaments and biological substances
CPT/HCPCS: 96361; 96374; J1642; J2405; J7120

== ENCOUNTER 2023-02-28 10:06 | Emergency (ER) | payer OTHER ==
[~2023-02-28] VITALS: Ht 157.5 cm; Wt 43.5 kg
[2023-02-28 10:20] VITALS: BP 157/96
[2023-02-28] MEDS ORDERED: CLIN150 PO (10:24)
[2023-03-05] MEDS ORDERED: CLIN150 PO (08:40)
== END 2023-02-28 10:27 | disposition home or self-care (01) ==
LOC: ER 10:06
DX: K04.7 Periapical abscess without sinus (principal); G43.909 Migraine, unspecified, not intractable, without status migrainosus
CPT/HCPCS: 99282

== ENCOUNTER 2023-03-24 01:17 | Day surgery (SDC) | payer OTHER ==
[~2023-03-24 01:17] MED LIST changes: +CLIN150 PO
[2023-03-24 08:14] VITALS: BP 129/86
== END 2023-03-24 09:35 | disposition home or self-care (01) ==
LOC: ATC 01:17
DX: K90.9 Intestinal malabsorption, unspecified (principal); E86.0 Dehydration; E55.9 Vitamin D deficiency, unspecified; R63.8 Other symptoms and signs concerning food and fluid intake; R53.83 Other fatigue; R62.7 Adult failure to thrive; R11.0 Nausea; K21.9 Gastro-esophageal reflux disease without esophagitis; G89.4 Chronic pain syndrome; G43.909 Migraine, unspecified, not intractable, without status migrainosus; M79.7 Fibromyalgia; F32.9 Major depressive disorder, single episode, unspecified; K58.9 Irritable bowel syndrome, unspecified; Z88.1 Allergy status to other antibiotic agents; Z86.16 Personal history of COVID-19; Z88.8 Allergy status to other drugs, medicaments and biological substances; Z88.2 Allergy status to sulfonamides; Z98.84 Bariatric surgery status; Z79.899 Other long term (current) drug therapy
CPT/HCPCS: 96361; 96372; 96374; J1642; J2405; J3420; J7120

== ENCOUNTER 2023-03-26 04:44 | Day surgery (SDC) | payer OTHER ==
[2023-03-26 08:14] VITALS: BP 101/77
== END 2023-03-26 09:21 | disposition home or self-care (01) ==
LOC: ATC 04:44
DX: K90.9 Intestinal malabsorption, unspecified (principal); R63.8 Other symptoms and signs concerning food and fluid intake; E86.0 Dehydration; K21.9 Gastro-esophageal reflux disease without esophagitis; E56.9 Vitamin deficiency, unspecified; R53.83 Other fatigue; R11.0 Nausea; G89.4 Chronic pain syndrome; R53.82 Chronic fatigue, unspecified; G43.109 Migraine with aura, not intractable, without status migrainosus; M51.36 Other intervertebral disc degeneration, lumbar region; D51.9 Vitamin B12 deficiency anemia, unspecified; Z98.84 Bariatric surgery status
CPT/HCPCS: 96360; 96372; J1642; J1885; J7120

== ENCOUNTER 2023-03-28 01:50 | Day surgery (SDC) | payer OTHER ==
[2023-03-28 07:50] VITALS: BP 137/86
== END 2023-03-28 09:00 | disposition home or self-care (01) ==
LOC: ATC 01:50
DX: E46 Unspecified protein-calorie malnutrition (principal); E86.0 Dehydration; Z98.84 Bariatric surgery status; R63.8 Other symptoms and signs concerning food and fluid intake; K21.9 Gastro-esophageal reflux disease without esophagitis; E56.9 Vitamin deficiency, unspecified; R53.83 Other fatigue; R11.0 Nausea; G89.4 Chronic pain syndrome; R53.82 Chronic fatigue, unspecified; D51.9 Vitamin B12 deficiency anemia, unspecified; Z68.1 Body mass index [BMI] 19.9 or less, adult
CPT/HCPCS: 96361; 96374; J1642; J2405; J7120

== ENCOUNTER 2023-03-31 01:04 | Day surgery (SDC) | payer OTHER ==
[2023-03-31 08:15] VITALS: BP 142/92
== END 2023-03-31 09:17 | disposition home or self-care (01) ==
LOC: ATC 01:04
DX: K90.9 Intestinal malabsorption, unspecified (principal); R63.8 Other symptoms and signs concerning food and fluid intake; E86.0 Dehydration; K21.9 Gastro-esophageal reflux disease without esophagitis; E56.9 Vitamin deficiency, unspecified; R53.83 Other fatigue; R11.0 Nausea; G89.4 Chronic pain syndrome; D51.9 Vitamin B12 deficiency anemia, unspecified
CPT/HCPCS: 96361; 96374; J1642; J2405; J7120

== ENCOUNTER 2023-04-02 01:51 | Day surgery (SDC) | payer OTHER ==
[2023-04-02 07:59] VITALS: BP 133/96
== END 2023-04-02 09:08 | disposition home or self-care (01) ==
LOC: ATC 01:51
DX: K90.9 Intestinal malabsorption, unspecified (principal); E46 Unspecified protein-calorie malnutrition; R63.8 Other symptoms and signs concerning food and fluid intake; E86.0 Dehydration; K21.9 Gastro-esophageal reflux disease without esophagitis; E56.9 Vitamin deficiency, unspecified; R53.83 Other fatigue; R11.0 Nausea; G89.4 Chronic pain syndrome; F32.A Depression, unspecified; G43.909 Migraine, unspecified, not intractable, without status migrainosus; Z86.16 Personal history of COVID-19; Z88.1 Allergy status to other antibiotic agents; Z88.2 Allergy status to sulfonamides; Z88.8 Allergy status to other drugs, medicaments and biological substances; Z98.84 Bariatric surgery status
CPT/HCPCS: 96360; 96372; J1642; J1885; J7120

== ENCOUNTER 2023-04-04 03:50 | Day surgery (SDC) | payer OTHER ==
[2023-04-04 08:10] VITALS: BP 122/92
== END 2023-04-04 09:22 | disposition home or self-care (01) ==
LOC: ATC 03:50
DX: K90.9 Intestinal malabsorption, unspecified (principal); R63.8 Other symptoms and signs concerning food and fluid intake; E86.0 Dehydration; K21.9 Gastro-esophageal reflux disease without esophagitis; E56.9 Vitamin deficiency, unspecified; R53.83 Other fatigue; R11.0 Nausea; Z98.84 Bariatric surgery status
CPT/HCPCS: 96361; 96374; J1642; J2405; J7120

== ENCOUNTER 2023-04-06 02:20 | Day surgery (SDC) | payer OTHER ==
[2023-04-06 12:10] VITALS: BP 107/73
== END 2023-04-06 13:09 | disposition home or self-care (01) ==
LOC: ATC 02:20
DX: Z98.84 Bariatric surgery status (principal); K90.9 Intestinal malabsorption, unspecified; R63.8 Other symptoms and signs concerning food and fluid intake; E86.0 Dehydration; K21.9 Gastro-esophageal reflux disease without esophagitis; E56.9 Vitamin deficiency, unspecified; R53.83 Other fatigue; R11.0 Nausea
CPT/HCPCS: 96361; 96374; J1642; J2405; J7120

== ENCOUNTER 2023-04-11 04:55 | Day surgery (SDC) | payer OTHER ==
[2023-04-11 08:00] VITALS: BP 138/100
== END 2023-04-11 09:22 | disposition home or self-care (01) ==
LOC: ATC 04:55
DX: Z98.84 Bariatric surgery status (principal); E86.0 Dehydration; K90.9 Intestinal malabsorption, unspecified; E56.9 Vitamin deficiency, unspecified; R63.8 Other symptoms and signs concerning food and fluid intake; K21.9 Gastro-esophageal reflux disease without esophagitis; R53.83 Other fatigue; R11.0 Nausea; Z86.16 Personal history of COVID-19; G43.909 Migraine, unspecified, not intractable, without status migrainosus; Z88.1 Allergy status to other antibiotic agents; Z88.8 Allergy status to other drugs, medicaments and biological substances; Z88.2 Allergy status to sulfonamides
CPT/HCPCS: 96360; J1642; J7120

== ENCOUNTER 2023-04-16 01:37 | Day surgery (SDC) | payer OTHER ==
[2023-04-16 08:23] VITALS: BP 130/96
== END 2023-04-16 09:25 | disposition home or self-care (01) ==
LOC: ATC 01:37
DX: K90.9 Intestinal malabsorption, unspecified (principal); Z98.84 Bariatric surgery status; R63.8 Other symptoms and signs concerning food and fluid intake; E86.0 Dehydration; K21.9 Gastro-esophageal reflux disease without esophagitis; E56.9 Vitamin deficiency, unspecified; G89.4 Chronic pain syndrome; Z88.0 Allergy status to penicillin; Z88.1 Allergy status to other antibiotic agents; Z88.2 Allergy status to sulfonamides; Z88.8 Allergy status to other drugs, medicaments and biological substances; Z79.899 Other long term (current) drug therapy
CPT/HCPCS: 96361; 96372; 96374; J1642; J1885; J2405; J7120

== ENCOUNTER 2023-04-18 03:23 | Day surgery (SDC) | payer OTHER ==
[2023-04-18 08:09] VITALS: BP 139/85
== END 2023-04-18 09:15 | disposition home or self-care (01) ==
LOC: ATC 03:23
DX: Z98.84 Bariatric surgery status (principal); K90.9 Intestinal malabsorption, unspecified; R63.8 Other symptoms and signs concerning food and fluid intake; E86.0 Dehydration; E56.9 Vitamin deficiency, unspecified; K21.9 Gastro-esophageal reflux disease without esophagitis; R53.83 Other fatigue; R11.0 Nausea; F32.9 Major depressive disorder, single episode, unspecified; G43.909 Migraine, unspecified, not intractable, without status migrainosus; Z86.16 Personal history of COVID-19; Z88.8 Allergy status to other drugs, medicaments and biological substances; Z88.1 Allergy status to other antibiotic agents; Z88.9 Allergy status to unspecified drugs, medicaments and biological substances; Z88.2 Allergy status to sulfonamides
CPT/HCPCS: 96360; J1642; J7120

== ENCOUNTER 2023-04-23 02:00 | Day surgery (SDC) | payer OTHER ==
[2023-04-23 08:24] VITALS: BP 143/88
== END 2023-04-23 09:23 | disposition home or self-care (01) ==
LOC: ATC 02:00
DX: K90.9 Intestinal malabsorption, unspecified (principal); Z98.84 Bariatric surgery status; R63.8 Other symptoms and signs concerning food and fluid intake; E86.0 Dehydration; K21.9 Gastro-esophageal reflux disease without esophagitis; E56.9 Vitamin deficiency, unspecified; R53.83 Other fatigue; R11.0 Nausea; Z88.0 Allergy status to penicillin; Z88.1 Allergy status to other antibiotic agents; Z88.2 Allergy status to sulfonamides; Z88.8 Allergy status to other drugs, medicaments and biological substances; Z79.899 Other long term (current) drug therapy
CPT/HCPCS: 96360; 96372; J1642; J1885; J3420; J7120

== ENCOUNTER 2023-04-25 01:10 | Day surgery (SDC) | payer OTHER ==
[2023-04-25 07:56] VITALS: BP 150/98
== END 2023-04-25 09:08 | disposition home or self-care (01) ==
LOC: ATC 01:10
DX: K90.9 Intestinal malabsorption, unspecified (principal); Z98.84 Bariatric surgery status; R63.8 Other symptoms and signs concerning food and fluid intake; E86.0 Dehydration; K21.9 Gastro-esophageal reflux disease without esophagitis; E56.9 Vitamin deficiency, unspecified; R53.83 Other fatigue; R11.0 Nausea
CPT/HCPCS: 96361; 96374; J1642; J2405; J7120

== ENCOUNTER 2023-04-28 02:19 | Day surgery (SDC) | payer OTHER ==
[2023-04-28 08:00] VITALS: BP 161/99
== END 2023-04-28 09:15 | disposition home or self-care (01) ==
LOC: ATC 02:19
DX: K90.9 Intestinal malabsorption, unspecified (principal); Z98.84 Bariatric surgery status; R63.8 Other symptoms and signs concerning food and fluid intake; E86.0 Dehydration; K21.9 Gastro-esophageal reflux disease without esophagitis; E56.9 Vitamin deficiency, unspecified; R53.83 Other fatigue; R11.0 Nausea; Z88.0 Allergy status to penicillin; Z88.8 Allergy status to other drugs, medicaments and biological substances; Z79.899 Other long term (current) drug therapy
CPT/HCPCS: 96361; 96374; J1642; J2405; J7120

== ENCOUNTER 2023-04-30 02:35 | Day surgery (SDC) | payer OTHER ==
[2023-04-30 07:59] VITALS: BP 142/75
== END 2023-04-30 09:14 | disposition home or self-care (01) ==
LOC: ATC 02:35
DX: Z98.84 Bariatric surgery status (principal); K90.9 Intestinal malabsorption, unspecified; R63.8 Other symptoms and signs concerning food and fluid intake; E86.0 Dehydration; K21.9 Gastro-esophageal reflux disease without esophagitis; E56.9 Vitamin deficiency, unspecified; R53.83 Other fatigue; R11.0 Nausea; G43.909 Migraine, unspecified, not intractable, without status migrainosus; Z86.16 Personal history of COVID-19; Z88.1 Allergy status to other antibiotic agents; Z88.2 Allergy status to sulfonamides; Z88.9 Allergy status to unspecified drugs, medicaments and biological substances; Z88.8 Allergy status to other drugs, medicaments and biological substances
CPT/HCPCS: 96361; 96372; 96374; J1642; J1885; J2405; J7120

== ENCOUNTER 2023-05-02 01:03 | Day surgery (SDC) | payer OTHER ==
[2023-05-02 08:07] VITALS: BP 136/89
== END 2023-05-02 09:16 | disposition home or self-care (01) ==
LOC: ATC 01:03
DX: Z98.84 Bariatric surgery status (principal); K90.9 Intestinal malabsorption, unspecified; R63.8 Other symptoms and signs concerning food and fluid intake; E86.0 Dehydration; K21.9 Gastro-esophageal reflux disease without esophagitis; E56.9 Vitamin deficiency, unspecified; R53.83 Other fatigue; R11.0 Nausea; G43.909 Migraine, unspecified, not intractable, without status migrainosus; Z86.16 Personal history of COVID-19; Z88.2 Allergy status to sulfonamides; Z88.8 Allergy status to other drugs, medicaments and biological substances; Z88.1 Allergy status to other antibiotic agents
CPT/HCPCS: 96360; J1642; J7120

== ENCOUNTER 2023-05-05 02:28 | Day surgery (SDC) | payer OTHER ==
[2023-05-05 08:54] VITALS: BP 155/81
== END 2023-05-05 09:56 | disposition home or self-care (01) ==
LOC: ATC 02:28
DX: K90.9 Intestinal malabsorption, unspecified (principal); Z98.84 Bariatric surgery status; R63.8 Other symptoms and signs concerning food and fluid intake; E86.0 Dehydration; K21.9 Gastro-esophageal reflux disease without esophagitis; E56.9 Vitamin deficiency, unspecified; R53.83 Other fatigue; R11.0 Nausea
CPT/HCPCS: 96361; 96374; J1642; J2405; J7120

== ENCOUNTER 2023-05-09 02:17 | Day surgery (SDC) | payer OTHER ==
[2023-05-09 08:00] VITALS: BP 111/81
== END 2023-05-09 09:09 | disposition home or self-care (01) ==
LOC: ATC 02:17
DX: K90.9 Intestinal malabsorption, unspecified (principal); Z98.84 Bariatric surgery status; R63.8 Other symptoms and signs concerning food and fluid intake; E86.0 Dehydration; K21.9 Gastro-esophageal reflux disease without esophagitis; E56.9 Vitamin deficiency, unspecified; R53.83 Other fatigue; R11.0 Nausea
CPT/HCPCS: 96361; 96372; 96374; J1642; J1885; J2405; J7120

== ENCOUNTER 2023-05-12 00:36 | Day surgery (SDC) | payer OTHER ==
[2023-05-12 07:57] VITALS: BP 146/92
== END 2023-05-12 09:01 | disposition home or self-care (01) ==
LOC: ATC 00:36
DX: K90.9 Intestinal malabsorption, unspecified (principal); Z98.84 Bariatric surgery status; R63.8 Other symptoms and signs concerning food and fluid intake; E86.0 Dehydration; K21.9 Gastro-esophageal reflux disease without esophagitis; E56.9 Vitamin deficiency, unspecified; R53.83 Other fatigue; R11.0 Nausea
CPT/HCPCS: 96361; 96374; J1642; J2405; J7120

== ENCOUNTER 2023-05-14 02:38 | Day surgery (SDC) | payer OTHER ==
[2023-05-14 08:10] VITALS: BP 164/81
== END 2023-05-14 09:23 | disposition home or self-care (01) ==
LOC: ATC 02:38
DX: K90.9 Intestinal malabsorption, unspecified (principal); Z98.84 Bariatric surgery status; R63.8 Other symptoms and signs concerning food and fluid intake; E86.0 Dehydration; K21.9 Gastro-esophageal reflux disease without esophagitis; E56.9 Vitamin deficiency, unspecified; R53.83 Other fatigue; R11.0 Nausea
CPT/HCPCS: 96360; J1642; J7120

== ENCOUNTER 2023-05-16 00:18 | Day surgery (SDC) | payer OTHER ==
[2023-05-16 08:03] VITALS: BP 127/79
== END 2023-05-16 09:04 | disposition home or self-care (01) ==
LOC: ATC 00:18
DX: K90.9 Intestinal malabsorption, unspecified (principal); Z98.84 Bariatric surgery status; R63.8 Other symptoms and signs concerning food and fluid intake; E86.0 Dehydration; K21.9 Gastro-esophageal reflux disease without esophagitis; E56.9 Vitamin deficiency, unspecified; R53.83 Other fatigue; R11.0 Nausea
CPT/HCPCS: 96360; 96372; J1642; J1885; J7120

== ENCOUNTER 2023-05-19 01:22 | Day surgery (SDC) | payer OTHER ==
[2023-05-19 08:08] VITALS: BP 140/93
== END 2023-05-19 09:14 | disposition home or self-care (01) ==
LOC: ATC 01:22
DX: K90.9 Intestinal malabsorption, unspecified (principal); R63.8 Other symptoms and signs concerning food and fluid intake; E86.0 Dehydration; K21.9 Gastro-esophageal reflux disease without esophagitis; E56.9 Vitamin deficiency, unspecified; R53.83 Other fatigue; R11.0 Nausea; Z98.84 Bariatric surgery status; Z88.0 Allergy status to penicillin; Z88.8 Allergy status to other drugs, medicaments and biological substances; Z88.1 Allergy status to other antibiotic agents; Z79.899 Other long term (current) drug therapy
CPT/HCPCS: 96361; 96374; J1642; J2405; J7120

== ENCOUNTER 2023-05-21 01:24 | Day surgery (SDC) | payer OTHER ==
[2023-05-21 07:58] VITALS: BP 138/97
== END 2023-05-21 09:12 | disposition home or self-care (01) ==
LOC: ATC 01:24
DX: K90.9 Intestinal malabsorption, unspecified (principal); Z98.84 Bariatric surgery status; R63.8 Other symptoms and signs concerning food and fluid intake; E86.0 Dehydration; K21.9 Gastro-esophageal reflux disease without esophagitis; E56.9 Vitamin deficiency, unspecified; R53.83 Other fatigue; R11.0 Nausea
CPT/HCPCS: 96360; J1642; J7120

== ENCOUNTER 2023-05-23 00:46 | Day surgery (SDC) | payer OTHER ==
[2023-05-23 08:07] VITALS: BP 133/88
== END 2023-05-23 09:20 | disposition home or self-care (01) ==
LOC: ATC 00:46
DX: E46 Unspecified protein-calorie malnutrition (principal); K90.9 Intestinal malabsorption, unspecified; R63.8 Other symptoms and signs concerning food and fluid intake; E86.0 Dehydration; K21.9 Gastro-esophageal reflux disease without esophagitis; E56.9 Vitamin deficiency, unspecified; R53.83 Other fatigue; R11.0 Nausea; Z98.84 Bariatric surgery status; Z86.16 Personal history of COVID-19; Z88.0 Allergy status to penicillin; Z88.2 Allergy status to sulfonamides
CPT/HCPCS: 96361; 96372; 96374; J1642; J1885; J2405; J3420; J7120

== ENCOUNTER 2023-05-26 03:23 | Day surgery (SDC) | payer OTHER ==
[2023-05-26 08:14] VITALS: BP 137/87
== END 2023-05-26 09:20 | disposition home or self-care (01) ==
LOC: ATC 03:23
DX: K90.9 Intestinal malabsorption, unspecified (principal); Z98.84 Bariatric surgery status; R63.8 Other symptoms and signs concerning food and fluid intake; E86.0 Dehydration; K21.9 Gastro-esophageal reflux disease without esophagitis; E56.9 Vitamin deficiency, unspecified; R53.83 Other fatigue; R11.0 Nausea
CPT/HCPCS: 96361; 96374; J1642; J2405; J7120

== ENCOUNTER 2023-05-28 00:44 | Day surgery (SDC) | payer OTHER ==
[2023-05-28 07:59] VITALS: BP 144/99
== END 2023-05-28 09:16 | disposition home or self-care (01) ==
LOC: ATC 00:44
DX: E86.0 Dehydration (principal); E46 Unspecified protein-calorie malnutrition; R63.8 Other symptoms and signs concerning food and fluid intake; K21.9 Gastro-esophageal reflux disease without esophagitis; E56.9 Vitamin deficiency, unspecified; R53.83 Other fatigue; R11.0 Nausea; Z98.84 Bariatric surgery status; Z86.16 Personal history of COVID-19
CPT/HCPCS: 96360; J1642; J7120

== ENCOUNTER 2023-05-30 01:54 | Day surgery (SDC) | payer OTHER ==
[2023-05-30 07:58] VITALS: BP 149/100
== END 2023-05-30 09:14 | disposition home or self-care (01) ==
LOC: ATC 01:54
DX: K90.9 Intestinal malabsorption, unspecified (principal); Z98.84 Bariatric surgery status; R63.8 Other symptoms and signs concerning food and fluid intake; E86.0 Dehydration; K21.9 Gastro-esophageal reflux disease without esophagitis; E56.9 Vitamin deficiency, unspecified; R53.83 Other fatigue; R11.0 Nausea
CPT/HCPCS: 96361; 96372; 96374; J1642; J1885; J2405; J7120

== ENCOUNTER 2023-06-06 00:23 | Day surgery (SDC) | payer OTHER ==
[2023-06-06 08:03] VITALS: BP 131/86
== END 2023-06-06 09:30 | disposition home or self-care (01) ==
LOC: ATC 00:23
DX: E86.0 Dehydration (principal); E46 Unspecified protein-calorie malnutrition; R63.8 Other symptoms and signs concerning food and fluid intake; K21.9 Gastro-esophageal reflux disease without esophagitis; E56.9 Vitamin deficiency, unspecified; R53.83 Other fatigue; R11.0 Nausea; Z98.84 Bariatric surgery status; E78.2 Mixed hyperlipidemia; G47.33 Obstructive sleep apnea (adult) (pediatric)
CPT/HCPCS: 96361; 96374; 96375; J1642; J1885; J2405; J7120

== ENCOUNTER 2023-06-23 00:08 | Day surgery (SDC) | payer OTHER ==
[~2023-06-23 00:08] MED LIST changes: +CEQUA1 EACH BOTHEYES; +NALOXONE HCL4 MG
[2023-06-23 09:30] VITALS: BP 136/86
== END 2023-06-23 10:30 | disposition home or self-care (01) ==
LOC: ATC 00:08
DX: E86.0 Dehydration (principal); K90.9 Intestinal malabsorption, unspecified; R63.8 Other symptoms and signs concerning food and fluid intake; K21.9 Gastro-esophageal reflux disease without esophagitis; E56.9 Vitamin deficiency, unspecified; R53.83 Other fatigue; R11.0 Nausea; Z98.84 Bariatric surgery status
CPT/HCPCS: 96361; 96372; 96374; J1642; J1885; J2405; J3420; J7120

== ENCOUNTER 2023-06-27 00:30 | Day surgery (SDC) | payer OTHER ==
[2023-06-25 09:15] VITALS: BP 134/92
[2023-06-27 09:10] VITALS: BP 135/89
== END 2023-06-27 10:20 | disposition home or self-care (01) ==
LOC: ATC 00:30
DX: E86.0 Dehydration (principal); K90.9 Intestinal malabsorption, unspecified; Z98.84 Bariatric surgery status; E46 Unspecified protein-calorie malnutrition; R63.8 Other symptoms and signs concerning food and fluid intake; K21.9 Gastro-esophageal reflux disease without esophagitis; E56.9 Vitamin deficiency, unspecified; R53.83 Other fatigue; R11.0 Nausea
CPT/HCPCS: 96361; 96374; J1642; J2405; J7120

== ENCOUNTER 2023-06-30 00:51 | Day surgery (SDC) | payer OTHER ==
[2023-06-30 09:45] VITALS: BP 126/87
== END 2023-06-30 10:45 | disposition home or self-care (01) ==
LOC: ATC 00:51
DX: K90.9 Intestinal malabsorption, unspecified (principal); Z98.84 Bariatric surgery status; R63.8 Other symptoms and signs concerning food and fluid intake; E86.0 Dehydration; K21.9 Gastro-esophageal reflux disease without esophagitis; E56.9 Vitamin deficiency, unspecified; R53.83 Other fatigue; R11.0 Nausea
CPT/HCPCS: 96361; 96374; J1642; J2405; J7120

== ENCOUNTER 2023-07-04 03:03 | Day surgery (SDC) | payer OTHER ==
[2023-07-04 09:07] VITALS: BP 128/88
== END 2023-07-04 10:25 | disposition home or self-care (01) ==
LOC: ATC 03:03
DX: E86.0 Dehydration (principal); E46 Unspecified protein-calorie malnutrition; R63.8 Other symptoms and signs concerning food and fluid intake; K21.9 Gastro-esophageal reflux disease without esophagitis; E56.9 Vitamin deficiency, unspecified; R53.83 Other fatigue; E78.00 Pure hypercholesterolemia, unspecified; R63.4 Abnormal weight loss; R11.0 Nausea; Z98.84 Bariatric surgery status
CPT/HCPCS: 96372; 96374; J1642; J1885; J2405; J7120

== ENCOUNTER 2023-07-06 00:08 | Day surgery (SDC) | payer OTHER ==
[2023-07-06 09:00] VITALS: BP 128/81
== END 2023-07-06 10:12 | disposition home or self-care (01) ==
LOC: ATC 00:08
DX: K90.9 Intestinal malabsorption, unspecified (principal); Z98.84 Bariatric surgery status; R63.8 Other symptoms and signs concerning food and fluid intake; E86.0 Dehydration; K21.9 Gastro-esophageal reflux disease without esophagitis; E56.9 Vitamin deficiency, unspecified; R53.83 Other fatigue; R11.0 Nausea
CPT/HCPCS: 96361; 96374; J1642; J2405; J7120

== ENCOUNTER 2023-07-09 05:24 | Day surgery (SDC) | payer OTHER ==
[2023-07-09 09:30] VITALS: BP 124/81
== END 2023-07-09 10:50 | disposition home or self-care (01) ==
LOC: ATC 05:24
DX: K90.9 Intestinal malabsorption, unspecified (principal); Z98.84 Bariatric surgery status; R63.8 Other symptoms and signs concerning food and fluid intake; E86.0 Dehydration; K21.9 Gastro-esophageal reflux disease without esophagitis; E56.9 Vitamin deficiency, unspecified; R53.83 Other fatigue; R11.0 Nausea
CPT/HCPCS: 96360; J1642; J7120

== ENCOUNTER 2023-07-11 05:04 | Day surgery (SDC) | payer OTHER ==
[2023-07-11 09:13] VITALS: BP 130/83
== END 2023-07-11 10:20 | disposition home or self-care (01) ==
LOC: ATC 05:04
DX: E86.0 Dehydration (principal); R63.4 Abnormal weight loss; E46 Unspecified protein-calorie malnutrition; R63.8 Other symptoms and signs concerning food and fluid intake; K21.9 Gastro-esophageal reflux disease without esophagitis; E56.9 Vitamin deficiency, unspecified; R53.83 Other fatigue; R11.0 Nausea; Z98.84 Bariatric surgery status
CPT/HCPCS: 96361; 96372; 96374; J1642; J1885; J2405; J7120

== ENCOUNTER 2023-07-14 03:10 | Day surgery (SDC) | payer OTHER ==
[2023-07-14 10:13] VITALS: BP 135/84
[2023-07-15 20:11] LABS: HIV AB/P24 AG SCREEN Non Reactive (Non Reactive)
[2023-07-17 16:11] LABS: QUANTIFERON MITOGEN VALUE >10.00 IU/mL (.); QUANTIFERON-TB GOLD PLUS Negative (Negative)
== END 2023-07-14 11:18 | disposition home or self-care (01) ==
LOC: ATC 03:10
PROVIDERS: Internal Medicine
DX: E86.0 Dehydration (principal); E46 Unspecified protein-calorie malnutrition; R63.8 Other symptoms and signs concerning food and fluid intake; K21.9 Gastro-esophageal reflux disease without esophagitis; E56.9 Vitamin deficiency, unspecified; R53.83 Other fatigue; R11.0 Nausea; E78.00 Pure hypercholesterolemia, unspecified; Z98.84 Bariatric surgery status
CPT/HCPCS: 86038; 86480; 86592; 87389; 96360; J1642; J7120

== ENCOUNTER 2023-07-16 02:25 | Day surgery (SDC) | payer OTHER ==
[2023-07-16 09:27] VITALS: BP 142/86
== END 2023-07-16 10:41 | disposition home or self-care (01) ==
LOC: ATC 02:25
DX: K90.9 Intestinal malabsorption, unspecified (principal); Z98.84 Bariatric surgery status; R63.8 Other symptoms and signs concerning food and fluid intake; E86.0 Dehydration; K21.9 Gastro-esophageal reflux disease without esophagitis; E56.9 Vitamin deficiency, unspecified; R53.83 Other fatigue; R11.0 Nausea
CPT/HCPCS: 96361; 96374; J1642; J2405; J7120

== ENCOUNTER 2023-07-18 02:50 | Day surgery (SDC) | payer OTHER ==
[2023-07-18 09:01] VITALS: BP 143/83
== END 2023-07-18 23:43 | disposition home or self-care (01) ==
LOC: ATC 02:50
DX: K90.9 Intestinal malabsorption, unspecified (principal); Z98.84 Bariatric surgery status; R63.8 Other symptoms and signs concerning food and fluid intake; E86.0 Dehydration; K21.9 Gastro-esophageal reflux disease without esophagitis; E56.9 Vitamin deficiency, unspecified; R53.83 Other fatigue; R11.0 Nausea
CPT/HCPCS: 96361; 96372; 96374; J1642; J1885; J2405; J7120

== ENCOUNTER 2023-07-22 14:47 | Day surgery (SDC) | payer OTHER ==
--- NOTE | 2023-07-21 09:06 | NUR ---
PT CALLED TO CANCEL HER APPOINTMENT IN THE [facility] TODAY.
[2023-07-22 15:50] VITALS: BP 107/68
[2023-07-22 16:23] LABS: BASOPHILS ABSOLUTE AUTO 0.03 K/mm3 (0.00-0.23); BASOPHILS PERCENT AUTO 1 % (0-2); EOSINOPHILS ABSOLUTE AUTO 0.05 K/mm3 (0.00-0.68); EOSINOPHILS PERCENT AUTO 1 % (0-6); Hematocrit 36.5 % (33.0-51.0); Hemoglobin 11.9 g/dL (11.5-16.0); IMMATURE GRAN ABSOLUTE AUTO 0.02 K/mm3 (0.00-0.10); IMMATURE GRAN PERCENT AUTO 0 % (0-1); LYMPHOCYTES ABSOLUTE AUTO 1.42 K/mm3 (0.84-5.20); LYMPHOCYTES PERCENT AUTO 24 % (21-46); MONOCYTES ABSOLUTE AUTO 0.35 K/mm3 (0.16-1.47); MONOCYTES PERCENT AUTO 6 % (4-13); Mean Corpuscular HGB Conc 32.6 g/dL (31.5-36.5); Mean Corpuscular Volume 89 fL (80-100); NEUTROPHILS ABSOLUTE AUTO 3.98 K/mm3 (1.96-9.15); NEUTROPHILS PERCENT AUTO 68 % (41-73); Platelet Count 195 K/mm3 (150-400); RDW Coefficient Variation 13.6 % (11.7-14.2); Red Blood Cell Count 4.11 M/mm3 (3.80-5.20); White Blood Cell Count 5.85 K/mm3 (4.00-11.30)
[2023-07-22 16:42] LABS: Anion Gap 8 mmol/L (6-16); Blood Urea Nitrogen 15 mg/dL (8-24); Bun/Creatinine Ratio 17.3 (12.0-20.0); CO2, Blood 24 mmol/L (21-32); Calcium, Blood 7.9 mg/dL (8.5-10.1); Chloride, Blood 103 mmol/L (98-108); Creatinine, Blood 0.87 mg/dL (0.40-1.00); Glomerular Filtration Rate 77 (60-); Glucose, Blood 213 mg/dL (70-99); Phosphorus, Blood 2.9 mg/dL (2.5-4.9); Potassium, Blood 3.7 mmol/L (3.5-5.5); Sodium, Blood 135 mmol/L (136-145)
== END 2023-07-22 16:47 | disposition home or self-care (01) ==
LOC: ATC 14:47
PROVIDERS: Internal Medicine
DX: E86.0 Dehydration (principal); E46 Unspecified protein-calorie malnutrition; R63.8 Other symptoms and signs concerning food and fluid intake; K21.9 Gastro-esophageal reflux disease without esophagitis; E56.9 Vitamin deficiency, unspecified; R53.83 Other fatigue; R11.0 Nausea; Z98.84 Bariatric surgery status; R53.1 Weakness
CPT/HCPCS: 0202U; 80069; 83735; 85025; 96360; J1642; J7120

== ENCOUNTER → 2023-07-22 | Outpatient (CLI) | payer OTHER ==
[2023-07-22 15:17] LABS: Adenovirus Not Detected (NOT DETECT); Bordetella pertussis Not Detected (NOT DETECT); Chlamydophila pneumoniae Not Detected (NOT DETECT); Coronavirus 229E Not Detected (NOT DETECT); Coronavirus HKU1 Not Detected (NOT DETECT); Coronavirus NL63 Not Detected (NOT DETECT); Coronavirus OC43 Not Detected (NOT DETECT); Human Metapneumovirus Not Detected (NOT DETECT); Human Rhinovirus/Enterovirus Not Detected (NOT DETECT); Influenza A/2009-H1 Not Detected (NOT DETECT); Influenza A/H1 Not Detected (NOT DETECT); Influenza A/H3 Not Detected (NOT DETECT); Influenza B Not Detected (NOT DETECT); Mycoplasma pneumoniae Not Detected (NOT DETECT); Parainfluenza Virus 1 Not Detected (NOT DETECT); Parainfluenza Virus 2 Not Detected (NOT DETECT); Parainfluenza Virus 3 Not Detected (NOT DETECT); Parainfluenza Virus 4 Not Detected (NOT DETECT); Respiratory Syncytial Virus Not Detected (NOT DETECT); SARS-Cov-2 (COVID-19), BioFire Not Detected (NOT DETECT)
== END | disposition home or self-care (01) ==
LOC: LAB SHORT 10:14 → LAB 10:14
PROVIDERS: Internal Medicine
DX: R53.1 Weakness (principal)
CPT/HCPCS: 0202U

== ENCOUNTER 2023-07-23 04:53 | Day surgery (SDC) | payer OTHER ==
[2023-07-23 09:06] VITALS: BP 113/76
== END 2023-07-23 10:15 | disposition home or self-care (01) ==
LOC: ATC 04:53
DX: K90.9 Intestinal malabsorption, unspecified (principal); Z98.84 Bariatric surgery status; R63.8 Other symptoms and signs concerning food and fluid intake; E86.0 Dehydration; K21.9 Gastro-esophageal reflux disease without esophagitis; E56.9 Vitamin deficiency, unspecified; R53.83 Other fatigue; R11.0 Nausea; G47.33 Obstructive sleep apnea (adult) (pediatric); E78.2 Mixed hyperlipidemia; Z79.899 Other long term (current) drug therapy
CPT/HCPCS: 96361; 96374; J1642; J2405; J7120

== ENCOUNTER 2023-07-25 04:45 | Day surgery (SDC) | payer OTHER ==
[2023-07-25 08:32] VITALS: BP 131/88
== END 2023-07-25 09:38 | disposition home or self-care (01) ==
LOC: ATC 04:45
DX: K90.9 Intestinal malabsorption, unspecified (principal); Z98.84 Bariatric surgery status; R63.8 Other symptoms and signs concerning food and fluid intake; E86.0 Dehydration; K21.9 Gastro-esophageal reflux disease without esophagitis; E56.9 Vitamin deficiency, unspecified; R53.83 Other fatigue; R11.0 Nausea
CPT/HCPCS: 96361; 96372; 96374; J1642; J1885; J2405; J7120

== ENCOUNTER 2023-07-26 03:26 | Day surgery (SDC) | payer OTHER ==
[2023-07-26 10:04] VITALS: BP 139/94
== END 2023-07-26 11:19 | disposition home or self-care (01) ==
LOC: ATC 03:26
DX: K90.9 Intestinal malabsorption, unspecified (principal); R63.8 Other symptoms and signs concerning food and fluid intake; E86.0 Dehydration; K21.9 Gastro-esophageal reflux disease without esophagitis; E56.9 Vitamin deficiency, unspecified; R53.83 Other fatigue; R11.0 Nausea; Z98.84 Bariatric surgery status; G47.33 Obstructive sleep apnea (adult) (pediatric); E78.2 Mixed hyperlipidemia; Z79.899 Other long term (current) drug therapy
CPT/HCPCS: 96360; 96372; J1642; J3420; J7120

== ENCOUNTER 2023-07-28 08:37 | Day surgery (SDC) | payer OTHER ==
[2023-07-28 09:00] VITALS: BP 143/96
== END 2023-07-28 10:17 | disposition home or self-care (01) ==
LOC: ATC 08:37
DX: K90.9 Intestinal malabsorption, unspecified (principal); Z98.84 Bariatric surgery status; E86.0 Dehydration; R53.83 Other fatigue; E56.9 Vitamin deficiency, unspecified; K21.9 Gastro-esophageal reflux disease without esophagitis
CPT/HCPCS: 96361; 96374; J1642; J2405; J7120

== ENCOUNTER 2023-07-30 01:51 | Day surgery (SDC) | payer OTHER ==
[2023-07-30 08:30] VITALS: BP 143/100
== END 2023-07-30 09:43 | disposition home or self-care (01) ==
LOC: ATC 01:51
DX: K90.9 Intestinal malabsorption, unspecified (principal); Z98.84 Bariatric surgery status; R63.8 Other symptoms and signs concerning food and fluid intake; E86.0 Dehydration; K21.9 Gastro-esophageal reflux disease without esophagitis; E56.9 Vitamin deficiency, unspecified; R53.83 Other fatigue; R11.0 Nausea; G47.33 Obstructive sleep apnea (adult) (pediatric); E78.2 Mixed hyperlipidemia; Z79.899 Other long term (current) drug therapy
CPT/HCPCS: 96361; 96374; J1642; J2405; J7120

== ENCOUNTER 2023-08-01 01:46 | Day surgery (SDC) | payer OTHER ==
[2023-08-01 08:33] VITALS: BP 161/93
== END 2023-08-01 10:00 | disposition home or self-care (01) ==
LOC: ATC 01:46
DX: E86.0 Dehydration (principal); E46 Unspecified protein-calorie malnutrition; R63.8 Other symptoms and signs concerning food and fluid intake; K21.9 Gastro-esophageal reflux disease without esophagitis; E56.9 Vitamin deficiency, unspecified; R53.83 Other fatigue; R11.0 Nausea; Z98.84 Bariatric surgery status; G43.909 Migraine, unspecified, not intractable, without status migrainosus
CPT/HCPCS: 96360; 96372; J1642; J1885; J7120

== ENCOUNTER 2023-08-04 00:32 | Day surgery (SDC) | payer OTHER ==
[2023-08-04 08:43] VITALS: BP 136/91
== END 2023-08-04 09:56 | disposition home or self-care (01) ==
LOC: ATC 00:32
DX: K90.9 Intestinal malabsorption, unspecified (principal); Z98.84 Bariatric surgery status; R63.8 Other symptoms and signs concerning food and fluid intake; E86.0 Dehydration; K21.9 Gastro-esophageal reflux disease without esophagitis; E56.9 Vitamin deficiency, unspecified; R53.83 Other fatigue; R11.0 Nausea
CPT/HCPCS: 96360; J1642; J7120

== ENCOUNTER 2023-08-06 06:03 | Day surgery (SDC) | payer OTHER ==
[2023-08-06 14:27] VITALS: BP 135/85
== END 2023-08-06 15:17 | disposition home or self-care (01) ==
LOC: ATC 06:03
DX: E86.0 Dehydration (principal); E46 Unspecified protein-calorie malnutrition; R63.8 Other symptoms and signs concerning food and fluid intake; K21.9 Gastro-esophageal reflux disease without esophagitis; E56.9 Vitamin deficiency, unspecified; R53.83 Other fatigue; G43.909 Migraine, unspecified, not intractable, without status migrainosus; G47.33 Obstructive sleep apnea (adult) (pediatric); E78.2 Mixed hyperlipidemia; R63.4 Abnormal weight loss; Z98.84 Bariatric surgery status; Z79.899 Other long term (current) drug therapy
CPT/HCPCS: 96361; 96374; J1642; J2405; J7120

== ENCOUNTER 2023-08-08 02:32 | Day surgery (SDC) | payer OTHER ==
[2023-08-08 08:29] VITALS: BP 133/83
== END 2023-08-08 09:38 | disposition home or self-care (01) ==
LOC: ATC 02:32
DX: E86.0 Dehydration (principal); E46 Unspecified protein-calorie malnutrition; R63.8 Other symptoms and signs concerning food and fluid intake; K21.9 Gastro-esophageal reflux disease without esophagitis; E56.9 Vitamin deficiency, unspecified; G43.909 Migraine, unspecified, not intractable, without status migrainosus; Z98.84 Bariatric surgery status
CPT/HCPCS: 96361; 96372; 96374; J1642; J1885; J2405; J7120

== ENCOUNTER 2023-08-11 02:42 | Day surgery (SDC) | payer OTHER ==
[2023-08-11 08:36] VITALS: BP 143/85
== END 2023-08-11 09:47 | disposition home or self-care (01) ==
LOC: ATC 02:42
DX: E86.0 Dehydration (principal); E46 Unspecified protein-calorie malnutrition; R63.8 Other symptoms and signs concerning food and fluid intake; K21.9 Gastro-esophageal reflux disease without esophagitis; E56.9 Vitamin deficiency, unspecified; Z98.84 Bariatric surgery status; E78.2 Mixed hyperlipidemia
CPT/HCPCS: 96361; 96374; J1642; J2405; J7120

== ENCOUNTER 2023-08-13 02:18 | Day surgery (SDC) | payer OTHER ==
[2023-08-13 08:35] VITALS: BP 140/95
== END 2023-08-13 09:55 | disposition home or self-care (01) ==
LOC: ATC 02:18
DX: K90.9 Intestinal malabsorption, unspecified (principal); Z98.84 Bariatric surgery status; R63.8 Other symptoms and signs concerning food and fluid intake; E86.0 Dehydration; K21.9 Gastro-esophageal reflux disease without esophagitis; E56.9 Vitamin deficiency, unspecified; R53.83 Other fatigue; R11.0 Nausea
CPT/HCPCS: 96361; 96374; J1642; J2405; J7120

== ENCOUNTER 2023-08-15 08:00 | Day surgery (SDC) | payer OTHER ==
[2023-08-15 08:14] VITALS: BP 151/95
== END 2023-08-15 09:23 | disposition home or self-care (01) ==
LOC: ATC 08:00
DX: E86.0 Dehydration (principal); E46 Unspecified protein-calorie malnutrition; R63.8 Other symptoms and signs concerning food and fluid intake; K21.9 Gastro-esophageal reflux disease without esophagitis; E56.9 Vitamin deficiency, unspecified; R53.83 Other fatigue; R11.0 Nausea; Z98.84 Bariatric surgery status
CPT/HCPCS: 96361; 96372; 96374; J1642; J1885; J2405; J7120

== ENCOUNTER 2023-08-18 02:56 | Day surgery (SDC) | payer OTHER ==
[2023-08-18 09:05] VITALS: BP 141/97
== END 2023-08-18 10:26 | disposition home or self-care (01) ==
LOC: ATC 02:56
DX: E86.0 Dehydration (principal); E46 Unspecified protein-calorie malnutrition; R63.8 Other symptoms and signs concerning food and fluid intake; K21.9 Gastro-esophageal reflux disease without esophagitis; E56.9 Vitamin deficiency, unspecified; Z98.84 Bariatric surgery status; G47.33 Obstructive sleep apnea (adult) (pediatric); Z99.89 Dependence on other enabling machines and devices
CPT/HCPCS: 96361; 96374; J1642; J2405; J7120

== ENCOUNTER 2023-08-20 02:04 | Day surgery (SDC) | payer OTHER ==
[2023-08-20 08:35] VITALS: BP 145/90
== END 2023-08-20 09:45 | disposition home or self-care (01) ==
LOC: ATC 02:04
DX: K90.9 Intestinal malabsorption, unspecified (principal); Z98.84 Bariatric surgery status; R63.8 Other symptoms and signs concerning food and fluid intake; E86.0 Dehydration; K21.9 Gastro-esophageal reflux disease without esophagitis; E56.9 Vitamin deficiency, unspecified; R53.83 Other fatigue; R11.0 Nausea
CPT/HCPCS: 96361; 96374; J1642; J2405; J7120

== ENCOUNTER 2023-08-22 04:00 | Day surgery (SDC) | payer OTHER ==
[2023-08-22 07:48] VITALS: BP 105/77
== END 2023-08-22 09:04 | disposition home or self-care (01) ==
LOC: ATC 04:00
DX: K90.9 Intestinal malabsorption, unspecified (principal); Z98.84 Bariatric surgery status; R63.8 Other symptoms and signs concerning food and fluid intake; E86.0 Dehydration; K21.9 Gastro-esophageal reflux disease without esophagitis; E56.9 Vitamin deficiency, unspecified; R53.83 Other fatigue; R11.0 Nausea; Z88.2 Allergy status to sulfonamides; Z88.1 Allergy status to other antibiotic agents
CPT/HCPCS: 96361; 96372; 96374; J1642; J1885; J2405; J3420; J7120

== ENCOUNTER 2023-08-24 04:11 | Day surgery (SDC) | payer OTHER ==
[2023-08-24 08:59] VITALS: BP 134/98
== END 2023-08-24 10:16 | disposition home or self-care (01) ==
LOC: ATC 04:11
DX: E86.0 Dehydration (principal); E46 Unspecified protein-calorie malnutrition; R63.8 Other symptoms and signs concerning food and fluid intake; K21.9 Gastro-esophageal reflux disease without esophagitis; E56.9 Vitamin deficiency, unspecified; G43.909 Migraine, unspecified, not intractable, without status migrainosus; E78.2 Mixed hyperlipidemia; Z98.84 Bariatric surgery status
CPT/HCPCS: 96361; 96374; J1642; J2405; J7120

== ENCOUNTER 2023-08-27 02:03 | Day surgery (SDC) | payer OTHER ==
[2023-08-27 10:06] VITALS: BP 105/68
[2023-08-27] MEDS ORDERED: METPRE4 (10:09)
== END 2023-08-27 11:09 | disposition home or self-care (01) ==
LOC: ATC 02:03
DX: K90.9 Intestinal malabsorption, unspecified (principal); Z98.84 Bariatric surgery status; R63.8 Other symptoms and signs concerning food and fluid intake; E86.0 Dehydration; E56.9 Vitamin deficiency, unspecified; R53.83 Other fatigue; R11.0 Nausea; K21.9 Gastro-esophageal reflux disease without esophagitis; G47.33 Obstructive sleep apnea (adult) (pediatric); E78.2 Mixed hyperlipidemia; Z88.0 Allergy status to penicillin; Z88.1 Allergy status to other antibiotic agents; Z88.2 Allergy status to sulfonamides; Z88.8 Allergy status to other drugs, medicaments and biological substances; Z79.899 Other long term (current) drug therapy
CPT/HCPCS: 96361; 96374; J1642; J2405; J7120

== ENCOUNTER 2023-08-29 03:11 | Day surgery (SDC) | payer OTHER ==
[2023-08-29 07:56] VITALS: BP 131/96
== END 2023-08-29 09:05 | disposition home or self-care (01) ==
LOC: ATC 03:11
DX: E86.0 Dehydration (principal); E46 Unspecified protein-calorie malnutrition; K21.9 Gastro-esophageal reflux disease without esophagitis; E56.9 Vitamin deficiency, unspecified; Z88.8 Allergy status to other drugs, medicaments and biological substances; Z88.2 Allergy status to sulfonamides; Z88.1 Allergy status to other antibiotic agents; Z98.84 Bariatric surgery status; Z79.899 Other long term (current) drug therapy
CPT/HCPCS: 96361; 96374; J1642; J2405; J7120

== ENCOUNTER 2023-09-01 03:35 | Day surgery (SDC) | payer OTHER ==
[2023-09-01 09:07] VITALS: BP 145/93
== END 2023-09-01 10:22 | disposition home or self-care (01) ==
LOC: ATC 03:35
DX: K90.9 Intestinal malabsorption, unspecified (principal); Z98.84 Bariatric surgery status; R63.8 Other symptoms and signs concerning food and fluid intake; E86.0 Dehydration; K21.9 Gastro-esophageal reflux disease without esophagitis; E56.9 Vitamin deficiency, unspecified; R53.83 Other fatigue; R11.0 Nausea
CPT/HCPCS: 96361; 96374; J2405; J7120

== ENCOUNTER 2023-09-03 03:24 | Day surgery (SDC) | payer OTHER ==
[2023-09-03 11:12] VITALS: BP 143/95
== END 2023-09-03 12:10 | disposition home or self-care (01) ==
LOC: ATC 03:24
DX: K90.9 Intestinal malabsorption, unspecified (principal); Z98.84 Bariatric surgery status; R63.8 Other symptoms and signs concerning food and fluid intake; E86.0 Dehydration; K21.9 Gastro-esophageal reflux disease without esophagitis; E56.9 Vitamin deficiency, unspecified; R53.83 Other fatigue; R11.0 Nausea
CPT/HCPCS: 96361; 96374; J1642; J2405; J7120

== ENCOUNTER 2023-09-05 03:54 | Day surgery (SDC) | payer OTHER ==
[2023-09-05 10:32] VITALS: BP 140/91
== END 2023-09-05 11:43 | disposition home or self-care (01) ==
LOC: ATC 03:54
DX: E86.0 Dehydration (principal); E46 Unspecified protein-calorie malnutrition; R63.8 Other symptoms and signs concerning food and fluid intake; K21.9 Gastro-esophageal reflux disease without esophagitis; E56.9 Vitamin deficiency, unspecified; E78.2 Mixed hyperlipidemia; Z98.84 Bariatric surgery status; Z88.1 Allergy status to other antibiotic agents; Z88.2 Allergy status to sulfonamides; Z88.8 Allergy status to other drugs, medicaments and biological substances
CPT/HCPCS: 96361; 96374; J1642; J2405; J7120

== ENCOUNTER 2023-09-07 02:43 | Day surgery (SDC) | payer OTHER ==
[2023-09-07 08:28] VITALS: BP 140/91
== END 2023-09-07 09:18 | disposition home or self-care (01) ==
LOC: ATC 02:43
DX: K90.9 Intestinal malabsorption, unspecified (principal); Z98.84 Bariatric surgery status; R63.8 Other symptoms and signs concerning food and fluid intake; E86.0 Dehydration; K21.9 Gastro-esophageal reflux disease without esophagitis; E56.9 Vitamin deficiency, unspecified; R53.83 Other fatigue; R11.0 Nausea
CPT/HCPCS: 96361; 96374; J1642; J2405; J7120

== ENCOUNTER 2023-09-09 00:44 | Day surgery (SDC) | payer OTHER ==
[2023-09-09 08:27] VITALS: BP 146/97
== END 2023-09-09 09:40 | disposition home or self-care (01) ==
LOC: ATC 00:44
DX: E86.0 Dehydration (principal); E46 Unspecified protein-calorie malnutrition; R63.8 Other symptoms and signs concerning food and fluid intake; K21.9 Gastro-esophageal reflux disease without esophagitis; E56.9 Vitamin deficiency, unspecified; F32.9 Major depressive disorder, single episode, unspecified; Z98.84 Bariatric surgery status; Z79.899 Other long term (current) drug therapy
CPT/HCPCS: 96361; 96374; J1642; J2405; J7120

== ENCOUNTER → 2023-09-11 | Outpatient (CLI) | payer OTHER ==
[~2023-09-11] MED LIST changes: +PRED5 PO
[2023-09-11 16:47] LABS: Albumin, Blood 2.9 g/dL (3.4-5.0); Anion Gap 3 mmol/L (6-16); Blood Urea Nitrogen 13 mg/dL (8-24); Bun/Creatinine Ratio 20.6 (12.0-20.0); CO2, Blood 30 mmol/L (21-32); Calcium, Blood 7.8 mg/dL (8.5-10.1); Chloride, Blood 107 mmol/L (98-108); Creatinine, Blood 0.63 mg/dL (0.40-1.00); Glomerular Filtration Rate 101 (60-); Glucose, Blood 95 mg/dL (70-99); Phosphorus, Blood 3.7 mg/dL (2.5-4.9); Potassium, Blood 3.7 mmol/L (3.5-5.5); Sodium, Blood 140 mmol/L (136-145); Thyroid Stimulating Hormone 0.488 uIU/mL (0.360-4.800)
== END ==
LOC: LAB SHORT 13:05 → LAB 13:05
PROVIDERS: Internal Medicine
DX: M79.10 Myalgia, unspecified site (principal); E55.9 Vitamin D deficiency, unspecified; G90.A Postural orthostatic tachycardia syndrome [POTS]
CPT/HCPCS: 80069; 82306; 82533; 82550; 84443; 85651; 86140

== ENCOUNTER 2023-09-12 03:17 | Day surgery (SDC) | payer OTHER ==
[~2023-09-12 03:17] MED LIST changes: -PRED5 PO
[2023-09-12 09:57] VITALS: BP 141/84
== END 2023-09-12 10:59 | disposition home or self-care (01) ==
LOC: ATC 03:17
DX: K90.9 Intestinal malabsorption, unspecified (principal); Z98.84 Bariatric surgery status; R63.8 Other symptoms and signs concerning food and fluid intake; E86.0 Dehydration; K21.9 Gastro-esophageal reflux disease without esophagitis; E56.9 Vitamin deficiency, unspecified; R53.83 Other fatigue; R11.0 Nausea
CPT/HCPCS: 96361; 96372; 96374; J1642; J1885; J2405; J7120

== ENCOUNTER 2023-09-15 01:10 | Day surgery (SDC) | payer OTHER ==
[2023-09-15 08:53] VITALS: BP 128/78
[2023-09-15] MEDS ORDERED: PRED5 PO (09:24)
== END 2023-09-15 10:09 | disposition home or self-care (01) ==
LOC: ATC 01:10
DX: K90.9 Intestinal malabsorption, unspecified (principal); Z98.84 Bariatric surgery status; R63.8 Other symptoms and signs concerning food and fluid intake; E86.0 Dehydration; K21.9 Gastro-esophageal reflux disease without esophagitis; E56.9 Vitamin deficiency, unspecified; R53.83 Other fatigue; R11.0 Nausea; E78.2 Mixed hyperlipidemia; G47.33 Obstructive sleep apnea (adult) (pediatric); Z88.1 Allergy status to other antibiotic agents; Z88.2 Allergy status to sulfonamides; Z88.8 Allergy status to other drugs, medicaments and biological substances; Z79.899 Other long term (current) drug therapy
CPT/HCPCS: 96361; 96374; J1642; J2405; J7120

== ENCOUNTER 2023-09-17 04:47 | Day surgery (SDC) | payer OTHER ==
[~2023-09-17 04:47] MED LIST changes: +PRED5 PO
[2023-09-17 09:02] VITALS: BP 128/81
== END 2023-09-17 10:16 | disposition home or self-care (01) ==
LOC: ATC 04:47
DX: K90.9 Intestinal malabsorption, unspecified (principal); Z98.84 Bariatric surgery status; R63.8 Other symptoms and signs concerning food and fluid intake; E86.0 Dehydration; K21.9 Gastro-esophageal reflux disease without esophagitis; E56.9 Vitamin deficiency, unspecified; R53.83 Other fatigue; R11.0 Nausea
CPT/HCPCS: 96361; 96374; J1642; J2405; J7120

== ENCOUNTER 2023-09-19 01:01 | Day surgery (SDC) | payer OTHER ==
[2023-09-19 09:00] VITALS: BP 102/77
== END 2023-09-19 10:09 | disposition home or self-care (01) ==
LOC: ATC 01:01
DX: E86.0 Dehydration (principal); E46 Unspecified protein-calorie malnutrition; R63.8 Other symptoms and signs concerning food and fluid intake; K21.9 Gastro-esophageal reflux disease without esophagitis; E56.9 Vitamin deficiency, unspecified; R53.83 Other fatigue; R11.0 Nausea; Z98.84 Bariatric surgery status; Z79.899 Other long term (current) drug therapy; E78.00 Pure hypercholesterolemia, unspecified
CPT/HCPCS: 96361; 96372; 96374; J1642; J1885; J2405; J7120

== ENCOUNTER 2023-09-23 02:51 | Day surgery (SDC) | payer OTHER ==
[2023-09-23 08:34] VITALS: BP 139/81
[2023-09-23 08:43] LABS: BASOPHILS ABSOLUTE AUTO 0.04 K/mm3 (0.00-0.23); BASOPHILS PERCENT AUTO 1 % (0-2); EOSINOPHILS ABSOLUTE AUTO 0.22 K/mm3 (0.00-0.68); EOSINOPHILS PERCENT AUTO 3 % (0-6); Hematocrit 35.1 % (33.0-51.0); Hemoglobin 11.3 g/dL (11.5-16.0); IMMATURE GRAN ABSOLUTE AUTO 0.05 K/mm3 (0.00-0.10); IMMATURE GRAN PERCENT AUTO 1 % (0-1); LYMPHOCYTES ABSOLUTE AUTO 2.37 K/mm3 (0.84-5.20); LYMPHOCYTES PERCENT AUTO 27 % (21-46); MONOCYTES ABSOLUTE AUTO 0.55 K/mm3 (0.16-1.47); MONOCYTES PERCENT AUTO 6 % (4-13); Mean Corpuscular HGB 29.2 pg (26.0-34.0); Mean Corpuscular HGB Conc 32.2 g/dL (31.5-36.5); Mean Corpuscular Volume 91 fL (80-100); Mean Platelet Volume 10.6 fL (9.1-12.4); NEUTROPHILS ABSOLUTE AUTO 5.51 K/mm3 (1.96-9.15); NEUTROPHILS PERCENT AUTO 63 % (41-73); Platelet Count 282 K/mm3 (150-400); RDW Coefficient Variation 14.5 % (11.7-14.2); RDW Standard Deviation 48.3 fL (35.1-46.3); Red Blood Cell Count 3.87 M/mm3 (3.80-5.20); White Blood Cell Count 8.74 K/mm3 (4.00-11.30)
[2023-09-23 09:10] LABS: C-REACTIVE PROTEIN, EXT RANGE <0.290 mg/dL (0.000-0.300)
[2023-09-23 09:19] LABS: Alanine Aminotransfer (ALT/SGP 32 U/L (12-78); Albumin, Blood 2.7 g/dL (3.4-5.0); Alk Phos 75 U/L (50-136); Aspartate Aminotrans (AST/SGOT 18 U/L (12-37); Bilirubin, Direct <0.1 mg/dL (0.0-0.3); Bilirubin, Indirect Unable to Calculate mg/dL (0.1-0.7); Bilirubin, Total 0.2 mg/dL (0.1-1.0); Globulin, Blood 2.8 g/dL (2.2-4.0); Total Protein, Blood 5.5 g/dL (6.4-8.2)
== END 2023-09-23 09:35 | disposition home or self-care (01) ==
LOC: ATC 02:51
PROVIDERS: Internal Medicine
DX: E86.0 Dehydration (principal); E46 Unspecified protein-calorie malnutrition; R63.8 Other symptoms and signs concerning food and fluid intake; K21.9 Gastro-esophageal reflux disease without esophagitis; E56.9 Vitamin deficiency, unspecified; R53.83 Other fatigue; R11.0 Nausea; F32.A Depression, unspecified; G43.909 Migraine, unspecified, not intractable, without status migrainosus; G47.33 Obstructive sleep apnea (adult) (pediatric); E78.2 Mixed hyperlipidemia; Z79.899 Other long term (current) drug therapy; Z98.84 Bariatric surgery status; Z99.89 Dependence on other enabling machines and devices
CPT/HCPCS: 36415; 80076; 85025; 85651; 86140; 87040; 96361; 96372; 96374; J1642; J2405; J3420; J7120

== ENCOUNTER 2023-09-25 05:23 | Day surgery (SDC) | payer OTHER ==
[2023-09-25 07:56] VITALS: BP 139/86
== END 2023-09-25 09:05 | disposition home or self-care (01) ==
LOC: ATC 05:23
DX: K90.9 Intestinal malabsorption, unspecified (principal); Z98.84 Bariatric surgery status; R63.8 Other symptoms and signs concerning food and fluid intake; E86.0 Dehydration; K21.9 Gastro-esophageal reflux disease without esophagitis; E56.9 Vitamin deficiency, unspecified; R53.83 Other fatigue; R11.0 Nausea; G47.33 Obstructive sleep apnea (adult) (pediatric); E78.2 Mixed hyperlipidemia; Z79.899 Other long term (current) drug therapy
CPT/HCPCS: 96361; 96374; J1642; J2405; J7120

== ENCOUNTER 2023-09-27 03:05 | Day surgery (SDC) | payer OTHER ==
[2023-09-27 09:45] VITALS: BP 131/84
== END 2023-09-27 10:50 | disposition home or self-care (01) ==
LOC: ATC 03:05
DX: K90.9 Intestinal malabsorption, unspecified (principal); Z98.84 Bariatric surgery status; R63.8 Other symptoms and signs concerning food and fluid intake; E86.0 Dehydration; K21.9 Gastro-esophageal reflux disease without esophagitis; E56.9 Vitamin deficiency, unspecified; R53.83 Other fatigue; R11.0 Nausea
CPT/HCPCS: 96360; 96374; J1642; J2405; J7120

== ENCOUNTER 2023-09-29 04:28 | Day surgery (SDC) | payer OTHER ==
[2023-09-29 08:11] VITALS: BP 125/79
== END 2023-09-29 09:28 | disposition home or self-care (01) ==
LOC: ATC 04:28
DX: E86.0 Dehydration (principal); E46 Unspecified protein-calorie malnutrition; R63.8 Other symptoms and signs concerning food and fluid intake; K21.9 Gastro-esophageal reflux disease without esophagitis; E56.9 Vitamin deficiency, unspecified; R53.83 Other fatigue; R11.0 Nausea; R50.9 Fever, unspecified; F32.A Depression, unspecified; G47.33 Obstructive sleep apnea (adult) (pediatric); E78.2 Mixed hyperlipidemia; Z79.899 Other long term (current) drug therapy; Z98.84 Bariatric surgery status
CPT/HCPCS: 96361; 96374; J1642; J2405; J7120

== ENCOUNTER 2023-10-03 02:20 | Day surgery (SDC) | payer OTHER ==
[2023-10-03 08:22] VITALS: BP 125/76
== END 2023-10-03 09:21 | disposition home or self-care (01) ==
LOC: ATC 02:20
DX: E86.0 Dehydration (principal); E46 Unspecified protein-calorie malnutrition; R63.8 Other symptoms and signs concerning food and fluid intake; K21.9 Gastro-esophageal reflux disease without esophagitis; E56.9 Vitamin deficiency, unspecified; R53.83 Other fatigue; R11.0 Nausea; Z98.84 Bariatric surgery status; Z79.899 Other long term (current) drug therapy; G43.909 Migraine, unspecified, not intractable, without status migrainosus; G47.33 Obstructive sleep apnea (adult) (pediatric)
CPT/HCPCS: 96360; 96361; 96374; J1642; J2405; J7120

== ENCOUNTER 2023-10-06 03:25 | Day surgery (SDC) | payer OTHER ==
[2023-10-06 08:06] VITALS: BP 111/75
== END 2023-10-06 09:20 | disposition home or self-care (01) ==
LOC: ATC 03:25
DX: K90.9 Intestinal malabsorption, unspecified (principal); Z98.84 Bariatric surgery status; R63.8 Other symptoms and signs concerning food and fluid intake; E86.0 Dehydration; K21.9 Gastro-esophageal reflux disease without esophagitis; E56.9 Vitamin deficiency, unspecified; R53.83 Other fatigue; R11.0 Nausea; G47.33 Obstructive sleep apnea (adult) (pediatric); Z88.2 Allergy status to sulfonamides; Z88.1 Allergy status to other antibiotic agents; Z88.8 Allergy status to other drugs, medicaments and biological substances; Z79.899 Other long term (current) drug therapy
CPT/HCPCS: 96361; 96374; J1642; J2405; J7120

== ENCOUNTER 2023-10-08 02:30 | Day surgery (SDC) | payer OTHER ==
[2023-10-08 08:11] VITALS: BP 127/77
== END 2023-10-08 09:20 | disposition home or self-care (01) ==
LOC: ATC 02:30
DX: E86.0 Dehydration (principal); E46 Unspecified protein-calorie malnutrition; R63.8 Other symptoms and signs concerning food and fluid intake; K21.9 Gastro-esophageal reflux disease without esophagitis; E56.9 Vitamin deficiency, unspecified; R53.83 Other fatigue; R11.0 Nausea; G47.33 Obstructive sleep apnea (adult) (pediatric); Z79.899 Other long term (current) drug therapy; Z98.84 Bariatric surgery status
CPT/HCPCS: 96361; 96374; J1642; J2405; J7120

== ENCOUNTER 2023-10-10 01:12 | Day surgery (SDC) | payer OTHER ==
[2023-10-10 08:06] VITALS: BP 152/83
== END 2023-10-10 09:08 | disposition home or self-care (01) ==
LOC: ATC 01:12
DX: E86.0 Dehydration (principal); E46 Unspecified protein-calorie malnutrition; R63.8 Other symptoms and signs concerning food and fluid intake; K21.9 Gastro-esophageal reflux disease without esophagitis; E56.9 Vitamin deficiency, unspecified; R53.83 Other fatigue; R11.0 Nausea; Z98.84 Bariatric surgery status; Z79.899 Other long term (current) drug therapy
CPT/HCPCS: 96361; 96374; J1642; J2405; J7120

== ENCOUNTER 2023-10-12 03:53 | Day surgery (SDC) | payer OTHER ==
[2023-10-12 08:09] VITALS: BP 126/86
== END 2023-10-12 09:28 | disposition home or self-care (01) ==
LOC: ATC 03:53
DX: E86.0 Dehydration (principal); E46 Unspecified protein-calorie malnutrition; R63.8 Other symptoms and signs concerning food and fluid intake; K21.9 Gastro-esophageal reflux disease without esophagitis; E56.9 Vitamin deficiency, unspecified; R53.83 Other fatigue; R11.0 Nausea; Z98.84 Bariatric surgery status; Z79.899 Other long term (current) drug therapy
CPT/HCPCS: 96361; 96374; J1642; J2405; J7120

== ENCOUNTER 2023-10-15 02:47 | Day surgery (SDC) | payer OTHER ==
[2023-10-15 08:15] VITALS: BP 149/97
--- NOTE | 2023-10-15 09:22 | NUR ---
END TIME: [id number]
== END 2023-10-15 09:25 | disposition home or self-care (01) ==
LOC: ATC 02:47
DX: E86.0 Dehydration (principal); E46 Unspecified protein-calorie malnutrition; R63.8 Other symptoms and signs concerning food and fluid intake; K21.9 Gastro-esophageal reflux disease without esophagitis; E56.9 Vitamin deficiency, unspecified; R11.0 Nausea; G43.709 Chronic migraine without aura, not intractable, without status migrainosus; G47.33 Obstructive sleep apnea (adult) (pediatric); Z98.84 Bariatric surgery status; Z88.1 Allergy status to other antibiotic agents; Z88.2 Allergy status to sulfonamides; Z88.8 Allergy status to other drugs, medicaments and biological substances
CPT/HCPCS: 96361; 96374; J1642; J2405; J7120

== ENCOUNTER 2023-10-20 02:46 | Day surgery (SDC) | payer OTHER ==
[2023-10-20 08:00] VITALS: BP 135/94
== END 2023-10-20 09:05 | disposition home or self-care (01) ==
LOC: ATC 02:46
DX: E86.0 Dehydration (principal); E46 Unspecified protein-calorie malnutrition; R63.8 Other symptoms and signs concerning food and fluid intake; K21.9 Gastro-esophageal reflux disease without esophagitis; E56.9 Vitamin deficiency, unspecified; Z98.84 Bariatric surgery status; G47.33 Obstructive sleep apnea (adult) (pediatric); G43.709 Chronic migraine without aura, not intractable, without status migrainosus
CPT/HCPCS: 96361; 96374; J1642; J2405; J7120

== ENCOUNTER 2023-10-22 02:49 | Day surgery (SDC) | payer OTHER ==
[2023-10-22 07:58] VITALS: BP 149/84
[2023-10-22] MEDS ORDERED: COMBIVENT RESPIM4 G1 INH (08:00)
[2023-10-22 08:36] LABS: BASOPHILS ABSOLUTE AUTO 0.03 K/mm3 (0.00-0.23); BASOPHILS PERCENT AUTO 0 % (0-2); EOSINOPHILS PERCENT AUTO 4 % (0-6); Hematocrit 37.9 % (33.0-51.0); Hemoglobin 11.7 g/dL (11.5-16.0); IMMATURE GRAN ABSOLUTE AUTO 0.05 K/mm3 (0.00-0.10); IMMATURE GRAN PERCENT AUTO 1 % (0-1); LYMPHOCYTES ABSOLUTE AUTO 2.36 K/mm3 (0.84-5.20); LYMPHOCYTES PERCENT AUTO 33 % (21-46); MONOCYTES ABSOLUTE AUTO 0.66 K/mm3 (0.16-1.47); MONOCYTES PERCENT AUTO 9 % (4-13); Mean Corpuscular HGB 28.9 pg (26.0-34.0); Mean Corpuscular HGB Conc 30.9 g/dL (31.5-36.5); Mean Corpuscular Volume 94 fL (80-100); Mean Platelet Volume 10.7 fL (9.1-12.4); NEUTROPHILS ABSOLUTE AUTO 3.79 K/mm3 (1.96-9.15); NEUTROPHILS PERCENT AUTO 53 % (41-73); Platelet Count 288 K/mm3 (150-400); RDW Coefficient Variation 14.8 % (11.7-14.2); RDW Standard Deviation 51.3 fL (35.1-46.3); Red Blood Cell Count 4.05 M/mm3 (3.80-5.20); White Blood Cell Count 7.19 K/mm3 (4.00-11.30)
[2023-10-22 09:05] LABS: C-REACTIVE PROTEIN, EXT RANGE <0.290 mg/dL (0.000-0.300)
[2023-10-22 09:07] LABS: Alanine Aminotransfer (ALT/SGP 21 U/L (12-78); Albumin, Blood 2.9 g/dL (3.4-5.0); Albumin/Globulin Ratio 1.1 (0.8-1.8); Alk Phos 65 U/L (50-136); Anion Gap 1 mmol/L (6-16); Aspartate Aminotrans (AST/SGOT 17 U/L (12-37); Bilirubin, Total 0.2 mg/dL (0.1-1.0); Blood Urea Nitrogen 18 mg/dL (8-24); Bun/Creatinine Ratio 26.4 (12.0-20.0); CO2, Blood 29 mmol/L (21-32); Calcium, Blood 8.1 mg/dL (8.5-10.1); Chloride, Blood 109 mmol/L (98-108); Creatinine, Blood 0.68 mg/dL (0.40-1.00); Globulin, Blood 2.7 g/dL (2.2-4.0); Glomerular Filtration Rate 100 (60-); Glucose, Blood 95 mg/dL (70-99); Potassium, Blood 3.6 mmol/L (3.5-5.5); Sodium, Blood 139 mmol/L (136-145); Total Protein, Blood 5.6 g/dL (6.4-8.2)
[2023-10-24 21:12] LABS: ANTINUCLEAR AB (ANA),HEP-2,IGG <1:80 (<1:80)
== END 2023-10-22 09:07 | disposition home or self-care (01) ==
LOC: ATC 02:49
PROVIDERS: Internal Medicine
DX: K90.9 Intestinal malabsorption, unspecified (principal); Z98.84 Bariatric surgery status; R63.8 Other symptoms and signs concerning food and fluid intake; E86.0 Dehydration; K21.9 Gastro-esophageal reflux disease without esophagitis; E56.9 Vitamin deficiency, unspecified; R53.83 Other fatigue; R11.0 Nausea
CPT/HCPCS: 80053; 85025; 85060; 85651; 86039; 86140; 86430; 96361; 96374; J1642; J2405; J7120

== ENCOUNTER 2023-10-24 01:46 | Day surgery (SDC) | payer OTHER ==
[~2023-10-24 01:46] MED LIST changes: +COMBIVENT RESPIM4 G1 INH
[2023-10-24 08:22] VITALS: BP 137/94
== END 2023-10-24 09:32 | disposition home or self-care (01) ==
LOC: ATC 01:46
DX: E86.0 Dehydration (principal); E46 Unspecified protein-calorie malnutrition; R63.8 Other symptoms and signs concerning food and fluid intake; K21.9 Gastro-esophageal reflux disease without esophagitis; E56.9 Vitamin deficiency, unspecified; R53.83 Other fatigue; R11.0 Nausea; Z98.84 Bariatric surgery status; G47.33 Obstructive sleep apnea (adult) (pediatric); Z79.899 Other long term (current) drug therapy; Z88.2 Allergy status to sulfonamides; Z88.8 Allergy status to other drugs, medicaments and biological substances
CPT/HCPCS: 96361; 96372; 96374; J1885; J2405; J3420; J7120

== ENCOUNTER 2023-10-27 01:56 | Day surgery (SDC) | payer OTHER ==
[2023-10-27] MEDS ORDERED: Ondansetron HCl 2 MG / ML 2ML Vial IV SCH (06:55)
[2023-10-27] MEDS ORDERED: Lactated Ringer's 1,000 ML IV SCH (07:00)
[2023-10-27 08:26] VITALS: BP 138/91
== END 2023-10-27 09:25 | disposition home or self-care (01) ==
LOC: ATC 01:56
DX: E86.0 Dehydration (principal); E46 Unspecified protein-calorie malnutrition; R63.8 Other symptoms and signs concerning food and fluid intake; K21.9 Gastro-esophageal reflux disease without esophagitis; E56.9 Vitamin deficiency, unspecified; G43.909 Migraine, unspecified, not intractable, without status migrainosus; G47.33 Obstructive sleep apnea (adult) (pediatric); Z98.84 Bariatric surgery status
CPT/HCPCS: 96361; 96374; J1642; J2405; J7120

== ENCOUNTER 2023-11-01 01:11 | Day surgery (SDC) | payer OTHER ==
[2023-11-01] MEDS ORDERED: Lactated Ringer's 1,000 ML IV SCH (07:15)
[2023-11-01] MEDS ORDERED: Ketorolac Tromethamine 30mg Vial IM SCH (07:15)
[2023-11-01] MEDS ORDERED: Ondansetron HCl 2 MG / ML 2ML Vial IV SCH (07:15)
[2023-11-01 08:16] VITALS: BP 129/72
== END 2023-11-01 09:17 | disposition home or self-care (01) ==
LOC: ATC 01:11
DX: K90.9 Intestinal malabsorption, unspecified (principal); Z98.84 Bariatric surgery status; R63.8 Other symptoms and signs concerning food and fluid intake; E86.0 Dehydration; K21.9 Gastro-esophageal reflux disease without esophagitis; E56.9 Vitamin deficiency, unspecified; R53.83 Other fatigue; R11.0 Nausea
CPT/HCPCS: 96361; 96374; J2405; J7120

== ENCOUNTER 2023-11-03 00:33 | Day surgery (SDC) | payer OTHER ==
[2023-11-03] MEDS ORDERED: Ondansetron HCl 2 MG / ML 2ML Vial IV SCH (07:10)
[2023-11-03] MEDS ORDERED: Lactated Ringer's 1,000 ML IV SCH (07:10)
[2023-11-03 07:54] VITALS: BP 145/89
== END 2023-11-03 09:11 | disposition home or self-care (01) ==
LOC: ATC 00:33
DX: E86.0 Dehydration (principal); E46 Unspecified protein-calorie malnutrition; R63.8 Other symptoms and signs concerning food and fluid intake; K21.9 Gastro-esophageal reflux disease without esophagitis; E56.9 Vitamin deficiency, unspecified; R53.83 Other fatigue; R11.0 Nausea; G47.33 Obstructive sleep apnea (adult) (pediatric); Z98.84 Bariatric surgery status; Z88.8 Allergy status to other drugs, medicaments and biological substances; Z88.2 Allergy status to sulfonamides; Z88.1 Allergy status to other antibiotic agents; Z79.899 Other long term (current) drug therapy
CPT/HCPCS: 96361; 96374; J1642; J2405; J7120

== ENCOUNTER 2023-11-05 00:11 | Day surgery (SDC) | payer OTHER ==
[2023-11-05] MEDS ORDERED: Lactated Ringer's 1,000 ML IV SCH (06:50)
[2023-11-05] MEDS ORDERED: Ondansetron HCl 2 MG / ML 2ML Vial IV SCH (06:55)
[2023-11-05 08:12] VITALS: BP 126/99
== END 2023-11-05 09:19 | disposition home or self-care (01) ==
LOC: ATC 00:11
DX: K90.9 Intestinal malabsorption, unspecified (principal); Z98.84 Bariatric surgery status; R63.8 Other symptoms and signs concerning food and fluid intake; E86.0 Dehydration; K21.9 Gastro-esophageal reflux disease without esophagitis; E56.9 Vitamin deficiency, unspecified; R53.83 Other fatigue; R11.0 Nausea
CPT/HCPCS: 96361; 96374; J1642; J2405; J7120

== ENCOUNTER 2023-11-07 01:21 | Day surgery (SDC) | payer OTHER ==
[~2023-11-07 01:21] MED LIST changes: -AMOX250 PO; -AZIT250 PO
[2023-11-07] MEDS ORDERED: Ondansetron HCl 2 MG / ML 2ML Vial IV SCH (06:55)
[2023-11-07] MEDS ORDERED: Ketorolac Tromethamine 30mg Vial IM SCH (07:00)
[2023-11-07] MEDS ORDERED: Lactated Ringer's 1,000 ML IV SCH (07:00)
[2023-11-07 08:11] VITALS: BP 142/88
== END 2023-11-07 09:10 | disposition home or self-care (01) ==
LOC: ATC 01:21
DX: E86.0 Dehydration (principal); E46 Unspecified protein-calorie malnutrition; R63.8 Other symptoms and signs concerning food and fluid intake; K21.9 Gastro-esophageal reflux disease without esophagitis; E56.9 Vitamin deficiency, unspecified; Z98.84 Bariatric surgery status; R60.0 Localized edema
CPT/HCPCS: 80053; 83880; 85027; 96361; 96374; J1642; J2405; J7120

== ENCOUNTER → 2023-11-07 | Outpatient (CLI) | payer OTHER ==
[~2023-11-07] MED LIST changes: +AMOX250 PO; +AZIT250 PO
[2023-11-07 15:00] LABS: Hematocrit 35.3 % (33.0-51.0); Mean Corpuscular HGB 29.2 pg (26.0-34.0); Mean Corpuscular HGB Conc 31.2 g/dL (31.5-36.5); Mean Corpuscular Volume 94 fL (80-100); Mean Platelet Volume 11.3 fL (9.1-12.4); Platelet Count 255 K/mm3 (150-400); RDW Coefficient Variation 14.4 % (11.7-14.2); RDW Standard Deviation 49.1 fL (35.1-46.3); Red Blood Cell Count 3.77 M/mm3 (3.80-5.20); White Blood Cell Count 5.69 K/mm3 (4.00-11.30)
[2023-11-07 16:44] LABS: Albumin, Blood 2.8 g/dL (3.4-5.0); Albumin/Globulin Ratio 1.1 (0.8-1.8); Bilirubin, Total 0.2 mg/dL (0.1-1.0); Bun/Creatinine Ratio 19.1 (12.0-20.0); Creatinine, Blood 0.68 mg/dL (0.40-1.00); Globulin, Blood 2.5 g/dL (2.2-4.0); Potassium, Blood 4.3 mmol/L (3.5-5.5); Total Protein, Blood 5.3 g/dL (6.4-8.2)
== END | disposition home or self-care (01) ==
LOC: LAB SHORT 12:52
PROVIDERS: Internal Medicine
DX: R60.0 Localized edema (principal)
CPT/HCPCS: 80053; 83880; 85027

== ENCOUNTER 2023-11-10 07:05 | Day surgery (SDC) | payer OTHER ==
[2023-11-10] MEDS ORDERED: Ondansetron HCl 2 MG / ML 2ML Vial IV SCH (07:10)
[2023-11-10] MEDS ORDERED: Lactated Ringer's 1,000 ML IV SCH (07:10)
[2023-11-10 08:00] VITALS: BP 147/93
== END 2023-11-10 09:10 | disposition home or self-care (01) ==
LOC: ATC 07:05
DX: K90.9 Intestinal malabsorption, unspecified (principal); Z98.84 Bariatric surgery status; R63.8 Other symptoms and signs concerning food and fluid intake; E86.0 Dehydration; K21.9 Gastro-esophageal reflux disease without esophagitis; E56.9 Vitamin deficiency, unspecified; R53.83 Other fatigue; R11.0 Nausea; G47.33 Obstructive sleep apnea (adult) (pediatric); Z88.2 Allergy status to sulfonamides; Z88.1 Allergy status to other antibiotic agents; Z88.8 Allergy status to other drugs, medicaments and biological substances; Z79.899 Other long term (current) drug therapy
CPT/HCPCS: 96361; 96374; J1642; J2405; J7120

== ENCOUNTER 2023-11-14 05:08 | Day surgery (SDC) | payer OTHER ==
[2023-11-14] MEDS ORDERED: Ondansetron HCl 2 MG / ML 2ML Vial IV SCH (06:45)
[2023-11-14] MEDS ORDERED: Ketorolac Tromethamine 30mg Vial IM SCH (06:50)
[2023-11-14] MEDS ORDERED: Lactated Ringer's 1,000 ML IV SCH (06:50)
[2023-11-14 08:10] VITALS: BP 133/89
[2023-11-14] MEDS ORDERED: AMOX250 PO (08:13)
[2023-11-14] MEDS ORDERED: AZIT250 PO (08:14)
== END 2023-11-14 09:20 | disposition home or self-care (01) ==
LOC: ATC 05:08
DX: E86.0 Dehydration (principal); E46 Unspecified protein-calorie malnutrition; R63.8 Other symptoms and signs concerning food and fluid intake; K21.9 Gastro-esophageal reflux disease without esophagitis; E56.9 Vitamin deficiency, unspecified; R53.83 Other fatigue; R11.0 Nausea; G47.33 Obstructive sleep apnea (adult) (pediatric); Z98.84 Bariatric surgery status
CPT/HCPCS: 96361; 96372; 96374; J1642; J1885; J2405; J7120

== ENCOUNTER 2023-12-24 02:50 | Day surgery (SDC) | payer OTHER ==
[~2023-12-24 02:50] MED LIST changes: +AMOX250 PO; +AZIT250 PO
[2023-12-24] MEDS ORDERED: Ondansetron HCl 2 MG / ML 2ML Vial IV SCH (06:55)
[2023-12-24] MEDS ORDERED: Lactated Ringer's 1,000 ML IV SCH (06:55)
[2023-12-24 08:26] VITALS: BP 121/87
== END 2023-12-24 09:34 | disposition home or self-care (01) ==
LOC: ATC 02:50
DX: E86.0 Dehydration (principal); E46 Unspecified protein-calorie malnutrition; R63.8 Other symptoms and signs concerning food and fluid intake; K21.9 Gastro-esophageal reflux disease without esophagitis; E56.9 Vitamin deficiency, unspecified; G43.709 Chronic migraine without aura, not intractable, without status migrainosus; Z98.84 Bariatric surgery status
CPT/HCPCS: 96360; 96361; 96374; J1642; J2405; J7120

== ENCOUNTER 2024-01-09 04:04 | Day surgery (SDC) | payer OTHER ==
[2024-01-09] MEDS ORDERED: Ondansetron HCl 2 MG / ML 2ML Vial IV SCH (07:10)
[2024-01-09] MEDS ORDERED: Lactated Ringer's 1,000 ML IV SCH (07:10)
[2024-01-09] MEDS ORDERED: Ketorolac Tromethamine 30mg Vial IM SCH ×2 (07:15→08:10)
[2024-01-09 08:23] VITALS: BP 160/90
== END 2024-01-09 09:30 | disposition home or self-care (01) ==
LOC: ATC 04:04
DX: E86.0 Dehydration (principal); E46 Unspecified protein-calorie malnutrition; R63.8 Other symptoms and signs concerning food and fluid intake; K21.9 Gastro-esophageal reflux disease without esophagitis; E56.9 Vitamin deficiency, unspecified; G43.809 Other migraine, not intractable, without status migrainosus; G47.33 Obstructive sleep apnea (adult) (pediatric); Z98.84 Bariatric surgery status
CPT/HCPCS: 96361; 96372; 96374; J1642; J1885; J2405; J7120

== ENCOUNTER 2024-01-12 05:06 | Day surgery (SDC) | payer OTHER ==
[2024-01-12] MEDS ORDERED: Ondansetron HCl 2 MG / ML 2ML Vial IV SCH (07:10)
[2024-01-12] MEDS ORDERED: Lactated Ringer's 1,000 ML IV SCH (07:10)
[2024-01-12 08:16] VITALS: BP 172/83
--- NOTE | 2024-01-12 08:20 | NUR ---
PT STATES SHE TOOK PO AOFRAN AT 0500 THIS MORNING AT HOME.
== END 2024-01-12 09:28 | disposition home or self-care (01) ==
LOC: ATC 05:06
DX: E86.0 Dehydration (principal); E46 Unspecified protein-calorie malnutrition; R63.8 Other symptoms and signs concerning food and fluid intake; K21.9 Gastro-esophageal reflux disease without esophagitis; E56.9 Vitamin deficiency, unspecified; G47.33 Obstructive sleep apnea (adult) (pediatric); Z98.84 Bariatric surgery status; Z88.1 Allergy status to other antibiotic agents; Z88.2 Allergy status to sulfonamides; Z88.8 Allergy status to other drugs, medicaments and biological substances
CPT/HCPCS: 96360; J1642; J7120

== ENCOUNTER 2024-01-14 03:31 | Day surgery (SDC) | payer OTHER ==
[2024-01-14] MEDS ORDERED: Lactated Ringer's 1,000 ML IV SCH (07:10)
[2024-01-14] MEDS ORDERED: Ondansetron HCl 2 MG / ML 2ML Vial IV SCH (07:10)
[2024-01-14 08:42] VITALS: BP 135/89
== END 2024-01-14 10:05 | disposition home or self-care (01) ==
LOC: ATC 03:31
DX: E86.0 Dehydration (principal); E46 Unspecified protein-calorie malnutrition; R63.8 Other symptoms and signs concerning food and fluid intake; K21.9 Gastro-esophageal reflux disease without esophagitis; E56.9 Vitamin deficiency, unspecified; G47.33 Obstructive sleep apnea (adult) (pediatric); Z98.84 Bariatric surgery status
CPT/HCPCS: 96361; 96374; J1642; J2405; J7120

== ENCOUNTER 2024-01-16 01:53 | Day surgery (SDC) | payer OTHER ==
[2024-01-16] MEDS ORDERED: Lactated Ringer's 1,000 ML IV SCH (06:35)
[2024-01-16] MEDS ORDERED: Ondansetron HCl 2 MG / ML 2ML Vial IV SCH (06:40)
[2024-01-16] MEDS ORDERED: Ketorolac Tromethamine 30mg Vial IM SCH (06:40)
[2024-01-16 08:00] VITALS: BP 143/85
== END 2024-01-16 09:17 | disposition home or self-care (01) ==
LOC: ATC 01:53
DX: R11.0 Nausea (principal); E86.0 Dehydration; R63.8 Other symptoms and signs concerning food and fluid intake; E46 Unspecified protein-calorie malnutrition; K21.9 Gastro-esophageal reflux disease without esophagitis; E56.9 Vitamin deficiency, unspecified; R53.83 Other fatigue; Z98.84 Bariatric surgery status; Z88.8 Allergy status to other drugs, medicaments and biological substances; Z91.048 Other nonmedicinal substance allergy status; Z88.2 Allergy status to sulfonamides; Z88.1 Allergy status to other antibiotic agents; Z79.899 Other long term (current) drug therapy
CPT/HCPCS: 96361; 96372; 96374; J1642; J1885; J2405; J7120

== ENCOUNTER 2024-01-19 04:45 | Day surgery (SDC) | payer OTHER ==
[2024-01-19] MEDS ORDERED: Lactated Ringer's 1,000 ML IV SCH (07:05)
[2024-01-19] MEDS ORDERED: Ondansetron HCl 2 MG / ML 2ML Vial IV SCH (07:10)
[2024-01-19 08:23] VITALS: BP 145/82
[2024-01-19 12:06] LABS: BASOPHILS ABSOLUTE AUTO 0.02 K/mm3 (0.00-0.23); BASOPHILS PERCENT AUTO 0 % (0-2); EOSINOPHILS ABSOLUTE AUTO 0.17 K/mm3 (0.00-0.68); EOSINOPHILS PERCENT AUTO 3 % (0-6); Hematocrit 36.1 % (33.0-51.0); Hemoglobin 11.6 g/dL (11.5-16.0); IMMATURE GRAN ABSOLUTE AUTO 0.01 K/mm3 (0.00-0.10); IMMATURE GRAN PERCENT AUTO 0 % (0-1); LYMPHOCYTES ABSOLUTE AUTO 1.31 K/mm3 (0.84-5.20); LYMPHOCYTES PERCENT AUTO 26 % (21-46); MONOCYTES ABSOLUTE AUTO 0.46 K/mm3 (0.16-1.47); MONOCYTES PERCENT AUTO 9 % (4-13); Mean Corpuscular HGB 28.9 pg (26.0-34.0); Mean Corpuscular HGB Conc 32.1 g/dL (31.5-36.5); Mean Corpuscular Volume 90 fL (80-100); Mean Platelet Volume 12.6 fL (9.1-12.4); NEUTROPHILS ABSOLUTE AUTO 3.17 K/mm3 (1.96-9.15); NEUTROPHILS PERCENT AUTO 62 % (41-73); Platelet Count 213 K/mm3 (150-400); RDW Coefficient Variation 13.5 % (11.7-14.2); RDW Standard Deviation 44.6 fL (35.1-46.3); Red Blood Cell Count 4.02 M/mm3 (3.80-5.20); White Blood Cell Count 5.14 K/mm3 (4.00-11.30)
[2024-01-19 12:58] LABS: Albumin, Blood 3.1 g/dL (3.4-5.0); Albumin/Globulin Ratio 1.1 (0.8-1.8); Bilirubin, Total 0.1 mg/dL (0.1-1.0); Bun/Creatinine Ratio 20.7 (12.0-20.0); Calcium, Blood 8.1 mg/dL (8.5-10.1); Creatinine, Blood 0.77 mg/dL (0.40-1.00); Globulin, Blood 2.8 g/dL (2.2-4.0); Percent Saturation 28.3 % (15.0-50.0); Potassium, Blood 4.5 mmol/L (3.5-5.5); Total Protein, Blood 5.9 g/dL (6.4-8.2)
== END 2024-01-19 09:35 | disposition home or self-care (01) ==
LOC: ATC 04:45
PROVIDERS: Internal Medicine
DX: R11.0 Nausea (principal); E86.0 Dehydration; E46 Unspecified protein-calorie malnutrition; R63.8 Other symptoms and signs concerning food and fluid intake; K21.9 Gastro-esophageal reflux disease without esophagitis; E56.9 Vitamin deficiency, unspecified; R53.83 Other fatigue; Z98.84 Bariatric surgery status; Z79.899 Other long term (current) drug therapy; Z88.2 Allergy status to sulfonamides; Z88.1 Allergy status to other antibiotic agents
CPT/HCPCS: 80053; 82306; 82607; 82728; 82746; 83540; 83550; 85025; 96361; 96374; J1642; J2405; J7120

== ENCOUNTER 2024-01-21 03:17 | Day surgery (SDC) | payer OTHER ==
[2024-01-21] MEDS ORDERED: Ondansetron HCl 2 MG / ML 2ML Vial IV SCH (07:15)
[2024-01-21] MEDS ORDERED: Lactated Ringer's 1,000 ML IV SCH (07:15)
[2024-01-21] MEDS ORDERED: Cyanocobalamin 1000 MCG/ML 1ML Vial IM SCH (07:15)
[2024-01-21 07:55] VITALS: BP 135/81
== END 2024-01-21 09:20 | disposition home or self-care (01) ==
LOC: ATC 03:17
DX: K90.9 Intestinal malabsorption, unspecified (principal); Z98.84 Bariatric surgery status; R63.8 Other symptoms and signs concerning food and fluid intake; E86.0 Dehydration; K21.9 Gastro-esophageal reflux disease without esophagitis; E56.9 Vitamin deficiency, unspecified; R53.83 Other fatigue; R11.0 Nausea; G47.33 Obstructive sleep apnea (adult) (pediatric); Z88.2 Allergy status to sulfonamides; Z88.1 Allergy status to other antibiotic agents; Z88.8 Allergy status to other drugs, medicaments and biological substances; Z79.899 Other long term (current) drug therapy
CPT/HCPCS: 96361; 96372; 96374; J1642; J2405; J3420; J7120

== ENCOUNTER 2024-01-23 04:24 | Day surgery (SDC) | payer OTHER ==
[2024-01-23] MEDS ORDERED: Ondansetron HCl 2 MG / ML 2ML Vial IV SCH (07:00)
[2024-01-23] MEDS ORDERED: Lactated Ringer's 1,000 ML IV SCH (07:00)
[2024-01-23] MEDS ORDERED: Ketorolac Tromethamine 30mg Vial IM SCH (07:05)
[2024-01-23 08:15] VITALS: BP 152/92
[2024-01-28 21:31] LABS: VITAMIN B1,WHOLE BLOOD 89 nmol/L (70-180)
== END 2024-01-23 09:16 | disposition home or self-care (01) ==
LOC: ATC 04:24
PROVIDERS: Internal Medicine
DX: E86.0 Dehydration (principal); E46 Unspecified protein-calorie malnutrition; R63.8 Other symptoms and signs concerning food and fluid intake; K21.9 Gastro-esophageal reflux disease without esophagitis; G47.33 Obstructive sleep apnea (adult) (pediatric); E56.9 Vitamin deficiency, unspecified; Z98.84 Bariatric surgery status; Z88.8 Allergy status to other drugs, medicaments and biological substances; Z88.2 Allergy status to sulfonamides
CPT/HCPCS: 84425; 96361; 96372; 96374; J1642; J1885; J2405; J7120

== ENCOUNTER 2024-01-26 00:17 | Day surgery (SDC) | payer OTHER ==
[2024-01-26 08:09] VITALS: BP 145/89
== END 2024-01-26 09:13 | disposition home or self-care (01) ==
LOC: ATC 00:17
DX: K90.9 Intestinal malabsorption, unspecified (principal); E86.0 Dehydration; K21.9 Gastro-esophageal reflux disease without esophagitis; E56.9 Vitamin deficiency, unspecified; Z98.84 Bariatric surgery status; Z88.2 Allergy status to sulfonamides; Z88.8 Allergy status to other drugs, medicaments and biological substances

== ENCOUNTER 2024-01-28 04:36 | Day surgery (SDC) | payer OTHER ==
[2024-01-28] MEDS ORDERED: Ondansetron HCl 2 MG / ML 2ML Vial IV SCH (07:05)
[2024-01-28] MEDS ORDERED: Lactated Ringer's 1,000 ML IV SCH (07:05)
[2024-01-28 08:15] VITALS: BP 160/96
== END 2024-01-28 09:25 | disposition home or self-care (01) ==
LOC: ATC 04:36
DX: R11.0 Nausea (principal); E46 Unspecified protein-calorie malnutrition; E86.0 Dehydration; R63.8 Other symptoms and signs concerning food and fluid intake; K21.9 Gastro-esophageal reflux disease without esophagitis; E56.9 Vitamin deficiency, unspecified; R53.83 Other fatigue; Z98.84 Bariatric surgery status; Z88.0 Allergy status to penicillin; Z88.2 Allergy status to sulfonamides; Z88.1 Allergy status to other antibiotic agents; Z88.8 Allergy status to other drugs, medicaments and biological substances; Z91.048 Other nonmedicinal substance allergy status; Z79.899 Other long term (current) drug therapy; Z79.891 Long term (current) use of opiate analgesic
CPT/HCPCS: 96361; 96374; J1642; J2405; J7120

== ENCOUNTER 2024-01-30 05:09 | Day surgery (SDC) | payer OTHER ==
[2024-01-30 07:57] VITALS: BP 169/98
== END 2024-01-30 09:13 | disposition home or self-care (01) ==
LOC: ATC 05:09
DX: K90.9 Intestinal malabsorption, unspecified (principal); Z98.84 Bariatric surgery status; R63.8 Other symptoms and signs concerning food and fluid intake; E86.0 Dehydration; K21.9 Gastro-esophageal reflux disease without esophagitis; E56.9 Vitamin deficiency, unspecified; R53.83 Other fatigue; R11.0 Nausea; G47.33 Obstructive sleep apnea (adult) (pediatric); Z88.2 Allergy status to sulfonamides; Z88.1 Allergy status to other antibiotic agents; Z88.0 Allergy status to penicillin; Z88.8 Allergy status to other drugs, medicaments and biological substances; Z79.899 Other long term (current) drug therapy

== ENCOUNTER 2024-02-02 03:57 | Day surgery (SDC) | payer OTHER ==
[2024-02-02 07:57] VITALS: BP 164/92
== END 2024-02-02 09:05 | disposition home or self-care (01) ==
LOC: ATC 03:57
DX: R11.0 Nausea (principal); E46 Unspecified protein-calorie malnutrition; E86.0 Dehydration; R63.8 Other symptoms and signs concerning food and fluid intake; K21.9 Gastro-esophageal reflux disease without esophagitis; E56.9 Vitamin deficiency, unspecified; R53.83 Other fatigue; Z98.84 Bariatric surgery status; Z88.8 Allergy status to other drugs, medicaments and biological substances; Z88.2 Allergy status to sulfonamides; Z88.1 Allergy status to other antibiotic agents; Z91.048 Other nonmedicinal substance allergy status; Z79.899 Other long term (current) drug therapy

== ENCOUNTER 2024-03-01 04:02 | Day surgery (SDC) | payer OTHER ==
[2024-03-01] MEDS ORDERED: Lactated Ringer's 1,000 ML IV SCH (07:35)
[2024-03-01] MEDS ORDERED: Ondansetron HCl 2 MG / ML 2ML Vial IV SCH (07:40)
[2024-03-01 08:17] VITALS: BP 156/97
== END 2024-03-01 09:17 | disposition home or self-care (01) ==
LOC: ATC 04:02
DX: K90.9 Intestinal malabsorption, unspecified (principal); Z98.84 Bariatric surgery status; R63.8 Other symptoms and signs concerning food and fluid intake; E86.0 Dehydration; K21.9 Gastro-esophageal reflux disease without esophagitis; E56.9 Vitamin deficiency, unspecified; R53.83 Other fatigue; R11.0 Nausea; G47.33 Obstructive sleep apnea (adult) (pediatric); Z88.2 Allergy status to sulfonamides; Z88.1 Allergy status to other antibiotic agents; Z88.8 Allergy status to other drugs, medicaments and biological substances; Z79.899 Other long term (current) drug therapy
CPT/HCPCS: 96361; 96374; J1642; J2405; J7120

== ENCOUNTER 2024-03-05 06:24 | Day surgery (SDC) | payer OTHER ==
[2024-03-05] MEDS ORDERED: Lactated Ringer's 1,000 ML IV SCH (06:45)
[2024-03-05] MEDS ORDERED: Ketorolac Tromethamine 30mg Vial IM SCH (06:50)
[2024-03-05] MEDS ORDERED: Ondansetron HCl 2 MG / ML 2ML Vial IV SCH (06:50)
[2024-03-05 08:08] VITALS: BP 149/89
== END 2024-03-05 09:20 | disposition home or self-care (01) ==
LOC: ATC 06:24
DX: K90.9 Intestinal malabsorption, unspecified (principal); Z98.84 Bariatric surgery status; R63.8 Other symptoms and signs concerning food and fluid intake; E86.0 Dehydration; K21.9 Gastro-esophageal reflux disease without esophagitis; R11.0 Nausea; E56.9 Vitamin deficiency, unspecified; R53.83 Other fatigue; Z88.0 Allergy status to penicillin; Z88.1 Allergy status to other antibiotic agents; Z88.2 Allergy status to sulfonamides; Z88.8 Allergy status to other drugs, medicaments and biological substances; Z91.048 Other nonmedicinal substance allergy status; Z79.899 Other long term (current) drug therapy
CPT/HCPCS: 96361; 96372; 96374; J1642; J1885; J2405; J7120

== ENCOUNTER 2024-03-08 02:12 | Day surgery (SDC) | payer OTHER ==
[2024-03-08] MEDS ORDERED: Lactated Ringer's 1,000 ML IV SCH (06:55)
[2024-03-08] MEDS ORDERED: Ondansetron HCl 2 MG / ML 2ML Vial IV SCH (07:00)
[2024-03-08 07:57] VITALS: BP 158/84
== END 2024-03-08 09:09 | disposition home or self-care (01) ==
LOC: ATC 02:12
DX: E86.0 Dehydration (principal); K90.9 Intestinal malabsorption, unspecified; R63.8 Other symptoms and signs concerning food and fluid intake; Z98.84 Bariatric surgery status; K21.9 Gastro-esophageal reflux disease without esophagitis; E56.9 Vitamin deficiency, unspecified; R53.83 Other fatigue; R11.0 Nausea; Z88.0 Allergy status to penicillin; Z88.1 Allergy status to other antibiotic agents; Z88.2 Allergy status to sulfonamides; Z88.8 Allergy status to other drugs, medicaments and biological substances; Z91.048 Other nonmedicinal substance allergy status; Z79.899 Other long term (current) drug therapy
CPT/HCPCS: 96361; 96374; J1642; J2405; J7120

== ENCOUNTER 2024-03-12 02:10 | Day surgery (SDC) | payer OTHER ==
[2024-03-12] MEDS ORDERED: Lactated Ringer's 1,000 ML IV SCH (07:00)
[2024-03-12] MEDS ORDERED: Ondansetron HCl 2 MG / ML 2ML Vial IV SCH (07:05)
[2024-03-12] MEDS ORDERED: Ketorolac Tromethamine 30mg Vial IM SCH (07:05)
[2024-03-12 08:12] VITALS: BP 137/96
== END 2024-03-12 09:15 | disposition home or self-care (01) ==
LOC: ATC 02:10
DX: E86.0 Dehydration (principal); K90.9 Intestinal malabsorption, unspecified; R63.8 Other symptoms and signs concerning food and fluid intake; K21.9 Gastro-esophageal reflux disease without esophagitis; E56.9 Vitamin deficiency, unspecified; Z98.84 Bariatric surgery status; Z88.0 Allergy status to penicillin; Z88.2 Allergy status to sulfonamides; Z88.8 Allergy status to other drugs, medicaments and biological substances; Z79.899 Other long term (current) drug therapy; G47.33 Obstructive sleep apnea (adult) (pediatric); G43.909 Migraine, unspecified, not intractable, without status migrainosus
CPT/HCPCS: 96372; 96374; J1642; J1885; J2405; J7120

== ENCOUNTER 2024-03-15 04:02 | Day surgery (SDC) | payer OTHER ==
[2024-03-15] MEDS ORDERED: Ondansetron HCl 2 MG / ML 2ML Vial IV SCH (07:35)
[2024-03-15] MEDS ORDERED: Lactated Ringer's 1,000 ML IV SCH (07:35)
[2024-03-15 08:13] VITALS: BP 153/88
== END 2024-03-15 09:27 | disposition home or self-care (01) ==
LOC: ATC 04:02
DX: E86.0 Dehydration (principal); R63.8 Other symptoms and signs concerning food and fluid intake; K21.9 Gastro-esophageal reflux disease without esophagitis; E56.9 Vitamin deficiency, unspecified; K90.9 Intestinal malabsorption, unspecified; G47.33 Obstructive sleep apnea (adult) (pediatric); Z98.84 Bariatric surgery status; Z88.0 Allergy status to penicillin; Z88.8 Allergy status to other drugs, medicaments and biological substances; Z88.2 Allergy status to sulfonamides
CPT/HCPCS: 96361; 96374; J1642; J2405; J7120

== ENCOUNTER 2024-03-17 02:57 | Day surgery (SDC) | payer OTHER ==
[2024-03-17] MEDS ORDERED: Ondansetron HCl 2 MG / ML 2ML Vial IV SCH (06:40)
[2024-03-17] MEDS ORDERED: Lactated Ringer's 1,000 ML IV SCH (06:40)
[2024-03-17 08:03] VITALS: BP 163/94
== END 2024-03-17 09:16 | disposition home or self-care (01) ==
LOC: ATC 02:57
DX: E86.0 Dehydration (principal); K90.9 Intestinal malabsorption, unspecified; R63.8 Other symptoms and signs concerning food and fluid intake; K21.9 Gastro-esophageal reflux disease without esophagitis; E56.9 Vitamin deficiency, unspecified; Z98.84 Bariatric surgery status; Z88.2 Allergy status to sulfonamides; Z88.8 Allergy status to other drugs, medicaments and biological substances
CPT/HCPCS: 96361; 96374; J1642; J2405; J7120

== ENCOUNTER 2024-03-22 02:38 | Day surgery (SDC) | payer OTHER ==
[2024-03-22] MEDS ORDERED: Lactated Ringer's 1,000 ML IV SCH (07:00)
[2024-03-22] MEDS ORDERED: Cyanocobalamin 1000 MCG/ML 1ML Vial IM SCH (07:05)
[2024-03-22] MEDS ORDERED: Ondansetron HCl 2 MG / ML 2ML Vial IV SCH (07:05)
[2024-03-22 08:02] VITALS: BP 137/84
== END 2024-03-22 09:20 | disposition home or self-care (01) ==
LOC: ATC 02:38
DX: E86.0 Dehydration (principal); K90.9 Intestinal malabsorption, unspecified; R63.8 Other symptoms and signs concerning food and fluid intake; K21.9 Gastro-esophageal reflux disease without esophagitis; E56.9 Vitamin deficiency, unspecified; G43.909 Migraine, unspecified, not intractable, without status migrainosus; G47.33 Obstructive sleep apnea (adult) (pediatric); Z88.2 Allergy status to sulfonamides; Z88.8 Allergy status to other drugs, medicaments and biological substances; Z98.84 Bariatric surgery status
CPT/HCPCS: 96361; 96372; 96374; J1642; J2405; J3420; J7120

== ENCOUNTER 2024-03-24 03:29 | Day surgery (SDC) | payer OTHER ==
[2024-03-24] MEDS ORDERED: Lactated Ringer's 1,000 ML IV SCH (06:55)
[2024-03-24] MEDS ORDERED: Ondansetron HCl 2 MG / ML 2ML Vial IV SCH (06:55)
[2024-03-24 08:00] VITALS: BP 141/96
== END 2024-03-24 09:12 | disposition home or self-care (01) ==
LOC: ATC 03:29
DX: K90.9 Intestinal malabsorption, unspecified (principal); Z98.84 Bariatric surgery status; R63.8 Other symptoms and signs concerning food and fluid intake; E86.0 Dehydration; K21.9 Gastro-esophageal reflux disease without esophagitis; E56.9 Vitamin deficiency, unspecified; R53.83 Other fatigue; R11.0 Nausea; G47.30 Sleep apnea, unspecified; Z88.2 Allergy status to sulfonamides; Z88.1 Allergy status to other antibiotic agents; Z88.8 Allergy status to other drugs, medicaments and biological substances; Z79.899 Other long term (current) drug therapy
CPT/HCPCS: 96361; 96374; J1642; J2405; J7120

== ENCOUNTER 2024-03-26 02:49 | Day surgery (SDC) | payer OTHER ==
[2024-03-26] MEDS ORDERED: Lactated Ringer's 1,000 ML IV SCH (06:50)
[2024-03-26] MEDS ORDERED: Ondansetron HCl 2 MG / ML 2ML Vial IV SCH (06:50)
[2024-03-26] MEDS ORDERED: Ketorolac Tromethamine 30mg Vial IM SCH (06:55)
[2024-03-26 08:04] VITALS: BP 175/94
== END 2024-03-26 09:07 | disposition home or self-care (01) ==
LOC: ATC 02:49
DX: E86.0 Dehydration (principal); K90.9 Intestinal malabsorption, unspecified; R63.8 Other symptoms and signs concerning food and fluid intake; K21.9 Gastro-esophageal reflux disease without esophagitis; E56.9 Vitamin deficiency, unspecified; G43.909 Migraine, unspecified, not intractable, without status migrainosus; G47.33 Obstructive sleep apnea (adult) (pediatric); Z88.0 Allergy status to penicillin; Z88.2 Allergy status to sulfonamides; Z88.8 Allergy status to other drugs, medicaments and biological substances; Z98.84 Bariatric surgery status
CPT/HCPCS: 96361; 96372; 96374; J1642; J1885; J2405; J7120

== ENCOUNTER 2024-03-29 02:53 | Day surgery (SDC) | payer OTHER ==
[2024-03-29] MEDS ORDERED: Ondansetron HCl 2 MG / ML 2ML Vial IV SCH (07:00)
[2024-03-29] MEDS ORDERED: Lactated Ringer's 1,000 ML IV SCH (07:00)
[2024-03-29 08:11] VITALS: BP 147/89
== END 2024-03-29 09:16 | disposition home or self-care (01) ==
LOC: ATC 02:53
DX: E86.0 Dehydration (principal); K90.9 Intestinal malabsorption, unspecified; R63.8 Other symptoms and signs concerning food and fluid intake; G47.33 Obstructive sleep apnea (adult) (pediatric); K21.9 Gastro-esophageal reflux disease without esophagitis; Z88.0 Allergy status to penicillin; Z88.8 Allergy status to other drugs, medicaments and biological substances; Z88.2 Allergy status to sulfonamides; Z98.84 Bariatric surgery status
CPT/HCPCS: 96361; 96374; J1642; J2405; J7120

== ENCOUNTER 2024-03-31 02:35 | Day surgery (SDC) | payer OTHER ==
[2024-03-31] MEDS ORDERED: Lactated Ringer's 1,000 ML IV SCH (06:55)
[2024-03-31] MEDS ORDERED: Ondansetron HCl 2 MG / ML 2ML Vial IV SCH (06:55)
[2024-03-31 07:55] VITALS: BP 170/103
== END 2024-03-31 09:04 | disposition home or self-care (01) ==
LOC: ATC 02:35
DX: E86.0 Dehydration (principal); K90.9 Intestinal malabsorption, unspecified; R63.8 Other symptoms and signs concerning food and fluid intake; K21.9 Gastro-esophageal reflux disease without esophagitis; E56.9 Vitamin deficiency, unspecified; G43.909 Migraine, unspecified, not intractable, without status migrainosus; G47.33 Obstructive sleep apnea (adult) (pediatric); Z98.84 Bariatric surgery status; Z88.0 Allergy status to penicillin; Z88.2 Allergy status to sulfonamides; Z88.8 Allergy status to other drugs, medicaments and biological substances
CPT/HCPCS: 96361; 96374; J1642; J2405; J7120

== ENCOUNTER 2024-04-03 01:34 | Day surgery (SDC) | payer OTHER ==
[2024-04-03] MEDS ORDERED: Lactated Ringer's 1,000 ML IV SCH (06:55)
[2024-04-03] MEDS ORDERED: Ondansetron HCl 2 MG / ML 2ML Vial IV SCH (07:00)
[2024-04-03] MEDS ORDERED: Ketorolac Tromethamine 30mg Vial IM SCH (07:00)
[2024-04-03 07:59] VITALS: BP 154/90
== END 2024-04-03 09:15 | disposition home or self-care (01) ==
LOC: ATC 01:34
DX: E86.0 Dehydration (principal); K90.9 Intestinal malabsorption, unspecified; R63.8 Other symptoms and signs concerning food and fluid intake; K21.9 Gastro-esophageal reflux disease without esophagitis; E56.9 Vitamin deficiency, unspecified; Z98.84 Bariatric surgery status; Z88.1 Allergy status to other antibiotic agents; Z88.2 Allergy status to sulfonamides; Z88.8 Allergy status to other drugs, medicaments and biological substances
CPT/HCPCS: J1642; J1885; J2405; J7120

== ENCOUNTER 2024-04-05 03:36 | Day surgery (SDC) | payer OTHER ==
[2024-04-05] MEDS ORDERED: Ondansetron HCl 2 MG / ML 2ML Vial IV SCH (07:00)
[2024-04-05] MEDS ORDERED: Lactated Ringer's 1,000 ML IV SCH (07:00)
[2024-04-05 07:38] VITALS: BP 150/101
== END 2024-04-05 08:56 | disposition home or self-care (01) ==
LOC: ATC 03:36
DX: E86.0 Dehydration (principal); K90.9 Intestinal malabsorption, unspecified; R63.8 Other symptoms and signs concerning food and fluid intake; K21.9 Gastro-esophageal reflux disease without esophagitis; E56.9 Vitamin deficiency, unspecified; R53.83 Other fatigue; R11.0 Nausea; Z98.84 Bariatric surgery status; Z88.0 Allergy status to penicillin; Z88.1 Allergy status to other antibiotic agents; Z88.2 Allergy status to sulfonamides; Z88.8 Allergy status to other drugs, medicaments and biological substances; Z79.899 Other long term (current) drug therapy
CPT/HCPCS: 96361; 96374; J1642; J2405; J7120

== ENCOUNTER 2024-04-07 03:28 | Day surgery (SDC) | payer OTHER ==
[2024-04-07] MEDS ORDERED: Lactated Ringer's 1,000 ML IV SCH (06:55)
[2024-04-07] MEDS ORDERED: Ondansetron HCl 2 MG / ML 2ML Vial IV SCH (07:00)
[2024-04-07 08:06] VITALS: BP 146/91
== END 2024-04-07 09:15 | disposition home or self-care (01) ==
LOC: ATC 03:28
DX: E86.0 Dehydration (principal); K90.9 Intestinal malabsorption, unspecified; R63.8 Other symptoms and signs concerning food and fluid intake; K21.9 Gastro-esophageal reflux disease without esophagitis; E56.9 Vitamin deficiency, unspecified; R53.83 Other fatigue; R11.0 Nausea; Z98.84 Bariatric surgery status; Z79.899 Other long term (current) drug therapy; Z88.0 Allergy status to penicillin; Z88.1 Allergy status to other antibiotic agents; Z88.2 Allergy status to sulfonamides; Z88.8 Allergy status to other drugs, medicaments and biological substances
CPT/HCPCS: 96361; 96374; J1642; J2405; J7120

== ENCOUNTER 2024-04-09 05:46 | Day surgery (SDC) | payer OTHER ==
[2024-04-09] MEDS ORDERED: Ondansetron HCl 2 MG / ML 2ML Vial IV SCH (06:35)
[2024-04-09] MEDS ORDERED: Lactated Ringer's 1,000 ML IV SCH (06:35)
== END 2024-04-09 09:19 | disposition home or self-care (01) ==
LOC: ATC 05:46
DX: E86.0 Dehydration (principal); K90.9 Intestinal malabsorption, unspecified; Z98.84 Bariatric surgery status; R63.8 Other symptoms and signs concerning food and fluid intake; K21.9 Gastro-esophageal reflux disease without esophagitis; E56.9 Vitamin deficiency, unspecified; R53.83 Other fatigue; R11.0 Nausea; Z79.899 Other long term (current) drug therapy; Z88.2 Allergy status to sulfonamides; Z88.8 Allergy status to other drugs, medicaments and biological substances
CPT/HCPCS: 96361; 96374; J1642; J2405; J7120

== ENCOUNTER 2024-04-12 07:46 | Day surgery (SDC) | payer OTHER ==
[~2024-04-12 07:46] MED LIST changes: +Ketorolac Tromethamine 30mg Vial IM SCH; +Lactated Ringer's 1,000 ML IV SCH; +Ondansetron HCl 2 MG / ML 2ML Vial IV SCH
[2024-04-12 07:55] VITALS: BP 151/103
== END 2024-04-12 09:08 | disposition home or self-care (01) ==
LOC: ATC 07:46
DX: E86.0 Dehydration (principal); K90.9 Intestinal malabsorption, unspecified; R63.8 Other symptoms and signs concerning food and fluid intake; K21.9 Gastro-esophageal reflux disease without esophagitis; E56.9 Vitamin deficiency, unspecified; G47.33 Obstructive sleep apnea (adult) (pediatric); G43.709 Chronic migraine without aura, not intractable, without status migrainosus; Z98.84 Bariatric surgery status; Z88.1 Allergy status to other antibiotic agents; Z88.2 Allergy status to sulfonamides; Z88.8 Allergy status to other drugs, medicaments and biological substances; Z79.899 Other long term (current) drug therapy
CPT/HCPCS: 96361; 96374; J1642; J2405; J7120

== ENCOUNTER 2024-04-14 02:52 | Day surgery (SDC) | payer OTHER ==
[~2024-04-14 02:52] MED LIST changes: -Ketorolac Tromethamine 30mg Vial IM SCH; -Lactated Ringer's 1,000 ML IV SCH; -Ondansetron HCl 2 MG / ML 2ML Vial IV SCH
[2024-04-14] MEDS ORDERED: Cyanocobalamin 1000 MCG/ML 1ML Vial IM SCH (06:00)
[2024-04-14] MEDS ORDERED: Ketorolac Tromethamine 30mg Vial IM SCH ×2 (06:00→08:20)
[2024-04-14] MEDS ORDERED: Lactated Ringer's 1,000 ML IV SCH ×2 (06:00→07:00)
[2024-04-14] MEDS ORDERED: Ondansetron HCl 2 MG / ML 2ML Vial IV SCH (07:05)
[2024-04-14 08:17] VITALS: BP 140/91
== END 2024-04-14 09:48 | disposition home or self-care (01) ==
LOC: ATC 02:52
DX: E86.0 Dehydration (principal); K90.9 Intestinal malabsorption, unspecified; Z98.84 Bariatric surgery status; R63.8 Other symptoms and signs concerning food and fluid intake; K21.9 Gastro-esophageal reflux disease without esophagitis; E56.9 Vitamin deficiency, unspecified; R53.83 Other fatigue; R11.0 Nausea; Z88.0 Allergy status to penicillin; Z88.1 Allergy status to other antibiotic agents; Z88.2 Allergy status to sulfonamides; Z88.8 Allergy status to other drugs, medicaments and biological substances; Z91.048 Other nonmedicinal substance allergy status
CPT/HCPCS: 96361; 96372; 96374; J1642; J1885; J2405; J7120

== ENCOUNTER 2024-04-16 02:02 | Day surgery (SDC) | payer OTHER ==
[2024-04-16] MEDS ORDERED: Lactated Ringer's 1,000 ML IV SCH (06:55)
[2024-04-16] MEDS ORDERED: Ondansetron HCl 2 MG / ML 2ML Vial IV SCH (06:55)
[2024-04-16 08:14] VITALS: BP 160/94
== END 2024-04-16 09:28 | disposition home or self-care (01) ==
LOC: ATC 02:02
DX: E86.0 Dehydration (principal); K90.9 Intestinal malabsorption, unspecified; Z98.84 Bariatric surgery status; R63.8 Other symptoms and signs concerning food and fluid intake; K21.9 Gastro-esophageal reflux disease without esophagitis; E56.9 Vitamin deficiency, unspecified; R53.83 Other fatigue; R11.0 Nausea; Z79.899 Other long term (current) drug therapy; Z88.2 Allergy status to sulfonamides; Z88.8 Allergy status to other drugs, medicaments and biological substances
CPT/HCPCS: 96361; 96374; J1642; J2405; J7120

== ENCOUNTER 2024-04-18 07:24 | Day surgery (SDC) | payer OTHER ==
[~2024-04-18 07:24] MED LIST changes: +Lactated Ringer's 1,000 ML IV SCH; +Ondansetron HCl 2 MG / ML 2ML Vial IV SCH
[2024-04-18 07:53] VITALS: BP 134/83
== END 2024-04-18 08:58 | disposition home or self-care (01) ==
LOC: ATC 07:24
DX: E86.0 Dehydration (principal); K90.9 Intestinal malabsorption, unspecified; K21.9 Gastro-esophageal reflux disease without esophagitis; E56.9 Vitamin deficiency, unspecified; Z98.84 Bariatric surgery status; Z88.1 Allergy status to other antibiotic agents; Z88.2 Allergy status to sulfonamides; Z88.8 Allergy status to other drugs, medicaments and biological substances; Z79.899 Other long term (current) drug therapy; G43.909 Migraine, unspecified, not intractable, without status migrainosus; G47.33 Obstructive sleep apnea (adult) (pediatric)
CPT/HCPCS: 96361; 96374; J1642; J2405; J7120

== ENCOUNTER 2024-05-07 03:42 | Day surgery (SDC) | payer OTHER ==
[~2024-05-07 03:42] MED LIST changes: -Lactated Ringer's 1,000 ML IV SCH; -Ondansetron HCl 2 MG / ML 2ML Vial IV SCH
[2024-05-07] MEDS ORDERED: Ondansetron HCl 2 MG / ML 2ML Vial IV SCH (06:35)
[2024-05-07] MEDS ORDERED: Lactated Ringer's 1,000 ML IV SCH (06:35)
[2024-05-07 08:10] VITALS: BP 117/78
== END 2024-05-07 09:28 | disposition home or self-care (01) ==
LOC: ATC 03:42
DX: E86.0 Dehydration (principal); K90.9 Intestinal malabsorption, unspecified; R63.8 Other symptoms and signs concerning food and fluid intake; K21.9 Gastro-esophageal reflux disease without esophagitis; E56.9 Vitamin deficiency, unspecified; Z98.84 Bariatric surgery status; R53.83 Other fatigue; R11.0 Nausea; Z79.899 Other long term (current) drug therapy; Z88.2 Allergy status to sulfonamides; Z88.8 Allergy status to other drugs, medicaments and biological substances
CPT/HCPCS: 96361; 96374; J1642; J2405; J7120

== ENCOUNTER 2024-05-09 07:44 | Day surgery (SDC) | payer OTHER ==
[~2024-05-09 07:44] MED LIST changes: +Lactated Ringer's 1,000 ML IV SCH; +Ondansetron HCl 2 MG / ML 2ML Vial IV SCH
[2024-05-09 08:17] VITALS: BP 127/78
== END 2024-05-09 09:03 | disposition home or self-care (01) ==
LOC: ATC 07:44
DX: E86.0 Dehydration (principal); K90.9 Intestinal malabsorption, unspecified; Z98.84 Bariatric surgery status; R63.8 Other symptoms and signs concerning food and fluid intake; K21.9 Gastro-esophageal reflux disease without esophagitis; E56.9 Vitamin deficiency, unspecified; G47.33 Obstructive sleep apnea (adult) (pediatric); Z88.2 Allergy status to sulfonamides; Z88.8 Allergy status to other drugs, medicaments and biological substances
CPT/HCPCS: 96361; 96374; J1642; J2405; J7120

== ENCOUNTER 2024-05-12 05:56 | Day surgery (SDC) | payer OTHER ==
[~2024-05-12 05:56] MED LIST changes: -Lactated Ringer's 1,000 ML IV SCH; -Ondansetron HCl 2 MG / ML 2ML Vial IV SCH
[2024-05-12] MEDS ORDERED: Lactated Ringer's 1,000 ML IV SCH (07:05)
[2024-05-12] MEDS ORDERED: Ketorolac Tromethamine 30mg Vial IM SCH (07:05)
[2024-05-12] MEDS ORDERED: Ondansetron HCl 2 MG / ML 2ML Vial IV SCH (07:05)
[2024-05-12 08:02] VITALS: BP 150/90
== END 2024-05-12 09:20 | disposition home or self-care (01) ==
LOC: ATC 05:56
DX: E86.0 Dehydration (principal); K90.9 Intestinal malabsorption, unspecified; Z98.84 Bariatric surgery status; R63.8 Other symptoms and signs concerning food and fluid intake; K21.9 Gastro-esophageal reflux disease without esophagitis; E56.9 Vitamin deficiency, unspecified; R53.83 Other fatigue; R11.0 Nausea; Z88.0 Allergy status to penicillin; Z88.1 Allergy status to other antibiotic agents; Z88.2 Allergy status to sulfonamides; Z88.8 Allergy status to other drugs, medicaments and biological substances; Z91.040 Latex allergy status; Z91.048 Other nonmedicinal substance allergy status
CPT/HCPCS: 96361; 96372; 96374; J1642; J1885; J2405; J7120

== ENCOUNTER 2024-05-14 03:18 | Day surgery (SDC) | payer OTHER ==
[2024-05-14] MEDS ORDERED: Ondansetron HCl 2 MG / ML 2ML Vial IV SCH (07:15)
[2024-05-14] MEDS ORDERED: Lactated Ringer's 1,000 ML IV SCH ×2 (07:15→08:35)
[2024-05-14 08:17] VITALS: BP 141/86
== END 2024-05-14 09:50 | disposition home or self-care (01) ==
LOC: ATC 03:18
DX: E86.0 Dehydration (principal); K90.9 Intestinal malabsorption, unspecified; Z98.84 Bariatric surgery status; R63.8 Other symptoms and signs concerning food and fluid intake; K21.9 Gastro-esophageal reflux disease without esophagitis; E56.9 Vitamin deficiency, unspecified; R53.83 Other fatigue; R11.0 Nausea; Z88.0 Allergy status to penicillin; Z88.1 Allergy status to other antibiotic agents; Z88.2 Allergy status to sulfonamides; Z88.8 Allergy status to other drugs, medicaments and biological substances; Z91.048 Other nonmedicinal substance allergy status
CPT/HCPCS: 96361; 96374; J1642; J2405; J7120

== ENCOUNTER 2024-05-17 00:36 | Day surgery (SDC) | payer OTHER ==
[2024-05-17] MEDS ORDERED: Ondansetron HCl 2 MG / ML 2ML Vial IV SCH (07:05)
[2024-05-17] MEDS ORDERED: Lactated Ringer's 1,000 ML IV SCH (07:05)
[2024-05-17 08:00] VITALS: BP 126/78
[2024-05-17] MEDS ORDERED: Prednisone10 MG PO (08:01)
== END 2024-05-17 09:17 | disposition home or self-care (01) ==
LOC: ATC 00:36
DX: E86.0 Dehydration (principal); K90.9 Intestinal malabsorption, unspecified; R63.8 Other symptoms and signs concerning food and fluid intake; K21.9 Gastro-esophageal reflux disease without esophagitis; E56.9 Vitamin deficiency, unspecified; G47.33 Obstructive sleep apnea (adult) (pediatric); Z79.899 Other long term (current) drug therapy; Z88.2 Allergy status to sulfonamides; Z88.8 Allergy status to other drugs, medicaments and biological substances; Z98.84 Bariatric surgery status
CPT/HCPCS: 96361; 96374; J1642; J2405; J7120

== ENCOUNTER 2024-05-19 00:39 | Day surgery (SDC) | payer OTHER ==
[~2024-05-19 00:39] MED LIST changes: +Prednisone10 MG PO
[2024-05-19] MEDS ORDERED: Ketorolac Tromethamine 30mg Vial IM SCH (07:10)
[2024-05-19] MEDS ORDERED: Ondansetron HCl 2 MG / ML 2ML Vial IV SCH (07:10)
[2024-05-19] MEDS ORDERED: Lactated Ringer's 1,000 ML IV SCH (07:10)
[2024-05-19 08:01] VITALS: BP 160/98
== END 2024-05-19 09:14 | disposition home or self-care (01) ==
LOC: ATC 00:39
DX: E86.0 Dehydration (principal); K90.9 Intestinal malabsorption, unspecified; R63.8 Other symptoms and signs concerning food and fluid intake; K21.9 Gastro-esophageal reflux disease without esophagitis; E56.9 Vitamin deficiency, unspecified; G47.33 Obstructive sleep apnea (adult) (pediatric); Z98.84 Bariatric surgery status; Z88.1 Allergy status to other antibiotic agents; Z88.2 Allergy status to sulfonamides; Z88.8 Allergy status to other drugs, medicaments and biological substances; Z79.899 Other long term (current) drug therapy
CPT/HCPCS: 96361; 96372; 96374; J1642; J1885; J2405; J7120

== ENCOUNTER 2024-05-21 01:24 | Day surgery (SDC) | payer OTHER ==
[2024-05-21] MEDS ORDERED: Ondansetron HCl 2 MG / ML 2ML Vial IV SCH (07:05)
[2024-05-21] MEDS ORDERED: Lactated Ringer's 1,000 ML IV SCH (07:10)
[2024-05-21 08:00] VITALS: BP 144/100
== END 2024-05-21 09:16 | disposition home or self-care (01) ==
LOC: ATC 01:24
DX: E86.0 Dehydration (principal); K90.9 Intestinal malabsorption, unspecified; K21.9 Gastro-esophageal reflux disease without esophagitis; E56.9 Vitamin deficiency, unspecified; Z98.84 Bariatric surgery status; Z88.0 Allergy status to penicillin; Z88.1 Allergy status to other antibiotic agents; Z88.2 Allergy status to sulfonamides; Z88.8 Allergy status to other drugs, medicaments and biological substances; Z91.048 Other nonmedicinal substance allergy status
CPT/HCPCS: 96361; 96374; J1642; J2405; J7120

== ENCOUNTER 2024-05-24 00:30 | Day surgery (SDC) | payer OTHER ==
[2024-05-24] MEDS ORDERED: Ondansetron HCl 2 MG / ML 2ML Vial IV SCH (07:15)
[2024-05-24] MEDS ORDERED: Cyanocobalamin 1000 MCG/ML 1ML Vial IM SCH (07:20)
[2024-05-24] MEDS ORDERED: Lactated Ringer's 1,000 ML IV SCH (07:20)
[2024-05-24 09:26] VITALS: BP 141/95
== END 2024-05-24 10:16 | disposition home or self-care (01) ==
LOC: ATC 00:30
DX: K90.9 Intestinal malabsorption, unspecified (principal); Z98.84 Bariatric surgery status; R63.8 Other symptoms and signs concerning food and fluid intake; E86.0 Dehydration; K21.9 Gastro-esophageal reflux disease without esophagitis; E56.9 Vitamin deficiency, unspecified; R53.83 Other fatigue; R11.0 Nausea; G47.33 Obstructive sleep apnea (adult) (pediatric); Z88.1 Allergy status to other antibiotic agents; Z88.2 Allergy status to sulfonamides; Z88.8 Allergy status to other drugs, medicaments and biological substances; Z79.899 Other long term (current) drug therapy
CPT/HCPCS: 96361; 96372; 96374; J1642; J2405; J3420; J7120

== ENCOUNTER 2024-05-26 03:50 | Day surgery (SDC) | payer OTHER ==
[2024-05-26] MEDS ORDERED: Lactated Ringer's 1,000 ML IV SCH (07:00)
[2024-05-26] MEDS ORDERED: Ketorolac Tromethamine 30mg Vial IM SCH (07:00)
[2024-05-26] MEDS ORDERED: Ondansetron HCl 2 MG / ML 2ML Vial IV SCH (07:15)
[2024-05-26 07:57] VITALS: BP 165/101
== END 2024-05-26 09:10 | disposition home or self-care (01) ==
LOC: ATC 03:50
DX: K90.9 Intestinal malabsorption, unspecified (principal); Z98.84 Bariatric surgery status; R63.8 Other symptoms and signs concerning food and fluid intake; E86.0 Dehydration; K21.9 Gastro-esophageal reflux disease without esophagitis; E56.9 Vitamin deficiency, unspecified; R53.83 Other fatigue; R11.0 Nausea; G47.33 Obstructive sleep apnea (adult) (pediatric); Z88.2 Allergy status to sulfonamides; Z88.1 Allergy status to other antibiotic agents; Z88.8 Allergy status to other drugs, medicaments and biological substances; Z79.899 Other long term (current) drug therapy
CPT/HCPCS: 96361; 96372; 96374; J1642; J1885; J2405; J7120

== ENCOUNTER 2024-06-07 03:00 | Day surgery (SDC) | payer OTHER ==
[2024-06-07] MEDS ORDERED: Ondansetron HCl 2 MG / ML 2ML Vial IV SCH (07:00)
[2024-06-07] MEDS ORDERED: Lactated Ringer's 1,000 ML IV SCH (07:05)
[2024-06-07 08:06] VITALS: BP 144/85
== END 2024-06-07 09:20 | disposition home or self-care (01) ==
LOC: ATC 03:00
DX: E86.0 Dehydration (principal); K90.9 Intestinal malabsorption, unspecified; R63.8 Other symptoms and signs concerning food and fluid intake; K21.9 Gastro-esophageal reflux disease without esophagitis; E56.9 Vitamin deficiency, unspecified; M35.3 Polymyalgia rheumatica; Z79.899 Other long term (current) drug therapy; Z88.2 Allergy status to sulfonamides; Z88.8 Allergy status to other drugs, medicaments and biological substances; Z98.84 Bariatric surgery status
CPT/HCPCS: 96361; 96374; J1642; J2405; J7120

== ENCOUNTER 2024-06-09 01:33 | Day surgery (SDC) | payer OTHER ==
[2024-06-09] MEDS ORDERED: Ondansetron HCl 2 MG / ML 2ML Vial IV SCH (07:00)
[2024-06-09] MEDS ORDERED: Lactated Ringer's 1,000 ML IV SCH (07:05)
[2024-06-09 08:14] VITALS: BP 157/92
== END 2024-06-09 09:20 | disposition home or self-care (01) ==
LOC: ATC 01:33
DX: E86.0 Dehydration (principal); K90.9 Intestinal malabsorption, unspecified; R63.8 Other symptoms and signs concerning food and fluid intake; K21.9 Gastro-esophageal reflux disease without esophagitis; E56.9 Vitamin deficiency, unspecified; Z79.899 Other long term (current) drug therapy; Z88.2 Allergy status to sulfonamides; Z88.8 Allergy status to other drugs, medicaments and biological substances; Z98.84 Bariatric surgery status
CPT/HCPCS: 96361; 96374; J1642; J2405; J7120

== ENCOUNTER 2024-06-14 04:11 | Day surgery (SDC) | payer OTHER ==
[2024-06-14] MEDS ORDERED: Ondansetron HCl 2 MG / ML 2ML Vial IV SCH (07:10)
[2024-06-14] MEDS ORDERED: Lactated Ringer's 1,000 ML IV SCH (07:10)
[2024-06-14 07:53] VITALS: BP 144/96
== END 2024-06-14 09:13 | disposition home or self-care (01) ==
LOC: ATC 04:11
DX: E86.0 Dehydration (principal); K90.9 Intestinal malabsorption, unspecified; R63.8 Other symptoms and signs concerning food and fluid intake; K21.9 Gastro-esophageal reflux disease without esophagitis; E56.9 Vitamin deficiency, unspecified; G47.33 Obstructive sleep apnea (adult) (pediatric); Z79.899 Other long term (current) drug therapy; Z88.2 Allergy status to sulfonamides; Z88.8 Allergy status to other drugs, medicaments and biological substances; Z98.84 Bariatric surgery status
CPT/HCPCS: 96361; 96374; J1642; J2405; J7120

== ENCOUNTER 2024-06-16 04:36 | Day surgery (SDC) | payer OTHER ==
[2024-06-16] MEDS ORDERED: Lactated Ringer's 1,000 ML IV SCH (06:40)
[2024-06-16] MEDS ORDERED: Ondansetron HCl 2 MG / ML 2ML Vial IV SCH (06:40)
[2024-06-16 08:14] VITALS: BP 142/86
== END 2024-06-16 09:18 | disposition home or self-care (01) ==
LOC: ATC 04:36
DX: E86.0 Dehydration (principal); K90.9 Intestinal malabsorption, unspecified; R63.8 Other symptoms and signs concerning food and fluid intake; K21.9 Gastro-esophageal reflux disease without esophagitis; E56.9 Vitamin deficiency, unspecified; Z79.899 Other long term (current) drug therapy; Z88.2 Allergy status to sulfonamides; Z88.8 Allergy status to other drugs, medicaments and biological substances; Z98.84 Bariatric surgery status
CPT/HCPCS: 96361; 96374; J1642; J2405; J7120

== ENCOUNTER 2024-06-18 01:23 | Day surgery (SDC) | payer OTHER ==
[2024-06-18] MEDS ORDERED: Lactated Ringer's 1,000 ML IV SCH (06:45)
[2024-06-18] MEDS ORDERED: Ondansetron HCl 2 MG / ML 2ML Vial IV SCH (06:45)
[2024-06-18] MEDS ORDERED: Ketorolac Tromethamine 30mg Vial IM SCH (06:45)
[2024-06-18 08:03] VITALS: BP 151/87
== END 2024-06-18 09:28 | disposition home or self-care (01) ==
LOC: ATC 01:23
DX: E86.0 Dehydration (principal); K21.9 Gastro-esophageal reflux disease without esophagitis; G43.709 Chronic migraine without aura, not intractable, without status migrainosus; G47.33 Obstructive sleep apnea (adult) (pediatric); E43 Unspecified severe protein-calorie malnutrition; Z68.1 Body mass index [BMI] 19.9 or less, adult; Z79.899 Other long term (current) drug therapy; Z88.2 Allergy status to sulfonamides; Z88.0 Allergy status to penicillin; Z88.1 Allergy status to other antibiotic agents; Z88.3 Allergy status to other anti-infective agents; Z88.8 Allergy status to other drugs, medicaments and biological substances; Z98.84 Bariatric surgery status
CPT/HCPCS: 85651; 96361; 96372; 96374; J1642; J1885; J2405; J7120

== ENCOUNTER 2024-06-21 04:05 | Day surgery (SDC) | payer OTHER ==
[2024-06-21] MEDS ORDERED: Ondansetron HCl 2 MG / ML 2ML Vial IV SCH (06:50)
[2024-06-21] MEDS ORDERED: Lactated Ringer's 1,000 ML IV SCH (06:55)
[2024-06-21 08:07] VITALS: BP 139/80
== END 2024-06-21 09:22 | disposition home or self-care (01) ==
LOC: ATC 04:05
DX: E86.0 Dehydration (principal); K90.9 Intestinal malabsorption, unspecified; R63.8 Other symptoms and signs concerning food and fluid intake; K21.9 Gastro-esophageal reflux disease without esophagitis; E56.9 Vitamin deficiency, unspecified; Z98.84 Bariatric surgery status; Z88.1 Allergy status to other antibiotic agents; Z88.2 Allergy status to sulfonamides; Z88.8 Allergy status to other drugs, medicaments and biological substances; Z79.899 Other long term (current) drug therapy
CPT/HCPCS: 96361; 96374; J1642; J2405; J7120

== ENCOUNTER 2024-06-23 02:29 | Day surgery (SDC) | payer OTHER ==
[2024-06-23] MEDS ORDERED: Ondansetron HCl 2 MG / ML 2ML Vial IV SCH (06:55)
[2024-06-23] MEDS ORDERED: Lactated Ringer's 1,000 ML IV SCH (07:00)
[2024-06-23 08:27] VITALS: BP 153/93
== END 2024-06-23 09:45 | disposition home or self-care (01) ==
LOC: ATC 02:29
DX: M35.3 Polymyalgia rheumatica (principal); M79.10 Myalgia, unspecified site; K90.9 Intestinal malabsorption, unspecified; Z98.84 Bariatric surgery status; R63.8 Other symptoms and signs concerning food and fluid intake; E86.0 Dehydration; K21.9 Gastro-esophageal reflux disease without esophagitis; E56.9 Vitamin deficiency, unspecified; R53.83 Other fatigue; R11.0 Nausea; Z88.2 Allergy status to sulfonamides; Z88.1 Allergy status to other antibiotic agents; Z88.8 Allergy status to other drugs, medicaments and biological substances; Z79.899 Other long term (current) drug therapy
CPT/HCPCS: 96361; 96374; J1642; J2405; J7120

== ENCOUNTER 2024-06-25 10:08 | Day surgery (SDC) | payer OTHER ==
[2024-06-25 08:04] VITALS: BP 131/102
[~2024-06-25 10:08] MED LIST changes: +Cyanocobalamin 1000 MCG/ML 1ML Vial IM SCH; +Ketorolac Tromethamine 30mg Vial IM SCH; +Lactated Ringer's 1,000 ML IV SCH; +Ondansetron HCl 2 MG / ML 2ML Vial IV SCH
== END 2024-06-26 03:02 | disposition home or self-care (01) ==
LOC: ATC 10:08
DX: E86.0 Dehydration (principal); K90.9 Intestinal malabsorption, unspecified; R63.8 Other symptoms and signs concerning food and fluid intake; K21.9 Gastro-esophageal reflux disease without esophagitis; E56.9 Vitamin deficiency, unspecified; Z98.84 Bariatric surgery status; Z88.1 Allergy status to other antibiotic agents; Z88.2 Allergy status to sulfonamides; Z88.8 Allergy status to other drugs, medicaments and biological substances; Z79.899 Other long term (current) drug therapy
CPT/HCPCS: 96361; 96372; 96374; J1642; J1885; J2405; J3420; J7120

== ENCOUNTER 2024-06-28 01:28 | Day surgery (SDC) | payer OTHER ==
[~2024-06-28 01:28] MED LIST changes: -Cyanocobalamin 1000 MCG/ML 1ML Vial IM SCH; -Ketorolac Tromethamine 30mg Vial IM SCH; -Lactated Ringer's 1,000 ML IV SCH; -Ondansetron HCl 2 MG / ML 2ML Vial IV SCH
[2024-06-28] MEDS ORDERED: Ondansetron HCl 2 MG / ML 2ML Vial IV SCH (07:00)
[2024-06-28] MEDS ORDERED: Lactated Ringer's 1,000 ML IV SCH (07:05)
[2024-06-28 08:11] VITALS: BP 145/95
== END 2024-06-28 09:29 | disposition home or self-care (01) ==
LOC: ATC 01:28
DX: E86.0 Dehydration (principal); M35.3 Polymyalgia rheumatica; K21.9 Gastro-esophageal reflux disease without esophagitis; M79.7 Fibromyalgia; G43.709 Chronic migraine without aura, not intractable, without status migrainosus; Z79.899 Other long term (current) drug therapy; Z88.2 Allergy status to sulfonamides; Z88.8 Allergy status to other drugs, medicaments and biological substances; Z98.84 Bariatric surgery status
CPT/HCPCS: 96361; 96374; J1642; J2405; J7120

== ENCOUNTER → 2024-06-29 | Outpatient (CLI) | payer OTHER ==
[2024-06-29 12:06] LABS: BASOPHILS ABSOLUTE AUTO 0.02 K/mm3 (0.00-0.23); BASOPHILS PERCENT AUTO 0 % (0-2); EOSINOPHILS PERCENT AUTO 2 % (0-6); Hematocrit 35.5 % (33.0-51.0); Hemoglobin 11.4 g/dL (11.5-16.0); IMMATURE GRAN ABSOLUTE AUTO 0.02 K/mm3 (0.00-0.10); IMMATURE GRAN PERCENT AUTO 0 % (0-1); LYMPHOCYTES ABSOLUTE AUTO 1.18 K/mm3 (0.84-5.20); LYMPHOCYTES PERCENT AUTO 20 % (21-46); MONOCYTES ABSOLUTE AUTO 0.65 K/mm3 (0.16-1.47); MONOCYTES PERCENT AUTO 11 % (4-13); Mean Corpuscular HGB 28.6 pg (26.0-34.0); Mean Corpuscular HGB Conc 32.1 g/dL (31.5-36.5); Mean Corpuscular Volume 89 fL (80-100); Mean Platelet Volume 11.3 fL (9.1-12.4); NEUTROPHILS ABSOLUTE AUTO 3.88 K/mm3 (1.96-9.15); NEUTROPHILS PERCENT AUTO 66 % (41-73); Platelet Count 288 K/mm3 (150-400); RDW Coefficient Variation 13.5 % (11.7-14.2); RDW Standard Deviation 43.9 fL (35.1-46.3); Red Blood Cell Count 3.99 M/mm3 (3.80-5.20); White Blood Cell Count 5.85 K/mm3 (4.00-11.30)
[2024-06-29 12:23] LABS: Albumin, Blood 2.8 g/dL (3.4-5.0); Albumin/Globulin Ratio 0.7 (0.8-1.8); Bilirubin, Total 0.2 mg/dL (0.1-1.0); Bun/Creatinine Ratio 8.5 (12.0-20.0); Creatinine, Blood 0.82 mg/dL (0.40-1.00); Globulin, Blood 3.9 g/dL (2.2-4.0); Magnesium, Blood 1.7 mg/dL (1.6-2.4); Potassium, Blood 3.5 mmol/L (3.5-5.5); Thyroid Stimulating Hormone 0.291 uIU/mL (0.360-4.800); Total Protein, Blood 6.7 g/dL (6.4-8.2)
[2024-06-29 13:11] LABS: Percent Saturation 14.5 % (15.0-50.0)
== END | disposition home or self-care (01) ==
LOC: LAB 11:57 → LAB SHORT 11:57
PROVIDERS: Chiropractor
DX: G25.81 Restless legs syndrome (principal); R53.83 Other fatigue; R79.89 Other specified abnormal findings of blood chemistry; R82.90 Unspecified abnormal findings in urine
CPT/HCPCS: 80053; 82607; 82728; 82746; 83540; 83550; 83735; 84439; 84443; 84481; 85025; 87086

== ENCOUNTER 2024-06-30 04:46 | Day surgery (SDC) | payer OTHER ==
[2024-06-30] MEDS ORDERED: Lactated Ringer's 1,000 ML IV SCH (07:10)
[2024-06-30] MEDS ORDERED: Ondansetron HCl 2 MG / ML 2ML Vial IV SCH (07:10)
[2024-06-30 08:05] VITALS: BP 120/77
== END 2024-06-30 09:11 | disposition home or self-care (01) ==
LOC: ATC 04:46
DX: R11.0 Nausea (principal); E86.0 Dehydration; M79.7 Fibromyalgia; M35.3 Polymyalgia rheumatica; K21.9 Gastro-esophageal reflux disease without esophagitis; Z98.84 Bariatric surgery status
CPT/HCPCS: 96361; 96374; J1642; J2405; J7120

== ENCOUNTER 2024-07-02 03:34 | Day surgery (SDC) | payer OTHER ==
[2024-07-02] MEDS ORDERED: Ondansetron HCl 2 MG / ML 2ML Vial IV SCH (06:50)
[2024-07-02] MEDS ORDERED: Ketorolac Tromethamine 30mg Vial IM SCH (06:55)
[2024-07-02] MEDS ORDERED: Lactated Ringer's 1,000 ML IV SCH (06:55)
[2024-07-02 07:57] VITALS: BP 131/86
--- NOTE | 2024-07-02 08:18 | NUR ---
Pt reports that she will be having an endoscopy next Friday07/07/24. Pt states she will not be taking toradol today.
== END 2024-07-02 09:12 | disposition home or self-care (01) ==
LOC: ATC 03:34
DX: E86.0 Dehydration (principal); K90.9 Intestinal malabsorption, unspecified; R63.8 Other symptoms and signs concerning food and fluid intake; K21.9 Gastro-esophageal reflux disease without esophagitis; E56.9 Vitamin deficiency, unspecified; Z98.84 Bariatric surgery status; M79.10 Myalgia, unspecified site; Z88.2 Allergy status to sulfonamides; Z88.8 Allergy status to other drugs, medicaments and biological substances
CPT/HCPCS: 96361; 96374; 96375; J1642; J2405; J7120

== ENCOUNTER 2024-07-09 01:56 | Day surgery (SDC) | payer OTHER ==
[~2024-07-09 01:56] MED LIST changes: +Cyanocobalamin 1000 MCG/ML 1ML Vial IM SCH; +Lactated Ringer's 1,000 ML IV SCH; +Ondansetron HCl 2 MG / ML 2ML Vial IV SCH
[2024-07-09] MEDS ORDERED: Ketorolac Tromethamine 30mg Vial IM SCH (06:00)
[2024-07-09] MEDS ORDERED: Ondansetron HCl 2 MG / ML 2ML Vial IV SCH (06:50)
[2024-07-09] MEDS ORDERED: Lactated Ringer's 1,000 ML IV SCH (06:50)
[2024-07-09 08:00] VITALS: BP 134/89
== END 2024-07-09 09:17 | disposition home or self-care (01) ==
LOC: ATC 01:56
DX: E86.0 Dehydration (principal); K90.9 Intestinal malabsorption, unspecified; K21.9 Gastro-esophageal reflux disease without esophagitis; E56.9 Vitamin deficiency, unspecified; G43.709 Chronic migraine without aura, not intractable, without status migrainosus; Z79.899 Other long term (current) drug therapy; Z88.1 Allergy status to other antibiotic agents; Z88.2 Allergy status to sulfonamides; Z88.8 Allergy status to other drugs, medicaments and biological substances; Z98.84 Bariatric surgery status
CPT/HCPCS: 96361; 96374; J1642; J2405; J7120

== ENCOUNTER 2024-07-12 02:20 | Day surgery (SDC) | payer OTHER ==
[~2024-07-12 02:20] MED LIST changes: -Cyanocobalamin 1000 MCG/ML 1ML Vial IM SCH; -Lactated Ringer's 1,000 ML IV SCH; -Ondansetron HCl 2 MG / ML 2ML Vial IV SCH
[2024-07-12] MEDS ORDERED: Lactated Ringer's 1,000 ML IV SCH (06:55)
[2024-07-12] MEDS ORDERED: Ondansetron HCl 2 MG / ML 2ML Vial IV SCH (06:55)
[2024-07-12 08:00] VITALS: BP 134/85
== END 2024-07-12 09:23 | disposition home or self-care (01) ==
LOC: ATC 02:20
DX: E86.0 Dehydration (principal); G90.A Postural orthostatic tachycardia syndrome [POTS]; K21.9 Gastro-esophageal reflux disease without esophagitis; E53.8 Deficiency of other specified B group vitamins; M79.10 Myalgia, unspecified site; Z98.84 Bariatric surgery status
CPT/HCPCS: 96361; 96374; J1642; J2405; J7120

== ENCOUNTER 2024-07-14 00:52 | Day surgery (SDC) | payer OTHER ==
[2024-07-14] MEDS ORDERED: Lactated Ringer's 1,000 ML IV SCH (06:50)
[2024-07-14] MEDS ORDERED: Ondansetron HCl 2 MG / ML 2ML Vial IV SCH (06:50)
[2024-07-14 08:00] VITALS: BP 157/85
== END 2024-07-14 09:18 | disposition home or self-care (01) ==
LOC: ATC 00:52
DX: E86.0 Dehydration (principal); G89.4 Chronic pain syndrome; G90.A Postural orthostatic tachycardia syndrome [POTS]; Z98.84 Bariatric surgery status; Z88.2 Allergy status to sulfonamides; Z88.1 Allergy status to other antibiotic agents; Z88.8 Allergy status to other drugs, medicaments and biological substances
CPT/HCPCS: 96361; 96374; J1642; J2405; J7120

== ENCOUNTER 2024-07-16 02:54 | Day surgery (SDC) | payer OTHER ==
[2024-07-16] MEDS ORDERED: Lactated Ringer's 1,000 ML IV SCH (06:45)
[2024-07-16] MEDS ORDERED: Ondansetron HCl 2 MG / ML 2ML Vial IV SCH (06:45)
[2024-07-16 08:21] VITALS: BP 143/97
== END 2024-07-16 09:25 | disposition home or self-care (01) ==
LOC: ATC 02:54
DX: E86.0 Dehydration (principal); K90.9 Intestinal malabsorption, unspecified; K21.9 Gastro-esophageal reflux disease without esophagitis; E56.9 Vitamin deficiency, unspecified; E53.8 Deficiency of other specified B group vitamins; R11.0 Nausea; G90.A Postural orthostatic tachycardia syndrome [POTS]; Z98.84 Bariatric surgery status; Z88.1 Allergy status to other antibiotic agents; Z88.2 Allergy status to sulfonamides; Z88.8 Allergy status to other drugs, medicaments and biological substances; Z91.09 Other allergy status, other than to drugs and biological substances
CPT/HCPCS: 96361; 96374; J1642; J2405; J7120

== ENCOUNTER 2024-07-19 01:39 | Day surgery (SDC) | payer OTHER ==
[2024-07-19] MEDS ORDERED: Ondansetron HCl 2 MG / ML 2ML Vial IV SCH (07:10)
[2024-07-19] MEDS ORDERED: Lactated Ringer's 1,000 ML IV SCH (07:10)
[2024-07-19 07:57] VITALS: BP 150/86
== END 2024-07-19 09:14 | disposition home or self-care (01) ==
LOC: ATC 01:39
DX: E86.0 Dehydration (principal); K21.9 Gastro-esophageal reflux disease without esophagitis; G89.4 Chronic pain syndrome; G90.A Postural orthostatic tachycardia syndrome [POTS]; E53.8 Deficiency of other specified B group vitamins; Z88.0 Allergy status to penicillin; Z88.1 Allergy status to other antibiotic agents; Z88.2 Allergy status to sulfonamides; Z88.8 Allergy status to other drugs, medicaments and biological substances; Z98.84 Bariatric surgery status; Z91.048 Other nonmedicinal substance allergy status
CPT/HCPCS: 96361; 96374; J1642; J2405; J7120

== ENCOUNTER 2024-07-21 04:14 | Day surgery (SDC) | payer OTHER ==
[2024-07-21] MEDS ORDERED: Ondansetron HCl 2 MG / ML 2ML Vial IV SCH (06:55)
[2024-07-21] MEDS ORDERED: Lactated Ringer's 1,000 ML IV SCH (06:55)
[2024-07-21 07:59] VITALS: BP 170/91
== END 2024-07-21 09:14 | disposition home or self-care (01) ==
LOC: ATC 04:14
DX: E86.0 Dehydration (principal); K90.9 Intestinal malabsorption, unspecified; K21.9 Gastro-esophageal reflux disease without esophagitis; G90.A Postural orthostatic tachycardia syndrome [POTS]; E53.8 Deficiency of other specified B group vitamins; Z88.1 Allergy status to other antibiotic agents; Z88.0 Allergy status to penicillin; Z88.2 Allergy status to sulfonamides; Z98.84 Bariatric surgery status; Z90.3 Acquired absence of stomach [part of]
CPT/HCPCS: 96360; J1642; J2405; J7120

== ENCOUNTER 2024-07-23 04:40 | Day surgery (SDC) | payer OTHER ==
[2024-07-23] MEDS ORDERED: Lactated Ringer's 1,000 ML IV SCH (07:05)
[2024-07-23] MEDS ORDERED: Ondansetron HCl 2 MG / ML 2ML Vial IV SCH (07:05)
[2024-07-23] MEDS ORDERED: Cyanocobalamin 1000 MCG/ML 1ML Vial IM SCH (07:10)
[2024-07-23] MEDS ORDERED: Ketorolac Tromethamine 30mg Vial IM SCH (07:10)
[2024-07-23 08:03] VITALS: BP 156/91
== END 2024-07-23 09:13 | disposition home or self-care (01) ==
LOC: ATC 04:40
DX: E86.0 Dehydration (principal); K90.9 Intestinal malabsorption, unspecified; K21.9 Gastro-esophageal reflux disease without esophagitis; E56.9 Vitamin deficiency, unspecified; E53.8 Deficiency of other specified B group vitamins; G90.A Postural orthostatic tachycardia syndrome [POTS]; Z88.1 Allergy status to other antibiotic agents; Z88.2 Allergy status to sulfonamides; Z88.8 Allergy status to other drugs, medicaments and biological substances; Z98.84 Bariatric surgery status
CPT/HCPCS: 96361; 96372; 96374; J1642; J1885; J2405; J3420; J7120

== ENCOUNTER 2024-07-26 00:47 | Day surgery (SDC) | payer OTHER ==
[~2024-07-26 00:47] MED LIST changes: +Lactated Ringer's 1,000 ML IV SCH
[2024-07-26] MEDS ORDERED: Ondansetron HCl 2 MG / ML 2ML Vial IV SCH (07:05)
[2024-07-26 08:17] VITALS: BP 137/91
== END 2024-07-26 09:18 | disposition home or self-care (01) ==
LOC: ATC 00:47
DX: E86.0 Dehydration (principal); K90.9 Intestinal malabsorption, unspecified; K21.9 Gastro-esophageal reflux disease without esophagitis; E56.9 Vitamin deficiency, unspecified; E53.8 Deficiency of other specified B group vitamins; G90.A Postural orthostatic tachycardia syndrome [POTS]; Z88.2 Allergy status to sulfonamides; Z88.8 Allergy status to other drugs, medicaments and biological substances; Z91.09 Other allergy status, other than to drugs and biological substances; Z98.84 Bariatric surgery status
CPT/HCPCS: 96361; 96374; J1642; J2405; J7120

== ENCOUNTER 2024-07-28 08:12 | Day surgery (SDC) | payer OTHER ==
[~2024-07-28 08:12] MED LIST changes: -Lactated Ringer's 1,000 ML IV SCH; +Ondansetron HCl 2 MG / ML 2ML Vial IV SCH
[2024-07-28] MEDS ORDERED: Lactated Ringer's 1,000 ML IV SCH (15:45)
[2024-07-28 16:11] VITALS: BP 138/80
== END 2024-07-28 17:18 | disposition home or self-care (01) ==
LOC: ATC 08:12
DX: R62.7 Adult failure to thrive (principal); G90.A Postural orthostatic tachycardia syndrome [POTS]; E53.8 Deficiency of other specified B group vitamins
CPT/HCPCS: 96361; 96374; J1642; J2405; J7120

== ENCOUNTER 2024-07-30 03:45 | Day surgery (SDC) | payer OTHER ==
[~2024-07-30 03:45] MED LIST changes: -Ondansetron HCl 2 MG / ML 2ML Vial IV SCH
[2024-07-30] MEDS ORDERED: Lactated Ringer's 1,000 ML IV SCH (06:40)
[2024-07-30] MEDS ORDERED: Ondansetron HCl 2 MG / ML 2ML Vial IV SCH (06:45)
[2024-07-30] MEDS ORDERED: Ketorolac Tromethamine 30mg Vial IM SCH ×2 (06:45→08:05)
[2024-07-30 08:00] VITALS: BP 167/89
== END 2024-07-30 09:18 | disposition home or self-care (01) ==
LOC: ATC 03:45
DX: R62.7 Adult failure to thrive (principal); E53.8 Deficiency of other specified B group vitamins; G90.A Postural orthostatic tachycardia syndrome [POTS]; M79.10 Myalgia, unspecified site; E56.9 Vitamin deficiency, unspecified; R11.0 Nausea
CPT/HCPCS: 96361; 96372; 96374; J1642; J1885; J2405; J7120

== ENCOUNTER 2024-08-02 03:29 | Day surgery (SDC) | payer OTHER ==
[2024-08-02] MEDS ORDERED: Ondansetron HCl 2 MG / ML 2ML Vial IV SCH (07:05)
[2024-08-02] MEDS ORDERED: Lactated Ringer's 1,000 ML IV SCH (07:05)
[2024-08-02 08:06] VITALS: BP 138/98
== END 2024-08-02 09:23 | disposition home or self-care (01) ==
LOC: ATC 03:29
DX: R62.7 Adult failure to thrive (principal); K90.9 Intestinal malabsorption, unspecified; E86.0 Dehydration; K21.9 Gastro-esophageal reflux disease without esophagitis; E53.8 Deficiency of other specified B group vitamins; M79.10 Myalgia, unspecified site; G90.A Postural orthostatic tachycardia syndrome [POTS]; Z98.84 Bariatric surgery status; Z88.2 Allergy status to sulfonamides; Z88.0 Allergy status to penicillin; Z88.8 Allergy status to other drugs, medicaments and biological substances; Z91.048 Other nonmedicinal substance allergy status
CPT/HCPCS: 96361; 96374; J1642; J2405; J7120

== ENCOUNTER 2024-08-13 00:50 | Day surgery (SDC) | payer OTHER ==
[2024-08-13] MEDS ORDERED: Ketorolac Tromethamine 30mg Vial IM SCH (07:05)
[2024-08-13] MEDS ORDERED: Ondansetron HCl 2 MG / ML 2ML Vial IV SCH (07:05)
[2024-08-13] MEDS ORDERED: Lactated Ringer's 1,000 ML IV SCH (07:05)
[2024-08-13 08:19] VITALS: BP 135/98
== END 2024-08-13 09:36 | disposition home or self-care (01) ==
LOC: ATC 00:50
DX: R62.7 Adult failure to thrive (principal); E53.8 Deficiency of other specified B group vitamins; G90.A Postural orthostatic tachycardia syndrome [POTS]; K21.9 Gastro-esophageal reflux disease without esophagitis; E56.9 Vitamin deficiency, unspecified; R11.0 Nausea; G89.4 Chronic pain syndrome; G43.E19 Chronic migraine with aura, intractable, without status migrainosus; M15.9 Polyosteoarthritis, unspecified; J44.9 Chronic obstructive pulmonary disease, unspecified; Z98.84 Bariatric surgery status; Z79.899 Other long term (current) drug therapy
CPT/HCPCS: 96361; 96372; 96374; J1642; J1885; J2405; J7120

== ENCOUNTER 2024-08-16 02:26 | Day surgery (SDC) | payer OTHER ==
[2024-08-16] MEDS ORDERED: Ondansetron HCl 2 MG / ML 2ML Vial IV SCH (06:50)
[2024-08-16] MEDS ORDERED: Lactated Ringer's 1,000 ML IV SCH (06:50)
[2024-08-16 08:05] VITALS: BP 163/101
== END 2024-08-16 09:19 | disposition home or self-care (01) ==
LOC: ATC 02:26
DX: R62.7 Adult failure to thrive (principal); E53.8 Deficiency of other specified B group vitamins; G90.A Postural orthostatic tachycardia syndrome [POTS]; E86.0 Dehydration; K21.9 Gastro-esophageal reflux disease without esophagitis; E56.9 Vitamin deficiency, unspecified; R53.83 Other fatigue; R11.0 Nausea; G47.33 Obstructive sleep apnea (adult) (pediatric); G43.E19 Chronic migraine with aura, intractable, without status migrainosus; J44.9 Chronic obstructive pulmonary disease, unspecified; E21.3 Hyperparathyroidism, unspecified; G89.4 Chronic pain syndrome; Z79.899 Other long term (current) drug therapy; Z98.84 Bariatric surgery status; Z88.2 Allergy status to sulfonamides; Z88.8 Allergy status to other drugs, medicaments and biological substances
CPT/HCPCS: 96361; 96374; J1642; J2405; J7120

== ENCOUNTER 2024-08-18 00:51 | Day surgery (SDC) | payer OTHER ==
[2024-08-18] MEDS ORDERED: Ondansetron HCl 2 MG / ML 2ML Vial IV SCH (07:05)
[2024-08-18] MEDS ORDERED: Lactated Ringer's 1,000 ML IV SCH (07:05)
[2024-08-18 08:08] VITALS: BP 153/99
== END 2024-08-18 09:14 | disposition home or self-care (01) ==
LOC: ATC 00:51
DX: E53.8 Deficiency of other specified B group vitamins (principal); G90.A Postural orthostatic tachycardia syndrome [POTS]; M79.10 Myalgia, unspecified site; R11.0 Nausea; R62.7 Adult failure to thrive; G47.33 Obstructive sleep apnea (adult) (pediatric); F41.8 Other specified anxiety disorders; J44.9 Chronic obstructive pulmonary disease, unspecified; K21.9 Gastro-esophageal reflux disease without esophagitis; Z88.2 Allergy status to sulfonamides; Z88.1 Allergy status to other antibiotic agents; Z88.8 Allergy status to other drugs, medicaments and biological substances; Z79.899 Other long term (current) drug therapy
CPT/HCPCS: 96361; 96374; J1642; J2405; J7120

== ENCOUNTER 2024-08-20 04:23 | Day surgery (SDC) | payer OTHER ==
[2024-08-20] MEDS ORDERED: Ondansetron HCl 2 MG / ML 2ML Vial IV SCH (06:45)
[2024-08-20] MEDS ORDERED: Lactated Ringer's 1,000 ML IV SCH (06:45)
[2024-08-20] MEDS ORDERED: Ketorolac Tromethamine 30mg Vial IM SCH (06:50)
[2024-08-20 08:15] VITALS: BP 163/106
== END 2024-08-20 09:25 | disposition home or self-care (01) ==
LOC: ATC 04:23
DX: R62.7 Adult failure to thrive (principal); K21.9 Gastro-esophageal reflux disease without esophagitis; E53.8 Deficiency of other specified B group vitamins; G90.A Postural orthostatic tachycardia syndrome [POTS]; G43.E19 Chronic migraine with aura, intractable, without status migrainosus; M15.9 Polyosteoarthritis, unspecified; E21.3 Hyperparathyroidism, unspecified; M35.3 Polymyalgia rheumatica; J44.9 Chronic obstructive pulmonary disease, unspecified; Z79.899 Other long term (current) drug therapy; Z88.2 Allergy status to sulfonamides; Z88.8 Allergy status to other drugs, medicaments and biological substances; Z98.84 Bariatric surgery status; Z90.49 Acquired absence of other specified parts of digestive tract; Z90.710 Acquired absence of both cervix and uterus
CPT/HCPCS: 96361; 96372; 96374; J1642; J1885; J2405; J7120

== ENCOUNTER 2024-08-23 02:14 | Day surgery (SDC) | payer OTHER ==
[2024-08-23] MEDS ORDERED: Cyanocobalamin 1000 MCG/ML 1ML Vial IM SCH (07:10)
[2024-08-23] MEDS ORDERED: Ondansetron HCl 2 MG / ML 2ML Vial IV SCH (07:10)
[2024-08-23] MEDS ORDERED: Lactated Ringer's 1,000 ML IV SCH (07:10)
[2024-08-23 08:05] VITALS: BP 152/86
== END 2024-08-23 09:31 | disposition home or self-care (01) ==
LOC: ATC 02:14
DX: R62.7 Adult failure to thrive (principal); E53.8 Deficiency of other specified B group vitamins; E21.3 Hyperparathyroidism, unspecified; R11.0 Nausea; G90.A Postural orthostatic tachycardia syndrome [POTS]; G89.4 Chronic pain syndrome; G43.E19 Chronic migraine with aura, intractable, without status migrainosus; J44.9 Chronic obstructive pulmonary disease, unspecified; K21.9 Gastro-esophageal reflux disease without esophagitis; Z79.899 Other long term (current) drug therapy; Z98.84 Bariatric surgery status
CPT/HCPCS: 96361; 96372; 96374; J2405; J3420; J7120

== ENCOUNTER 2024-08-25 04:10 | Day surgery (SDC) | payer OTHER ==
[2024-08-25] MEDS ORDERED: Lactated Ringer's 1,000 ML IV SCH (07:00)
[2024-08-25] MEDS ORDERED: Ondansetron HCl 2 MG / ML 2ML Vial IV SCH (07:00)
[2024-08-25 08:10] VITALS: BP 168/96
== END 2024-08-25 09:30 | disposition home or self-care (01) ==
LOC: ATC 04:10
DX: M79.10 Myalgia, unspecified site (principal); E53.8 Deficiency of other specified B group vitamins; G90.A Postural orthostatic tachycardia syndrome [POTS]; R11.0 Nausea; G47.33 Obstructive sleep apnea (adult) (pediatric); M15.9 Polyosteoarthritis, unspecified; E21.3 Hyperparathyroidism, unspecified; J44.9 Chronic obstructive pulmonary disease, unspecified; K21.9 Gastro-esophageal reflux disease without esophagitis; Z88.2 Allergy status to sulfonamides; Z88.1 Allergy status to other antibiotic agents; Z88.8 Allergy status to other drugs, medicaments and biological substances; Z79.899 Other long term (current) drug therapy
CPT/HCPCS: 96361; 96374; J1642; J2405; J7120

== ENCOUNTER 2024-08-27 05:35 | Day surgery (SDC) | payer OTHER ==
[2024-08-27] MEDS ORDERED: Lactated Ringer's 1,000 ML IV SCH (06:50)
[2024-08-27] MEDS ORDERED: Ondansetron HCl 2 MG / ML 2ML Vial IV SCH (06:50)
[2024-08-27] MEDS ORDERED: Ketorolac Tromethamine 30mg Vial IM SCH (06:50)
[2024-08-27 07:56] VITALS: BP 177/93
== END 2024-08-27 09:11 | disposition home or self-care (01) ==
LOC: ATC 05:35
DX: R62.7 Adult failure to thrive (principal); K21.9 Gastro-esophageal reflux disease without esophagitis; G89.4 Chronic pain syndrome; G43.E19 Chronic migraine with aura, intractable, without status migrainosus; J44.9 Chronic obstructive pulmonary disease, unspecified; E21.3 Hyperparathyroidism, unspecified; M15.9 Polyosteoarthritis, unspecified; G90.A Postural orthostatic tachycardia syndrome [POTS]; M35.3 Polymyalgia rheumatica; G47.33 Obstructive sleep apnea (adult) (pediatric); E53.8 Deficiency of other specified B group vitamins; E43 Unspecified severe protein-calorie malnutrition; Z68.1 Body mass index [BMI] 19.9 or less, adult; Z79.899 Other long term (current) drug therapy; Z88.2 Allergy status to sulfonamides; Z88.8 Allergy status to other drugs, medicaments and biological substances; Z98.84 Bariatric surgery status; Z90.49 Acquired absence of other specified parts of digestive tract; Z90.710 Acquired absence of both cervix and uterus
CPT/HCPCS: 96361; 96372; 96374; J1642; J1885; J2405; J7120

== ENCOUNTER 2024-08-29 06:57 | Day surgery (SDC) | payer OTHER ==
[2024-08-29] MEDS ORDERED: Ondansetron HCl 2 MG / ML 2ML Vial IV SCH (08:00)
[2024-08-29] MEDS ORDERED: Lactated Ringer's 1,000 ML IV SCH (08:00)
[2024-08-29 11:09] VITALS: BP 134/93
== END 2024-08-29 12:15 | disposition home or self-care (01) ==
LOC: ATC 06:57
DX: E53.8 Deficiency of other specified B group vitamins (principal); M79.10 Myalgia, unspecified site; G90.A Postural orthostatic tachycardia syndrome [POTS]; G47.33 Obstructive sleep apnea (adult) (pediatric); G89.4 Chronic pain syndrome; K21.9 Gastro-esophageal reflux disease without esophagitis; J44.9 Chronic obstructive pulmonary disease, unspecified; E21.3 Hyperparathyroidism, unspecified; R62.7 Adult failure to thrive; F41.8 Other specified anxiety disorders; R13.19 Other dysphagia; Z90.3 Acquired absence of stomach [part of]; Z98.84 Bariatric surgery status; Z79.899 Other long term (current) drug therapy
CPT/HCPCS: 96361; 96374; J1642; J2405; J7120

== ENCOUNTER 2024-09-01 03:40 | Day surgery (SDC) | payer OTHER ==
[2024-09-01] MEDS ORDERED: Lactated Ringer's 1,000 ML IV SCH (07:25)
[2024-09-01] MEDS ORDERED: Ondansetron HCl 2 MG / ML 2ML Vial IV SCH (07:25)
[2024-09-01] MEDS ORDERED: FOLI1 PO (08:00)
[2024-09-01 08:01] VITALS: BP 151/83
== END 2024-09-01 09:10 | disposition home or self-care (01) ==
LOC: ATC 03:40
DX: E53.8 Deficiency of other specified B group vitamins (principal); M79.10 Myalgia, unspecified site; R11.0 Nausea; G90.A Postural orthostatic tachycardia syndrome [POTS]; G47.33 Obstructive sleep apnea (adult) (pediatric); K21.9 Gastro-esophageal reflux disease without esophagitis; G89.4 Chronic pain syndrome; G43.E19 Chronic migraine with aura, intractable, without status migrainosus; M15.9 Polyosteoarthritis, unspecified; E21.3 Hyperparathyroidism, unspecified; F41.8 Other specified anxiety disorders; Z88.2 Allergy status to sulfonamides; Z88.1 Allergy status to other antibiotic agents; Z88.8 Allergy status to other drugs, medicaments and biological substances; Z79.899 Other long term (current) drug therapy
CPT/HCPCS: 96361; 96374; J1642; J2405; J7120

== ENCOUNTER 2024-09-03 01:01 | Day surgery (SDC) | payer OTHER ==
[~2024-09-03 01:01] MED LIST changes: +FOLI1 PO
[2024-09-03] MEDS ORDERED: Lactated Ringer's 1,000 ML IV SCH (06:50)
[2024-09-03] MEDS ORDERED: Ketorolac Tromethamine 30mg Vial IM SCH (06:50)
[2024-09-03] MEDS ORDERED: Ondansetron HCl 2 MG / ML 2ML Vial IV SCH (06:50)
[2024-09-03 08:12] VITALS: BP 166/102
== END 2024-09-03 09:20 | disposition home or self-care (01) ==
LOC: ATC 01:01
DX: E86.0 Dehydration (principal); R62.7 Adult failure to thrive; E53.8 Deficiency of other specified B group vitamins; E21.3 Hyperparathyroidism, unspecified; G90.A Postural orthostatic tachycardia syndrome [POTS]; G89.4 Chronic pain syndrome; K21.9 Gastro-esophageal reflux disease without esophagitis; M15.9 Polyosteoarthritis, unspecified; J44.9 Chronic obstructive pulmonary disease, unspecified; Z79.899 Other long term (current) drug therapy; Z98.84 Bariatric surgery status
CPT/HCPCS: 96361; 96372; 96374; J1642; J1885; J2405; J7120

== ENCOUNTER 2024-09-06 04:13 | Day surgery (SDC) | payer OTHER ==
[2024-09-06] MEDS ORDERED: Lactated Ringer's 1,000 ML IV SCH (07:05)
[2024-09-06] MEDS ORDERED: Ondansetron HCl 2 MG / ML 2ML Vial IV SCH (07:05)
[2024-09-06 08:34] VITALS: BP 143/85
== END 2024-09-06 09:28 | disposition home or self-care (01) ==
LOC: ATC 04:13
DX: E86.0 Dehydration (principal); R62.7 Adult failure to thrive; E53.8 Deficiency of other specified B group vitamins; G90.A Postural orthostatic tachycardia syndrome [POTS]; K21.9 Gastro-esophageal reflux disease without esophagitis; E56.9 Vitamin deficiency, unspecified; G89.29 Other chronic pain; J44.9 Chronic obstructive pulmonary disease, unspecified; Z98.84 Bariatric surgery status; Z79.899 Other long term (current) drug therapy
CPT/HCPCS: 96361; 96374; J1642; J2405; J7120

== ENCOUNTER 2024-09-08 05:01 | Day surgery (SDC) | payer OTHER ==
[2024-09-08] MEDS ORDERED: Ondansetron HCl 2 MG / ML 2ML Vial IV SCH (07:05)
[2024-09-08] MEDS ORDERED: Lactated Ringer's 1,000 ML IV SCH (07:05)
[2024-09-08 08:09] VITALS: BP 156/91
== END 2024-09-08 09:25 | disposition home or self-care (01) ==
LOC: ATC 05:01
DX: E53.8 Deficiency of other specified B group vitamins (principal); M79.10 Myalgia, unspecified site; G90.A Postural orthostatic tachycardia syndrome [POTS]; R11.0 Nausea; G47.33 Obstructive sleep apnea (adult) (pediatric); G89.4 Chronic pain syndrome; G43.E19 Chronic migraine with aura, intractable, without status migrainosus; J44.9 Chronic obstructive pulmonary disease, unspecified; K21.9 Gastro-esophageal reflux disease without esophagitis; E21.3 Hyperparathyroidism, unspecified; R62.7 Adult failure to thrive; F41.8 Other specified anxiety disorders; Z90.3 Acquired absence of stomach [part of]; M35.3 Polymyalgia rheumatica; Z88.1 Allergy status to other antibiotic agents; Z88.2 Allergy status to sulfonamides; Z88.8 Allergy status to other drugs, medicaments and biological substances; Z79.899 Other long term (current) drug therapy
CPT/HCPCS: 96361; 96374; J1642; J2405; J7120

== ENCOUNTER 2024-09-10 06:19 | Day surgery (SDC) | payer OTHER ==
[2024-09-10] MEDS ORDERED: Lactated Ringer's 1,000 ML IV SCH (06:40)
[2024-09-10] MEDS ORDERED: Ondansetron HCl 2 MG / ML 2ML Vial IV SCH (06:40)
[2024-09-10] MEDS ORDERED: Ketorolac Tromethamine 30mg Vial IM SCH (06:40)
[2024-09-10 07:58] VITALS: BP 140/94
[2024-09-10 08:31] LABS: BASOPHILS ABSOLUTE AUTO 0.03 K/mm3 (0.00-0.23); BASOPHILS PERCENT AUTO 1 % (0-2); EOSINOPHILS ABSOLUTE AUTO 0.11 K/mm3 (0.00-0.68); EOSINOPHILS PERCENT AUTO 2 % (0-6); Hematocrit 32.2 % (33.0-51.0); Hemoglobin 10.2 g/dL (11.5-16.0); IMMATURE GRAN ABSOLUTE AUTO 0.02 K/mm3 (0.00-0.10); IMMATURE GRAN PERCENT AUTO 0 % (0-1); LYMPHOCYTES ABSOLUTE AUTO 1.25 K/mm3 (0.84-5.20); LYMPHOCYTES PERCENT AUTO 25 % (21-46); MONOCYTES ABSOLUTE AUTO 0.38 K/mm3 (0.16-1.47); MONOCYTES PERCENT AUTO 8 % (4-13); Mean Corpuscular HGB 27.7 pg (26.0-34.0); Mean Corpuscular HGB Conc 31.7 g/dL (31.5-36.5); Mean Corpuscular Volume 88 fL (80-100); Mean Platelet Volume 10.7 fL (9.1-12.4); NEUTROPHILS ABSOLUTE AUTO 3.17 K/mm3 (1.96-9.15); NEUTROPHILS PERCENT AUTO 64 % (41-73); Platelet Count 357 K/mm3 (150-400); RDW Coefficient Variation 14.2 % (11.7-14.2); Red Blood Cell Count 3.68 M/mm3 (3.80-5.20); White Blood Cell Count 4.96 K/mm3 (4.00-11.30)
[2024-09-10 09:04] LABS: Albumin, Blood 2.5 g/dL (3.4-5.0); Albumin/Globulin Ratio 0.6 (0.8-1.8); Bilirubin, Total 0.2 mg/dL (0.1-1.0); Bun/Creatinine Ratio 16.3 (12.0-20.0); Calcium, Blood 8.6 mg/dL (8.5-10.1); Creatinine, Blood 0.62 mg/dL (0.40-1.00); Globulin, Blood 4.3 g/dL (2.2-4.0); Potassium, Blood 3.6 mmol/L (3.5-5.5); Total Protein, Blood 6.8 g/dL (6.4-8.2)
== END 2024-09-10 09:10 | disposition home or self-care (01) ==
LOC: ATC 06:19
PROVIDERS: Nurse Practitioner Acute Care
DX: R62.7 Adult failure to thrive (principal); M35.3 Polymyalgia rheumatica; D64.9 Anemia, unspecified; E53.8 Deficiency of other specified B group vitamins; G90.A Postural orthostatic tachycardia syndrome [POTS]; G89.4 Chronic pain syndrome; J44.9 Chronic obstructive pulmonary disease, unspecified; K21.9 Gastro-esophageal reflux disease without esophagitis; G43.E19 Chronic migraine with aura, intractable, without status migrainosus; E21.3 Hyperparathyroidism, unspecified; Z79.899 Other long term (current) drug therapy; Z88.2 Allergy status to sulfonamides; Z98.84 Bariatric surgery status
CPT/HCPCS: 80053; 82728; 85025; 85651; 96361; 96372; 96374; J1642; J1885; J2405; J7120

== ENCOUNTER 2024-09-13 03:03 | Day surgery (SDC) | payer OTHER ==
[~2024-09-13 03:03] MED LIST changes: +Pataday2.5 ML BOTHEYES; -[UNRECOGNIZED DRUG - OTHER] BOTHEYES
[2024-09-13] MEDS ORDERED: Ondansetron HCl 2 MG / ML 2ML Vial IV SCH (06:50)
[2024-09-13] MEDS ORDERED: Lactated Ringer's 1,000 ML IV SCH (06:50)
[2024-09-13 08:08] VITALS: BP 155/84
[2024-09-20] MEDS ORDERED: METTREX2.5 PO (18:00)
[2024-09-20] MEDS ORDERED: RABEPRAZOLE SOD20 MG PO (18:06)
== END 2024-09-13 09:30 | disposition home or self-care (01) ==
LOC: ATC 03:03
DX: E86.0 Dehydration (principal); R62.7 Adult failure to thrive; G90.A Postural orthostatic tachycardia syndrome [POTS]; G89.4 Chronic pain syndrome; M15.9 Polyosteoarthritis, unspecified; J44.9 Chronic obstructive pulmonary disease, unspecified; K21.9 Gastro-esophageal reflux disease without esophagitis; Z79.899 Other long term (current) drug therapy; Z88.2 Allergy status to sulfonamides; Z88.8 Allergy status to other drugs, medicaments and biological substances
CPT/HCPCS: 96361; 96374; J1642; J2405; J7120

== ENCOUNTER 2024-09-15 08:01 | Day surgery (SDC) | payer OTHER ==
[~2024-09-15 08:01] MED LIST changes: +Lactated Ringer's 1,000 ML IV SCH; +Ondansetron HCl 2 MG / ML 2ML Vial IV SCH
[2024-09-20] MEDS ORDERED: METTREX2.5 PO (18:00)
[2024-09-20] MEDS ORDERED: RABEPRAZOLE SOD20 MG PO (18:06)
== END 2024-09-15 09:35 | disposition home or self-care (01) ==
LOC: ATC 08:01
DX: E86.0 Dehydration (principal); R62.7 Adult failure to thrive; G90.A Postural orthostatic tachycardia syndrome [POTS]; E53.8 Deficiency of other specified B group vitamins; M15.9 Polyosteoarthritis, unspecified; K21.9 Gastro-esophageal reflux disease without esophagitis; Z79.899 Other long term (current) drug therapy; Z98.84 Bariatric surgery status
CPT/HCPCS: 96361; 96374; J1642; J2405; J7120

== ENCOUNTER 2024-09-17 06:57 | Day surgery (SDC) | payer OTHER ==
[~2024-09-17 06:57] MED LIST changes: +Ketorolac Tromethamine 30mg Vial IM SCH
[2024-09-17 08:08] VITALS: BP 162/99
[2024-09-20] MEDS ORDERED: METTREX2.5 PO (18:00)
[2024-09-20] MEDS ORDERED: RABEPRAZOLE SOD20 MG PO (18:06)
[2024-09-22] MEDS ORDERED: PRED20 PO (12:17)
== END 2024-09-17 09:26 | disposition home or self-care (01) ==
LOC: ATC 06:57
DX: R62.7 Adult failure to thrive (principal); K21.9 Gastro-esophageal reflux disease without esophagitis; E53.8 Deficiency of other specified B group vitamins; G90.A Postural orthostatic tachycardia syndrome [POTS]; E21.3 Hyperparathyroidism, unspecified; M35.3 Polymyalgia rheumatica; J44.9 Chronic obstructive pulmonary disease, unspecified; M15.9 Polyosteoarthritis, unspecified; G43.E19 Chronic migraine with aura, intractable, without status migrainosus; G47.33 Obstructive sleep apnea (adult) (pediatric); E43 Unspecified severe protein-calorie malnutrition; Z98.84 Bariatric surgery status; Z68.1 Body mass index [BMI] 19.9 or less, adult; Z88.2 Allergy status to sulfonamides; Z88.8 Allergy status to other drugs, medicaments and biological substances; Z79.899 Other long term (current) drug therapy; Z90.49 Acquired absence of other specified parts of digestive tract; Z90.710 Acquired absence of both cervix and uterus
CPT/HCPCS: 96361; 96372; 96374; J1642; J1885; J2405; J7120

== ENCOUNTER 2024-09-19 10:50 | Emergency (ER) | payer OTHER ==
[~2024-09-19] VITALS: Ht 157.5 cm; Wt 54.4 kg
[~2024-09-19 10:50] MED LIST changes: -Ketorolac Tromethamine 30mg Vial IM SCH; -Lactated Ringer's 1,000 ML IV SCH; -Ondansetron HCl 2 MG / ML 2ML Vial IV SCH
[2024-09-19 11:29] LABS: BASOPHILS ABSOLUTE AUTO 0.03 K/mm3 (0.00-0.23); BASOPHILS PERCENT AUTO 1 % (0-2); EOSINOPHILS ABSOLUTE AUTO 0.07 K/mm3 (0.00-0.68); EOSINOPHILS PERCENT AUTO 1 % (0-6); Hematocrit 35.5 % (33.0-51.0); Hemoglobin 11.3 g/dL (11.5-16.0); IMMATURE GRAN ABSOLUTE AUTO 0.02 K/mm3 (0.00-0.10); IMMATURE GRAN PERCENT AUTO 0 % (0-1); LYMPHOCYTES ABSOLUTE AUTO 1.13 K/mm3 (0.84-5.20); LYMPHOCYTES PERCENT AUTO 20 % (21-46); MONOCYTES ABSOLUTE AUTO 0.39 K/mm3 (0.16-1.47); MONOCYTES PERCENT AUTO 7 % (4-13); Mean Corpuscular HGB 27.5 pg (26.0-34.0); Mean Corpuscular HGB Conc 31.8 g/dL (31.5-36.5); Mean Corpuscular Volume 86 fL (80-100); Mean Platelet Volume 10.4 fL (9.1-12.4); NEUTROPHILS ABSOLUTE AUTO 3.91 K/mm3 (1.96-9.15); NEUTROPHILS PERCENT AUTO 70 % (41-73); Platelet Count 314 K/mm3 (150-400); RDW Coefficient Variation 14.2 % (11.7-14.2); RDW Standard Deviation 44.1 fL (35.1-46.3); Red Blood Cell Count 4.11 M/mm3 (3.80-5.20); White Blood Cell Count 5.55 K/mm3 (4.00-11.30)
[2024-09-19 11:56] LABS: Albumin, Blood 2.9 g/dL (3.4-5.0); Albumin/Globulin Ratio 0.6 (0.8-1.8); Bilirubin, Total 0.3 mg/dL (0.1-1.0); Bun/Creatinine Ratio 14.6 (12.0-20.0); Creatinine, Blood 0.75 mg/dL (0.40-1.00); Globulin, Blood 4.6 g/dL (2.2-4.0); Potassium, Blood 3.9 mmol/L (3.5-5.5); Total Protein, Blood 7.5 g/dL (6.4-8.2)
[2024-09-19 12:09] LABS: Influenza A, PCR NEGATIVE (NEGATIVE); Influenza B, PCR NEGATIVE (NEGATIVE); Resp Syncytial Virus, PCR NEGATIVE (NEGATIVE); SARS-Cov-2 (COVID-19) PCR, MMC NEGATIVE (NEGATIVE)
[2024-09-19] MEDS ORDERED: Ipratropium/Albuterol SulF 2.5-0.5MG/3 ML Amp INH ONE (13:40)
[2024-09-19 15:00] VITALS: BP 143/100
[2024-09-20] MEDS ORDERED: METTREX2.5 PO ×2 (18:00)
[2024-09-20] MEDS ORDERED: AIMOVIG AU140 MG/1 M SC (18:02)
[2024-09-20] MEDS ORDERED: RABEPRAZOLE SOD20 MG PO ×2 (18:06)
== END 2024-09-19 15:21 | disposition home or self-care (01) ==
LOC: ER 10:50
PROVIDERS: Physician Assistant
DX: J45.909 Unspecified asthma, uncomplicated (principal); J06.9 Acute upper respiratory infection, unspecified; Z79.899 Other long term (current) drug therapy; Z88.0 Allergy status to penicillin; Z88.2 Allergy status to sulfonamides; Z88.5 Allergy status to narcotic agent; Z88.8 Allergy status to other drugs, medicaments and biological substances; Z91.09 Other allergy status, other than to drugs and biological substances
CPT/HCPCS: 0241U; 71046; 80053; 83880; 84484; 85025; 85379; 93005; 93010; 94640; 94664; 99285-25

== ENCOUNTER 2024-09-19 22:49 | Inpatient (IN) | payer OTHER ==
[~2024-09-19] VITALS: Ht 157.5 cm; Wt 42.2 kg
[2024-09-20] MEDS ORDERED: Acetaminophen 500 MG Tab PO ONE (03:40)
[2024-09-20] MEDS ORDERED: NS 1,000 ML IV SCH (07:25)
[2024-09-20 08:10] LABS: BASOPHILS ABSOLUTE AUTO 0.02 K/mm3 (0.00-0.23); BASOPHILS PERCENT AUTO 0 % (0-2); EOSINOPHILS ABSOLUTE AUTO 0.01 K/mm3 (0.00-0.68); EOSINOPHILS PERCENT AUTO 0 % (0-6); Hematocrit 34.4 % (33.0-51.0); IMMATURE GRAN ABSOLUTE AUTO 0.03 K/mm3 (0.00-0.10); IMMATURE GRAN PERCENT AUTO 0 % (0-1); LYMPHOCYTES ABSOLUTE AUTO 0.97 K/mm3 (0.84-5.20); LYMPHOCYTES PERCENT AUTO 13 % (21-46); MONOCYTES ABSOLUTE AUTO 0.35 K/mm3 (0.16-1.47); MONOCYTES PERCENT AUTO 5 % (4-13); Mean Corpuscular HGB 27.4 pg (26.0-34.0); Mean Corpuscular Volume 86 fL (80-100); Mean Platelet Volume 10.6 fL (9.1-12.4); NEUTROPHILS ABSOLUTE AUTO 5.84 K/mm3 (1.96-9.15); NEUTROPHILS PERCENT AUTO 81 % (41-73); Platelet Count 325 K/mm3 (150-400); RDW Coefficient Variation 14.3 % (11.7-14.2); RDW Standard Deviation 44.5 fL (35.1-46.3); Red Blood Cell Count 4.01 M/mm3 (3.80-5.20); White Blood Cell Count 7.22 K/mm3 (4.00-11.30)
[2024-09-20 08:29] LABS: Albumin, Blood 2.6 g/dL (3.4-5.0); Albumin/Globulin Ratio 0.6 (0.8-1.8); Bilirubin, Total 0.2 mg/dL (0.1-1.0); Calcium, Blood 8.9 mg/dL (8.5-10.1); Creatinine, Blood 0.63 mg/dL (0.40-1.00); Globulin, Blood 4.4 g/dL (2.2-4.0)
[2024-09-20] MEDS ORDERED: Bisacodyl 10 MG Supp PR PRN (08:35)
[2024-09-20] MEDS ORDERED: FLU VACC TS2024-25(6MOS UP)/PF 45 MCG/0.5 ML SYRINGE IM ONE (08:35)
[2024-09-20] MEDS ORDERED: Magnesium Hydroxide Conc 10 ML UDC PO PRN (08:35)
[2024-09-20] MEDS ORDERED: LORazepam 1 MG Tab PO PRN ×2 (08:55→18:20)
[2024-09-20] MEDS ORDERED: Ondansetron HCl 2 MG / ML 2ML Vial IV PRN (08:55)
[2024-09-20] MEDS ORDERED: Ibuprofen 400 MG Tab PO PRN (08:55)
[2024-09-20] MEDS ORDERED: Fluticasone 0.05% Nasal Spray SCH (09:00)
[2024-09-20] MEDS ORDERED: OxyCODONE 10/Acetamin 325 TABLET PO PRN (09:00)
[2024-09-20] MEDS ORDERED: Sennosides 8.6 MG Tab PO SCH (09:00)
[2024-09-20] MEDS ORDERED: Docusate Sodium 100 MG Cap PO SCH (09:00)
[2024-09-20] MEDS ORDERED: Ipratropium/Albuterol SulF 2.5-0.5MG/3 ML Amp INH PRN (09:05)
[2024-09-20] MEDS ORDERED: Naloxone HCl 0.4MG / ML 1ML Vial IV PRN (09:05)
[2024-09-20] MEDS ORDERED: UBRELVY 100 MG PO PRN (09:05)
[2024-09-20] MEDS ORDERED: Loperamide HCl 2 MG Cap PO PRN (13:50)
[2024-09-20] MEDS ORDERED: MethylPREDNISolone Sod Succ 40 MG VIAL IV SCH (14:09)
[2024-09-20] MEDS ORDERED: BUTALB PO PRN ×2 (14:15→17:20)
[2024-09-20] MEDS ORDERED: CODEINE PO PRN ×2 (14:15→17:20)
[2024-09-20] MEDS ORDERED: CAFFEIN PO PRN ×2 (14:15→17:20)
[2024-09-20] MEDS ORDERED: APAP PO PRN ×2 (14:15→17:20)
[2024-09-20 17:00] VITALS: BP 170/91
[2024-09-20] MEDS ORDERED: Phenazopyridine HCl 100 MG Tab PO PRN (17:30)
[2024-09-20] MEDS ORDERED: METTREX2.5 PO ×2 (18:00)
[2024-09-20] MEDS ORDERED: AIMOVIG AU140 MG/1 M SC (18:02)
[2024-09-20] MEDS ORDERED: RABEPRAZOLE SOD20 MG PO ×2 (18:06)
--- NOTE | 2024-09-20 18:12 | NUR ---
SHIFT SUMMARY: PT IS A/O X 4 IND IN ROOM, PLEASANT AND COOPERATIVE. PT ADMITTED TO ROOM 356. PT ABLE TO TRANFER IND FROM RNEY AND AMBULATE TO BATHROOM. STEADY ON FEET. DENIES DIZZINESS WITH AMBULATION. PT REPORTS "ALL OVER" 6/10 PAIN. REPORTS FIORICET HAS TAKEN AWAY MIGRAINE SYMPTOMS. PT IS ON RA, NO S/S OF SOB AT THIS TIME. VSS. SATS ABOVE 90%. LS CLEAR. PT PLACED ON TELE. MEDIPORT TO [facility] IS NOT ACCESSED. PT REPORTS SHE IS HAVING HARD TIME WITH KEEPING WEIGHT ON. PT HAS LOOSE SKIN, FRAIL AND CACHECTIC IN APPEARANCE WITH RIBS SHOWING. PT EATING DINNER AT THIS TIME WITHOUT DIFFICULTIES. OXYCODONE GIVEN FOR PAIN. ASHER IN PHARMACY COMPLETED MED REC WITH PATIENT. PT DECLINED TO WEAR DNR BRACELET. SHE REPORTS SHE IS OKAY WITH GETTING MEDICATIONS BUT DOES NOT WANT INTUBATION IF NEEDED. LIMITED CODE WRITTEN ON BOARD AND PT OK WITH THAT.
[2024-09-20] MEDS ORDERED: Triamcinolone Acet 0.1% Ointment 15 GM TOP PRN (18:20)
[2024-09-20] MEDS ORDERED: Lactulose 20 GM/30 ML UDC PO PRN (18:20)
[2024-09-20 19:09] VITALS: BP 134/79
[2024-09-20] MEDS ORDERED: AIMOVIG SC SCH (19:30)
[2024-09-20] MEDS ORDERED: Mirtazapine 15 MG Tab PO SCH (21:00)
[2024-09-20] MEDS ORDERED: CYCLOSPORINE 0.09% BOTHEYES SCH (21:00)
[2024-09-20] MEDS ORDERED: OLOPATADINE 0.1% BOTHEYES SCH (21:00)
[2024-09-20] MEDS ORDERED: Montelukast Sodium 10 MG Tab PO SCH (21:00)
[2024-09-20] MEDS ORDERED: EYE BOTHEYES SCH (21:00)
[2024-09-20] MEDS ORDERED: Calcium Carbonate 500 MG Tab Chew PO PRN (21:20)
--- NOTE | 2024-09-21 03:38 | NUR ---
A&OX4, VSS, ABLE TO MAKE NEEDS KNOWN, MEDICATED 1X FOR C/O MIGRAINE THAT WAS STILL LINGERING AFTER BEING TREATED EARLIER IN ED-STATED SZYMANSKI WAS GONE AT REASSESSMENT, 1 DOSE ATIVAN ALSO REQUESTED; INDEP IN ROOM, SLEPT T/O THE NIGHT AND SLEEPING AT THIS TIME, CALL LIGHT IN REACH, WILL CONT TO MONITOR UNTIL REPORT GIVEN TO ONCOMING NURSE.
[2024-09-21 05:31] VITALS: BP 137/77
[2024-09-21 05:41] LABS: BASOPHILS PERCENT AUTO 0 % (0-2); EOSINOPHILS PERCENT AUTO 0 % (0-6); Hematocrit 32.6 % (33.0-51.0); Hemoglobin 10.6 g/dL (11.5-16.0); IMMATURE GRAN ABSOLUTE AUTO 0.02 K/mm3 (0.00-0.10); IMMATURE GRAN PERCENT AUTO 0 % (0-1); LYMPHOCYTES ABSOLUTE AUTO 0.79 K/mm3 (0.84-5.20); LYMPHOCYTES PERCENT AUTO 16 % (21-46); MONOCYTES PERCENT AUTO 6 % (4-13); Mean Corpuscular HGB 27.5 pg (26.0-34.0); Mean Corpuscular HGB Conc 32.5 g/dL (31.5-36.5); Mean Corpuscular Volume 85 fL (80-100); Mean Platelet Volume 10.3 fL (9.1-12.4); NEUTROPHILS PERCENT AUTO 77 % (41-73); Platelet Count 329 K/mm3 (150-400); RDW Coefficient Variation 14.4 % (11.7-14.2); Red Blood Cell Count 3.85 M/mm3 (3.80-5.20); White Blood Cell Count 4.91 K/mm3 (4.00-11.30)
[2024-09-21] MEDS ORDERED: Pantoprazole Sodium 40 MG Tab PO SCH (06:00)
[2024-09-21 06:19] LABS: Albumin, Blood 2.5 g/dL (3.4-5.0); Anion Gap 8 mmol/L (3-11); Blood Urea Nitrogen 20 mg/dL (8-24); Bun/Creatinine Ratio 30.1 (12.0-20.0); CO2, Blood 27 mmol/L (21-32); Calcium, Blood 8.5 mg/dL (8.5-10.1); Chloride, Blood 106 mmol/L (98-108); Creatinine, Blood 0.67 mg/dL (0.40-1.00); Glomerular Filtration Rate 99 (60-); Glucose, Blood 214 mg/dL (70-99); Magnesium, Blood 2.3 mg/dL (1.6-2.4); Phosphorus, Blood 2.8 mg/dL (2.5-4.9); Potassium, Blood 4.3 mmol/L (3.5-5.5); Sodium, Blood 137 mmol/L (136-145)
[2024-09-21 08:02] VITALS: BP 148/87
[2024-09-21] MEDS ORDERED: Enoxaparin 40 MG/0.4 ML SYR SC SCH (09:00)
[2024-09-21 15:53] VITALS: BP 131/87
--- NOTE | 2024-09-21 19:50 | NUR ---
SHIFT SUMMARY: PT IS A/O X 4 IND IN ROOM PLEASANT AND COOPERATIVE WITH CARE. PT ON RA. REPORTS SLIGHT SOB WITH AMBULATION. PT WAS ABLE TO AMBULATE AROUND THE WHOLE UNIT TODAY WITH MINIMAL SOB. PAIN MANAGED WITH CURRENT PAIN REGIMEN.
[2024-09-21 19:56] VITALS: BP 95/68
[2024-09-21] MEDS ORDERED: MethylPREDNISolone Sod Succ 40 MG VIAL IV SCH (21:00)
[2024-09-22 04:01] VITALS: BP 136/76
--- NOTE | 2024-09-22 04:24 | NUR ---
AAOXX3, TELE IN PLACE, NSR HIGH 70'S. RA. CONTINENT OF BM AND URINE. FIORICET GIVEN @ HS FOR A MIGRAINE. SLEPT WELL THROUGHT NIGHT WITHOUT CONCERNS. PLAN IS HOME TODAY WITH ORAL PREDNISONE.
[2024-09-22 06:10] LABS: Hematocrit 31.5 % (33.0-51.0); Hemoglobin 10.1 g/dL (11.5-16.0)
[2024-09-22] MEDS ORDERED: Sod Ferric Gluc Complx/Sucrose 125 MG in NS 100 ML IV ONE (06:30)
[2024-09-22 07:04] LABS: Bun/Creatinine Ratio 41.1 (12.0-20.0); C-REACTIVE PROTEIN, EXT RANGE 1.59 mg/dL (0.000-0.300); Calcium, Blood 8.4 mg/dL (8.5-10.1); Creatinine, Blood 0.78 mg/dL (0.40-1.00)
[2024-09-22 07:31] VITALS: BP 133/73
[2024-09-22] MEDS ORDERED: Ondansetron HCl 2 MG / ML 2ML Vial IV ONE (11:00)
[2024-09-22] MEDS ORDERED: Lactated Ringer's 1,000 ML IV SCH (11:00)
[2024-09-22] MEDS ORDERED: PRED20 PO ×2 (12:17)
--- NOTE | 2024-09-22 13:46 | NUR ---
DISCHARGE SUMMARY PATIENT DISCHARGED HOME THIS SHIFT WITH MOTHER TO DRIVE HER. IV REMOVED WITHOUT COMPLICATION. DISCHARGE PACKET GIVEN AND REVIEWED, QUESTIONS ANSWERED, VERBALIZED UNDERSTANDING. MEDIPORT VISIBLE TO RIGHT UPPER CHEST, NOT ACCESSED THIS VISIT. MEDS FAXED TO [facility].
== END 2024-09-22 13:35 | disposition home or self-care (01) | DRG 316 ==
LOC: ER 22:49 → MEDS 09-20 08:31 → ERHOLD 09-20 08:31 → MEDS 09-20 16:49 → ENPENDDIS 09-22 12:31 → MEDS 09-22 13:35
PROVIDERS: Emergency Medicine; Family Medicine; ADMIT Internal Medicine
DX: I31.39 Other pericardial effusion (noninflammatory) (principal); Z66 Do not resuscitate; Z28.21 Immunization not carried out because of patient refusal; M35.3 Polymyalgia rheumatica; D64.9 Anemia, unspecified; G43.909 Migraine, unspecified, not intractable, without status migrainosus; M79.7 Fibromyalgia; H57.12 Ocular pain, left eye; M54.16 Radiculopathy, lumbar region; G89.29 Other chronic pain; M54.30 Sciatica, unspecified side; Z90.710 Acquired absence of both cervix and uterus; Z90.49 Acquired absence of other specified parts of digestive tract; Z98.84 Bariatric surgery status; Z98.890 Other specified postprocedural states; Z88.2 Allergy status to sulfonamides; Z91.048 Other nonmedicinal substance allergy status; Z88.0 Allergy status to penicillin; Z88.8 Allergy status to other drugs, medicaments and biological substances; Z79.899 Other long term (current) drug therapy; Z79.51 Long term (current) use of inhaled steroids
CPT/HCPCS: 36415; 70450; 71260; 80048; 80053; 80069; 83735; 83880; 84484; 85014; 85018; 85025; 85379; 85651; 86140; 93306; 94640; 94760; 99285-25; A9270; J2405; J2916; J2919; J7030; J7120; Q9967

== ENCOUNTER 2024-09-24 05:14 | Day surgery (SDC) | payer OTHER ==
[~2024-09-24 05:14] MED LIST changes: +METTREX2.5 PO; +RABEPRAZOLE SOD20 MG PO
[2024-09-24] MEDS ORDERED: Ketorolac Tromethamine 30mg Vial IM SCH (06:30)
[2024-09-24] MEDS ORDERED: Ondansetron HCl 2 MG / ML 2ML Vial IV SCH (06:30)
[2024-09-24] MEDS ORDERED: Lactated Ringer's 1,000 ML IV SCH (06:30)
[2024-09-24] MEDS ORDERED: Cyanocobalamin 1000 MCG/ML 1ML Vial IM SCH (06:35)
[2024-09-24 08:20] VITALS: BP 139/93
== END 2024-09-24 08:00 | disposition home or self-care (01) ==
LOC: ATC 05:14
DX: R62.7 Adult failure to thrive (principal); E53.8 Deficiency of other specified B group vitamins; R11.0 Nausea; K21.9 Gastro-esophageal reflux disease without esophagitis; G90.A Postural orthostatic tachycardia syndrome [POTS]; G89.4 Chronic pain syndrome; J44.9 Chronic obstructive pulmonary disease, unspecified; E21.3 Hyperparathyroidism, unspecified; Z79.899 Other long term (current) drug therapy
CPT/HCPCS: 96361; 96372; 96374; J1642; J1885; J2405; J3420; J7120

== ENCOUNTER 2024-09-27 03:54 | Day surgery (SDC) | payer OTHER ==
[2024-09-27] MEDS ORDERED: Ondansetron HCl 2 MG / ML 2ML Vial IV SCH (07:00)
[2024-09-27] MEDS ORDERED: Lactated Ringer's 1,000 ML IV SCH (07:00)
[2024-09-27 08:00] VITALS: BP 149/96
== END 2024-09-27 09:18 | disposition home or self-care (01) ==
LOC: ATC 03:54
DX: R62.7 Adult failure to thrive (principal); G90.A Postural orthostatic tachycardia syndrome [POTS]; K21.9 Gastro-esophageal reflux disease without esophagitis; E53.8 Deficiency of other specified B group vitamins; M35.3 Polymyalgia rheumatica; J44.9 Chronic obstructive pulmonary disease, unspecified; G43.E19 Chronic migraine with aura, intractable, without status migrainosus; E21.3 Hyperparathyroidism, unspecified; G89.4 Chronic pain syndrome; Z79.899 Other long term (current) drug therapy; Z98.84 Bariatric surgery status; Z90.49 Acquired absence of other specified parts of digestive tract; Z90.710 Acquired absence of both cervix and uterus; Z88.2 Allergy status to sulfonamides; Z88.8 Allergy status to other drugs, medicaments and biological substances
CPT/HCPCS: 96361; 96374; J1642; J2405; J7120

== ENCOUNTER 2024-10-01 07:40 | Day surgery (SDC) | payer OTHER ==
[~2024-10-01 07:40] MED LIST changes: +Ketorolac Tromethamine 30mg Vial IM SCH; +Lactated Ringer's 1,000 ML IV SCH; +Ondansetron HCl 2 MG / ML 2ML Vial IV SCH
[2024-10-01 08:25] VITALS: BP 118/64
== END 2024-10-01 09:25 | disposition home or self-care (01) ==
LOC: ATC 07:40
DX: R62.7 Adult failure to thrive (principal); E53.8 Deficiency of other specified B group vitamins; G90.A Postural orthostatic tachycardia syndrome [POTS]; K21.9 Gastro-esophageal reflux disease without esophagitis; G43.E19 Chronic migraine with aura, intractable, without status migrainosus; M35.3 Polymyalgia rheumatica; E21.3 Hyperparathyroidism, unspecified; J44.9 Chronic obstructive pulmonary disease, unspecified; Z79.899 Other long term (current) drug therapy; Z88.2 Allergy status to sulfonamides; Z88.8 Allergy status to other drugs, medicaments and biological substances; Z98.84 Bariatric surgery status; Z90.49 Acquired absence of other specified parts of digestive tract; Z90.710 Acquired absence of both cervix and uterus
CPT/HCPCS: 96361; 96372; 96374; J1642; J1885; J2405; J7120

== ENCOUNTER 2024-10-04 04:00 | Day surgery (SDC) | payer OTHER ==
[~2024-10-04 04:00] MED LIST changes: -Ketorolac Tromethamine 30mg Vial IM SCH; -Lactated Ringer's 1,000 ML IV SCH; -Ondansetron HCl 2 MG / ML 2ML Vial IV SCH
[2024-10-04] MEDS ORDERED: Lactated Ringer's 1,000 ML IV SCH (06:55)
[2024-10-04] MEDS ORDERED: Ondansetron HCl 2 MG / ML 2ML Vial IV SCH (06:55)
[2024-10-04 08:19] VITALS: BP 128/69
== END 2024-10-04 09:12 | disposition home or self-care (01) ==
LOC: ATC 04:00
DX: R62.7 Adult failure to thrive (principal); K21.9 Gastro-esophageal reflux disease without esophagitis; E53.8 Deficiency of other specified B group vitamins; G90.A Postural orthostatic tachycardia syndrome [POTS]; M35.3 Polymyalgia rheumatica; J44.9 Chronic obstructive pulmonary disease, unspecified; G43.E19 Chronic migraine with aura, intractable, without status migrainosus; G47.33 Obstructive sleep apnea (adult) (pediatric); E21.3 Hyperparathyroidism, unspecified; Z98.84 Bariatric surgery status; Z88.2 Allergy status to sulfonamides; Z88.8 Allergy status to other drugs, medicaments and biological substances; Z79.899 Other long term (current) drug therapy; Z90.49 Acquired absence of other specified parts of digestive tract; Z90.710 Acquired absence of both cervix and uterus
CPT/HCPCS: 96361; 96374; J1642; J2405; J7120

== ENCOUNTER 2024-10-06 01:20 | Day surgery (SDC) | payer OTHER ==
[2024-10-06] MEDS ORDERED: Ondansetron HCl 2 MG / ML 2ML Vial IV SCH (07:10)
[2024-10-06] MEDS ORDERED: Lactated Ringer's 1,000 ML IV SCH (07:10)
[2024-10-06 08:13] VITALS: BP 131/78
== END 2024-10-06 09:41 | disposition home or self-care (01) ==
LOC: ATC 01:20
DX: R62.7 Adult failure to thrive (principal); K21.9 Gastro-esophageal reflux disease without esophagitis; G90.A Postural orthostatic tachycardia syndrome [POTS]; E53.8 Deficiency of other specified B group vitamins; G43.E19 Chronic migraine with aura, intractable, without status migrainosus; E21.3 Hyperparathyroidism, unspecified; J44.9 Chronic obstructive pulmonary disease, unspecified; M35.3 Polymyalgia rheumatica; Z79.899 Other long term (current) drug therapy; Z88.2 Allergy status to sulfonamides; Z88.8 Allergy status to other drugs, medicaments and biological substances; Z98.84 Bariatric surgery status; Z90.49 Acquired absence of other specified parts of digestive tract
CPT/HCPCS: 96361; 96374; J1642; J2405; J7120

== ENCOUNTER 2024-10-08 03:45 | Day surgery (SDC) | payer OTHER ==
[2024-10-08] MEDS ORDERED: Lactated Ringer's 1,000 ML IV SCH (06:50)
[2024-10-08] MEDS ORDERED: Ketorolac Tromethamine 30mg Vial IM SCH (06:50)
[2024-10-08] MEDS ORDERED: Ondansetron HCl 2 MG / ML 2ML Vial IV SCH (06:50)
[2024-10-08 08:05] VITALS: BP 126/70
== END 2024-10-08 09:18 | disposition home or self-care (01) ==
LOC: ATC 03:45
DX: E86.0 Dehydration (principal); R62.7 Adult failure to thrive; E53.8 Deficiency of other specified B group vitamins; G90.A Postural orthostatic tachycardia syndrome [POTS]; G89.4 Chronic pain syndrome; G43.E19 Chronic migraine with aura, intractable, without status migrainosus; M15.9 Polyosteoarthritis, unspecified; J44.9 Chronic obstructive pulmonary disease, unspecified; K21.9 Gastro-esophageal reflux disease without esophagitis; E21.3 Hyperparathyroidism, unspecified; Z98.84 Bariatric surgery status; Z79.899 Other long term (current) drug therapy; Z88.2 Allergy status to sulfonamides; Z88.8 Allergy status to other drugs, medicaments and biological substances
CPT/HCPCS: 96361; 96372; 96374; J1642; J1885; J2405; J7120

== ENCOUNTER 2024-10-11 03:54 | Day surgery (SDC) | payer OTHER ==
[2024-10-11] MEDS ORDERED: Ondansetron HCl 2 MG / ML 2ML Vial IV SCH (07:10)
[2024-10-11] MEDS ORDERED: Lactated Ringer's 1,000 ML IV SCH (07:10)
[2024-10-11 08:15] VITALS: BP 154/90
== END 2024-10-11 09:32 | disposition home or self-care (01) ==
LOC: ATC 03:54
DX: R62.7 Adult failure to thrive (principal); G47.33 Obstructive sleep apnea (adult) (pediatric); M79.10 Myalgia, unspecified site; K21.9 Gastro-esophageal reflux disease without esophagitis; G89.4 Chronic pain syndrome; M15.9 Polyosteoarthritis, unspecified; G43.E19 Chronic migraine with aura, intractable, without status migrainosus; R11.0 Nausea; J44.9 Chronic obstructive pulmonary disease, unspecified; E21.3 Hyperparathyroidism, unspecified; F41.8 Other specified anxiety disorders; Z90.3 Acquired absence of stomach [part of]; G90.A Postural orthostatic tachycardia syndrome [POTS]; M35.3 Polymyalgia rheumatica; E53.8 Deficiency of other specified B group vitamins; Z88.2 Allergy status to sulfonamides; Z88.1 Allergy status to other antibiotic agents; Z88.8 Allergy status to other drugs, medicaments and biological substances; Z79.899 Other long term (current) drug therapy
CPT/HCPCS: 96361; 96374; J1642; J2405; J7120

== ENCOUNTER 2024-10-13 06:18 | Day surgery (SDC) | payer OTHER ==
[2024-10-13] MEDS ORDERED: Ondansetron HCl 2 MG / ML 2ML Vial IV SCH (07:20)
[2024-10-13] MEDS ORDERED: Lactated Ringer's 1,000 ML IV SCH (07:20)
[2024-10-13 08:20] VITALS: BP 125/94
== END 2024-10-13 09:25 | disposition home or self-care (01) ==
LOC: ATC 06:18
DX: R62.7 Adult failure to thrive (principal); G90.A Postural orthostatic tachycardia syndrome [POTS]; K21.9 Gastro-esophageal reflux disease without esophagitis; M79.7 Fibromyalgia; M35.3 Polymyalgia rheumatica; E21.3 Hyperparathyroidism, unspecified; J44.9 Chronic obstructive pulmonary disease, unspecified; G43.E19 Chronic migraine with aura, intractable, without status migrainosus; Z88.2 Allergy status to sulfonamides; Z88.8 Allergy status to other drugs, medicaments and biological substances; Z98.84 Bariatric surgery status; Z90.49 Acquired absence of other specified parts of digestive tract; Z90.710 Acquired absence of both cervix and uterus
CPT/HCPCS: 96361; 96374; J1642; J2405; J7120

== ENCOUNTER 2024-10-15 02:54 | Day surgery (SDC) | payer OTHER ==
[2024-10-15] MEDS ORDERED: Lactated Ringer's 1,000 ML IV SCH (06:35)
[2024-10-15] MEDS ORDERED: Ondansetron HCl 2 MG / ML 2ML Vial IV SCH (06:35)
[2024-10-15] MEDS ORDERED: Ketorolac Tromethamine 30mg Vial IM SCH (06:35)
[2024-10-15 07:58] VITALS: BP 150/108
== END 2024-10-15 09:12 | disposition home or self-care (01) ==
LOC: ATC 02:54
DX: R62.7 Adult failure to thrive (principal); E86.0 Dehydration; K21.9 Gastro-esophageal reflux disease without esophagitis; E56.9 Vitamin deficiency, unspecified; G89.4 Chronic pain syndrome; G43.E19 Chronic migraine with aura, intractable, without status migrainosus; J44.9 Chronic obstructive pulmonary disease, unspecified; E21.3 Hyperparathyroidism, unspecified; Z79.899 Other long term (current) drug therapy; Z98.84 Bariatric surgery status; Z88.2 Allergy status to sulfonamides; Z88.8 Allergy status to other drugs, medicaments and biological substances; I30.9 Acute pericarditis, unspecified; R30.0 Dysuria
CPT/HCPCS: 80069; 83880; 85025; 85651; 87086; 96361; 96372; 96374; J1642; J1885; J2405; J7120

== ENCOUNTER → 2024-10-15 | Outpatient (CLI) | payer OTHER ==
[2024-10-15 15:46] LABS: BASOPHILS ABSOLUTE AUTO 0.03 K/mm3 (0.00-0.23); BASOPHILS PERCENT AUTO 0 % (0-2); EOSINOPHILS ABSOLUTE AUTO 0.12 K/mm3 (0.00-0.68); EOSINOPHILS PERCENT AUTO 2 % (0-6); Hematocrit 32.8 % (33.0-51.0); Hemoglobin 10.2 g/dL (11.5-16.0); IMMATURE GRAN ABSOLUTE AUTO 0.03 K/mm3 (0.00-0.10); IMMATURE GRAN PERCENT AUTO 0 % (0-1); LYMPHOCYTES ABSOLUTE AUTO 1.04 K/mm3 (0.84-5.20); LYMPHOCYTES PERCENT AUTO 14 % (21-46); MONOCYTES PERCENT AUTO 7 % (4-13); Mean Corpuscular HGB 27.8 pg (26.0-34.0); Mean Corpuscular HGB Conc 31.1 g/dL (31.5-36.5); Mean Corpuscular Volume 89 fL (80-100); Mean Platelet Volume 11.8 fL (9.1-12.4); NEUTROPHILS ABSOLUTE AUTO 5.63 K/mm3 (1.96-9.15); NEUTROPHILS PERCENT AUTO 77 % (41-73); Platelet Count 302 K/mm3 (150-400); RDW Coefficient Variation 16.9 % (11.7-14.2); RDW Standard Deviation 54.7 fL (35.1-46.3); Red Blood Cell Count 3.67 M/mm3 (3.80-5.20); White Blood Cell Count 7.35 K/mm3 (4.00-11.30)
[2024-10-15 18:48] LABS: Albumin, Blood 2.8 g/dL (3.4-5.0); Anion Gap 10 mmol/L (3-11); Blood Urea Nitrogen 12 mg/dL (8-24); Bun/Creatinine Ratio 15.3 (12.0-20.0); CO2, Blood 30 mmol/L (21-32); Calcium, Blood 8.1 mg/dL (8.5-10.1); Chloride, Blood 103 mmol/L (98-108); Creatinine, Blood 0.78 mg/dL (0.40-1.00); Glomerular Filtration Rate 86 (60-); Glucose, Blood 111 mg/dL (70-99); Phosphorus, Blood 3.8 mg/dL (2.5-4.9); Potassium, Blood 3.9 mmol/L (3.5-5.5); Sodium, Blood 139 mmol/L (136-145)
== END | disposition home or self-care (01) ==
LOC: LAB SHORT 14:09 → LAB 14:09
PROVIDERS: Internal Medicine
DX: I30.9 Acute pericarditis, unspecified (principal); R30.0 Dysuria
CPT/HCPCS: 80069; 83880; 85025; 85651; 87086

== ENCOUNTER 2024-10-18 02:50 | Day surgery (SDC) | payer OTHER ==
[2024-10-18] MEDS ORDERED: Lactated Ringer's 1,000 ML IV SCH (06:50)
[2024-10-18] MEDS ORDERED: Ondansetron HCl 2 MG / ML 2ML Vial IV SCH (06:50)
[2024-10-18 07:59] VITALS: BP 143/91
== END 2024-10-18 09:31 | disposition home or self-care (01) ==
LOC: ATC 02:50
DX: R62.7 Adult failure to thrive (principal); E86.0 Dehydration; G89.4 Chronic pain syndrome; G43.E19 Chronic migraine with aura, intractable, without status migrainosus; M15.9 Polyosteoarthritis, unspecified; J44.9 Chronic obstructive pulmonary disease, unspecified; K21.9 Gastro-esophageal reflux disease without esophagitis; E21.3 Hyperparathyroidism, unspecified; Z98.84 Bariatric surgery status
CPT/HCPCS: 96361; 96374; J1642; J2405; J7120

== ENCOUNTER 2024-10-20 02:49 | Day surgery (SDC) | payer OTHER ==
[2024-10-20] MEDS ORDERED: Lactated Ringer's 1,000 ML IV SCH (06:55)
[2024-10-20] MEDS ORDERED: Ondansetron HCl 2 MG / ML 2ML Vial IV SCH (06:55)
[2024-10-20 08:06] VITALS: BP 156/91
== END 2024-10-20 09:25 | disposition home or self-care (01) ==
LOC: ATC 02:49
DX: R62.7 Adult failure to thrive (principal); E86.0 Dehydration; K21.9 Gastro-esophageal reflux disease without esophagitis; G89.4 Chronic pain syndrome; J44.9 Chronic obstructive pulmonary disease, unspecified; E53.8 Deficiency of other specified B group vitamins; Z79.899 Other long term (current) drug therapy; Z98.84 Bariatric surgery status
CPT/HCPCS: 96361; 96374; J1642; J2405; J7120

== ENCOUNTER 2024-10-22 03:38 | Day surgery (SDC) | payer OTHER ==
[2024-10-22] MEDS ORDERED: Ketorolac Tromethamine 30mg Vial IM SCH (06:45)
[2024-10-22] MEDS ORDERED: Ondansetron HCl 2 MG / ML 2ML Vial IV SCH (06:45)
[2024-10-22] MEDS ORDERED: Lactated Ringer's 1,000 ML IV SCH (06:45)
[2024-10-22 08:05] VITALS: BP 153/90
== END 2024-10-22 09:17 | disposition home or self-care (01) ==
LOC: ATC 03:38
DX: R62.7 Adult failure to thrive (principal); K21.9 Gastro-esophageal reflux disease without esophagitis; G43.E19 Chronic migraine with aura, intractable, without status migrainosus; G90.A Postural orthostatic tachycardia syndrome [POTS]; J44.9 Chronic obstructive pulmonary disease, unspecified; E53.8 Deficiency of other specified B group vitamins; M79.7 Fibromyalgia; G89.4 Chronic pain syndrome; M35.3 Polymyalgia rheumatica; Z79.899 Other long term (current) drug therapy; Z98.84 Bariatric surgery status; Z90.49 Acquired absence of other specified parts of digestive tract; Z90.710 Acquired absence of both cervix and uterus; Z88.2 Allergy status to sulfonamides; Z88.8 Allergy status to other drugs, medicaments and biological substances
CPT/HCPCS: 96361; 96372; 96374; J1642; J1885; J2405; J7120

== ENCOUNTER 2024-10-25 07:53 | Day surgery (SDC) | payer OTHER ==
[~2024-10-25 07:53] MED LIST changes: +Cyanocobalamin 1000 MCG/ML 1ML Vial IM SCH; +Lactated Ringer's 1,000 ML IV SCH; +Ondansetron HCl 2 MG / ML 2ML Vial IV SCH
[2024-10-25 08:15] VITALS: BP 163/834
== END 2024-10-25 09:51 | disposition home or self-care (01) ==
LOC: ATC 07:53
DX: E86.0 Dehydration (principal); E46 Unspecified protein-calorie malnutrition; K21.9 Gastro-esophageal reflux disease without esophagitis; E21.3 Hyperparathyroidism, unspecified; G89.4 Chronic pain syndrome; Z79.899 Other long term (current) drug therapy; Z98.84 Bariatric surgery status
CPT/HCPCS: 96361; 96372; 96374; J1642; J2405; J3420; J7120

== ENCOUNTER 2024-10-27 05:46 | Day surgery (SDC) | payer OTHER ==
[~2024-10-27 05:46] MED LIST changes: -Cyanocobalamin 1000 MCG/ML 1ML Vial IM SCH; -Lactated Ringer's 1,000 ML IV SCH; -Ondansetron HCl 2 MG / ML 2ML Vial IV SCH
[2024-10-27] MEDS ORDERED: Lactated Ringer's 1,000 ML IV SCH (06:50)
[2024-10-27] MEDS ORDERED: Ondansetron HCl 2 MG / ML 2ML Vial IV SCH (06:50)
[2024-10-27 08:01] VITALS: BP 176/97
== END 2024-10-27 09:13 | disposition home or self-care (01) ==
LOC: ATC 05:46
DX: R62.7 Adult failure to thrive (principal); K21.9 Gastro-esophageal reflux disease without esophagitis; G90.A Postural orthostatic tachycardia syndrome [POTS]; J44.9 Chronic obstructive pulmonary disease, unspecified; E21.3 Hyperparathyroidism, unspecified; M35.3 Polymyalgia rheumatica; G43.E19 Chronic migraine with aura, intractable, without status migrainosus; E53.8 Deficiency of other specified B group vitamins; Z79.899 Other long term (current) drug therapy; Z98.84 Bariatric surgery status; Z90.49 Acquired absence of other specified parts of digestive tract; Z90.710 Acquired absence of both cervix and uterus; Z88.2 Allergy status to sulfonamides; Z88.8 Allergy status to other drugs, medicaments and biological substances
CPT/HCPCS: 96361; 96374; J1642; J2405; J7120

== ENCOUNTER 2024-10-29 03:23 | Day surgery (SDC) | payer OTHER ==
[2024-10-29] MEDS ORDERED: Ondansetron HCl 2 MG / ML 2ML Vial IV SCH (06:30)
[2024-10-29] MEDS ORDERED: Lactated Ringer's 1,000 ML IV SCH (06:30)
[2024-10-29] MEDS ORDERED: Ketorolac Tromethamine 30mg Vial IM SCH (06:35)
[2024-10-29 10:52] VITALS: BP 150/86
== END 2024-10-29 12:14 | disposition home or self-care (01) ==
LOC: ATC 03:23
DX: R62.7 Adult failure to thrive (principal); G90.A Postural orthostatic tachycardia syndrome [POTS]; E53.8 Deficiency of other specified B group vitamins; K21.9 Gastro-esophageal reflux disease without esophagitis; M35.3 Polymyalgia rheumatica; J44.9 Chronic obstructive pulmonary disease, unspecified; E21.3 Hyperparathyroidism, unspecified; G43.E19 Chronic migraine with aura, intractable, without status migrainosus; M79.7 Fibromyalgia; Z98.84 Bariatric surgery status; Z79.899 Other long term (current) drug therapy; Z88.2 Allergy status to sulfonamides; Z88.8 Allergy status to other drugs, medicaments and biological substances; Z90.49 Acquired absence of other specified parts of digestive tract; I51.7 Cardiomegaly; I35.1 Nonrheumatic aortic (valve) insufficiency; I31.39 Other pericardial effusion (noninflammatory)
CPT/HCPCS: 96361; 96372; 96374; J1642; J1885; J2405; J7120

== ENCOUNTER 2024-11-01 01:10 | Day surgery (SDC) | payer OTHER ==
[2024-11-01] MEDS ORDERED: Ondansetron HCl 2 MG / ML 2ML Vial IV SCH (07:00)
[2024-11-01] MEDS ORDERED: Lactated Ringer's 1,000 ML IV SCH (07:00)
[2024-11-01 08:20] VITALS: BP 138/73
== END 2024-11-01 09:24 | disposition home or self-care (01) ==
LOC: ATC 01:10
DX: R62.7 Adult failure to thrive (principal); G90.A Postural orthostatic tachycardia syndrome [POTS]; K21.9 Gastro-esophageal reflux disease without esophagitis; E53.8 Deficiency of other specified B group vitamins; M79.7 Fibromyalgia; G43.E19 Chronic migraine with aura, intractable, without status migrainosus; J44.9 Chronic obstructive pulmonary disease, unspecified; E21.3 Hyperparathyroidism, unspecified; M35.3 Polymyalgia rheumatica; Z79.899 Other long term (current) drug therapy; Z88.2 Allergy status to sulfonamides; Z88.8 Allergy status to other drugs, medicaments and biological substances; Z98.84 Bariatric surgery status; Z90.49 Acquired absence of other specified parts of digestive tract; I31.39 Other pericardial effusion (noninflammatory); I35.1 Nonrheumatic aortic (valve) insufficiency; I51.7 Cardiomegaly
CPT/HCPCS: 93308; 93321; 96360; 96361; 96374; J1642; J2405; J7120

== ENCOUNTER 2024-11-03 02:22 | Day surgery (SDC) | payer OTHER ==
[2024-11-03] MEDS ORDERED: Lactated Ringer's 1,000 ML IV SCH (06:55)
[2024-11-03] MEDS ORDERED: Ondansetron HCl 2 MG / ML 2ML Vial IV SCH (06:55)
[2024-11-03 08:14] VITALS: BP 136/73
== END 2024-11-03 09:32 | disposition home or self-care (01) ==
LOC: ATC 02:22
DX: R62.7 Adult failure to thrive (principal); K21.9 Gastro-esophageal reflux disease without esophagitis; G90.A Postural orthostatic tachycardia syndrome [POTS]; E53.8 Deficiency of other specified B group vitamins; G89.4 Chronic pain syndrome; G43.E19 Chronic migraine with aura, intractable, without status migrainosus; J44.9 Chronic obstructive pulmonary disease, unspecified; M35.3 Polymyalgia rheumatica; G47.33 Obstructive sleep apnea (adult) (pediatric); Z79.899 Other long term (current) drug therapy; Z88.2 Allergy status to sulfonamides; Z88.8 Allergy status to other drugs, medicaments and biological substances; Z90.49 Acquired absence of other specified parts of digestive tract; Z98.84 Bariatric surgery status
CPT/HCPCS: J1642; J2405; J7120

== ENCOUNTER 2024-11-08 01:25 | Day surgery (SDC) | payer OTHER ==
[2024-11-08] MEDS ORDERED: Lactated Ringer's 1,000 ML IV SCH (06:50)
[2024-11-08] MEDS ORDERED: Ondansetron HCl 2 MG / ML 2ML Vial IV SCH (06:50)
[2024-11-08 08:08] VITALS: BP 124/80
[2024-11-08] MEDS ORDERED: DEXA.5 PO (09:14)
== END 2024-11-08 09:32 | disposition home or self-care (01) ==
LOC: ATC 01:25
DX: M79.10 Myalgia, unspecified site (principal); E53.8 Deficiency of other specified B group vitamins; G90.A Postural orthostatic tachycardia syndrome [POTS]; R62.7 Adult failure to thrive; G47.33 Obstructive sleep apnea (adult) (pediatric); G89.4 Chronic pain syndrome; G43.E19 Chronic migraine with aura, intractable, without status migrainosus; M15.9 Polyosteoarthritis, unspecified; J44.9 Chronic obstructive pulmonary disease, unspecified; K21.9 Gastro-esophageal reflux disease without esophagitis; E21.3 Hyperparathyroidism, unspecified; F41.8 Other specified anxiety disorders; R11.0 Nausea; Z79.899 Other long term (current) drug therapy
CPT/HCPCS: 96361; 96374; J1642; J2405; J7120

== ENCOUNTER 2024-11-10 08:01 | Day surgery (SDC) | payer OTHER ==
[~2024-11-10 08:01] MED LIST changes: +DEXA.5 PO; +Lactated Ringer's 1,000 ML IV SCH; +Ondansetron HCl 2 MG / ML 2ML Vial IV SCH
[2024-11-10 08:08] VITALS: BP 133/88
== END 2024-11-10 09:28 | disposition home or self-care (01) ==
LOC: ATC 08:01
DX: R62.7 Adult failure to thrive (principal); E46 Unspecified protein-calorie malnutrition; E86.0 Dehydration; K21.9 Gastro-esophageal reflux disease without esophagitis; E56.9 Vitamin deficiency, unspecified; E53.8 Deficiency of other specified B group vitamins; Z98.84 Bariatric surgery status
CPT/HCPCS: 96361; 96374; J1642; J2405; J7120

== ENCOUNTER 2024-11-12 03:46 | Day surgery (SDC) | payer OTHER ==
[~2024-11-12 03:46] MED LIST changes: -Lactated Ringer's 1,000 ML IV SCH; -Ondansetron HCl 2 MG / ML 2ML Vial IV SCH
[2024-11-12] MEDS ORDERED: Lactated Ringer's 1,000 ML IV SCH (06:45)
[2024-11-12] MEDS ORDERED: Ondansetron HCl 2 MG / ML 2ML Vial IV SCH (06:45)
[2024-11-12] MEDS ORDERED: Ketorolac Tromethamine 30mg Vial IM SCH (06:45)
[2024-11-12 08:10] VITALS: BP 145/78
== END 2024-11-12 09:30 | disposition home or self-care (01) ==
LOC: ATC 03:46
DX: R62.7 Adult failure to thrive (principal); G90.A Postural orthostatic tachycardia syndrome [POTS]; E53.8 Deficiency of other specified B group vitamins; G89.4 Chronic pain syndrome; J44.9 Chronic obstructive pulmonary disease, unspecified; K21.9 Gastro-esophageal reflux disease without esophagitis; M35.3 Polymyalgia rheumatica; M15.9 Polyosteoarthritis, unspecified; E21.3 Hyperparathyroidism, unspecified; G43.E19 Chronic migraine with aura, intractable, without status migrainosus; G47.33 Obstructive sleep apnea (adult) (pediatric); Z79.899 Other long term (current) drug therapy; Z88.2 Allergy status to sulfonamides; Z88.8 Allergy status to other drugs, medicaments and biological substances; Z98.84 Bariatric surgery status; Z90.49 Acquired absence of other specified parts of digestive tract; Z90.710 Acquired absence of both cervix and uterus
CPT/HCPCS: 96361; 96372; 96374; J1642; J1885; J2405; J7120

== ENCOUNTER 2024-11-15 02:19 | Day surgery (SDC) | payer OTHER ==
[2024-11-15] MEDS ORDERED: Ondansetron HCl 2 MG / ML 2ML Vial IV SCH (06:55)
[2024-11-15] MEDS ORDERED: Lactated Ringer's 1,000 ML IV SCH (06:55)
[2024-11-15 08:16] VITALS: BP 169/85
== END 2024-11-15 09:05 | disposition home or self-care (01) ==
LOC: ATC 02:19
DX: E86.0 Dehydration (principal); R62.7 Adult failure to thrive; K21.9 Gastro-esophageal reflux disease without esophagitis; E53.8 Deficiency of other specified B group vitamins; G90.A Postural orthostatic tachycardia syndrome [POTS]; G89.4 Chronic pain syndrome; G43.E19 Chronic migraine with aura, intractable, without status migrainosus; M15.9 Polyosteoarthritis, unspecified; J44.9 Chronic obstructive pulmonary disease, unspecified; E21.3 Hyperparathyroidism, unspecified; Z79.899 Other long term (current) drug therapy; Z98.84 Bariatric surgery status
CPT/HCPCS: 96361; 96374; J1642; J2405; J7120

== ENCOUNTER 2024-11-17 01:53 | Day surgery (SDC) | payer OTHER ==
[2024-11-17] MEDS ORDERED: Lactated Ringer's 1,000 ML IV SCH (06:40)
[2024-11-17] MEDS ORDERED: Ondansetron HCl 2 MG / ML 2ML Vial IV SCH (06:40)
[2024-11-17 08:12] VITALS: BP 172/99
[2024-11-17 08:56] LABS: BASOPHILS ABSOLUTE AUTO 0.04 K/mm3 (0.00-0.23); BASOPHILS PERCENT AUTO 0 % (0-2); EOSINOPHILS ABSOLUTE AUTO 0.16 K/mm3 (0.00-0.68); EOSINOPHILS PERCENT AUTO 1 % (0-6); Hematocrit 34.4 % (33.0-51.0); Hemoglobin 11.2 g/dL (11.5-16.0); IMMATURE GRAN ABSOLUTE AUTO 0.14 K/mm3 (0.00-0.10); IMMATURE GRAN PERCENT AUTO 1 % (0-1); LYMPHOCYTES ABSOLUTE AUTO 3.08 K/mm3 (0.84-5.20); LYMPHOCYTES PERCENT AUTO 24 % (21-46); MONOCYTES ABSOLUTE AUTO 0.91 K/mm3 (0.16-1.47); MONOCYTES PERCENT AUTO 7 % (4-13); Mean Corpuscular HGB 29.5 pg (26.0-34.0); Mean Corpuscular HGB Conc 32.6 g/dL (31.5-36.5); Mean Corpuscular Volume 91 fL (80-100); Mean Platelet Volume 10.7 fL (9.1-12.4); NEUTROPHILS ABSOLUTE AUTO 8.33 K/mm3 (1.96-9.15); NEUTROPHILS PERCENT AUTO 66 % (41-73); Platelet Count 287 K/mm3 (150-400); RDW Coefficient Variation 17.9 % (11.7-14.2); RDW Standard Deviation 59.5 fL (35.1-46.3); White Blood Cell Count 12.66 K/mm3 (4.00-11.30)
[2024-11-17 09:23] LABS: Albumin, Blood 3.1 g/dL (3.4-5.0); Anion Gap 10 mmol/L (3-11); Blood Urea Nitrogen 16 mg/dL (8-24); Bun/Creatinine Ratio 22.3 (12.0-20.0); CO2, Blood 27 mmol/L (21-32); Calcium, Blood 8.2 mg/dL (8.5-10.1); Chloride, Blood 105 mmol/L (98-108); Creatinine, Blood 0.72 mg/dL (0.40-1.00); Glomerular Filtration Rate 95 (60-); Glucose, Blood 85 mg/dL (70-99); Phosphorus, Blood 3.4 mg/dL (2.5-4.9); Potassium, Blood 3.4 mmol/L (3.5-5.5); Sodium, Blood 139 mmol/L (136-145)
== END 2024-11-17 09:23 | disposition home or self-care (01) ==
LOC: ATC 01:53
PROVIDERS: Internal Medicine
DX: E86.0 Dehydration (principal); K21.9 Gastro-esophageal reflux disease without esophagitis; E56.9 Vitamin deficiency, unspecified; E53.8 Deficiency of other specified B group vitamins; G90.A Postural orthostatic tachycardia syndrome [POTS]; G89.4 Chronic pain syndrome; M15.9 Polyosteoarthritis, unspecified; J44.9 Chronic obstructive pulmonary disease, unspecified; E21.3 Hyperparathyroidism, unspecified; G47.33 Obstructive sleep apnea (adult) (pediatric); Z79.899 Other long term (current) drug therapy; Z88.2 Allergy status to sulfonamides; Z88.8 Allergy status to other drugs, medicaments and biological substances; Z98.84 Bariatric surgery status
CPT/HCPCS: 80069; 83880; 85025; 85651; 86140; 96361; 96374; J1642; J2405; J7120

== ENCOUNTER 2024-11-19 03:17 | Day surgery (SDC) | payer OTHER ==
[2024-11-19] MEDS ORDERED: Lactated Ringer's 1,000 ML IV SCH (06:40)
[2024-11-19] MEDS ORDERED: Ketorolac Tromethamine 30mg Vial IM SCH (06:40)
[2024-11-19] MEDS ORDERED: Ondansetron HCl 2 MG / ML 2ML Vial IV SCH (06:40)
[2024-11-19 08:05] VITALS: BP 135/71
== END 2024-11-19 09:28 | disposition home or self-care (01) ==
LOC: ATC 03:17
DX: E53.8 Deficiency of other specified B group vitamins (principal); M79.10 Myalgia, unspecified site; R11.0 Nausea; G90.A Postural orthostatic tachycardia syndrome [POTS]; R62.7 Adult failure to thrive; G89.4 Chronic pain syndrome; G43.E19 Chronic migraine with aura, intractable, without status migrainosus; M15.9 Polyosteoarthritis, unspecified; J44.9 Chronic obstructive pulmonary disease, unspecified; K21.9 Gastro-esophageal reflux disease without esophagitis; E21.3 Hyperparathyroidism, unspecified; R13.19 Other dysphagia; M35.3 Polymyalgia rheumatica; Z79.899 Other long term (current) drug therapy; Z98.84 Bariatric surgery status
CPT/HCPCS: 96361; 96372; 96374; J1642; J1885; J2405; J7120

== ENCOUNTER 2024-11-22 02:10 | Day surgery (SDC) | payer OTHER ==
[2024-11-22] MEDS ORDERED: Cyanocobalamin 1000 MCG/ML 1ML Vial IM SCH (06:50)
[2024-11-22] MEDS ORDERED: Lactated Ringer's 1,000 ML IV SCH (06:50)
[2024-11-22] MEDS ORDERED: Ondansetron HCl 2 MG / ML 2ML Vial IV SCH (06:50)
[2024-11-22 08:04] VITALS: BP 148/88
== END 2024-11-22 09:23 | disposition home or self-care (01) ==
LOC: ATC 02:10
DX: R62.7 Adult failure to thrive (principal); G90.A Postural orthostatic tachycardia syndrome [POTS]; K21.9 Gastro-esophageal reflux disease without esophagitis; E53.8 Deficiency of other specified B group vitamins; M35.3 Polymyalgia rheumatica; E21.3 Hyperparathyroidism, unspecified; J44.9 Chronic obstructive pulmonary disease, unspecified; G43.E19 Chronic migraine with aura, intractable, without status migrainosus; G89.4 Chronic pain syndrome; Z88.2 Allergy status to sulfonamides; Z88.8 Allergy status to other drugs, medicaments and biological substances; Z90.3 Acquired absence of stomach [part of]; Z90.49 Acquired absence of other specified parts of digestive tract; Z90.710 Acquired absence of both cervix and uterus
CPT/HCPCS: 96361; 96372; 96374; J1642; J2405; J3420; J7120

== ENCOUNTER 2024-11-24 01:13 | Day surgery (SDC) | payer OTHER ==
[2024-11-24] MEDS ORDERED: Ondansetron HCl 2 MG / ML 2ML Vial IV SCH (07:05)
[2024-11-24] MEDS ORDERED: Lactated Ringer's 1,000 ML IV SCH (07:05)
[2024-11-24 08:00] VITALS: BP 170/100
== END 2024-11-24 09:16 | disposition home or self-care (01) ==
LOC: ATC 01:13
DX: R62.7 Adult failure to thrive (principal); G90.A Postural orthostatic tachycardia syndrome [POTS]; E53.8 Deficiency of other specified B group vitamins; E46 Unspecified protein-calorie malnutrition; E86.0 Dehydration; K21.9 Gastro-esophageal reflux disease without esophagitis; Z98.84 Bariatric surgery status; Z79.899 Other long term (current) drug therapy; G89.4 Chronic pain syndrome; M15.9 Polyosteoarthritis, unspecified; J44.9 Chronic obstructive pulmonary disease, unspecified; Z88.2 Allergy status to sulfonamides; Z88.8 Allergy status to other drugs, medicaments and biological substances
CPT/HCPCS: 96361; 96374; J1642; J2405; J7120

== ENCOUNTER 2024-11-26 04:50 | Day surgery (SDC) | payer OTHER ==
[2024-11-26] MEDS ORDERED: Ondansetron HCl 2 MG / ML 2ML Vial IV SCH (06:35)
[2024-11-26] MEDS ORDERED: Ketorolac Tromethamine 30mg Vial IM SCH (06:35)
[2024-11-26] MEDS ORDERED: Lactated Ringer's 1,000 ML IV SCH (06:35)
[2024-11-26 08:00] VITALS: BP 163/90
== END 2024-11-26 09:29 | disposition home or self-care (01) ==
LOC: ATC 04:50
DX: R62.7 Adult failure to thrive (principal); G90.A Postural orthostatic tachycardia syndrome [POTS]; K21.9 Gastro-esophageal reflux disease without esophagitis; E53.8 Deficiency of other specified B group vitamins; J44.9 Chronic obstructive pulmonary disease, unspecified; M35.3 Polymyalgia rheumatica; E21.3 Hyperparathyroidism, unspecified; G43.E19 Chronic migraine with aura, intractable, without status migrainosus; G47.33 Obstructive sleep apnea (adult) (pediatric); Z79.899 Other long term (current) drug therapy; Z88.2 Allergy status to sulfonamides; Z88.8 Allergy status to other drugs, medicaments and biological substances; Z98.84 Bariatric surgery status; Z90.710 Acquired absence of both cervix and uterus; Z90.49 Acquired absence of other specified parts of digestive tract
CPT/HCPCS: 96361; 96372; 96374; J1642; J1885; J2405; J7120

== ENCOUNTER 2024-11-29 02:21 | Day surgery (SDC) | payer OTHER ==
[2024-11-29] MEDS ORDERED: Ondansetron HCl 2 MG / ML 2ML Vial IV SCH (06:55)
[2024-11-29] MEDS ORDERED: Lactated Ringer's 1,000 ML IV SCH (06:55)
[2024-11-29 08:03] VITALS: BP 149/90
== END 2024-11-29 09:20 | disposition home or self-care (01) ==
LOC: ATC 02:21
DX: M79.10 Myalgia, unspecified site (principal); E53.8 Deficiency of other specified B group vitamins; R62.7 Adult failure to thrive; G90.A Postural orthostatic tachycardia syndrome [POTS]; R11.0 Nausea; R53.83 Other fatigue; G89.4 Chronic pain syndrome; G43.E19 Chronic migraine with aura, intractable, without status migrainosus; M15.9 Polyosteoarthritis, unspecified; J44.9 Chronic obstructive pulmonary disease, unspecified; E21.3 Hyperparathyroidism, unspecified; F41.8 Other specified anxiety disorders; Z90.3 Acquired absence of stomach [part of]; M35.3 Polymyalgia rheumatica; Z88.2 Allergy status to sulfonamides; Z88.1 Allergy status to other antibiotic agents; Z88.8 Allergy status to other drugs, medicaments and biological substances; Z79.899 Other long term (current) drug therapy
CPT/HCPCS: 96361; 96374; J1642; J2405; J7120

== ENCOUNTER 2024-12-01 02:30 | Day surgery (SDC) | payer OTHER ==
[2024-12-01] MEDS ORDERED: Ondansetron HCl 2 MG / ML 2ML Vial IV SCH (07:25)
[2024-12-01] MEDS ORDERED: Lactated Ringer's 1,000 ML IV SCH (07:25)
[2024-12-01 08:05] VITALS: BP 148/90
== END 2024-12-01 09:03 | disposition home or self-care (01) ==
LOC: ATC 02:30
DX: R62.7 Adult failure to thrive (principal); G90.A Postural orthostatic tachycardia syndrome [POTS]; K21.9 Gastro-esophageal reflux disease without esophagitis; E53.8 Deficiency of other specified B group vitamins; G89.4 Chronic pain syndrome; J44.9 Chronic obstructive pulmonary disease, unspecified; E21.3 Hyperparathyroidism, unspecified; G43.E19 Chronic migraine with aura, intractable, without status migrainosus; M35.3 Polymyalgia rheumatica; Z79.899 Other long term (current) drug therapy; Z98.84 Bariatric surgery status; Z88.2 Allergy status to sulfonamides; Z88.8 Allergy status to other drugs, medicaments and biological substances; Z90.49 Acquired absence of other specified parts of digestive tract
CPT/HCPCS: 96374; J2405; J7120

== ENCOUNTER 2024-12-03 04:46 | Day surgery (SDC) | payer OTHER ==
[2024-12-03] MEDS ORDERED: Ondansetron HCl 2 MG / ML 2ML Vial IV SCH (07:10)
[2024-12-03] MEDS ORDERED: Lactated Ringer's 1,000 ML IV SCH (07:10)
[2024-12-03] MEDS ORDERED: Ketorolac Tromethamine 30mg Vial IM SCH (07:10)
[2024-12-03 08:00] VITALS: BP 155/91
== END 2024-12-03 09:23 | disposition home or self-care (01) ==
LOC: ATC 04:46
DX: R62.7 Adult failure to thrive (principal); G90.A Postural orthostatic tachycardia syndrome [POTS]; K21.9 Gastro-esophageal reflux disease without esophagitis; E53.8 Deficiency of other specified B group vitamins; G89.4 Chronic pain syndrome; J44.9 Chronic obstructive pulmonary disease, unspecified; M35.3 Polymyalgia rheumatica; G43.E19 Chronic migraine with aura, intractable, without status migrainosus; G47.33 Obstructive sleep apnea (adult) (pediatric); Z88.2 Allergy status to sulfonamides; Z88.8 Allergy status to other drugs, medicaments and biological substances; Z98.84 Bariatric surgery status; Z90.49 Acquired absence of other specified parts of digestive tract
CPT/HCPCS: 96361; 96372; 96374; J1642; J1885; J2405; J7120

== ENCOUNTER 2024-12-06 02:10 | Day surgery (SDC) | payer OTHER ==
[2024-12-06] MEDS ORDERED: Lactated Ringer's 1,000 ML IV SCH (07:00)
[2024-12-06] MEDS ORDERED: Ondansetron HCl 2 MG / ML 2ML Vial IV SCH (07:25)
[2024-12-06 08:23] VITALS: BP 165/96
== END 2024-12-06 10:01 | disposition home or self-care (01) ==
LOC: ATC 02:10
DX: R62.7 Adult failure to thrive (principal); E53.8 Deficiency of other specified B group vitamins; G90.A Postural orthostatic tachycardia syndrome [POTS]; E46 Unspecified protein-calorie malnutrition; E86.0 Dehydration; K21.9 Gastro-esophageal reflux disease without esophagitis; E56.9 Vitamin deficiency, unspecified; G89.4 Chronic pain syndrome; G43.E19 Chronic migraine with aura, intractable, without status migrainosus; J44.9 Chronic obstructive pulmonary disease, unspecified; Z88.2 Allergy status to sulfonamides; Z88.8 Allergy status to other drugs, medicaments and biological substances; Z98.84 Bariatric surgery status; Z79.899 Other long term (current) drug therapy
CPT/HCPCS: 96360; 96374; J1642; J2405; J7120

== ENCOUNTER 2024-12-08 02:07 | Day surgery (SDC) | payer OTHER ==
[2024-12-08] MEDS ORDERED: Lactated Ringer's 1,000 ML IV SCH (06:40)
[2024-12-08] MEDS ORDERED: Ondansetron HCl 2 MG / ML 2ML Vial IV SCH (06:40)
[2024-12-08 08:14] VITALS: BP 160/96
== END 2024-12-08 09:15 | disposition home or self-care (01) ==
LOC: ATC 02:07
DX: R62.7 Adult failure to thrive (principal); G90.A Postural orthostatic tachycardia syndrome [POTS]; K21.9 Gastro-esophageal reflux disease without esophagitis; E53.8 Deficiency of other specified B group vitamins; G89.4 Chronic pain syndrome; G43.E19 Chronic migraine with aura, intractable, without status migrainosus; J44.9 Chronic obstructive pulmonary disease, unspecified; E21.3 Hyperparathyroidism, unspecified; M35.3 Polymyalgia rheumatica; G47.33 Obstructive sleep apnea (adult) (pediatric); Z88.2 Allergy status to sulfonamides; Z88.8 Allergy status to other drugs, medicaments and biological substances; Z98.84 Bariatric surgery status; Z90.49 Acquired absence of other specified parts of digestive tract
CPT/HCPCS: 96361; 96374; J1642; J2405; J7120

== ENCOUNTER 2024-12-10 03:47 | Day surgery (SDC) | payer OTHER ==
[2024-12-10] MEDS ORDERED: Lactated Ringer's 1,000 ML IV SCH (06:50)
[2024-12-10] MEDS ORDERED: Ketorolac Tromethamine 30mg Vial IM SCH (06:50)
[2024-12-10] MEDS ORDERED: Ondansetron HCl 2 MG / ML 2ML Vial IV SCH (06:50)
[2024-12-10 08:31] VITALS: BP 167/85
== END 2024-12-10 09:30 | disposition home or self-care (01) ==
LOC: ATC 03:47
DX: R62.7 Adult failure to thrive (principal); K21.9 Gastro-esophageal reflux disease without esophagitis; G90.A Postural orthostatic tachycardia syndrome [POTS]; E53.8 Deficiency of other specified B group vitamins; J44.9 Chronic obstructive pulmonary disease, unspecified; G43.E19 Chronic migraine with aura, intractable, without status migrainosus; M35.3 Polymyalgia rheumatica; E21.3 Hyperparathyroidism, unspecified; G47.33 Obstructive sleep apnea (adult) (pediatric); Z88.2 Allergy status to sulfonamides; Z88.8 Allergy status to other drugs, medicaments and biological substances; Z98.84 Bariatric surgery status; Z90.49 Acquired absence of other specified parts of digestive tract; Z90.710 Acquired absence of both cervix and uterus
CPT/HCPCS: 96361; 96372; 96374; J1642; J1885; J2405; J7120

== ENCOUNTER 2024-12-13 02:52 | Day surgery (SDC) | payer OTHER ==
[~2024-12-13 02:52] MED LIST changes: +Ketorolac Tromethamine 30mg Vial IV SCH; +Lactated Ringer's 1,000 ML IV SCH; +Ondansetron HCl 2 MG / ML 2ML Vial IV SCH
[2024-12-13 08:29] VITALS: BP 180/93
[2024-12-13 08:31] LABS: BASOPHILS ABSOLUTE AUTO 0.03 K/mm3 (0.00-0.23); BASOPHILS PERCENT AUTO 0 % (0-2); EOSINOPHILS ABSOLUTE AUTO 0.12 K/mm3 (0.00-0.68); EOSINOPHILS PERCENT AUTO 1 % (0-6); Hematocrit 35.5 % (33.0-51.0); Hemoglobin 11.6 g/dL (11.5-16.0); IMMATURE GRAN ABSOLUTE AUTO 0.25 K/mm3 (0.00-0.10); IMMATURE GRAN PERCENT AUTO 2 % (0-1); LYMPHOCYTES ABSOLUTE AUTO 2.81 K/mm3 (0.84-5.20); LYMPHOCYTES PERCENT AUTO 21 % (21-46); MONOCYTES ABSOLUTE AUTO 0.98 K/mm3 (0.16-1.47); MONOCYTES PERCENT AUTO 7 % (4-13); Mean Corpuscular HGB 29.8 pg (26.0-34.0); Mean Corpuscular HGB Conc 32.7 g/dL (31.5-36.5); Mean Corpuscular Volume 91 fL (80-100); Mean Platelet Volume 9.5 fL (9.1-12.4); NEUTROPHILS ABSOLUTE AUTO 9.08 K/mm3 (1.96-9.15); NEUTROPHILS PERCENT AUTO 68 % (41-73); Platelet Count 273 K/mm3 (150-400); RDW Coefficient Variation 16.2 % (11.7-14.2); RDW Standard Deviation 54.4 fL (35.1-46.3); Red Blood Cell Count 3.89 M/mm3 (3.80-5.20); White Blood Cell Count 13.27 K/mm3 (4.00-11.30)
[2024-12-13 08:52] LABS: Albumin, Blood 2.8 g/dL (3.4-5.0); Anion Gap 9 mmol/L (3-11); Blood Urea Nitrogen 25 mg/dL (8-24); Bun/Creatinine Ratio 30.8 (12.0-20.0); C-REACTIVE PROTEIN, EXT RANGE 0.457 mg/dL (0.000-0.300); CO2, Blood 28 mmol/L (21-32); Calcium, Blood 7.8 mg/dL (8.5-10.1); Chloride, Blood 104 mmol/L (98-108); Creatinine, Blood 0.81 mg/dL (0.40-1.00); Glomerular Filtration Rate 83 (60-); Glucose, Blood 86 mg/dL (70-99); Phosphorus, Blood 3.6 mg/dL (2.5-4.9); Potassium, Blood 3.8 mmol/L (3.5-5.5); Sodium, Blood 137 mmol/L (136-145)
== END 2024-12-13 09:52 | disposition home or self-care (01) ==
LOC: ATC 02:52
PROVIDERS: Internal Medicine
DX: R62.7 Adult failure to thrive (principal); G90.A Postural orthostatic tachycardia syndrome [POTS]; K21.9 Gastro-esophageal reflux disease without esophagitis; E53.8 Deficiency of other specified B group vitamins; G89.4 Chronic pain syndrome; G43.E19 Chronic migraine with aura, intractable, without status migrainosus; J44.9 Chronic obstructive pulmonary disease, unspecified; E21.3 Hyperparathyroidism, unspecified; M35.3 Polymyalgia rheumatica; M79.7 Fibromyalgia; G47.33 Obstructive sleep apnea (adult) (pediatric); Z88.2 Allergy status to sulfonamides; Z88.8 Allergy status to other drugs, medicaments and biological substances; Z98.84 Bariatric surgery status; Z90.49 Acquired absence of other specified parts of digestive tract
CPT/HCPCS: 80069; 83880; 85025; 85651; 86140; 96361; 96374; J1642; J2405; J7120

== ENCOUNTER 2024-12-15 04:56 | Day surgery (SDC) | payer OTHER ==
[~2024-12-15 04:56] MED LIST changes: -Ketorolac Tromethamine 30mg Vial IV SCH; -Lactated Ringer's 1,000 ML IV SCH; -Ondansetron HCl 2 MG / ML 2ML Vial IV SCH
[2024-12-15] MEDS ORDERED: Lactated Ringer's 1,000 ML IV SCH (07:00)
[2024-12-15] MEDS ORDERED: Ondansetron HCl 2 MG / ML 2ML Vial IV SCH (07:00)
[2024-12-15 08:04] VITALS: BP 165/108
[2024-12-15 09:08] VITALS: BP 167/86
== END 2024-12-15 09:12 | disposition home or self-care (01) ==
LOC: ATC 04:56
DX: R62.7 Adult failure to thrive (principal); E53.8 Deficiency of other specified B group vitamins; G90.A Postural orthostatic tachycardia syndrome [POTS]; E46 Unspecified protein-calorie malnutrition; K21.9 Gastro-esophageal reflux disease without esophagitis; G89.4 Chronic pain syndrome; G43.E19 Chronic migraine with aura, intractable, without status migrainosus; J44.9 Chronic obstructive pulmonary disease, unspecified; E21.3 Hyperparathyroidism, unspecified; J06.9 Acute upper respiratory infection, unspecified; I70.90 Unspecified atherosclerosis; J98.8 Other specified respiratory disorders; E86.0 Dehydration; Z79.899 Other long term (current) drug therapy; Z98.84 Bariatric surgery status; Z95.818 Presence of other cardiac implants and grafts
CPT/HCPCS: 71046; 96361; 96374; J1642; J2405; J7120

== ENCOUNTER 2024-12-17 04:30 | Day surgery (SDC) | payer OTHER ==
[2024-12-17] MEDS ORDERED: Ketorolac Tromethamine 30mg Vial IM SCH (07:00)
[2024-12-17] MEDS ORDERED: Lactated Ringer's 1,000 ML IV SCH (07:00)
[2024-12-17] MEDS ORDERED: Ondansetron HCl 2 MG / ML 2ML Vial IV SCH (07:00)
[2024-12-17 08:10] VITALS: BP 159/82
== END 2024-12-17 09:22 | disposition home or self-care (01) ==
LOC: ATC 04:30
DX: E53.8 Deficiency of other specified B group vitamins (principal); M79.10 Myalgia, unspecified site; R11.0 Nausea; G90.A Postural orthostatic tachycardia syndrome [POTS]; G89.4 Chronic pain syndrome; G43.E19 Chronic migraine with aura, intractable, without status migrainosus; M15.9 Polyosteoarthritis, unspecified; J44.9 Chronic obstructive pulmonary disease, unspecified; K21.9 Gastro-esophageal reflux disease without esophagitis; E21.3 Hyperparathyroidism, unspecified; R62.7 Adult failure to thrive; F41.8 Other specified anxiety disorders; Z90.3 Acquired absence of stomach [part of]; M35.3 Polymyalgia rheumatica; G47.33 Obstructive sleep apnea (adult) (pediatric); Z88.2 Allergy status to sulfonamides; Z88.1 Allergy status to other antibiotic agents; Z88.8 Allergy status to other drugs, medicaments and biological substances; Z79.899 Other long term (current) drug therapy
CPT/HCPCS: 96361; 96372; 96374; J1642; J1885; J2405; J7120

== ENCOUNTER 2024-12-20 07:44 | Day surgery (SDC) | payer OTHER ==
[~2024-12-20 07:44] MED LIST changes: +Lactated Ringer's 1,000 ML IV SCH; +Ondansetron HCl 2 MG / ML 2ML Vial IV SCH
[2024-12-20 08:11] VITALS: BP 130/80
[2024-12-20] MEDS ORDERED: Amoxicillin500 MG PO (08:21)
== END 2024-12-20 09:07 | disposition home or self-care (01) ==
LOC: ATC 07:44
DX: R62.7 Adult failure to thrive (principal); G90.A Postural orthostatic tachycardia syndrome [POTS]; K21.9 Gastro-esophageal reflux disease without esophagitis; G43.E19 Chronic migraine with aura, intractable, without status migrainosus; G47.33 Obstructive sleep apnea (adult) (pediatric); E53.8 Deficiency of other specified B group vitamins; M79.7 Fibromyalgia; J44.9 Chronic obstructive pulmonary disease, unspecified; M35.3 Polymyalgia rheumatica; E21.3 Hyperparathyroidism, unspecified; G89.4 Chronic pain syndrome; Z88.2 Allergy status to sulfonamides; Z88.8 Allergy status to other drugs, medicaments and biological substances; Z98.84 Bariatric surgery status; Z90.49 Acquired absence of other specified parts of digestive tract
CPT/HCPCS: 96361; 96374; J1642; J2405; J7120

== ENCOUNTER 2024-12-22 01:45 | Day surgery (SDC) | payer OTHER ==
[~2024-12-22 01:45] MED LIST changes: +Amoxicillin500 MG PO; -Lactated Ringer's 1,000 ML IV SCH; -Ondansetron HCl 2 MG / ML 2ML Vial IV SCH
[2024-12-22] MEDS ORDERED: Cyanocobalamin 1000 MCG/ML 1ML Vial IM SCH (07:05)
[2024-12-22] MEDS ORDERED: Ondansetron HCl 2 MG / ML 2ML Vial IV SCH (07:05)
[2024-12-22] MEDS ORDERED: Lactated Ringer's 1,000 ML IV SCH (07:05)
[2024-12-22 08:25] VITALS: BP 151/90
== END 2024-12-22 09:26 | disposition home or self-care (01) ==
LOC: ATC 01:45
DX: E53.8 Deficiency of other specified B group vitamins (principal); M79.10 Myalgia, unspecified site; G90.A Postural orthostatic tachycardia syndrome [POTS]; R11.0 Nausea; R62.7 Adult failure to thrive; K21.9 Gastro-esophageal reflux disease without esophagitis; G89.4 Chronic pain syndrome; G43.E19 Chronic migraine with aura, intractable, without status migrainosus; M15.9 Polyosteoarthritis, unspecified; J44.9 Chronic obstructive pulmonary disease, unspecified; E21.3 Hyperparathyroidism, unspecified; F41.8 Other specified anxiety disorders; Z79.899 Other long term (current) drug therapy
CPT/HCPCS: 96361; 96372; 96374; J1642; J2405; J3420; J7120

== ENCOUNTER 2024-12-24 00:48 | Day surgery (SDC) | payer OTHER ==
[2024-12-24] MEDS ORDERED: Lactated Ringer's 1,000 ML IV SCH (06:40)
[2024-12-24] MEDS ORDERED: Ondansetron HCl 2 MG / ML 2ML Vial IV SCH (06:40)
[2024-12-24] MEDS ORDERED: Ketorolac Tromethamine 30mg Vial IM SCH (06:45)
[2024-12-24 08:05] VITALS: BP 174/95
== END 2024-12-24 09:14 | disposition home or self-care (01) ==
LOC: ATC 00:48
DX: R62.7 Adult failure to thrive (principal); G90.A Postural orthostatic tachycardia syndrome [POTS]; E53.8 Deficiency of other specified B group vitamins; E46 Unspecified protein-calorie malnutrition; R63.8 Other symptoms and signs concerning food and fluid intake; E86.0 Dehydration; K21.9 Gastro-esophageal reflux disease without esophagitis; G89.4 Chronic pain syndrome; G43.E19 Chronic migraine with aura, intractable, without status migrainosus; M15.9 Polyosteoarthritis, unspecified; J44.9 Chronic obstructive pulmonary disease, unspecified; G47.33 Obstructive sleep apnea (adult) (pediatric); Z98.84 Bariatric surgery status; Z79.899 Other long term (current) drug therapy
CPT/HCPCS: 96361; 96372; 96374; J1642; J1885; J2405; J7120

== ENCOUNTER 2024-12-27 01:02 | Day surgery (SDC) | payer OTHER ==
[2024-12-27] MEDS ORDERED: Lactated Ringer's 1,000 ML IV SCH (07:05)
[2024-12-27] MEDS ORDERED: Ondansetron HCl 2 MG / ML 2ML Vial IV SCH (07:05)
[2024-12-27 08:28] VITALS: BP 173/95
== END 2024-12-27 09:37 | disposition home or self-care (01) ==
LOC: ATC 01:02
DX: E53.8 Deficiency of other specified B group vitamins (principal); M79.10 Myalgia, unspecified site; R11.0 Nausea; G90.A Postural orthostatic tachycardia syndrome [POTS]; G89.4 Chronic pain syndrome; G43.E19 Chronic migraine with aura, intractable, without status migrainosus; M15.9 Polyosteoarthritis, unspecified; J44.9 Chronic obstructive pulmonary disease, unspecified; K21.9 Gastro-esophageal reflux disease without esophagitis; F41.8 Other specified anxiety disorders; G47.33 Obstructive sleep apnea (adult) (pediatric); Z90.3 Acquired absence of stomach [part of]; Z88.1 Allergy status to other antibiotic agents; Z88.2 Allergy status to sulfonamides; Z88.8 Allergy status to other drugs, medicaments and biological substances; Z79.899 Other long term (current) drug therapy
CPT/HCPCS: 96361; 96374; J1642; J2405; J7120

== ENCOUNTER 2024-12-29 03:16 | Day surgery (SDC) | payer OTHER ==
[2024-12-29] MEDS ORDERED: Lactated Ringer's 1,000 ML IV SCH (06:45)
[2024-12-29] MEDS ORDERED: Ondansetron HCl 2 MG / ML 2ML Vial IV SCH (06:45)
[2024-12-29 08:15] VITALS: BP 155/90
== END 2024-12-29 09:28 | disposition home or self-care (01) ==
LOC: ATC 03:16
DX: R62.7 Adult failure to thrive (principal); E86.0 Dehydration; K21.9 Gastro-esophageal reflux disease without esophagitis; E53.8 Deficiency of other specified B group vitamins; G90.A Postural orthostatic tachycardia syndrome [POTS]; G89.4 Chronic pain syndrome; J44.9 Chronic obstructive pulmonary disease, unspecified; M15.9 Polyosteoarthritis, unspecified; E21.3 Hyperparathyroidism, unspecified; Z98.84 Bariatric surgery status
CPT/HCPCS: 96361; 96374; J1642; J2405; J7120

== ENCOUNTER 2024-12-31 04:03 | Day surgery (SDC) | payer OTHER ==
[2024-12-31] MEDS ORDERED: Ondansetron HCl 2 MG / ML 2ML Vial IV SCH (06:35)
[2024-12-31] MEDS ORDERED: Ketorolac Tromethamine 30mg Vial IM SCH (06:35)
[2024-12-31] MEDS ORDERED: Lactated Ringer's 1,000 ML IV SCH (06:35)
[2024-12-31 08:14] VITALS: BP 146/99
== END 2024-12-31 09:20 | disposition home or self-care (01) ==
LOC: ATC 04:03
DX: R62.7 Adult failure to thrive (principal); K21.9 Gastro-esophageal reflux disease without esophagitis; E53.8 Deficiency of other specified B group vitamins; G90.A Postural orthostatic tachycardia syndrome [POTS]; G43.E19 Chronic migraine with aura, intractable, without status migrainosus; J44.9 Chronic obstructive pulmonary disease, unspecified; E21.3 Hyperparathyroidism, unspecified; M35.3 Polymyalgia rheumatica; Z79.899 Other long term (current) drug therapy; Z88.2 Allergy status to sulfonamides; Z88.8 Allergy status to other drugs, medicaments and biological substances; Z98.84 Bariatric surgery status; Z90.49 Acquired absence of other specified parts of digestive tract
CPT/HCPCS: 96361; 96372; 96374; J1642; J1885; J2405; J7120

== ENCOUNTER 2025-01-03 02:13 | Day surgery (SDC) | payer OTHER ==
[2025-01-03] MEDS ORDERED: Ondansetron HCl 2 MG / ML 2ML Vial IV SCH (06:55)
[2025-01-03] MEDS ORDERED: Lactated Ringer's 1,000 ML IV SCH (06:55)
[2025-01-03 08:25] VITALS: BP 166/89
== END 2025-01-03 09:23 | disposition home or self-care (01) ==
LOC: ATC 02:13
DX: R62.7 Adult failure to thrive (principal); E53.8 Deficiency of other specified B group vitamins; M79.10 Myalgia, unspecified site; R11.0 Nausea; G90.A Postural orthostatic tachycardia syndrome [POTS]; K21.9 Gastro-esophageal reflux disease without esophagitis; J44.9 Chronic obstructive pulmonary disease, unspecified; E21.3 Hyperparathyroidism, unspecified; G43.E19 Chronic migraine with aura, intractable, without status migrainosus; Z88.2 Allergy status to sulfonamides; Z88.8 Allergy status to other drugs, medicaments and biological substances; Z79.899 Other long term (current) drug therapy; Z98.84 Bariatric surgery status
CPT/HCPCS: 96361; 96374; J1642; J2405; J7120

== ENCOUNTER 2025-01-05 01:47 | Day surgery (SDC) | payer OTHER ==
[2025-01-05] MEDS ORDERED: Ondansetron HCl 2 MG / ML 2ML Vial IV SCH (06:45)
[2025-01-05] MEDS ORDERED: Lactated Ringer's 1,000 ML IV SCH (06:45)
[2025-01-05 08:05] VITALS: BP 149/80
== END 2025-01-05 09:19 | disposition home or self-care (01) ==
LOC: ATC 01:47
DX: R62.7 Adult failure to thrive (principal); E53.8 Deficiency of other specified B group vitamins; M79.10 Myalgia, unspecified site; R11.0 Nausea; G90.A Postural orthostatic tachycardia syndrome [POTS]; K21.9 Gastro-esophageal reflux disease without esophagitis; J44.9 Chronic obstructive pulmonary disease, unspecified; E21.3 Hyperparathyroidism, unspecified; Z79.899 Other long term (current) drug therapy; Z88.2 Allergy status to sulfonamides; Z88.1 Allergy status to other antibiotic agents
CPT/HCPCS: 96361; 96374; J1642; J2405; J7120

== ENCOUNTER 2025-01-07 02:56 | Day surgery (SDC) | payer OTHER ==
[2025-01-07] MEDS ORDERED: Lactated Ringer's 1,000 ML IV SCH (06:45)
[2025-01-07] MEDS ORDERED: Ondansetron HCl 2 MG / ML 2ML Vial IV SCH (06:45)
[2025-01-07] MEDS ORDERED: Ketorolac Tromethamine 30mg Vial IM SCH (06:50)
[2025-01-07 07:59] VITALS: BP 177/91
== END 2025-01-07 09:12 | disposition home or self-care (01) ==
LOC: ATC 02:56
DX: G89.4 Chronic pain syndrome (principal); E86.0 Dehydration; R62.7 Adult failure to thrive; E46 Unspecified protein-calorie malnutrition; E53.8 Deficiency of other specified B group vitamins; K21.9 Gastro-esophageal reflux disease without esophagitis; G90.A Postural orthostatic tachycardia syndrome [POTS]; M15.9 Polyosteoarthritis, unspecified; J44.9 Chronic obstructive pulmonary disease, unspecified; E21.3 Hyperparathyroidism, unspecified; Z79.899 Other long term (current) drug therapy; Z98.84 Bariatric surgery status
CPT/HCPCS: 96361; 96372; 96374; J1642; J1885; J2405; J7120

== ENCOUNTER 2025-01-10 08:00 | Day surgery (SDC) | payer OTHER ==
[~2025-01-10 08:00] MED LIST changes: +Lactated Ringer's 1,000 ML IV SCH; +Ondansetron HCl 2 MG / ML 2ML Vial IV SCH
[2025-01-10 08:05] VITALS: BP 181/81
[2025-01-10 09:19] VITALS: BP 166/93
--- NOTE | 2025-01-10 09:23 | NUR ---
PT EDUCATED REGARDING ELEVATED BP. PT TO GO HOME AND REST AND RECHECK BP IF STILL ELEVATED PT TO CONTACT PCP OR IF PT BECOMES SYMPTOMATIC PT IS TO CONTACT PCP
== END 2025-01-10 09:20 | disposition home or self-care (01) ==
LOC: ATC 08:00
DX: M79.7 Fibromyalgia (principal); R62.7 Adult failure to thrive; G89.4 Chronic pain syndrome; G43.E19 Chronic migraine with aura, intractable, without status migrainosus; M15.9 Polyosteoarthritis, unspecified; J44.9 Chronic obstructive pulmonary disease, unspecified; K21.9 Gastro-esophageal reflux disease without esophagitis; E21.3 Hyperparathyroidism, unspecified; R13.19 Other dysphagia; G90.A Postural orthostatic tachycardia syndrome [POTS]; M35.3 Polymyalgia rheumatica; E53.8 Deficiency of other specified B group vitamins; G47.33 Obstructive sleep apnea (adult) (pediatric); Z68.1 Body mass index [BMI] 19.9 or less, adult; Z86.14 Personal history of Methicillin resistant Staphylococcus aureus infection; Z79.899 Other long term (current) drug therapy; Z88.1 Allergy status to other antibiotic agents; Z88.2 Allergy status to sulfonamides; Z88.8 Allergy status to other drugs, medicaments and biological substances; Z98.84 Bariatric surgery status
CPT/HCPCS: 96361; 96374; J1642; J2405; J7120

== ENCOUNTER 2025-01-12 02:05 | Day surgery (SDC) | payer OTHER ==
[~2025-01-12 02:05] MED LIST changes: -Lactated Ringer's 1,000 ML IV SCH; -Ondansetron HCl 2 MG / ML 2ML Vial IV SCH
[2025-01-12] MEDS ORDERED: Lactated Ringer's 1,000 ML IV SCH (06:55)
[2025-01-12] MEDS ORDERED: Ondansetron HCl 2 MG / ML 2ML Vial IV SCH (06:55)
[2025-01-12 08:36] VITALS: BP 166/82
== END 2025-01-12 09:39 | disposition home or self-care (01) ==
LOC: ATC 02:05
DX: E86.0 Dehydration (principal); R62.7 Adult failure to thrive; K21.9 Gastro-esophageal reflux disease without esophagitis; G89.4 Chronic pain syndrome; M15.9 Polyosteoarthritis, unspecified; J44.9 Chronic obstructive pulmonary disease, unspecified; E21.3 Hyperparathyroidism, unspecified; M35.3 Polymyalgia rheumatica; G90.A Postural orthostatic tachycardia syndrome [POTS]; Z98.84 Bariatric surgery status; Z88.2 Allergy status to sulfonamides; Z88.8 Allergy status to other drugs, medicaments and biological substances
CPT/HCPCS: 96361; 96374; J1642; J2405; J7120

== ENCOUNTER 2025-01-14 03:20 | Day surgery (SDC) | payer OTHER ==
[2025-01-14] MEDS ORDERED: Lactated Ringer's 1,000 ML IV SCH (06:45)
[2025-01-14] MEDS ORDERED: Ondansetron HCl 2 MG / ML 2ML Vial IV SCH (06:45)
[2025-01-14] MEDS ORDERED: Ketorolac Tromethamine 30mg Vial IM SCH (06:45)
[2025-01-14 08:02] VITALS: BP 166/93
== END 2025-01-14 09:18 | disposition home or self-care (01) ==
LOC: ATC 03:20
DX: E86.0 Dehydration (principal); R62.7 Adult failure to thrive; K21.9 Gastro-esophageal reflux disease without esophagitis; G89.4 Chronic pain syndrome; G43.E19 Chronic migraine with aura, intractable, without status migrainosus; J44.9 Chronic obstructive pulmonary disease, unspecified; E21.3 Hyperparathyroidism, unspecified; G90.A Postural orthostatic tachycardia syndrome [POTS]; Z79.899 Other long term (current) drug therapy; Z88.2 Allergy status to sulfonamides; Z88.8 Allergy status to other drugs, medicaments and biological substances; Z98.84 Bariatric surgery status
CPT/HCPCS: 96361; 96372; 96374; J1642; J1885; J2405; J7120

== ENCOUNTER 2025-01-17 08:13 | Day surgery (SDC) | payer OTHER ==
[2025-01-17 08:00] VITALS: BP 167/93
[~2025-01-17 08:13] MED LIST changes: +Lactated Ringer's 1,000 ML IV SCH; +Ondansetron HCl 2 MG / ML 2ML Vial IV SCH
[2025-02-14] MEDS ORDERED: ACTEMRA400 MG/20 IV (08:08)
== END 2025-01-17 09:15 | disposition home or self-care (01) ==
LOC: ATC 08:13
DX: E86.0 Dehydration (principal); R62.7 Adult failure to thrive; K21.9 Gastro-esophageal reflux disease without esophagitis; E56.9 Vitamin deficiency, unspecified; G89.4 Chronic pain syndrome; J44.9 Chronic obstructive pulmonary disease, unspecified; E21.3 Hyperparathyroidism, unspecified; G43.E19 Chronic migraine with aura, intractable, without status migrainosus; Z79.899 Other long term (current) drug therapy; Z88.2 Allergy status to sulfonamides; Z88.8 Allergy status to other drugs, medicaments and biological substances; Z98.84 Bariatric surgery status
CPT/HCPCS: 96361; 96374; J1642; J2405; J7120

== ENCOUNTER 2025-01-19 04:02 | Day surgery (SDC) | payer OTHER ==
[~2025-01-19 04:02] MED LIST changes: -Lactated Ringer's 1,000 ML IV SCH; -Ondansetron HCl 2 MG / ML 2ML Vial IV SCH
[2025-01-19] MEDS ORDERED: Ondansetron HCl 2 MG / ML 2ML Vial IV SCH (07:10)
[2025-01-19] MEDS ORDERED: Lactated Ringer's 1,000 ML IV SCH (07:10)
[2025-01-19 08:11] VITALS: BP 167/90
== END 2025-01-19 09:29 | disposition home or self-care (01) ==
LOC: ATC 04:02
DX: G89.4 Chronic pain syndrome (principal); R62.7 Adult failure to thrive; E46 Unspecified protein-calorie malnutrition; E86.0 Dehydration; K21.9 Gastro-esophageal reflux disease without esophagitis; J44.9 Chronic obstructive pulmonary disease, unspecified; E21.3 Hyperparathyroidism, unspecified; G90.A Postural orthostatic tachycardia syndrome [POTS]; E53.8 Deficiency of other specified B group vitamins; Z98.84 Bariatric surgery status; Z79.899 Other long term (current) drug therapy
CPT/HCPCS: 96361; 96374; J1642; J2405; J7120

== ENCOUNTER 2025-01-21 03:49 | Day surgery (SDC) | payer OTHER ==
[2025-01-21] MEDS ORDERED: Lactated Ringer's 1,000 ML IV SCH (06:40)
[2025-01-21] MEDS ORDERED: Ondansetron HCl 2 MG / ML 2ML Vial IV SCH (06:40)
[2025-01-21] MEDS ORDERED: Cyanocobalamin 1000 MCG/ML 1ML Vial IM SCH (06:45)
[2025-01-21] MEDS ORDERED: Ketorolac Tromethamine 30mg Vial IM SCH (06:45)
[2025-01-21 08:12] VITALS: BP 191/98
[2025-01-21 09:51] LABS: BASOPHILS ABSOLUTE AUTO 0.09 K/mm3 (0.00-0.23); BASOPHILS PERCENT AUTO 1 % (0-2); EOSINOPHILS PERCENT AUTO 1 % (0-6); Hematocrit 35.9 % (33.0-51.0); Hemoglobin 11.5 g/dL (11.5-16.0); IMMATURE GRAN ABSOLUTE AUTO 0.62 K/mm3 (0.00-0.10); IMMATURE GRAN PERCENT AUTO 5 % (0-1); LYMPHOCYTES ABSOLUTE AUTO 3.06 K/mm3 (0.84-5.20); LYMPHOCYTES PERCENT AUTO 23 % (21-46); MONOCYTES PERCENT AUTO 8 % (4-13); Mean Corpuscular HGB 29.6 pg (26.0-34.0); Mean Corpuscular Volume 93 fL (80-100); Mean Platelet Volume 10.9 fL (9.1-12.4); NEUTROPHILS ABSOLUTE AUTO 8.58 K/mm3 (1.96-9.15); NEUTROPHILS PERCENT AUTO 63 % (41-73); Platelet Count 290 K/mm3 (150-400); RDW Coefficient Variation 14.1 % (11.7-14.2); RDW Standard Deviation 47.7 fL (35.1-46.3); Red Blood Cell Count 3.88 M/mm3 (3.80-5.20); White Blood Cell Count 13.55 K/mm3 (4.00-11.30)
[2025-01-21 09:59] LABS: Albumin, Blood 2.7 g/dL (3.4-5.0); Anion Gap 10 mmol/L (3-11); Blood Urea Nitrogen 22 mg/dL (8-24); Bun/Creatinine Ratio 27.1 (12.0-20.0); C-REACTIVE PROTEIN, EXT RANGE <0.290 mg/dL (0.000-0.300); CO2, Blood 27 mmol/L (21-32); Calcium, Blood 8.3 mg/dL (8.5-10.1); Chloride, Blood 105 mmol/L (98-108); Creatinine, Blood 0.81 mg/dL (0.40-1.00); Glomerular Filtration Rate 83 (60-); Glucose, Blood 83 mg/dL (70-99); Phosphorus, Blood 3.5 mg/dL (2.5-4.9); Potassium, Blood 3.7 mmol/L (3.5-5.5); Sodium, Blood 138 mmol/L (136-145)
== END 2025-01-21 09:17 | disposition home or self-care (01) ==
LOC: ATC 03:49
PROVIDERS: Internal Medicine
DX: M79.10 Myalgia, unspecified site (principal); R62.7 Adult failure to thrive; G89.4 Chronic pain syndrome; G47.33 Obstructive sleep apnea (adult) (pediatric); K21.9 Gastro-esophageal reflux disease without esophagitis; G43.E19 Chronic migraine with aura, intractable, without status migrainosus; M15.9 Polyosteoarthritis, unspecified; J44.9 Chronic obstructive pulmonary disease, unspecified; E21.3 Hyperparathyroidism, unspecified; F41.8 Other specified anxiety disorders; G90.A Postural orthostatic tachycardia syndrome [POTS]; M35.3 Polymyalgia rheumatica; E53.8 Deficiency of other specified B group vitamins; Z88.1 Allergy status to other antibiotic agents; Z88.2 Allergy status to sulfonamides; Z88.8 Allergy status to other drugs, medicaments and biological substances; Z79.899 Other long term (current) drug therapy
CPT/HCPCS: 80069; 85025; 85651; 86140; 96361; 96372; 96374; J1642; J1885; J2405; J3420; J7120

== ENCOUNTER 2025-01-24 05:40 | Day surgery (SDC) | payer OTHER ==
[2025-01-24] MEDS ORDERED: Lactated Ringer's 1,000 ML IV SCH (06:55)
[2025-01-24] MEDS ORDERED: Ondansetron HCl 2 MG / ML 2ML Vial IV SCH (06:55)
[2025-01-24 08:43] VITALS: BP 155/87
== END 2025-01-24 11:19 | disposition home or self-care (01) ==
LOC: ATC 05:40
DX: E86.0 Dehydration (principal); R62.7 Adult failure to thrive; K21.9 Gastro-esophageal reflux disease without esophagitis; E56.9 Vitamin deficiency, unspecified; G89.4 Chronic pain syndrome; G43.E19 Chronic migraine with aura, intractable, without status migrainosus; M15.9 Polyosteoarthritis, unspecified; J44.9 Chronic obstructive pulmonary disease, unspecified; E21.3 Hyperparathyroidism, unspecified; G90.A Postural orthostatic tachycardia syndrome [POTS]; Z98.84 Bariatric surgery status; Z79.899 Other long term (current) drug therapy
CPT/HCPCS: 96361; 96374; J1642; J2405; J7120

== ENCOUNTER 2025-01-26 02:04 | Day surgery (SDC) | payer OTHER ==
[2025-01-26 08:00] VITALS: BP 163/85
== END 2025-01-26 09:18 | disposition home or self-care (01) ==
LOC: ATC 02:04
DX: G89.4 Chronic pain syndrome (principal); R62.7 Adult failure to thrive; G43.E19 Chronic migraine with aura, intractable, without status migrainosus; M15.9 Polyosteoarthritis, unspecified; J44.9 Chronic obstructive pulmonary disease, unspecified; E21.3 Hyperparathyroidism, unspecified; F41.8 Other specified anxiety disorders; E53.8 Deficiency of other specified B group vitamins; Z98.84 Bariatric surgery status; Z79.899 Other long term (current) drug therapy

== ENCOUNTER 2025-01-28 02:41 | Day surgery (SDC) | payer OTHER ==
[2025-01-28] MEDS ORDERED: Lactated Ringer's 1,000 ML IV SCH (06:50)
[2025-01-28] MEDS ORDERED: Ondansetron HCl 2 MG / ML 2ML Vial IV SCH (06:50)
[2025-01-28] MEDS ORDERED: Ketorolac Tromethamine 30mg Vial IM SCH (06:55)
[2025-01-28 08:19] VITALS: BP 162/85
[2025-02-14] MEDS ORDERED: ACTEMRA400 MG/20 IV (08:08)
== END 2025-01-28 09:36 | disposition home or self-care (01) ==
LOC: ATC 02:41
DX: E46 Unspecified protein-calorie malnutrition (principal); R62.7 Adult failure to thrive; E86.0 Dehydration; K21.9 Gastro-esophageal reflux disease without esophagitis; G89.4 Chronic pain syndrome; G43.E19 Chronic migraine with aura, intractable, without status migrainosus; E21.3 Hyperparathyroidism, unspecified; G90.A Postural orthostatic tachycardia syndrome [POTS]; Z98.84 Bariatric surgery status; Z79.899 Other long term (current) drug therapy; Z88.2 Allergy status to sulfonamides; Z88.8 Allergy status to other drugs, medicaments and biological substances
CPT/HCPCS: 96361; 96372; 96374; J1642; J1885; J2405; J7120

== ENCOUNTER 2025-01-31 05:52 | Day surgery (SDC) | payer OTHER ==
[2025-01-31] MEDS ORDERED: Ondansetron HCl 2 MG / ML 2ML Vial IV SCH (06:55)
[2025-01-31] MEDS ORDERED: Lactated Ringer's 1,000 ML IV SCH (06:55)
[2025-01-31 07:53] VITALS: BP 157/88
[2025-02-03 01:08] LABS: QUANTIFERON MITOGEN MINUS NIL 5.23 IU/mL; QUANTIFERON NIL 0.03 IU/mL; QUANTIFERON PLUS TB1 MINUS NIL 0.01 IU/mL (<=0.34); QUANTIFERON PLUS TB2 MINUS NIL 0.01 IU/mL (<=0.34)
== END 2025-01-31 09:14 | disposition home or self-care (01) ==
LOC: ATC 05:52
PROVIDERS: Internal Medicine
DX: G43.E19 Chronic migraine with aura, intractable, without status migrainosus (principal); G89.4 Chronic pain syndrome; R62.7 Adult failure to thrive; M15.9 Polyosteoarthritis, unspecified; M31.6 Other giant cell arteritis; R11.0 Nausea; J44.9 Chronic obstructive pulmonary disease, unspecified; J21.9 Acute bronchiolitis, unspecified; K21.9 Gastro-esophageal reflux disease without esophagitis; E21.3 Hyperparathyroidism, unspecified; F41.8 Other specified anxiety disorders; Z90.3 Acquired absence of stomach [part of]; G90.A Postural orthostatic tachycardia syndrome [POTS]; M35.3 Polymyalgia rheumatica; E53.8 Deficiency of other specified B group vitamins; Z88.2 Allergy status to sulfonamides; Z88.1 Allergy status to other antibiotic agents; Z88.8 Allergy status to other drugs, medicaments and biological substances; Z79.899 Other long term (current) drug therapy
CPT/HCPCS: 86480; 96361; 96374; J1642; J2405; J7120

== ENCOUNTER 2025-02-02 02:59 | Day surgery (SDC) | payer OTHER ==
[2025-02-02] MEDS ORDERED: Ondansetron HCl 2 MG / ML 2ML Vial IV SCH (06:35)
[2025-02-02] MEDS ORDERED: Lactated Ringer's 1,000 ML IV SCH (06:35)
[2025-02-02 08:19] VITALS: BP 175/109
== END 2025-02-02 09:23 | disposition home or self-care (01) ==
LOC: ATC 02:59
DX: E86.0 Dehydration (principal); R62.7 Adult failure to thrive; E56.9 Vitamin deficiency, unspecified; K21.9 Gastro-esophageal reflux disease without esophagitis; G89.4 Chronic pain syndrome; G43.E19 Chronic migraine with aura, intractable, without status migrainosus; M15.9 Polyosteoarthritis, unspecified; J44.9 Chronic obstructive pulmonary disease, unspecified; E21.3 Hyperparathyroidism, unspecified; G90.A Postural orthostatic tachycardia syndrome [POTS]; Z79.899 Other long term (current) drug therapy; Z88.2 Allergy status to sulfonamides; Z88.8 Allergy status to other drugs, medicaments and biological substances; Z98.84 Bariatric surgery status
CPT/HCPCS: 96361; 96374; J1642; J2405; J7120

== ENCOUNTER 2025-02-04 04:19 | Day surgery (SDC) | payer OTHER ==
[2025-02-04] MEDS ORDERED: Ketorolac Tromethamine 30mg Vial IM SCH (06:40)
[2025-02-04] MEDS ORDERED: Ondansetron HCl 2 MG / ML 2ML Vial IV SCH (06:40)
[2025-02-04] MEDS ORDERED: Lactated Ringer's 1,000 ML IV SCH (06:40)
[2025-02-04 08:07] VITALS: BP 162/89
[2025-02-04 08:30] LABS: BASOPHILS ABSOLUTE AUTO 0.05 K/mm3 (0.00-0.23); BASOPHILS PERCENT AUTO 1 % (0-2); EOSINOPHILS PERCENT AUTO 2 % (0-6); Hematocrit 34.2 % (33.0-51.0); IMMATURE GRAN ABSOLUTE AUTO 0.23 K/mm3 (0.00-0.10); IMMATURE GRAN PERCENT AUTO 3 % (0-1); LYMPHOCYTES ABSOLUTE AUTO 2.25 K/mm3 (0.84-5.20); LYMPHOCYTES PERCENT AUTO 27 % (21-46); MONOCYTES ABSOLUTE AUTO 0.79 K/mm3 (0.16-1.47); MONOCYTES PERCENT AUTO 9 % (4-13); Mean Corpuscular HGB 29.6 pg (26.0-34.0); Mean Corpuscular HGB Conc 32.2 g/dL (31.5-36.5); Mean Corpuscular Volume 92 fL (80-100); Mean Platelet Volume 10.1 fL (9.1-12.4); NEUTROPHILS ABSOLUTE AUTO 4.85 K/mm3 (1.96-9.15); NEUTROPHILS PERCENT AUTO 58 % (41-73); Platelet Count 295 K/mm3 (150-400); RDW Coefficient Variation 13.5 % (11.7-14.2); RDW Standard Deviation 46.1 fL (35.1-46.3); Red Blood Cell Count 3.72 M/mm3 (3.80-5.20); White Blood Cell Count 8.37 K/mm3 (4.00-11.30)
[2025-02-04 08:54] LABS: Alanine Aminotransfer (ALT/SGP 32 U/L (12-78); Albumin, Blood 2.6 g/dL (3.4-5.0); Albumin/Globulin Ratio 0.8 (0.8-1.8); Alk Phos 86 U/L (50-136); Anion Gap 7 mmol/L (3-11); Aspartate Aminotrans (AST/SGOT 18 U/L (12-37); Bilirubin, Total 0.2 mg/dL (0.1-1.0); Blood Urea Nitrogen 17 mg/dL (8-24); Bun/Creatinine Ratio 23.7 (12.0-20.0); CHOL/HDL RATIO 2.4; CO2, Blood 28 mmol/L (21-32); Calcium, Blood 8.1 mg/dL (8.5-10.1); Chloride, Blood 106 mmol/L (98-108); Cholesterol 254 mg/dL (50-200); Creatinine, Blood 0.72 mg/dL (0.40-1.00); Ferritin, Serum 25 ng/mL (8-252); Globulin, Blood 3.1 g/dL (2.2-4.0); Glomerular Filtration Rate 95 (60-); Glucose, Blood 86 mg/dL (70-99); HDL Cholesterol 106 mg/dL (>39); Iron Serum 46 ug/dL (50-170); LDL/HDL RATIO 1.2; Low Density Lipoprotein Chol 131 mg/dL (0-110); Percent Saturation 13.6 % (15.0-50.0); Potassium, Blood 3.6 mmol/L (3.5-5.5); Sodium, Blood 137 mmol/L (136-145); Total Iron Binding Capacity 338 ug/dL (250-450); Total Protein, Blood 5.7 g/dL (6.4-8.2); Triglycerides 84 mg/dL (30-160); Very Low Density Lipoprot Chol 16 mg/dL (6-32)
[2025-02-07 13:01] LABS: QUANTIFERON MITOGEN MINUS NIL 2.28 IU/mL; QUANTIFERON NIL 0.05 IU/mL
[2025-02-09 09:48] LABS: VITAMIN B1,WHOLE BLOOD 137 nmol/L (70-180)
[2025-02-14] MEDS ORDERED: ACTEMRA400 MG/20 IV (08:08)
== END 2025-02-04 09:29 | disposition home or self-care (01) ==
LOC: ATC 04:19
PROVIDERS: Internal Medicine
DX: E86.0 Dehydration (principal); R62.7 Adult failure to thrive; K21.9 Gastro-esophageal reflux disease without esophagitis; G89.4 Chronic pain syndrome; G43.E19 Chronic migraine with aura, intractable, without status migrainosus; M15.9 Polyosteoarthritis, unspecified; J44.9 Chronic obstructive pulmonary disease, unspecified; E21.3 Hyperparathyroidism, unspecified; G90.A Postural orthostatic tachycardia syndrome [POTS]; E53.8 Deficiency of other specified B group vitamins; Z98.84 Bariatric surgery status; Z79.899 Other long term (current) drug therapy
CPT/HCPCS: 80053; 80061; 82306; 82607; 82728; 82746; 83540; 83550; 83970; 84425; 85025; 86480; 96361; 96372; 96374; J1642; J1885; J2405; J7120

== ENCOUNTER 2025-02-07 00:53 | Day surgery (SDC) | payer OTHER ==
[2025-02-07] MEDS ORDERED: Lactated Ringer's 1,000 ML IV SCH (06:55)
[2025-02-07] MEDS ORDERED: Ondansetron HCl 2 MG / ML 2ML Vial IV SCH (06:55)
[2025-02-07 08:08] VITALS: BP 145/79
[2025-02-14] MEDS ORDERED: ACTEMRA400 MG/20 IV (08:08)
== END 2025-02-07 09:25 | disposition home or self-care (01) ==
LOC: ATC 00:53
DX: K21.9 Gastro-esophageal reflux disease without esophagitis (principal); R11.0 Nausea; R62.7 Adult failure to thrive; M79.10 Myalgia, unspecified site; G89.4 Chronic pain syndrome; G43.E19 Chronic migraine with aura, intractable, without status migrainosus; M15.9 Polyosteoarthritis, unspecified; J44.9 Chronic obstructive pulmonary disease, unspecified; E21.3 Hyperparathyroidism, unspecified; R13.19 Other dysphagia; G90.A Postural orthostatic tachycardia syndrome [POTS]; M35.3 Polymyalgia rheumatica; E53.8 Deficiency of other specified B group vitamins; G47.33 Obstructive sleep apnea (adult) (pediatric); Z68.1 Body mass index [BMI] 19.9 or less, adult; Z86.14 Personal history of Methicillin resistant Staphylococcus aureus infection; Z79.899 Other long term (current) drug therapy; Z88.1 Allergy status to other antibiotic agents; Z88.2 Allergy status to sulfonamides; Z88.8 Allergy status to other drugs, medicaments and biological substances; Z98.84 Bariatric surgery status
CPT/HCPCS: 96361; 96374; J1642; J2405; J7120

== ENCOUNTER 2025-02-09 06:55 | Day surgery (SDC) | payer OTHER ==
[~2025-02-09 06:55] MED LIST changes: +Lactated Ringer's 1,000 ML IV SCH; +Ondansetron HCl 2 MG / ML 2ML Vial IV SCH
[2025-02-09 08:11] VITALS: BP 158/92
[2025-02-14] MEDS ORDERED: ACTEMRA400 MG/20 IV (08:08)
== END 2025-02-09 09:29 | disposition home or self-care (01) ==
LOC: ATC 06:55
DX: K21.9 Gastro-esophageal reflux disease without esophagitis (principal); R62.7 Adult failure to thrive; E86.0 Dehydration; G89.4 Chronic pain syndrome; J44.9 Chronic obstructive pulmonary disease, unspecified; E21.3 Hyperparathyroidism, unspecified; Z98.84 Bariatric surgery status
CPT/HCPCS: 96361; 96374; J1642; J2405; J7120

== ENCOUNTER 2025-02-21 04:03 | Day surgery (SDC) | payer OTHER ==
[~2025-02-21 04:03] MED LIST changes: +ACTEMRA400 MG/20 IV; +DEXA2 PO; -Lactated Ringer's 1,000 ML IV SCH; -Ondansetron HCl 2 MG / ML 2ML Vial IV SCH
[2025-02-21] MEDS ORDERED: Cyanocobalamin 1000 MCG/ML 1ML Vial IM SCH (07:10)
[2025-02-21] MEDS ORDERED: Ondansetron HCl 2 MG / ML 2ML Vial IV SCH (07:10)
[2025-02-21] MEDS ORDERED: Lactated Ringer's 1,000 ML IV SCH (07:10)
[2025-02-21 08:23] VITALS: BP 152/85
[2025-02-21 08:25] LABS: BASOPHILS ABSOLUTE AUTO 0.07 K/mm3 (0.00-0.23); BASOPHILS PERCENT AUTO 1 % (0-2); EOSINOPHILS ABSOLUTE AUTO 0.21 K/mm3 (0.00-0.68); EOSINOPHILS PERCENT AUTO 2 % (0-6); Hematocrit 36.1 % (33.0-51.0); Hemoglobin 11.6 g/dL (11.5-16.0); IMMATURE GRAN ABSOLUTE AUTO 0.25 K/mm3 (0.00-0.10); IMMATURE GRAN PERCENT AUTO 3 % (0-1); LYMPHOCYTES ABSOLUTE AUTO 2.82 K/mm3 (0.84-5.20); LYMPHOCYTES PERCENT AUTO 32 % (21-46); MONOCYTES ABSOLUTE AUTO 0.79 K/mm3 (0.16-1.47); MONOCYTES PERCENT AUTO 9 % (4-13); Mean Corpuscular HGB 29.1 pg (26.0-34.0); Mean Corpuscular HGB Conc 32.1 g/dL (31.5-36.5); Mean Corpuscular Volume 91 fL (80-100); Mean Platelet Volume 10.2 fL (9.1-12.4); NEUTROPHILS ABSOLUTE AUTO 4.61 K/mm3 (1.96-9.15); NEUTROPHILS PERCENT AUTO 53 % (41-73); Platelet Count 314 K/mm3 (150-400); RDW Coefficient Variation 13.4 % (11.7-14.2); RDW Standard Deviation 44.5 fL (35.1-46.3); Red Blood Cell Count 3.99 M/mm3 (3.80-5.20); White Blood Cell Count 8.75 K/mm3 (4.00-11.30)
[2025-02-21 08:46] LABS: Albumin, Blood 2.8 g/dL (3.4-5.0); Anion Gap 7 mmol/L (3-11); Blood Urea Nitrogen 30 mg/dL (8-24); Bun/Creatinine Ratio 31.6 (12.0-20.0); C-REACTIVE PROTEIN, EXT RANGE <0.290 mg/dL (0.000-0.300); CO2, Blood 27 mmol/L (21-32); Chloride, Blood 110 mmol/L (98-108); Creatinine, Blood 0.95 mg/dL (0.40-1.00); Glomerular Filtration Rate 68 (60-); Glucose, Blood 90 mg/dL (70-99); Phosphorus, Blood 4.5 mg/dL (2.5-4.9); Potassium, Blood 3.5 mmol/L (3.5-5.5); Sodium, Blood 140 mmol/L (136-145)
== END 2025-02-21 09:26 | disposition home or self-care (01) ==
LOC: ATC 04:03
PROVIDERS: Internal Medicine
DX: K21.9 Gastro-esophageal reflux disease without esophagitis (principal); R62.7 Adult failure to thrive; G89.4 Chronic pain syndrome; G43.E19 Chronic migraine with aura, intractable, without status migrainosus; M15.9 Polyosteoarthritis, unspecified; J44.9 Chronic obstructive pulmonary disease, unspecified; E21.3 Hyperparathyroidism, unspecified; G90.A Postural orthostatic tachycardia syndrome [POTS]; M35.3 Polymyalgia rheumatica; E53.8 Deficiency of other specified B group vitamins; M79.7 Fibromyalgia; G47.33 Obstructive sleep apnea (adult) (pediatric); Z68.1 Body mass index [BMI] 19.9 or less, adult; Z79.899 Other long term (current) drug therapy; Z88.2 Allergy status to sulfonamides; Z88.8 Allergy status to other drugs, medicaments and biological substances; Z98.84 Bariatric surgery status
CPT/HCPCS: 80069; 83880; 85025; 85651; 86140; 96361; 96372; 96374; J1642; J2405; J3420; J7120

== ENCOUNTER 2025-02-23 01:16 | Day surgery (SDC) | payer OTHER ==
[2025-02-23] MEDS ORDERED: Ondansetron HCl 2 MG / ML 2ML Vial IV SCH (07:30)
[2025-02-23] MEDS ORDERED: Lactated Ringer's 1,000 ML IV SCH (07:30)
[2025-02-23 08:23] VITALS: BP 151/94
== END 2025-02-23 09:29 | disposition home or self-care (01) ==
LOC: ATC 01:16
DX: K21.9 Gastro-esophageal reflux disease without esophagitis (principal); R62.7 Adult failure to thrive; M79.10 Myalgia, unspecified site; G89.4 Chronic pain syndrome; G43.E19 Chronic migraine with aura, intractable, without status migrainosus; M15.9 Polyosteoarthritis, unspecified; J44.9 Chronic obstructive pulmonary disease, unspecified; E21.3 Hyperparathyroidism, unspecified; R13.19 Other dysphagia; G90.A Postural orthostatic tachycardia syndrome [POTS]; M35.3 Polymyalgia rheumatica; E53.8 Deficiency of other specified B group vitamins; G47.33 Obstructive sleep apnea (adult) (pediatric); Z68.1 Body mass index [BMI] 19.9 or less, adult; Z86.14 Personal history of Methicillin resistant Staphylococcus aureus infection; Z79.899 Other long term (current) drug therapy; Z88.2 Allergy status to sulfonamides; Z88.8 Allergy status to other drugs, medicaments and biological substances; Z98.84 Bariatric surgery status
CPT/HCPCS: 96361; 96374; J1642; J2405; J7120

== ENCOUNTER 2025-02-25 01:22 | Day surgery (SDC) | payer OTHER ==
[2025-02-25] MEDS ORDERED: Lactated Ringer's 1,000 ML IV SCH (06:55)
[2025-02-25] MEDS ORDERED: Ondansetron HCl 2 MG / ML 2ML Vial IV SCH (06:55)
[2025-02-25] MEDS ORDERED: Ketorolac Tromethamine 30mg Vial IM SCH (07:00)
[2025-02-25 08:00] VITALS: BP 156/99
== END 2025-02-25 09:24 | disposition home or self-care (01) ==
LOC: ATC 01:22
DX: M79.10 Myalgia, unspecified site (principal); R62.7 Adult failure to thrive; G89.4 Chronic pain syndrome; G43.E19 Chronic migraine with aura, intractable, without status migrainosus; R11.0 Nausea; J44.9 Chronic obstructive pulmonary disease, unspecified; K21.9 Gastro-esophageal reflux disease without esophagitis; E21.3 Hyperparathyroidism, unspecified; F41.8 Other specified anxiety disorders; R13.10 Dysphagia, unspecified; G90.A Postural orthostatic tachycardia syndrome [POTS]; M35.3 Polymyalgia rheumatica; E53.8 Deficiency of other specified B group vitamins; Z98.84 Bariatric surgery status; Z79.899 Other long term (current) drug therapy
CPT/HCPCS: 96361; 96372; 96374; J1642; J1885; J2405; J7120

== ENCOUNTER 2025-02-28 07:18 | Day surgery (SDC) | payer OTHER ==
[2025-02-28] MEDS ORDERED: Ondansetron HCl 2 MG / ML 2ML Vial IV SCH (07:25)
[2025-02-28] MEDS ORDERED: Lactated Ringer's 1,000 ML IV SCH (07:25)
[2025-02-28 08:08] VITALS: BP 163/83
== END 2025-02-28 09:25 | disposition home or self-care (01) ==
LOC: ATC 07:18
DX: R62.7 Adult failure to thrive (principal); M79.10 Myalgia, unspecified site; G89.4 Chronic pain syndrome; G43.E19 Chronic migraine with aura, intractable, without status migrainosus; M15.9 Polyosteoarthritis, unspecified; R11.0 Nausea; J44.9 Chronic obstructive pulmonary disease, unspecified; K21.9 Gastro-esophageal reflux disease without esophagitis; E21.3 Hyperparathyroidism, unspecified; G90.A Postural orthostatic tachycardia syndrome [POTS]; M35.3 Polymyalgia rheumatica; E53.8 Deficiency of other specified B group vitamins; Z68.1 Body mass index [BMI] 19.9 or less, adult; Z79.899 Other long term (current) drug therapy; Z88.2 Allergy status to sulfonamides; Z88.8 Allergy status to other drugs, medicaments and biological substances; Z98.84 Bariatric surgery status
CPT/HCPCS: 96361; 96374; J1642; J2405; J7120

== ENCOUNTER 2025-03-16 04:20 | Day surgery (SDC) | payer OTHER ==
[2025-03-16] MEDS ORDERED: Lactated Ringer's 1,000 ML IV SCH (06:45)
[2025-03-16] MEDS ORDERED: Ondansetron HCl 2 MG / ML 2ML Vial IV SCH (06:45)
[2025-03-16 08:15] VITALS: BP 174/87
[2025-03-16] MEDS ORDERED: KETOROLAC30 MG/1 ML IV (13:53)
== END 2025-03-16 09:30 | disposition home or self-care (01) ==
LOC: ATC 04:20
DX: D50.8 Other iron deficiency anemias (principal); M79.10 Myalgia, unspecified site; G89.4 Chronic pain syndrome; G43.E19 Chronic migraine with aura, intractable, without status migrainosus; M15.9 Polyosteoarthritis, unspecified; J44.9 Chronic obstructive pulmonary disease, unspecified; K21.9 Gastro-esophageal reflux disease without esophagitis; E21.3 Hyperparathyroidism, unspecified; R13.19 Other dysphagia; G90.A Postural orthostatic tachycardia syndrome [POTS]; M35.3 Polymyalgia rheumatica; E53.8 Deficiency of other specified B group vitamins; R62.7 Adult failure to thrive; M54.10 Radiculopathy, site unspecified; G43.909 Migraine, unspecified, not intractable, without status migrainosus; Z68.1 Body mass index [BMI] 19.9 or less, adult; Z79.899 Other long term (current) drug therapy; Z88.2 Allergy status to sulfonamides; Z88.8 Allergy status to other drugs, medicaments and biological substances; Z98.84 Bariatric surgery status; Z91.048 Other nonmedicinal substance allergy status; Z88.3 Allergy status to other anti-infective agents; Z88.5 Allergy status to narcotic agent; Z88.0 Allergy status to penicillin; Z91.013 Allergy to seafood
CPT/HCPCS: 72100; 96361; 96374; 99283-25; J1642; J1885; J2405; J7120

== ENCOUNTER 2025-03-18 03:33 | Day surgery (SDC) | payer OTHER ==
[~2025-03-18 03:33] MED LIST changes: +KETOROLAC30 MG/1 ML IV
[2025-03-18] MEDS ORDERED: Ondansetron HCl 2 MG / ML 2ML Vial IV SCH (06:50)
[2025-03-18] MEDS ORDERED: Ketorolac Tromethamine 30mg Vial IM SCH (06:50)
[2025-03-18] MEDS ORDERED: Lactated Ringer's 1,000 ML IV SCH (06:50)
[2025-03-18 08:05] VITALS: BP 164/88
== END 2025-03-18 09:18 | disposition home or self-care (01) ==
LOC: ATC 03:33
DX: D50.8 Other iron deficiency anemias (principal); E86.0 Dehydration; K21.9 Gastro-esophageal reflux disease without esophagitis; G89.4 Chronic pain syndrome; J44.9 Chronic obstructive pulmonary disease, unspecified; Z98.84 Bariatric surgery status; Z79.899 Other long term (current) drug therapy
CPT/HCPCS: 96361; 96372; 96374; J1642; J1885; J2405; J7120

== ENCOUNTER 2025-03-21 01:07 | Day surgery (SDC) | payer OTHER ==
[~2025-03-21 01:07] MED LIST changes: +Sod Ferric Gluc Complx/Sucrose 125 MG in NS 100 ML IV SCH
[2025-03-21] MEDS ORDERED: Lactated Ringer's 1,000 ML IV SCH (06:50)
[2025-03-21] MEDS ORDERED: Ondansetron HCl 2 MG / ML 2ML Vial IV SCH (06:50)
[2025-03-21 08:04] VITALS: BP 104/70
== END 2025-03-21 09:18 | disposition home or self-care (01) ==
LOC: ATC 01:07
DX: D50.8 Other iron deficiency anemias (principal); M79.7 Fibromyalgia; G89.4 Chronic pain syndrome; G43.E19 Chronic migraine with aura, intractable, without status migrainosus; M15.9 Polyosteoarthritis, unspecified; J44.9 Chronic obstructive pulmonary disease, unspecified; K21.9 Gastro-esophageal reflux disease without esophagitis; E21.3 Hyperparathyroidism, unspecified; G90.A Postural orthostatic tachycardia syndrome [POTS]; M35.3 Polymyalgia rheumatica; E53.8 Deficiency of other specified B group vitamins; R62.7 Adult failure to thrive; Z68.1 Body mass index [BMI] 19.9 or less, adult; Z79.899 Other long term (current) drug therapy; Z88.1 Allergy status to other antibiotic agents; Z88.2 Allergy status to sulfonamides; Z88.8 Allergy status to other drugs, medicaments and biological substances; Z98.84 Bariatric surgery status
CPT/HCPCS: 96361; 96365; 96375; J1642; J2405; J2916; J7120

== ENCOUNTER 2025-03-25 00:05 | Day surgery (SDC) | payer OTHER ==
[~2025-03-25 00:05] MED LIST changes: -Sod Ferric Gluc Complx/Sucrose 125 MG in NS 100 ML IV SCH
[2025-03-25] MEDS ORDERED: Ondansetron HCl 2 MG / ML 2ML Vial IV SCH (08:50)
[2025-03-25] MEDS ORDERED: Ketorolac Tromethamine 30mg Vial IM SCH (08:55)
[2025-03-25 09:58] VITALS: BP 112/82
[2025-03-25 10:29] LABS: BASOPHILS ABSOLUTE AUTO 0.04 K/mm3 (0.00-0.23); BASOPHILS PERCENT AUTO 1 % (0-2); EOSINOPHILS ABSOLUTE AUTO 0.34 K/mm3 (0.00-0.68); EOSINOPHILS PERCENT AUTO 4 % (0-6); Hematocrit 37.6 % (33.0-51.0); Hemoglobin 12.0 g/dL (11.5-16.0); IMMATURE GRAN ABSOLUTE AUTO 0.09 K/mm3 (0.00-0.10); IMMATURE GRAN PERCENT AUTO 1 % (0-1); LYMPHOCYTES ABSOLUTE AUTO 2.58 K/mm3 (0.84-5.20); LYMPHOCYTES PERCENT AUTO 30 % (21-46); MONOCYTES ABSOLUTE AUTO 0.75 K/mm3 (0.16-1.47); MONOCYTES PERCENT AUTO 9 % (4-13); Mean Corpuscular HGB Conc 31.9 g/dL (31.5-36.5); Mean Corpuscular Volume 92 fL (80-100); NEUTROPHILS ABSOLUTE AUTO 4.93 K/mm3 (1.96-9.15); NEUTROPHILS PERCENT AUTO 56 % (41-73); NRBC ABSOLUTE 0.00 K/mm3 (0.00-0.02); NRBC Auto 0.0 /100 WBC (0.0-0.2); Platelet Count 233 K/mm3 (150-400); RDW Coefficient Variation 14.0 % (11.7-14.2); RDW Standard Deviation 47.5 fL (35.1-46.3)
[2025-03-25 10:45] LABS: C-REACTIVE PROTEIN, EXT RANGE <0.290 mg/dL (0.000-0.300)
[2025-03-25 10:47] LABS: Albumin, Blood 3.0 g/dL (3.4-5.0); Anion Gap 5 mmol/L (3-11); Blood Urea Nitrogen 21 mg/dL (8-24); CO2, Blood 28 mmol/L (21-32); Calcium, Blood 8.1 mg/dL (8.5-10.1); Chloride, Blood 109 mmol/L (98-108); Creatinine, Blood 0.88 mg/dL (0.40-1.00); Glucose, Blood 169 mg/dL (70-99); Phosphorus, Blood 3.0 mg/dL (2.5-4.9); Potassium, Blood 2.7 mmol/L (3.5-5.5); Sodium, Blood 139 mmol/L (136-145)
== END 2025-03-25 11:20 | disposition home or self-care (01) ==
LOC: ATC 00:05
PROVIDERS: Internal Medicine
DX: D50.8 Other iron deficiency anemias (principal); M79.10 Myalgia, unspecified site; G89.4 Chronic pain syndrome; G43.E19 Chronic migraine with aura, intractable, without status migrainosus; M15.9 Polyosteoarthritis, unspecified; R11.0 Nausea; J44.9 Chronic obstructive pulmonary disease, unspecified; K21.9 Gastro-esophageal reflux disease without esophagitis; E21.3 Hyperparathyroidism, unspecified; R13.19 Other dysphagia; G90.A Postural orthostatic tachycardia syndrome [POTS]; M35.3 Polymyalgia rheumatica; R62.7 Adult failure to thrive; Z68.1 Body mass index [BMI] 19.9 or less, adult; Z79.899 Other long term (current) drug therapy; Z88.2 Allergy status to sulfonamides; Z88.8 Allergy status to other drugs, medicaments and biological substances; Z98.84 Bariatric surgery status
CPT/HCPCS: 80069; 83880; 85025; 85651; 86140; 96361; 96372; 96374; J1642; J1885; J2405; J7120

== ENCOUNTER 2025-03-28 05:20 | Day surgery (SDC) | payer OTHER ==
[2025-03-28] MEDS ORDERED: Ondansetron HCl 2 MG / ML 2ML Vial IV SCH (06:45)
[2025-03-28 08:25] VITALS: BP 124/68
[2025-03-28 09:58] LABS: Source, Urine Clean Catch
[2025-03-28 10:01] LABS: Bilirubin, Urine Neg (Neg); Glucose Qualitative, Urine Neg (Neg); Ketones, Urine Neg (Neg); Leukocyte Esterase, Urine Neg (Neg); Protein, Urine 1+ (Neg); Specific Gravity, Urine 1.010 (1.003-1.022); Urobilinogen, Urine NORM (Normal)
[2025-03-28 10:02] LABS: Color, Urine Yellow (P-Yellow)
[2025-03-28 10:08] LABS: White Blood Cells, Urine 0-2 /hpf (0-5)
[2025-03-29] MEDS ORDERED: Sod Ferric Gluc Complx/Sucrose 125 MG in NS 100 ML IV SCH (01:00)
== END 2025-03-28 09:38 | disposition home or self-care (01) ==
LOC: ATC 05:20
PROVIDERS: Internal Medicine
DX: D50.8 Other iron deficiency anemias (principal); J44.9 Chronic obstructive pulmonary disease, unspecified; K21.9 Gastro-esophageal reflux disease without esophagitis; Z79.899 Other long term (current) drug therapy; Z98.84 Bariatric surgery status; Z88.2 Allergy status to sulfonamides; Z88.1 Allergy status to other antibiotic agents
CPT/HCPCS: 81001; 96365; 96375; J1642; J2405; J2916; J7120

== ENCOUNTER 2025-03-30 03:02 | Day surgery (SDC) | payer OTHER ==
[2025-03-30] MEDS ORDERED: Ondansetron HCl 2 MG / ML 2ML Vial IV SCH (06:50)
[2025-03-30 08:13] VITALS: BP 168/80
== END 2025-03-30 09:20 | disposition home or self-care (01) ==
LOC: ATC 03:02
DX: D50.8 Other iron deficiency anemias (principal); J44.9 Chronic obstructive pulmonary disease, unspecified; K21.9 Gastro-esophageal reflux disease without esophagitis; G47.33 Obstructive sleep apnea (adult) (pediatric); Z79.899 Other long term (current) drug therapy; Z98.84 Bariatric surgery status; Z88.2 Allergy status to sulfonamides; Z88.1 Allergy status to other antibiotic agents; Z88.8 Allergy status to other drugs, medicaments and biological substances
CPT/HCPCS: 96361; 96374; J1642; J2405; J7120

== ENCOUNTER 2025-04-01 02:00 | Day surgery (SDC) | payer OTHER ==
[2025-04-01] MEDS ORDERED: Ondansetron HCl 2 MG / ML 2ML Vial IV SCH (06:50)
[2025-04-01] MEDS ORDERED: Ketorolac Tromethamine 30mg Vial IM SCH (06:55)
[2025-04-01 08:49] VITALS: BP 121/73
== END 2025-04-01 09:42 | disposition home or self-care (01) ==
LOC: ATC 02:00
DX: D50.8 Other iron deficiency anemias (principal); J44.9 Chronic obstructive pulmonary disease, unspecified; K21.9 Gastro-esophageal reflux disease without esophagitis; Z98.84 Bariatric surgery status; Z79.899 Other long term (current) drug therapy; Z88.2 Allergy status to sulfonamides; Z88.1 Allergy status to other antibiotic agents; Z88.8 Allergy status to other drugs, medicaments and biological substances
CPT/HCPCS: 96361; 96372; 96374; J1642; J1885; J2405; J7120

== ENCOUNTER 2025-04-04 00:46 | Day surgery (SDC) | payer OTHER ==
[2025-04-04] MEDS ORDERED: Ondansetron HCl 2 MG / ML 2ML Vial IV SCH (07:20)
[2025-04-04 08:10] VITALS: BP 126/63
== END 2025-04-04 09:30 | disposition home or self-care (01) ==
LOC: ATC 00:46
DX: D50.8 Other iron deficiency anemias (principal); M79.10 Myalgia, unspecified site; G89.4 Chronic pain syndrome; G43.E19 Chronic migraine with aura, intractable, without status migrainosus; M15.9 Polyosteoarthritis, unspecified; J44.9 Chronic obstructive pulmonary disease, unspecified; K21.9 Gastro-esophageal reflux disease without esophagitis; E21.3 Hyperparathyroidism, unspecified; R13.19 Other dysphagia; G90.A Postural orthostatic tachycardia syndrome [POTS]; M35.3 Polymyalgia rheumatica; E53.8 Deficiency of other specified B group vitamins; E43 Unspecified severe protein-calorie malnutrition; R62.7 Adult failure to thrive; Z68.1 Body mass index [BMI] 19.9 or less, adult; Z79.899 Other long term (current) drug therapy; Z88.2 Allergy status to sulfonamides; Z88.8 Allergy status to other drugs, medicaments and biological substances; Z98.84 Bariatric surgery status
CPT/HCPCS: 96361; 96374; J1642; J2405; J7120

== ENCOUNTER 2025-04-08 06:31 | Day surgery (SDC) | payer OTHER ==
[~2025-04-08] VITALS: Wt 67.3 kg
[~2025-04-08 06:31] MED LIST changes: +NS IV SCH; +TOCILIZUMAB IV SCH
[2025-04-08] MEDS ORDERED: Ondansetron HCl 2 MG / ML 2ML Vial IV SCH (06:40)
[2025-04-08] MEDS ORDERED: Ketorolac Tromethamine 30mg Vial IM SCH (06:40)
[2025-04-08 08:10] VITALS: BP 166/81
[2025-04-08] MEDS ORDERED: POTA10T PO (08:13)
== END 2025-04-08 09:42 | disposition home or self-care (01) ==
LOC: ATC 06:31
DX: D50.8 Other iron deficiency anemias (principal); K21.9 Gastro-esophageal reflux disease without esophagitis; J44.9 Chronic obstructive pulmonary disease, unspecified; Z98.84 Bariatric surgery status; Z90.49 Acquired absence of other specified parts of digestive tract; Z88.2 Allergy status to sulfonamides; Z88.8 Allergy status to other drugs, medicaments and biological substances; Z79.899 Other long term (current) drug therapy
CPT/HCPCS: 96365; 96372; 96375; J1642; J1885; J2405; J3262; J7120

== ENCOUNTER 2025-04-25 00:36 | Day surgery (SDC) | payer OTHER ==
[~2025-04-25 00:36] MED LIST changes: -NS IV SCH; +POTA10T PO; -TOCILIZUMAB IV SCH
[2025-04-25] MEDS ORDERED: Ondansetron HCl 2 MG / ML 2ML Vial IV SCH (06:55)
[2025-04-25] MEDS ORDERED: Ketorolac Tromethamine 30mg Vial IV SCH (06:55)
[2025-04-25] MEDS ORDERED: Cyanocobalamin 1000 MCG/ML 1ML Vial IM SCH (07:00)
[2025-04-25 08:40] LABS: BASOPHILS ABSOLUTE AUTO 0.03 K/mm3 (0.00-0.23); BASOPHILS PERCENT AUTO 1 % (0-2); EOSINOPHILS ABSOLUTE AUTO 0.30 K/mm3 (0.00-0.68); EOSINOPHILS PERCENT AUTO 5 % (0-6); Hematocrit 38.3 % (33.0-51.0); Hemoglobin 12.2 g/dL (11.5-16.0); IMMATURE GRAN ABSOLUTE AUTO 0.05 K/mm3 (0.00-0.10); IMMATURE GRAN PERCENT AUTO 1 % (0-1); LYMPHOCYTES ABSOLUTE AUTO 2.34 K/mm3 (0.84-5.20); LYMPHOCYTES PERCENT AUTO 36 % (21-46); MONOCYTES ABSOLUTE AUTO 0.60 K/mm3 (0.16-1.47); MONOCYTES PERCENT AUTO 9 % (4-13); Mean Corpuscular HGB Conc 31.9 g/dL (31.5-36.5); Mean Corpuscular Volume 93 fL (80-100); NEUTROPHILS ABSOLUTE AUTO 3.25 K/mm3 (1.96-9.15); NEUTROPHILS PERCENT AUTO 49 % (41-73); NRBC ABSOLUTE 0.00 K/mm3 (0.00-0.02); NRBC Auto 0.0 /100 WBC (0.0-0.2); Platelet Count 218 K/mm3 (150-400); RDW Coefficient Variation 14.7 % (11.7-14.2); RDW Standard Deviation 51.1 fL (35.1-46.3)
[2025-04-25 08:44] VITALS: BP 137/81
[2025-04-25 08:54] LABS: Albumin, Blood 2.8 g/dL (3.4-5.0); Anion Gap 8 mmol/L (3-11); Blood Urea Nitrogen 23 mg/dL (8-24); C-REACTIVE PROTEIN, EXT RANGE <0.290 mg/dL (0.000-0.300); CO2, Blood 26 mmol/L (21-32); Calcium, Blood 7.2 mg/dL (8.5-10.1); Chloride, Blood 109 mmol/L (98-108); Creatinine, Blood 0.89 mg/dL (0.40-1.00); Glucose, Blood 126 mg/dL (70-99); Phosphorus, Blood 3.6 mg/dL (2.5-4.9); Potassium, Blood 3.1 mmol/L (3.5-5.5); Sodium, Blood 140 mmol/L (136-145)
== END 2025-04-25 09:44 | disposition home or self-care (01) ==
LOC: ATC 00:36
PROVIDERS: Internal Medicine
DX: E53.8 Deficiency of other specified B group vitamins (principal); M79.10 Myalgia, unspecified site; R11.0 Nausea; G90.A Postural orthostatic tachycardia syndrome [POTS]; R62.7 Adult failure to thrive; G25.81 Restless legs syndrome; D50.8 Other iron deficiency anemias
CPT/HCPCS: 80069; 83880; 85025; 85651; 86140; 96361; 96372; 96374; J1642; J2405; J3420; J7120

== ENCOUNTER 2025-04-29 01:09 | Day surgery (SDC) | payer OTHER ==
[2025-04-29] MEDS ORDERED: Ketorolac Tromethamine 30mg Vial IM SCH (06:40)
[2025-04-29] MEDS ORDERED: Ondansetron HCl 2 MG / ML 2ML Vial IV SCH (06:40)
[2025-04-29 07:51] VITALS: BP 161/84
== END 2025-04-29 09:12 | disposition home or self-care (01) ==
LOC: ATC 01:09
DX: R62.7 Adult failure to thrive (principal); G90.A Postural orthostatic tachycardia syndrome [POTS]; D50.8 Other iron deficiency anemias; E53.8 Deficiency of other specified B group vitamins; K21.9 Gastro-esophageal reflux disease without esophagitis; G25.81 Restless legs syndrome; Z98.84 Bariatric surgery status
CPT/HCPCS: J1642; J1885; J2405; J7120

== ENCOUNTER 2025-05-02 00:15 | Day surgery (SDC) | payer OTHER ==
[2025-05-02] MEDS ORDERED: Ondansetron HCl 2 MG / ML 2ML Vial IV SCH (06:55)
[2025-05-02 08:01] VITALS: BP 138/74
== END 2025-05-02 09:10 | disposition home or self-care (01) ==
LOC: ATC 00:15
DX: R62.7 Adult failure to thrive (principal); D50.8 Other iron deficiency anemias; E53.8 Deficiency of other specified B group vitamins; M79.10 Myalgia, unspecified site; G90.A Postural orthostatic tachycardia syndrome [POTS]; G25.81 Restless legs syndrome; Z98.84 Bariatric surgery status
CPT/HCPCS: 96361; 96374; J1642; J2405; J7120

== ENCOUNTER 2025-05-08 09:34 | Day surgery (SDC) | payer OTHER ==
[~2025-05-08 09:34] MED LIST changes: +NS 1,000 ML IV SCH; +Ondansetron HCl 2 MG / ML 2ML Vial IV SCH
[2025-05-08 10:21] VITALS: BP 139/87
== END 2025-05-08 11:22 | disposition home or self-care (01) ==
LOC: ATC 09:34
DX: Z01.89 Encounter for other specified special examinations (principal); R62.7 Adult failure to thrive
CPT/HCPCS: 96360; J1642; J7120

== ENCOUNTER 2025-05-11 05:37 | Day surgery (SDC) | payer OTHER ==
[~2025-05-11 05:37] MED LIST changes: -NS 1,000 ML IV SCH; -Ondansetron HCl 2 MG / ML 2ML Vial IV SCH
[2025-05-11] MEDS ORDERED: Ondansetron HCl 2 MG / ML 2ML Vial IV SCH (06:40)
[2025-05-11 08:21] VITALS: BP 167/87
== END 2025-05-11 09:22 | disposition home or self-care (01) ==
LOC: ATC 05:37
DX: G25.81 Restless legs syndrome (principal); R62.7 Adult failure to thrive; D50.8 Other iron deficiency anemias
CPT/HCPCS: 96361; 96374; J1642; J2405; J7120

== ENCOUNTER 2025-05-13 01:51 | Day surgery (SDC) | payer OTHER ==
[2025-05-13] MEDS ORDERED: Ondansetron HCl 2 MG / ML 2ML Vial IV SCH (06:45)
[2025-05-13] MEDS ORDERED: Ketorolac Tromethamine 30mg Vial IM SCH (06:45)
[2025-05-13 08:00] VITALS: BP 160/103
[2025-05-13 10:27] LABS: Ferritin, Serum 61.0 ng/mL (8-252); Total Iron Binding Capacity 299.0 ug/dL (250-450)
== END 2025-05-13 09:18 | disposition home or self-care (01) ==
LOC: ATC 01:51
PROVIDERS: Internal Medicine
DX: D50.8 Other iron deficiency anemias (principal); K91.89 Other postprocedural complications and disorders of digestive system
CPT/HCPCS: 82728; 83540; 83550; 96361; 96372; 96374; J1642; J1885; J2405; J7120

== ENCOUNTER 2025-05-16 00:43 | Day surgery (SDC) | payer OTHER ==
[2025-05-16] MEDS ORDERED: Ondansetron HCl 2 MG / ML 2ML Vial IV SCH (06:55)
[2025-05-16 07:58] VITALS: BP 142/85
== END 2025-05-16 09:12 | disposition home or self-care (01) ==
LOC: ATC 00:43
DX: D50.8 Other iron deficiency anemias (principal); K91.89 Other postprocedural complications and disorders of digestive system
CPT/HCPCS: 96361; 96374; J1642; J2405; J7120

== ENCOUNTER 2025-05-18 04:29 | Day surgery (SDC) | payer OTHER ==
[2025-05-18] MEDS ORDERED: Ondansetron HCl 2 MG / ML 2ML Vial IV SCH (06:35)
[2025-05-18 08:00] VITALS: BP 145/77
== END 2025-05-18 09:22 | disposition home or self-care (01) ==
LOC: ATC 04:29
DX: D50.8 Other iron deficiency anemias (principal); K91.89 Other postprocedural complications and disorders of digestive system; G25.81 Restless legs syndrome
CPT/HCPCS: 96361; 96374; J1642; J2405; J7120

== ENCOUNTER 2025-05-20 02:47 | Day surgery (SDC) | payer OTHER ==
[2025-05-20] MEDS ORDERED: Ondansetron HCl 2 MG / ML 2ML Vial IV SCH (06:50)
[2025-05-20] MEDS ORDERED: Ketorolac Tromethamine 30mg Vial IM SCH (06:55)
[2025-05-20 08:00] VITALS: BP 155/99
== END 2025-05-20 09:35 | disposition home or self-care (01) ==
LOC: ATC 02:47
DX: E53.8 Deficiency of other specified B group vitamins (principal); M79.10 Myalgia, unspecified site; R11.0 Nausea; G90.A Postural orthostatic tachycardia syndrome [POTS]; R62.7 Adult failure to thrive; D50.8 Other iron deficiency anemias
CPT/HCPCS: 96361; 96372; 96374; J1642; J1885; J2405; J7120

== ENCOUNTER 2025-05-23 08:00 | Day surgery (SDC) | payer OTHER ==
[2025-05-23 07:52] VITALS: BP 169/82
[~2025-05-23 08:00] MED LIST changes: +Cyanocobalamin 1000 MCG/ML 1ML Vial IM SCH; +Ondansetron HCl 2 MG / ML 2ML Vial IV SCH
[2025-05-23 09:25] LABS: BASOPHILS ABSOLUTE AUTO 0.02 K/mm3 (0.00-0.23); BASOPHILS PERCENT AUTO 0 % (0-2); EOSINOPHILS ABSOLUTE AUTO 0.25 K/mm3 (0.00-0.68); EOSINOPHILS PERCENT AUTO 4 % (0-6); Hematocrit 34.3 % (33.0-51.0); Hemoglobin 11.0 g/dL (11.5-16.0); IMMATURE GRAN ABSOLUTE AUTO 0.05 K/mm3 (0.00-0.10); IMMATURE GRAN PERCENT AUTO 1 % (0-1); LYMPHOCYTES ABSOLUTE AUTO 2.05 K/mm3 (0.84-5.20); LYMPHOCYTES PERCENT AUTO 34 % (21-46); MONOCYTES ABSOLUTE AUTO 0.65 K/mm3 (0.16-1.47); MONOCYTES PERCENT AUTO 11 % (4-13); Mean Corpuscular HGB Conc 32.1 g/dL (31.5-36.5); Mean Corpuscular Volume 92 fL (80-100); NEUTROPHILS ABSOLUTE AUTO 2.97 K/mm3 (1.96-9.15); NEUTROPHILS PERCENT AUTO 50 % (41-73); NRBC ABSOLUTE 0.00 K/mm3 (0.00-0.02); NRBC Auto 0.0 /100 WBC (0.0-0.2); Platelet Count 183 K/mm3 (150-400); RDW Coefficient Variation 14.5 % (11.7-14.2); RDW Standard Deviation 49.3 fL (35.1-46.3)
[2025-05-23 09:42] LABS: Albumin, Blood 2.7 g/dL (3.4-5.0); Anion Gap 6 mmol/L (3-11); Blood Urea Nitrogen 10 mg/dL (8-24); C-REACTIVE PROTEIN, EXT RANGE <0.290 mg/dL (0.000-0.300); CO2, Blood 28 mmol/L (21-32); Calcium, Blood 7.2 mg/dL (8.5-10.1); Chloride, Blood 109 mmol/L (98-108); Creatinine, Blood 0.80 mg/dL (0.40-1.00); Glucose, Blood 85 mg/dL (70-99); Phosphorus, Blood 2.7 mg/dL (2.5-4.9); Potassium, Blood 3.4 mmol/L (3.5-5.5); Sodium, Blood 140 mmol/L (136-145)
== END 2025-05-23 23:00 | disposition home or self-care (01) ==
LOC: ATC 08:00
PROVIDERS: Internal Medicine
DX: D50.8 Other iron deficiency anemias (principal); K91.89 Other postprocedural complications and disorders of digestive system
CPT/HCPCS: 80069; 83880; 85025; 85651; 86140; 96361; 96372; 96374; J1642; J2405; J3420; J7120

== ENCOUNTER 2025-05-25 03:28 | Day surgery (SDC) | payer OTHER ==
[~2025-05-25 03:28] MED LIST changes: -Cyanocobalamin 1000 MCG/ML 1ML Vial IM SCH; -Ondansetron HCl 2 MG / ML 2ML Vial IV SCH
[2025-05-25] MEDS ORDERED: Ondansetron HCl 2 MG / ML 2ML Vial IV SCH (07:00)
[2025-05-25 08:16] VITALS: BP 159/103
[2025-05-25] MEDS ORDERED: [UNRECOGNIZED DRUG - OTHER] BOTHEYES (08:18)
== END 2025-05-25 09:29 | disposition home or self-care (01) ==
LOC: ATC 03:28
DX: E53.8 Deficiency of other specified B group vitamins (principal); R62.7 Adult failure to thrive; M79.10 Myalgia, unspecified site; R11.0 Nausea; G90.A Postural orthostatic tachycardia syndrome [POTS]; G25.81 Restless legs syndrome; D50.8 Other iron deficiency anemias
CPT/HCPCS: 96361; 96374; J1642; J2405; J7120

== ENCOUNTER 2025-05-27 03:47 | Day surgery (SDC) | payer OTHER ==
[~2025-05-27 03:47] MED LIST changes: +[UNRECOGNIZED DRUG - OTHER] BOTHEYES
[2025-05-27] MEDS ORDERED: Ondansetron HCl 2 MG / ML 2ML Vial IV SCH (07:05)
[2025-05-27] MEDS ORDERED: Ketorolac Tromethamine 30mg Vial IM SCH (07:05)
[2025-05-27 12:01] VITALS: BP 181/102
== END 2025-05-27 09:45 | disposition home or self-care (01) ==
LOC: ATC 03:47
DX: K91.89 Other postprocedural complications and disorders of digestive system (principal); D50.8 Other iron deficiency anemias
CPT/HCPCS: 96361; 96372; 96374; J1642; J1885; J2405; J7120

== ENCOUNTER 2025-05-30 01:51 | Day surgery (SDC) | payer OTHER ==
[2025-05-30] MEDS ORDERED: Ondansetron HCl 2 MG / ML 2ML Vial IV SCH (06:50)
[2025-05-30 08:45] VITALS: BP 158/94
== END 2025-05-30 09:29 | disposition home or self-care (01) ==
LOC: ATC 01:51
DX: D50.8 Other iron deficiency anemias (principal); G25.81 Restless legs syndrome
CPT/HCPCS: 96361; 96374; J1642; J2405; J7120

== ENCOUNTER 2025-06-01 02:59 | Day surgery (SDC) | payer OTHER ==
[2025-06-01] MEDS ORDERED: Ondansetron HCl 2 MG / ML 2ML Vial IV SCH (07:00)
[2025-06-01 08:24] VITALS: BP 145/98
== END 2025-06-01 09:38 | disposition home or self-care (01) ==
LOC: ATC 02:59
DX: D50.8 Other iron deficiency anemias (principal); K91.89 Other postprocedural complications and disorders of digestive system
CPT/HCPCS: 96361; 96374; J1642; J2405; J7120

== ENCOUNTER 2025-06-06 02:28 | Day surgery (SDC) | payer OTHER ==
[2025-06-06] MEDS ORDERED: Ketorolac Tromethamine 30mg Vial IM SCH (06:00)
[2025-06-06] MEDS ORDERED: Ondansetron HCl 2 MG / ML 2ML Vial IV SCH (06:00)
[2025-06-06 08:03] VITALS: BP 153/79
== END 2025-06-06 09:22 | disposition home or self-care (01) ==
LOC: ATC 02:28
DX: M31.6 Other giant cell arteritis (principal)
CPT/HCPCS: J1642; J2405; J7120

== ENCOUNTER 2025-06-13 00:38 | Day surgery (SDC) | payer OTHER ==
[2025-06-13] MEDS ORDERED: Ondansetron HCl 2 MG / ML 2ML Vial IV SCH (07:00)
[2025-06-13 08:02] VITALS: BP 150/74
== END 2025-06-13 09:17 | disposition home or self-care (01) ==
LOC: ATC 00:38
DX: M31.6 Other giant cell arteritis (principal); R62.7 Adult failure to thrive; E53.8 Deficiency of other specified B group vitamins; G90.A Postural orthostatic tachycardia syndrome [POTS]; G89.4 Chronic pain syndrome; G25.81 Restless legs syndrome; D50.9 Iron deficiency anemia, unspecified; Z79.899 Other long term (current) drug therapy; Z90.49 Acquired absence of other specified parts of digestive tract; Z88.2 Allergy status to sulfonamides; Z88.0 Allergy status to penicillin; Z88.1 Allergy status to other antibiotic agents; Z88.8 Allergy status to other drugs, medicaments and biological substances
CPT/HCPCS: 96361; 96374; J1642; J2405; J7120

== ENCOUNTER 2025-06-15 04:13 | Day surgery (SDC) | payer OTHER ==
[2025-06-15] MEDS ORDERED: Ondansetron HCl 2 MG / ML 2ML Vial IV SCH (06:45)
[2025-06-15 08:14] VITALS: BP 145/86
== END 2025-06-15 09:25 | disposition home or self-care (01) ==
LOC: ATC 04:13
DX: E53.8 Deficiency of other specified B group vitamins (principal); R62.7 Adult failure to thrive; R11.0 Nausea; G90.A Postural orthostatic tachycardia syndrome [POTS]; D50.8 Other iron deficiency anemias; G89.4 Chronic pain syndrome; G25.81 Restless legs syndrome; K91.89 Other postprocedural complications and disorders of digestive system; M79.7 Fibromyalgia; G47.33 Obstructive sleep apnea (adult) (pediatric); K21.9 Gastro-esophageal reflux disease without esophagitis; Z68.26 Body mass index [BMI] 26.0-26.9, adult; Z79.899 Other long term (current) drug therapy; Z88.0 Allergy status to penicillin; Z88.1 Allergy status to other antibiotic agents; Z88.2 Allergy status to sulfonamides; Z88.8 Allergy status to other drugs, medicaments and biological substances; Z98.84 Bariatric surgery status
CPT/HCPCS: 96361; 96374; J1642; J2405; J7120

== ENCOUNTER 2025-06-17 00:08 | Day surgery (SDC) | payer OTHER ==
[2025-06-17] MEDS ORDERED: Ondansetron HCl 2 MG / ML 2ML Vial IV SCH (07:00)
[2025-06-17] MEDS ORDERED: Ketorolac Tromethamine 30mg Vial IM SCH (07:00)
[2025-06-17 08:04] VITALS: BP 155/94
== END 2025-06-17 09:20 | disposition home or self-care (01) ==
LOC: ATC 00:08
DX: D50.8 Other iron deficiency anemias (principal); K91.89 Other postprocedural complications and disorders of digestive system
CPT/HCPCS: 96361; 96372; 96374; J1642; J1885; J2405; J7120

== ENCOUNTER 2025-06-20 01:03 | Day surgery (SDC) | payer OTHER ==
[2025-06-20] MEDS ORDERED: Ondansetron HCl 2 MG / ML 2ML Vial IV SCH (07:00)
[2025-06-20 08:20] VITALS: BP 127/87
== END 2025-06-20 09:20 | disposition home or self-care (01) ==
LOC: ATC 01:03
DX: K91.89 Other postprocedural complications and disorders of digestive system (principal); D50.8 Other iron deficiency anemias
CPT/HCPCS: 96365; 96375; J1642; J2405; J7120

== ENCOUNTER → 2025-06-21 | Outpatient (CLI) | payer OTHER | LOC: LAB 07:52 → LAB SHORT 07:52 | DX: B35.1 Tinea unguium (principal); L60.2 Onychogryphosis | CPT/HCPCS: 88305; 88312 ==

== ENCOUNTER 2025-06-24 07:36 | Day surgery (SDC) | payer OTHER ==
[~2025-06-24 07:36] MED LIST changes: +Cyanocobalamin 1000 MCG/ML 1ML Vial IM SCH; +Ketorolac Tromethamine 30mg Vial IM SCH; +NS IV SCH; +Ondansetron HCl 2 MG / ML 2ML Vial IV SCH; +TOCILIZUMAB IV SCH
[2025-06-24 08:03] VITALS: BP 167/82
[2025-06-24 08:48] LABS: BASOPHILS ABSOLUTE AUTO 0.06 K/mm3 (0.00-0.23); BASOPHILS PERCENT AUTO 1 % (0-2); EOSINOPHILS ABSOLUTE AUTO 0.26 K/mm3 (0.00-0.68); EOSINOPHILS PERCENT AUTO 4 % (0-6); Hematocrit 36.0 % (33.0-51.0); Hemoglobin 11.8 g/dL (11.5-16.0); IMMATURE GRAN ABSOLUTE AUTO 0.02 K/mm3 (0.00-0.10); IMMATURE GRAN PERCENT AUTO 0 % (0-1); LYMPHOCYTES ABSOLUTE AUTO 1.56 K/mm3 (0.84-5.20); LYMPHOCYTES PERCENT AUTO 22 % (21-46); MONOCYTES ABSOLUTE AUTO 0.91 K/mm3 (0.16-1.47); MONOCYTES PERCENT AUTO 13 % (4-13); Mean Corpuscular HGB Conc 32.8 g/dL (31.5-36.5); Mean Corpuscular Volume 89 fL (80-100); NEUTROPHILS ABSOLUTE AUTO 4.26 K/mm3 (1.96-9.15); NEUTROPHILS PERCENT AUTO 60 % (41-73); NRBC ABSOLUTE 0.00 K/mm3 (0.00-0.02); NRBC Auto 0.0 /100 WBC (0.0-0.2); Platelet Count 413 K/mm3 (150-400); RDW Coefficient Variation 13.3 % (11.7-14.2); RDW Standard Deviation 43.8 fL (35.1-46.3)
[2025-06-24 09:06] LABS: C-REACTIVE PROTEIN, EXT RANGE 9.170 mg/dL (0.000-0.300); Magnesium, Blood 2.2 mg/dL (1.6-2.4)
[2025-06-24 09:09] LABS: Alanine Aminotransfer (ALT/SGP 22 U/L (12-78); Albumin, Blood 2.8 g/dL (3.4-5.0); Albumin/Globulin Ratio 0.8 (0.8-1.8); Anion Gap 8 mmol/L (3-11); Aspartate Aminotrans (AST/SGOT 13 U/L (12-37); Bilirubin, Direct <0.1 mg/dL (0.0-0.3); Bilirubin, Indirect Unable to Calculate mg/dL (0.1-0.7); Bilirubin, Total 0.3 mg/dL (0.1-1.0); Blood Urea Nitrogen 13 mg/dL (8-24); CO2, Blood 28 mmol/L (21-32); Calcium, Blood 8.5 mg/dL (8.5-10.1); Chloride, Blood 104 mmol/L (98-108); Creatinine, Blood 0.86 mg/dL (0.40-1.00); Globulin, Blood 3.3 g/dL (2.2-4.0); Glucose, Blood 82 mg/dL (70-99); Phosphorus, Blood 3.2 mg/dL (2.5-4.9); Potassium, Blood 3.4 mmol/L (3.5-5.5); Sodium, Blood 137 mmol/L (136-145); Total Protein, Blood 6.1 g/dL (6.4-8.2)
[2025-06-24 09:31] LABS: Ferritin, Serum 144 ng/mL (8-252); Thyroid Stimulating Hormone 1.450 uIU/mL (0.360-4.800); Total Iron Binding Capacity 227 ug/dL (250-450)
[2025-06-29 03:20] LABS: VITAMIN D,1,25-DIHYDROXY 50.5 pg/mL (19.9-79.3)
== END 2025-06-24 10:02 | disposition home or self-care (01) ==
LOC: ATC 07:36
PROVIDERS: Internal Medicine
DX: D50.8 Other iron deficiency anemias (principal); E53.8 Deficiency of other specified B group vitamins; M31.6 Other giant cell arteritis; E43 Unspecified severe protein-calorie malnutrition; E21.3 Hyperparathyroidism, unspecified; G25.81 Restless legs syndrome
CPT/HCPCS: 80053; 80069; 82248; 82607; 82652; 82728; 82746; 83540; 83550; 83735; 83880; 83970; 84443; 85025; 85651; 86140; 96365; 96372; 96375; J1642; J1885; J2405; J3262; J3420; J7120

== ENCOUNTER 2025-07-01 01:07 | Day surgery (SDC) | payer OTHER ==
[~2025-07-01 01:07] MED LIST changes: -Cyanocobalamin 1000 MCG/ML 1ML Vial IM SCH; -Ketorolac Tromethamine 30mg Vial IM SCH; -NS IV SCH; -Ondansetron HCl 2 MG / ML 2ML Vial IV SCH; +Sod Ferric Gluc Complx/Sucrose 125 MG in NS 100 ML IV SCH; -TOCILIZUMAB IV SCH
[2025-07-01] MEDS ORDERED: Ondansetron HCl 2 MG / ML 2ML Vial IV SCH (07:00)
[2025-07-01] MEDS ORDERED: Ketorolac Tromethamine 30mg Vial IM SCH (07:00)
[2025-07-01 07:55] VITALS: BP 128/85
== END 2025-07-01 09:22 | disposition home or self-care (01) ==
LOC: ATC 01:07
DX: D50.8 Other iron deficiency anemias (principal); G25.81 Restless legs syndrome
CPT/HCPCS: 96365; 96372; 96375; J1642; J1885; J2405; J2916; J7120

== ENCOUNTER 2025-07-04 00:07 | Day surgery (SDC) | payer OTHER ==
[~2025-07-04 00:07] MED LIST changes: -Sod Ferric Gluc Complx/Sucrose 125 MG in NS 100 ML IV SCH
[2025-07-04] MEDS ORDERED: Sod Ferric Gluc Complx/Sucrose 125 MG in NS 100 ML IV SCH (01:00)
[2025-07-04] MEDS ORDERED: Ondansetron HCl 2 MG / ML 2ML Vial IV SCH (06:00)
[2025-07-04 08:10] VITALS: BP 157/89
== END 2025-07-04 09:29 | disposition home or self-care (01) ==
LOC: ATC 00:07
DX: R62.7 Adult failure to thrive (principal); E53.8 Deficiency of other specified B group vitamins; G90.A Postural orthostatic tachycardia syndrome [POTS]; D50.8 Other iron deficiency anemias; G25.81 Restless legs syndrome; G89.4 Chronic pain syndrome; I50.30 Unspecified diastolic (congestive) heart failure; M31.6 Other giant cell arteritis; M79.7 Fibromyalgia; G43.909 Migraine, unspecified, not intractable, without status migrainosus; G47.33 Obstructive sleep apnea (adult) (pediatric); Z79.899 Other long term (current) drug therapy; Z88.0 Allergy status to penicillin; Z88.2 Allergy status to sulfonamides; Z88.8 Allergy status to other drugs, medicaments and biological substances; Z98.84 Bariatric surgery status
CPT/HCPCS: 96365; 96375; J1642; J2405; J2916; J7120

== ENCOUNTER 2025-07-08 07:57 | Day surgery (SDC) | payer OTHER ==
[2025-07-08 07:55] VITALS: BP 131/70
[~2025-07-08 07:57] MED LIST changes: +Ketorolac Tromethamine 30mg Vial IM SCH; +Ondansetron HCl 2 MG / ML 2ML Vial IV SCH
== END 2025-07-08 09:17 | disposition home or self-care (01) ==
LOC: ATC 07:57
DX: R62.7 Adult failure to thrive (principal); G90.A Postural orthostatic tachycardia syndrome [POTS]; G25.81 Restless legs syndrome; G89.4 Chronic pain syndrome; D50.9 Iron deficiency anemia, unspecified; I50.30 Unspecified diastolic (congestive) heart failure; E53.8 Deficiency of other specified B group vitamins; M31.6 Other giant cell arteritis; G47.33 Obstructive sleep apnea (adult) (pediatric); G43.709 Chronic migraine without aura, not intractable, without status migrainosus; Z88.2 Allergy status to sulfonamides; Z88.0 Allergy status to penicillin; Z88.1 Allergy status to other antibiotic agents; Z88.8 Allergy status to other drugs, medicaments and biological substances; Z98.84 Bariatric surgery status; Z90.49 Acquired absence of other specified parts of digestive tract
CPT/HCPCS: 96361; 96372; 96374; J1642; J1885; J2405; J7120

== ENCOUNTER 2025-07-11 03:55 | Day surgery (SDC) | payer OTHER ==
[~2025-07-11 03:55] MED LIST changes: -Ketorolac Tromethamine 30mg Vial IM SCH; -Ondansetron HCl 2 MG / ML 2ML Vial IV SCH
[2025-07-11] MEDS ORDERED: Ondansetron HCl 2 MG / ML 2ML Vial IV SCH (06:00)
[2025-07-11 08:03] VITALS: BP 145/87
[2025-07-11] MEDS ORDERED: Sod Ferric Gluc Complx/Sucrose 125 MG in NS 100 ML IV SCH (08:15)
== END 2025-07-11 09:39 | disposition home or self-care (01) ==
LOC: ATC 03:55
DX: R62.7 Adult failure to thrive (principal); E53.8 Deficiency of other specified B group vitamins; M79.10 Myalgia, unspecified site; R11.0 Nausea; G90.A Postural orthostatic tachycardia syndrome [POTS]; D50.8 Other iron deficiency anemias; M31.6 Other giant cell arteritis; G89.4 Chronic pain syndrome; G25.81 Restless legs syndrome; I50.30 Unspecified diastolic (congestive) heart failure; Z68.25 Body mass index [BMI] 25.0-25.9, adult; Z79.899 Other long term (current) drug therapy; Z88.0 Allergy status to penicillin; Z88.2 Allergy status to sulfonamides; Z88.8 Allergy status to other drugs, medicaments and biological substances
CPT/HCPCS: 96365; 96375; J1642; J2405; J2916; J7120

== ENCOUNTER 2025-07-13 02:16 | Day surgery (SDC) | payer OTHER ==
[2025-07-13] MEDS ORDERED: Ondansetron HCl 2 MG / ML 2ML Vial IV SCH (07:00)
[2025-07-13 08:02] VITALS: BP 180/92
== END 2025-07-13 09:26 | disposition home or self-care (01) ==
LOC: ATC 02:16
DX: R11.0 Nausea (principal); R62.7 Adult failure to thrive; E53.8 Deficiency of other specified B group vitamins; M79.10 Myalgia, unspecified site; G90.A Postural orthostatic tachycardia syndrome [POTS]; Z98.84 Bariatric surgery status; Z88.8 Allergy status to other drugs, medicaments and biological substances
CPT/HCPCS: 96361; 96374; J1642; J2405; J7120

== ENCOUNTER 2025-07-15 00:38 | Day surgery (SDC) | payer OTHER ==
[2025-07-15] MEDS ORDERED: Ketorolac Tromethamine 30mg Vial IM SCH (06:00)
[2025-07-15] MEDS ORDERED: Ondansetron HCl 2 MG / ML 2ML Vial IV SCH (06:00)
[2025-07-15 08:07] VITALS: BP 159/89
== END 2025-07-15 09:24 | disposition home or self-care (01) ==
LOC: ATC 00:38
DX: E53.8 Deficiency of other specified B group vitamins (principal); R62.7 Adult failure to thrive; M79.10 Myalgia, unspecified site; R11.0 Nausea; G90.A Postural orthostatic tachycardia syndrome [POTS]; Z79.899 Other long term (current) drug therapy
CPT/HCPCS: 96361; 96372; 96374; J1642; J1885; J2405; J7120

== ENCOUNTER 2025-07-18 10:20 | Day surgery (SDC) | payer OTHER ==
[2025-07-18 08:11] VITALS: BP 145/79
[~2025-07-18 10:20] MED LIST changes: +Ondansetron HCl 2 MG / ML 2ML Vial IV SCH; +Sod Ferric Gluc Complx/Sucrose 125 MG in NS 100 ML IV SCH
== END 2025-07-18 23:00 | disposition home or self-care (01) ==
LOC: ATC 10:20
DX: R62.7 Adult failure to thrive (principal); G90.A Postural orthostatic tachycardia syndrome [POTS]; I50.32 Chronic diastolic (congestive) heart failure; D50.8 Other iron deficiency anemias; E53.8 Deficiency of other specified B group vitamins; M31.6 Other giant cell arteritis; M79.7 Fibromyalgia; G43.709 Chronic migraine without aura, not intractable, without status migrainosus; G25.81 Restless legs syndrome; Z88.2 Allergy status to sulfonamides; Z88.1 Allergy status to other antibiotic agents; Z88.0 Allergy status to penicillin; Z98.84 Bariatric surgery status; Z79.899 Other long term (current) drug therapy
CPT/HCPCS: 96361; 96365; J1642; J2405; J2916; J7120

== ENCOUNTER 2025-07-20 00:16 | Day surgery (SDC) | payer OTHER ==
[~2025-07-20 00:16] MED LIST changes: -Ondansetron HCl 2 MG / ML 2ML Vial IV SCH; -Sod Ferric Gluc Complx/Sucrose 125 MG in NS 100 ML IV SCH
[2025-07-20] MEDS ORDERED: Ondansetron HCl 2 MG / ML 2ML Vial IV SCH (07:00)
[2025-07-20 08:15] VITALS: BP 146/88
--- NOTE | 2025-07-21 15:20 | NUR ---
DOCUMENTATION CORRECTED FOR APPROPRIATE CHARGE CAPTURE
== END 2025-07-20 09:25 | disposition home or self-care (01) ==
LOC: ATC 00:16
DX: R62.7 Adult failure to thrive (principal); G90.A Postural orthostatic tachycardia syndrome [POTS]; E53.8 Deficiency of other specified B group vitamins; D50.8 Other iron deficiency anemias; M31.6 Other giant cell arteritis; G47.33 Obstructive sleep apnea (adult) (pediatric); G43.709 Chronic migraine without aura, not intractable, without status migrainosus; G25.81 Restless legs syndrome; I50.32 Chronic diastolic (congestive) heart failure; G89.4 Chronic pain syndrome; K21.9 Gastro-esophageal reflux disease without esophagitis; Z79.899 Other long term (current) drug therapy; Z88.0 Allergy status to penicillin; Z88.2 Allergy status to sulfonamides; Z88.8 Allergy status to other drugs, medicaments and biological substances; Z98.84 Bariatric surgery status
CPT/HCPCS: 96361; 96374; 99211; J1642; J2405; J7120

== ENCOUNTER 2025-07-22 01:11 | Day surgery (SDC) | payer OTHER ==
[2025-07-22] MEDS ORDERED: NS IV SCH (06:00)
[2025-07-22] MEDS ORDERED: Ondansetron HCl 2 MG / ML 2ML Vial IV SCH (06:00)
[2025-07-22] MEDS ORDERED: Ketorolac Tromethamine 30mg Vial IM SCH (06:00)
[2025-07-22] MEDS ORDERED: TOCILIZUMAB IV SCH (06:00)
[2025-07-22 08:12] VITALS: BP 197/87
== END 2025-07-22 09:58 | disposition home or self-care (01) ==
LOC: ATC 01:11
DX: M31.6 Other giant cell arteritis (principal); R62.7 Adult failure to thrive; D50.8 Other iron deficiency anemias; G90.A Postural orthostatic tachycardia syndrome [POTS]; I50.30 Unspecified diastolic (congestive) heart failure; G89.4 Chronic pain syndrome
CPT/HCPCS: 96372; 99211; J1642; J1885; J2405; J3262; J7120

== ENCOUNTER 2025-07-25 00:55 | Day surgery (SDC) | payer OTHER ==
[2025-07-25] MEDS ORDERED: Sod Ferric Gluc Complx/Sucrose 125 MG in NS 100 ML IV SCH (01:00)
[2025-07-25] MEDS ORDERED: Cyanocobalamin 1000 MCG/ML 1ML Vial IM SCH (07:00)
[2025-07-25] MEDS ORDERED: Ondansetron HCl 2 MG / ML 2ML Vial IV SCH (07:00)
[2025-07-25 08:21] VITALS: BP 137/73
== END 2025-07-25 09:37 | disposition home or self-care (01) ==
LOC: ATC 00:55
DX: D50.8 Other iron deficiency anemias (principal); R62.7 Adult failure to thrive; M31.6 Other giant cell arteritis; G90.A Postural orthostatic tachycardia syndrome [POTS]; G43.709 Chronic migraine without aura, not intractable, without status migrainosus; G47.33 Obstructive sleep apnea (adult) (pediatric); G89.4 Chronic pain syndrome; G25.81 Restless legs syndrome; J06.9 Acute upper respiratory infection, unspecified; I50.30 Unspecified diastolic (congestive) heart failure; K21.9 Gastro-esophageal reflux disease without esophagitis; E55.9 Vitamin D deficiency, unspecified; M77.00 Medial epicondylitis, unspecified elbow; R11.0 Nausea; E53.8 Deficiency of other specified B group vitamins; Z79.899 Other long term (current) drug therapy; Z98.84 Bariatric surgery status
CPT/HCPCS: 96360; 96365; 96372; 96374; J1642; J2405; J2916; J3420; J7120

== ENCOUNTER 2025-07-29 00:38 | Day surgery (SDC) | payer OTHER ==
[2025-07-29] MEDS ORDERED: Ondansetron HCl 2 MG / ML 2ML Vial IV SCH (06:00)
[2025-07-29] MEDS ORDERED: Ketorolac Tromethamine 30mg Vial IM SCH (06:00)
[2025-07-29 08:10] VITALS: BP 157/84
== END 2025-07-29 09:27 | disposition home or self-care (01) ==
LOC: ATC 00:38
DX: R62.7 Adult failure to thrive (principal); K21.9 Gastro-esophageal reflux disease without esophagitis; G89.4 Chronic pain syndrome; I50.30 Unspecified diastolic (congestive) heart failure; M31.6 Other giant cell arteritis; G90.A Postural orthostatic tachycardia syndrome [POTS]; Z79.899 Other long term (current) drug therapy
CPT/HCPCS: 96361; 96372; 96374; J1642; J1885; J2405; J7120

== ENCOUNTER 2025-08-01 00:35 | Day surgery (SDC) | payer OTHER ==
[2025-08-01] MEDS ORDERED: Sod Ferric Gluc Complx/Sucrose 125 MG in NS 100 ML IV SCH (01:00)
[2025-08-01] MEDS ORDERED: Ondansetron HCl 2 MG / ML 2ML Vial IV SCH (06:00)
[2025-08-01 08:29] VITALS: BP 165/84
[2025-08-01 08:53] LABS: BASOPHILS ABSOLUTE AUTO 0.03 K/mm3 (0.00-0.23); BASOPHILS PERCENT AUTO 1 % (0-2); EOSINOPHILS ABSOLUTE AUTO 0.21 K/mm3 (0.00-0.68); EOSINOPHILS PERCENT AUTO 6 % (0-6); Hematocrit 35.5 % (33.0-51.0); Hemoglobin 11.4 g/dL (11.5-16.0); IMMATURE GRAN ABSOLUTE AUTO 0.02 K/mm3 (0.00-0.10); IMMATURE GRAN PERCENT AUTO 1 % (0-1); LYMPHOCYTES ABSOLUTE AUTO 1.51 K/mm3 (0.84-5.20); LYMPHOCYTES PERCENT AUTO 42 % (21-46); MONOCYTES ABSOLUTE AUTO 0.44 K/mm3 (0.16-1.47); MONOCYTES PERCENT AUTO 12 % (4-13); Mean Corpuscular HGB Conc 32.1 g/dL (31.5-36.5); Mean Corpuscular Volume 93 fL (80-100); NEUTROPHILS ABSOLUTE AUTO 1.38 K/mm3 (1.96-9.15); NEUTROPHILS PERCENT AUTO 38 % (41-73); NRBC ABSOLUTE 0.00 K/mm3 (0.00-0.02); NRBC Auto 0.0 /100 WBC (0.0-0.2); Platelet Count 114 K/mm3 (150-400); RDW Coefficient Variation 14.9 % (11.7-14.2); RDW Standard Deviation 51.0 fL (35.1-46.3)
== END 2025-08-01 09:27 | disposition home or self-care (01) ==
LOC: ATC 00:35
PROVIDERS: Internal Medicine
DX: R62.7 Adult failure to thrive (principal); G90.A Postural orthostatic tachycardia syndrome [POTS]; G89.4 Chronic pain syndrome; I50.30 Unspecified diastolic (congestive) heart failure; Z88.2 Allergy status to sulfonamides; Z88.1 Allergy status to other antibiotic agents; Z88.8 Allergy status to other drugs, medicaments and biological substances
CPT/HCPCS: 36591; 85025; 85651; 86140; 96361; 96365; 96375; J1642; J2405; J2916; J7120

== ENCOUNTER 2025-08-08 00:30 | Day surgery (SDC) | payer OTHER ==
[2025-08-08] MEDS ORDERED: Ondansetron HCl 2 MG / ML 2ML Vial IV SCH (07:00)
[2025-08-08 08:14] VITALS: BP 148/79
[2025-08-08 08:58] LABS: BASOPHILS ABSOLUTE AUTO 0.02 K/mm3 (0.00-0.23); BASOPHILS PERCENT AUTO 1 % (0-2); EOSINOPHILS ABSOLUTE AUTO 0.22 K/mm3 (0.00-0.68); EOSINOPHILS PERCENT AUTO 6 % (0-6); Hematocrit 34.8 % (33.0-51.0); Hemoglobin 11.0 g/dL (11.5-16.0); IMMATURE GRAN ABSOLUTE AUTO 0.03 K/mm3 (0.00-0.10); IMMATURE GRAN PERCENT AUTO 1 % (0-1); LYMPHOCYTES ABSOLUTE AUTO 1.47 K/mm3 (0.84-5.20); LYMPHOCYTES PERCENT AUTO 41 % (21-46); MONOCYTES ABSOLUTE AUTO 0.43 K/mm3 (0.16-1.47); MONOCYTES PERCENT AUTO 12 % (4-13); Mean Corpuscular HGB Conc 31.6 g/dL (31.5-36.5); Mean Corpuscular Volume 94 fL (80-100); NEUTROPHILS ABSOLUTE AUTO 1.41 K/mm3 (1.96-9.15); NEUTROPHILS PERCENT AUTO 39 % (41-73); NRBC ABSOLUTE 0.00 K/mm3 (0.00-0.02); NRBC Auto 0.0 /100 WBC (0.0-0.2); Platelet Count 175 K/mm3 (150-400); RDW Coefficient Variation 14.9 % (11.7-14.2); RDW Standard Deviation 52.1 fL (35.1-46.3)
[2025-08-08 09:19] LABS: Alanine Aminotransfer (ALT/SGP 42.0 U/L (12-78); Albumin, Blood 2.9 g/dL (3.4-5.0); Albumin/Globulin Ratio 1.4 (0.8-1.8); Anion Gap 7.0 mmol/L (3-11); Aspartate Aminotrans (AST/SGOT 28.0 U/L (12-37); Bilirubin, Total 0.2 mg/dL (0.1-1.0); Blood Urea Nitrogen 18.0 mg/dL (8-24); CO2, Blood 28.0 mmol/L (21-32); Calcium, Blood 7.7 mg/dL (8.5-10.1); Chloride, Blood 111.0 mmol/L (98-108); Creatinine, Blood 0.8 mg/dL (0.40-1.00); Globulin, Blood 2.1 g/dL (2.2-4.0); Glucose, Blood 94.0 mg/dL (70-99); Potassium, Blood 3.7 mmol/L (3.5-5.5); Sodium, Blood 142.0 mmol/L (136-145); Total Protein, Blood 5.0 g/dL (6.4-8.2)
== END 2025-08-08 09:45 | disposition home or self-care (01) ==
LOC: ATC 00:30
PROVIDERS: Internal Medicine
DX: R62.7 Adult failure to thrive (principal); M31.6 Other giant cell arteritis; G90.A Postural orthostatic tachycardia syndrome [POTS]; I50.30 Unspecified diastolic (congestive) heart failure; Z88.2 Allergy status to sulfonamides; Z88.1 Allergy status to other antibiotic agents; Z88.8 Allergy status to other drugs, medicaments and biological substances
CPT/HCPCS: 36591; 80053; 85025; 96361; 96374; J1642; J2405; J7120

== ENCOUNTER 2025-08-10 06:44 | Day surgery (SDC) | payer OTHER ==
[2025-08-10] MEDS ORDERED: Ondansetron HCl 2 MG / ML 2ML Vial IV SCH (15:25)
[2025-08-10 15:29] VITALS: BP 164/93
== END 2025-08-10 15:58 | disposition home or self-care (01) ==
LOC: ATC 06:44
DX: M31.6 Other giant cell arteritis (principal); D50.8 Other iron deficiency anemias; E24.2 Drug-induced Cushing's syndrome; R62.7 Adult failure to thrive; M79.7 Fibromyalgia; G47.33 Obstructive sleep apnea (adult) (pediatric); K21.9 Gastro-esophageal reflux disease without esophagitis; G43.709 Chronic migraine without aura, not intractable, without status migrainosus; Z79.52 Long term (current) use of systemic steroids; Z79.899 Other long term (current) drug therapy; Z88.2 Allergy status to sulfonamides; Z88.1 Allergy status to other antibiotic agents; Z88.8 Allergy status to other drugs, medicaments and biological substances; Z90.49 Acquired absence of other specified parts of digestive tract
CPT/HCPCS: 96365; 96375; J2405; J2919

== ENCOUNTER 2025-08-11 00:40 | Day surgery (SDC) | payer OTHER ==
[2025-08-11 08:30] VITALS: BP 137/74
[2025-08-11 10:16] LABS: Ferritin, Serum 329.0 ng/mL (8-252); Total Iron Binding Capacity 306.0 ug/dL (250-450)
== END 2025-08-11 09:06 | disposition home or self-care (01) ==
LOC: ATC 00:40
PROVIDERS: Internal Medicine
DX: M31.6 Other giant cell arteritis (principal); E24.2 Drug-induced Cushing's syndrome; K21.9 Gastro-esophageal reflux disease without esophagitis; G47.33 Obstructive sleep apnea (adult) (pediatric); G43.709 Chronic migraine without aura, not intractable, without status migrainosus; R62.7 Adult failure to thrive; Z79.52 Long term (current) use of systemic steroids; Z79.899 Other long term (current) drug therapy; Z88.2 Allergy status to sulfonamides; Z88.1 Allergy status to other antibiotic agents; Z88.8 Allergy status to other drugs, medicaments and biological substances; Z98.84 Bariatric surgery status; Z90.49 Acquired absence of other specified parts of digestive tract
CPT/HCPCS: 36591; 82728; 83540; 83550; 96365; 99211; J1642; J2919

== ENCOUNTER 2025-08-12 01:11 | Day surgery (SDC) | payer OTHER ==
[2025-08-12] MEDS ORDERED: Ondansetron HCl 2 MG / ML 2ML Vial IV SCH (06:00)
[2025-08-12] MEDS ORDERED: Ketorolac Tromethamine 30mg Vial IM SCH (06:00)
[2025-08-12 08:12] VITALS: BP 128/85
== END 2025-08-12 09:28 | disposition home or self-care (01) ==
LOC: ATC 01:11
DX: R62.7 Adult failure to thrive (principal); E53.8 Deficiency of other specified B group vitamins; G90.A Postural orthostatic tachycardia syndrome [POTS]; D50.8 Other iron deficiency anemias; M31.6 Other giant cell arteritis; I50.30 Unspecified diastolic (congestive) heart failure; G89.4 Chronic pain syndrome; G25.81 Restless legs syndrome; K21.9 Gastro-esophageal reflux disease without esophagitis; G43.709 Chronic migraine without aura, not intractable, without status migrainosus; G47.33 Obstructive sleep apnea (adult) (pediatric); Z98.84 Bariatric surgery status; Z88.0 Allergy status to penicillin; Z88.1 Allergy status to other antibiotic agents; Z88.2 Allergy status to sulfonamides; Z88.8 Allergy status to other drugs, medicaments and biological substances
CPT/HCPCS: 96361; 96365; 96372; 96375; 99211; J1642; J1885; J2405; J2919; J7120

== ENCOUNTER 2025-08-15 00:11 | Day surgery (SDC) | payer OTHER ==
[2025-08-15] MEDS ORDERED: Ondansetron HCl 2 MG / ML 2ML Vial IV SCH (06:00)
[2025-08-15 08:16] VITALS: BP 176/90
== END 2025-08-15 09:23 | disposition home or self-care (01) ==
LOC: ATC 00:11
DX: R62.7 Adult failure to thrive (principal); M31.6 Other giant cell arteritis; G43.909 Migraine, unspecified, not intractable, without status migrainosus; G90.A Postural orthostatic tachycardia syndrome [POTS]; I50.30 Unspecified diastolic (congestive) heart failure
CPT/HCPCS: J1642; J2405; J7120

== ENCOUNTER 2025-08-19 01:02 | Day surgery (SDC) | payer OTHER ==
[2025-08-19] MEDS ORDERED: Ondansetron HCl 2 MG / ML 2ML Vial IV SCH (06:40)
[2025-08-19] MEDS ORDERED: Ketorolac Tromethamine 30mg Vial IM SCH (06:40)
[2025-08-19 08:05] VITALS: BP 188/87
[2025-08-19] MEDS ORDERED: TOCILIZUMAB IV SCH (08:15)
[2025-08-19] MEDS ORDERED: NS IV SCH (08:15)
== END 2025-08-19 09:55 | disposition home or self-care (01) ==
LOC: ATC 01:02
DX: R62.7 Adult failure to thrive (principal); G90.A Postural orthostatic tachycardia syndrome [POTS]; M31.6 Other giant cell arteritis; Z88.2 Allergy status to sulfonamides; Z88.1 Allergy status to other antibiotic agents; Z88.8 Allergy status to other drugs, medicaments and biological substances
CPT/HCPCS: 96361; 96365; 96372; 96375; 96413; J1642; J1885; J2405; J3262; J7120

== ENCOUNTER 2025-08-22 02:29 | Day surgery (SDC) | payer OTHER ==
[2025-08-22] MEDS ORDERED: Cyanocobalamin 1000 MCG/ML 1ML Vial IM SCH (07:00)
[2025-08-22] MEDS ORDERED: Ondansetron HCl 2 MG / ML 2ML Vial IV SCH (07:00)
[2025-08-22 08:26] VITALS: BP 121/63
[2025-08-22 09:27] LABS: BASOPHILS ABSOLUTE AUTO 0.05 K/mm3 (0.00-0.23); BASOPHILS PERCENT AUTO 1 % (0-2); EOSINOPHILS ABSOLUTE AUTO 0.21 K/mm3 (0.00-0.68); EOSINOPHILS PERCENT AUTO 2 % (0-6); Hematocrit 37.8 % (33.0-51.0); Hemoglobin 12.3 g/dL (11.5-16.0); IMMATURE GRAN ABSOLUTE AUTO 0.15 K/mm3 (0.00-0.10); IMMATURE GRAN PERCENT AUTO 2 % (0-1); LYMPHOCYTES ABSOLUTE AUTO 2.81 K/mm3 (0.84-5.20); LYMPHOCYTES PERCENT AUTO 29 % (21-46); MONOCYTES ABSOLUTE AUTO 0.67 K/mm3 (0.16-1.47); MONOCYTES PERCENT AUTO 7 % (4-13); Mean Corpuscular HGB Conc 32.5 g/dL (31.5-36.5); Mean Corpuscular Volume 92 fL (80-100); NEUTROPHILS ABSOLUTE AUTO 5.85 K/mm3 (1.96-9.15); NEUTROPHILS PERCENT AUTO 60 % (41-73); NRBC ABSOLUTE 0.00 K/mm3 (0.00-0.02); NRBC Auto 0.0 /100 WBC (0.0-0.2); Platelet Count 235 K/mm3 (150-400); RDW Coefficient Variation 15.1 % (11.7-14.2); RDW Standard Deviation 51.0 fL (35.1-46.3)
== END 2025-08-22 09:28 | disposition home or self-care (01) ==
LOC: ATC 02:29
PROVIDERS: Internal Medicine
DX: R62.7 Adult failure to thrive (principal); R11.0 Nausea; G90.A Postural orthostatic tachycardia syndrome [POTS]; M31.6 Other giant cell arteritis; Z88.1 Allergy status to other antibiotic agents; Z88.2 Allergy status to sulfonamides; Z88.8 Allergy status to other drugs, medicaments and biological substances
CPT/HCPCS: 36591; 85025; 85651; 86140; 96361; 96372; 96374; J1642; J2405; J3420; J7120

== ENCOUNTER 2025-08-26 03:22 | Day surgery (SDC) | payer OTHER ==
[2025-08-26] MEDS ORDERED: Ketorolac Tromethamine 30mg Vial IM SCH (07:00)
[2025-08-26] MEDS ORDERED: Cyanocobalamin 1000 MCG/ML 1ML Vial IM SCH (07:00)
[2025-08-26] MEDS ORDERED: Ondansetron HCl 2 MG / ML 2ML Vial IV SCH (07:00)
[2025-08-26 08:05] VITALS: BP 143/72
== END 2025-08-26 09:21 | disposition home or self-care (01) ==
LOC: ATC 03:22
DX: R62.7 Adult failure to thrive (principal); R11.0 Nausea; M31.6 Other giant cell arteritis; M79.10 Myalgia, unspecified site; G90.A Postural orthostatic tachycardia syndrome [POTS]; Z88.1 Allergy status to other antibiotic agents; Z88.2 Allergy status to sulfonamides; Z88.8 Allergy status to other drugs, medicaments and biological substances
CPT/HCPCS: 96361; 96372; 96374; J1642; J1885; J2405; J7120

== ENCOUNTER 2025-08-29 04:38 | Day surgery (SDC) | payer OTHER ==
[2025-08-29] MEDS ORDERED: Ondansetron HCl 2 MG / ML 2ML Vial IV SCH (07:00)
[2025-08-29 08:06] VITALS: BP 150/77
== END 2025-08-29 09:24 | disposition home or self-care (01) ==
LOC: ATC 04:38
DX: R62.7 Adult failure to thrive (principal); M31.6 Other giant cell arteritis; D50.9 Iron deficiency anemia, unspecified; G90.A Postural orthostatic tachycardia syndrome [POTS]; E53.8 Deficiency of other specified B group vitamins; E24.2 Drug-induced Cushing's syndrome; M79.7 Fibromyalgia; K21.9 Gastro-esophageal reflux disease without esophagitis; G47.33 Obstructive sleep apnea (adult) (pediatric); G43.709 Chronic migraine without aura, not intractable, without status migrainosus; Z79.899 Other long term (current) drug therapy; Z88.0 Allergy status to penicillin; Z88.1 Allergy status to other antibiotic agents; Z88.2 Allergy status to sulfonamides; Z88.8 Allergy status to other drugs, medicaments and biological substances; Z98.84 Bariatric surgery status; Z90.49 Acquired absence of other specified parts of digestive tract
CPT/HCPCS: 96361; 96374; 99211; J1642; J2405; J7120

== ENCOUNTER → 2025-08-30 | Outpatient (CLI) | payer OTHER ==
[2025-08-30 18:50] LABS: BASOPHILS ABSOLUTE AUTO 0.02 K/mm3 (0.00-0.23); BASOPHILS PERCENT AUTO 0 % (0-2); EOSINOPHILS ABSOLUTE AUTO 0.02 K/mm3 (0.00-0.68); EOSINOPHILS PERCENT AUTO 0 % (0-6); Hematocrit 37.4 % (33.0-51.0); Hemoglobin 12.0 g/dL (11.5-16.0); IMMATURE GRAN ABSOLUTE AUTO 0.12 K/mm3 (0.00-0.10); IMMATURE GRAN PERCENT AUTO 2 % (0-1); LYMPHOCYTES ABSOLUTE AUTO 0.73 K/mm3 (0.84-5.20); LYMPHOCYTES PERCENT AUTO 11 % (21-46); MONOCYTES ABSOLUTE AUTO 0.54 K/mm3 (0.16-1.47); MONOCYTES PERCENT AUTO 8 % (4-13); Mean Corpuscular HGB Conc 32.1 g/dL (31.5-36.5); Mean Corpuscular Volume 92 fL (80-100); NEUTROPHILS ABSOLUTE AUTO 5.39 K/mm3 (1.96-9.15); NEUTROPHILS PERCENT AUTO 79 % (41-73); NRBC ABSOLUTE 0.00 K/mm3 (0.00-0.02); NRBC Auto 0.0 /100 WBC (0.0-0.2); Platelet Count 204 K/mm3 (150-400); RDW Coefficient Variation 15.2 % (11.7-14.2); RDW Standard Deviation 52.3 fL (35.1-46.3)
[2025-08-30 18:55] LABS: Anion Gap 11.0 mmol/L (3-11); Blood Urea Nitrogen 25.0 mg/dL (8-24); CO2, Blood 28.0 mmol/L (21-32); Calcium, Blood 7.8 mg/dL (8.5-10.1); Chloride, Blood 107.0 mmol/L (98-108); Creatinine, Blood 0.9 mg/dL (0.40-1.00); Glucose, Blood 96.0 mg/dL (70-99); Potassium, Blood 4.5 mmol/L (3.5-5.5); Sodium, Blood 141.0 mmol/L (136-145)
== END ==
LOC: LAB SHORT 18:45 → LAB 18:45
PROVIDERS: Physician Assistant Medical
DX: R06.00 Dyspnea, unspecified (principal)
CPT/HCPCS: 80048; 83880; 85025

== ENCOUNTER 2025-09-05 00:32 | Day surgery (SDC) | payer OTHER ==
[2025-09-05] MEDS ORDERED: Ondansetron HCl 2 MG / ML 2ML Vial IV SCH (07:00)
[2025-09-05 08:17] VITALS: BP 190/115
[2025-09-05 09:35] VITALS: BP 148/92
== END 2025-09-05 09:38 | disposition home or self-care (01) ==
LOC: ATC 00:32
DX: R62.7 Adult failure to thrive (principal); R11.0 Nausea; G90.A Postural orthostatic tachycardia syndrome [POTS]; M31.6 Other giant cell arteritis; Z88.2 Allergy status to sulfonamides; Z88.8 Allergy status to other drugs, medicaments and biological substances; Z88.1 Allergy status to other antibiotic agents
CPT/HCPCS: 96361; 96374; J1642; J2405; J7120

== ENCOUNTER 2025-09-14 10:32 | Emergency (ER) | payer OTHER ==
[~2025-09-14] VITALS: Ht 157.5 cm; Wt 75.3 kg
[2025-09-14] MEDS ORDERED: Prochlorperazine Edisylate 10 mg Vial IV ONE (11:00)
[2025-09-14] MEDS ORDERED: DiphenhydrAMINE HCl 50 MG/ML 1ML Vial IV ONE (11:00)
[2025-09-14] MEDS ORDERED: NS 1,000 ML IV SCH ×2 (11:00→11:55)
[2025-09-14 11:39] LABS: BASOPHILS ABSOLUTE AUTO 0.05 K/mm3 (0.00-0.23); BASOPHILS PERCENT AUTO 1 % (0-2); EOSINOPHILS ABSOLUTE AUTO 0.26 K/mm3 (0.00-0.68); EOSINOPHILS PERCENT AUTO 3 % (0-6); Hematocrit 40.7 % (33.0-51.0); Hemoglobin 13.1 g/dL (11.5-16.0); IMMATURE GRAN ABSOLUTE AUTO 0.08 K/mm3 (0.00-0.10); IMMATURE GRAN PERCENT AUTO 1 % (0-1); LYMPHOCYTES ABSOLUTE AUTO 1.11 K/mm3 (0.84-5.20); LYMPHOCYTES PERCENT AUTO 11 % (21-46); MONOCYTES ABSOLUTE AUTO 0.67 K/mm3 (0.16-1.47); MONOCYTES PERCENT AUTO 7 % (4-13); Mean Corpuscular HGB Conc 32.2 g/dL (31.5-36.5); Mean Corpuscular Volume 94 fL (80-100); NEUTROPHILS ABSOLUTE AUTO 7.78 K/mm3 (1.96-9.15); NEUTROPHILS PERCENT AUTO 78 % (41-73); NRBC ABSOLUTE 0.00 K/mm3 (0.00-0.02); NRBC Auto 0.0 /100 WBC (0.0-0.2); Platelet Count 224 K/mm3 (150-400); RDW Coefficient Variation 15.8 % (11.7-14.2); RDW Standard Deviation 54.3 fL (35.1-46.3)
[2025-09-14] MEDS ORDERED: Ketorolac Tromethamine 15mg Vial IV ONE (11:45)
[2025-09-14] MEDS ORDERED: Ondansetron HCl 2 MG / ML 2ML Vial IV ONE (11:45)
[2025-09-14 12:02] LABS: Anion Gap 6.0 mmol/L (3-11); Blood Urea Nitrogen 17.0 mg/dL (8-24); CO2, Blood 30.0 mmol/L (21-32); Calcium, Blood 8.2 mg/dL (8.5-10.1); Chloride, Blood 107.0 mmol/L (98-108); Creatinine, Blood 0.78 mg/dL (0.40-1.00); Glucose, Blood 98.0 mg/dL (70-99); Potassium, Blood 3.4 mmol/L (3.5-5.5); Sodium, Blood 140.0 mmol/L (136-145)
[2025-09-14] MEDS ORDERED: DEXA2 PO (16:55)
[2025-09-14 18:02] VITALS: BP 170/89
== END 2025-09-14 18:03 | disposition home or self-care (01) ==
LOC: ER 10:32
PROVIDERS: Student in an Organized Health Care Education/Training Program
DX: R51.9 Headache, unspecified (principal); R07.2 Precordial pain; Z79.51 Long term (current) use of inhaled steroids; Z79.899 Other long term (current) drug therapy; Z91.048 Other nonmedicinal substance allergy status; R88.0 Cloudy (hemodialysis) (peritoneal) dialysis effluent; Z88.2 Allergy status to sulfonamides; Z88.0 Allergy status to penicillin; Z88.8 Allergy status to other drugs, medicaments and biological substances; Z88.5 Allergy status to narcotic agent
CPT/HCPCS: 71260; 80048; 83880; 84484; 85025; 85379; 93005; 93010; 96374; 96375; 99284-25; J0780; J1200; J1885; J2405; J7030; Q9967

== ENCOUNTER 2025-09-16 02:36 | Day surgery (SDC) | payer OTHER ==
[2025-09-16] MEDS ORDERED: NS IV SCH (06:00)
[2025-09-16] MEDS ORDERED: Ondansetron HCl 2 MG / ML 2ML Vial IV SCH (06:00)
[2025-09-16] MEDS ORDERED: TOCILIZUMAB IV SCH (06:00)
[2025-09-16] MEDS ORDERED: Ketorolac Tromethamine 30mg Vial IM SCH (06:00)
--- NOTE | 2025-09-16 08:00 | NUR ---
Pt reports she is her only for her actemra. Pt reports Dr. Cortes told her to hold off on getting her IVF for how. Pt will contact [facility] staff when she will plan to restart her IVF. Pt has appt on 09/26/25 for labs from her port.
[2025-09-16 08:17] VITALS: BP 131/69
== END 2025-09-16 09:56 | disposition home or self-care (01) ==
LOC: ATC 02:36
DX: M31.6 Other giant cell arteritis (principal); R62.7 Adult failure to thrive; Z88.2 Allergy status to sulfonamides; Z88.5 Allergy status to narcotic agent; Z88.1 Allergy status to other antibiotic agents; Z88.8 Allergy status to other drugs, medicaments and biological substances; Z91.048 Other nonmedicinal substance allergy status
CPT/HCPCS: 96365; 96372; 96375; 96413; J1885; J2405; J3262